=== PATIENT | male | born 1940 | race Caucasian/White ===

== ENCOUNTER → 2016-06-16 | Outpatient (CLI) | payer MEDICARE, OTHER ==
[~2016-06-16] MED LIST: ASPI-586 PO; BACL20TA PO; CARB1TAB6 PO; CATHETER FLUSH 10 ML SYR IV PRN; HYDR-3820 PO; OMEP20TA33 PO; PRD20T PO; SIMV40TA4 PO; TAMS0.4C98 PO
[2016-06-16 13:30] VITALS: BP 183/81
[2016-06-16 13:40] VITALS: BP 205/72
[2016-06-16 13:45] VITALS: BP 209/87
[2016-06-16 13:47] VITALS: BP 187/84
[2016-06-16 13:49] VITALS: BP 169/77
[2016-06-16 13:51] VITALS: BP 181/81
--- NOTE | 2016-06-17 07:38 | STRESS TEST ---
PROCEDURE PHYSICIAN: ADDY FORD DATE OF PROCEDURE: 06/16/2016 LEXISCAN MYOVIEW STRESS TEST REPORT: REFERRING PHYSICIAN: Dr. Luanne Garcia at neurology. INDICATION: 1. Dyspnea. 2. Hypertension. BASELINE HEART RATE: 100 BASELINE BLOOD PRESSURE: 152/80 BASELINE EKG: Sinus rhythm with artifact. IN SUMMARY: The patient was injected with 10.56 mCi of technetium 99 Myoview and the resting images were obtained. Then the patient started exercising with a baseline heart rate, blood pressure and EKG mentioned above. At minute 6 and 30 seconds, the patient was injected with 30.6 mCi of technetium 99 Myoview. He was able to finish a total 7 minutes, 30 seconds on standard Josep protocol. With peak exercise level, EKG was showing [address] depression in 2, 3, aVF, occasional PVCs were noted. Blood pressure was 188/77. During recovery, he had more pronounced ST depression, still slightly upsloping in 2, 3, aVF, V3, V4, V5 and V6. Blood pressure was 209/87. At the end of the test, EKG started returning to baseline. The resting and stress images were reviewed and compared in the short axis, horizontal long axis, and vertical long axis views. Review of the images showed diaphragmatic attenuation with typical male pattern. There was no significant ischemia or infarction on SPECT images. SSS is 4, SDS 4, TID value 0.93. On the gated images, the left ventricle appeared to be normal size with normal contractility. Calculated ejection fraction 62%. IN CONCLUSION: 1. Good exercise tolerance a total 7 minutes, 30 seconds on standard on standard Josep protocol. Total of 10.1 METs, achieving over 100% of maximum expected heart rate. 2. Severe hypertensive response to exercise. Returned to baseline during recovery. 3. Nondiagnostic EKG changes with exercise, persisted during recovery with occasional PVCs. 4. Diaphragmatic attenuation with no significant ischemia or infarction on SPECT images. 5. Normal left ventricular size with normal contractility. Calculated ejection fraction 62%. Job ID: [id number] Dictated Date: 06/16/2016 15:51:33 Hospitality Director Date: 06/17/2016 07:32:49 / jeremias
== END ==
LOC: CARD 12:22
PROVIDERS: ATTEND Internal Medicine Cardiovascular Disease
DX: I10 Essential (primary) hypertension (principal); E78.2 Mixed hyperlipidemia; G47.33 Obstructive sleep apnea (adult) (pediatric); E66.9 Obesity, unspecified; G20 Parkinson's disease; R94.31 Abnormal electrocardiogram [ECG] [EKG]
CPT/HCPCS: 78452; 93017

== ENCOUNTER → 2016-07-28 | Outpatient (CLI) | payer MEDICARE, OTHER ==
[~2016-07-28] MED LIST changes: -CATHETER FLUSH 10 ML SYR IV PRN
[2016-07-28 09:02] LABS: BASOPHILS % (AUTO) 0 % (0-10); EOSINOPHILS # (AUTO) 0.2 10^3/uL (0.0-0.3); EOSINOPHILS % (AUTO) 4 % (0-10); LYMPHOCYTES # (AUTO) 1.1 X 10^3 (1.0-4.0); LYMPHOCYTES % (AUTO) 20 % (12-44); MEAN CORPUSCULAR HEMOGLOBIN 31 PG (25-34); MEAN CORPUSCULAR HGB CONC 34 G/DL (32-36); MEAN CORPUSCULAR VOLUME 89 FL (80-99); MEAN PLATELET VOLUME 9.6 FL (7.4-10.4); MONOCYTES # (AUTO) 0.5 X 10^3 (0.0-1.0); MONOCYTES % (AUTO) 10 % (0-12); NEUTROPHILS # (AUTO) 3.6 X 10^3 (1.8-7.8); NEUTROPHILS % (AUTO) 66 % (42-75); PLATELET COUNT 314 10^3/uL (130-400); RED BLOOD COUNT 4.53 10^6/uL (4.35-5.85); RED CELL DISTRIBUTION WIDTH 12.7 % (10.0-14.5); WHITE BLOOD COUNT 5.4 10^3/uL (4.3-11.0)
[2016-07-28 09:20] LABS: ALANINE AMINOTRANSFERASE 20 U/L (0-55); ALBUMIN 4.3 G/DL (3.2-4.5); ANION GAP 11 MMOL/L (5-14); ASPARTATE AMINO TRANSFERASE 15 U/L (5-34); BILIRUBIN,TOTAL 0.5 MG/DL (0.1-1.0); BLOOD UREA NITROGEN 14 MG/DL (7-18); BUN/CREATININE RATIO 19; CALCIUM 9.4 MG/DL (8.5-10.1); CARBON DIOXIDE 29 MMOL/L (21-32); CHLORIDE 102 MMOL/L (98-107); CREATININE SERUM 0.72 MG/DL (0.60-1.30); GFR ESTIMATED > 60; GLUCOSE 106 MG/DL (70-105); POTASSIUM 3.1 MMOL/L (3.6-5.0); SODIUM 142 MMOL/L (135-145); TOTAL PROTEIN 6.7 G/DL (6.4-8.2)
--- NOTE | 2016-07-28 09:20 | Diagnostic Imaging Report ---
INDICATION: PARKINSONS DISEASE TREMOR,STIFFNESS,SLOW MOTION,UNSTABLE POSTURE COMPARISON: 01/13/2016. FINDINGS: Frontal and lateral views of the chest demonstrate normal heart size and pulmonary vascularity. There is aortic atherosclerosis. The lungs are clear. There are no signs of infiltrate, pleural effusions or pneumothoraces. The visualized osseous structures show no acute abnormalities. IMPRESSION: 1. No acute process. No signs of infiltrates, effusions or pneumothoraces. Dictated by: Dictated on workstation # [id number]
== END ==
LOC: RAD 08:17
PROVIDERS: ATTEND Family Medicine
DX: G20 Parkinson's disease (principal)
CPT/HCPCS: 36415; 71020; 80053; 85025

== ENCOUNTER → 2017-02-18 | Outpatient (CLI) | payer OTHER ==
--- NOTE | 2017-02-18 11:39 | Diagnostic Imaging Report ---
Two views of the right tibia and fibula. INDICATION: Fall. FINDINGS: No fracture, dislocation or radiopaque foreign body is seen. The proximal and distal joints appear grossly unremarkable. IMPRESSION: No fracture seen. Dictated by: Dictated on workstation # [id number]
--- NOTE | 2017-02-18 12:32 | Diagnostic Imaging Report ---
EXAMINATION: Three views of the right foot. INDICATION: Fall. FINDINGS: Degenerative changes at the tarsometatarsal joint level are seen with no displacement. There are also sclerotic changes at these joints noted. This could be related to an old injury. There is a circumscribed lucency measuring 4 mm in the proximal phalanx of the third digit shaft. No adjacent cortical erosion. Vascular calcifications are seen. IMPRESSION: 1. No fracture seen. 2. Prominent degenerative changes at the tarsometatarsal joint level could relate to old injury. 3. Circumscribed lucency within the mid shaft of the proximal phalanx in the third toe could be an intraosseous cyst. Dictated by: Dictated on workstation # [id number]
== END ==
LOC: RAD 09:19
PROVIDERS: ATTEND Family Medicine
DX: M79.661 Pain in right lower leg (principal); M79.671 Pain in right foot; M19.071 Primary osteoarthritis, right ankle and foot; W19.XXXA Unspecified fall, initial encounter
CPT/HCPCS: 73590; 73630

== ENCOUNTER 2017-02-23 10:00 | Outpatient (CLI) | payer MEDICARE, OTHER ==
[~2017-02-23] VITALS: Ht 170.2 cm; Wt 97.3 kg
[2017-02-23 10:43] VITALS: BP 111/64
[2017-02-23 11:17] LABS: BASOPHILS % (AUTO) 1 % (0-10); EOSINOPHILS # (AUTO) 0.3 10^3/uL (0.0-0.3); EOSINOPHILS % (AUTO) 5 % (0-10); LYMPHOCYTES # (AUTO) 1.1 X 10^3 (1.0-4.0); LYMPHOCYTES % (AUTO) 19 % (12-44); MEAN CORPUSCULAR HEMOGLOBIN 29 PG (25-34); MEAN CORPUSCULAR HGB CONC 34 G/DL (32-36); MEAN CORPUSCULAR VOLUME 86 FL (80-99); MEAN PLATELET VOLUME 9.9 FL (7.4-10.4); MONOCYTES # (AUTO) 0.7 X 10^3 (0.0-1.0); MONOCYTES % (AUTO) 11 % (0-12); NEUTROPHILS # (AUTO) 3.7 X 10^3 (1.8-7.8); NEUTROPHILS % (AUTO) 65 % (42-75); PLATELET COUNT 317 10^3/uL (130-400); RED BLOOD COUNT 4.51 10^6/uL (4.35-5.85); RED CELL DISTRIBUTION WIDTH 14.3 % (10.0-14.5); WHITE BLOOD COUNT 5.7 10^3/uL (4.3-11.0)
[2017-02-23 11:41] LABS: ANION GAP 9 MMOL/L (5-14); BLOOD UREA NITROGEN 18 MG/DL (7-18); BUN/CREATININE RATIO 25; CALCIUM 9.2 MG/DL (8.5-10.1); CARBON DIOXIDE 31 MMOL/L (21-32); CHLORIDE 99 MMOL/L (98-107); CREATININE SERUM 0.71 MG/DL (0.60-1.30); GFR ESTIMATED > 60; GLUCOSE 102 MG/DL (70-105); POTASSIUM 3.3 MMOL/L (3.6-5.0); SODIUM 139 MMOL/L (135-145)
[2017-02-23] MEDS ORDERED: CHOL5000 PO (11:55)
[2017-02-23] MEDS ORDERED: SIMV40TA4 PO (11:55)
[2017-02-23] MEDS ORDERED: LISI40TA PO (11:55)
[2017-02-23] MEDS ORDERED: AMLO10TA2 PO (11:55)
[2017-02-23] MEDS ORDERED: FLUT9.9S NS (11:55)
[2017-02-23] MEDS ORDERED: FURO20TA4 PO (11:55)
[2017-02-23] MEDS ORDERED: HYDR25TA4 PO (11:55)
[2017-02-23] MEDS ORDERED: MULT-351 PO (11:55)
[2017-02-23] MEDS ORDERED: ESCI5TAB12 PO (11:55)
[2017-02-23] MEDS ORDERED: FINA5TAB6 PO (11:55)
[2017-02-23] MEDS ORDERED: PROP80TA3 PO (11:55)
== END 2017-02-23 16:12 | disposition home or self-care (01) ==
LOC: PREOP 10:00
PROVIDERS: ATTEND Urology
DX: Z01.812 Encounter for preprocedural laboratory examination (principal); Z11.2 Encounter for screening for other bacterial diseases; N40.1 Benign prostatic hyperplasia with lower urinary tract symptoms; R33.8 Other retention of urine
CPT/HCPCS: 36415; 80048; 85025; 86850; 86900; 86901; 87081

== ENCOUNTER 2017-02-28 06:10 | Day surgery (SDC) | payer MEDICARE, OTHER ==
[~2017-02-28] VITALS: Ht 170.2 cm; Wt 97.3 kg
[~2017-02-28 06:10] MED LIST changes: +AMLO10TA2 PO; +CHOL5000 PO; +ESCI5TAB12 PO; +FINA5TAB6 PO; +FLUT9.9S NS; +FURO20TA4 PO; +HYDR25TA4 PO; +LISI40TA PO; +MULT-351 PO; +PROP80TA3 PO
[2017-02-28 06:15] VITALS: BP 148/68
--- OUTSIDE RECORDS SUMMARY | 2017-02-28 06:25 | XMS REPORT | Continuity of Care Document ---
Author Author [employer] Organization [facility] Address Unknown Phone Unavailable Care Team Providers Care Try Out Person Name Role Phone [employer] Unavailable Unavailable Problems Medications Allergies, Adverse Reactions, Alerts Immunizations Results Vital Signs Encounters Location Location Details Encounter Type Encounter Number Reason For Visit Attending Provider ADM Date DC Date Status Source OUTPATIENT [id number] YOUSIF MORENO 08/30/20162016 Active [facility] OUTPATIENT [id number] EARL MENDOZA 11/18/2016 11/18/2016 Active [facility] O 12/02/2016 Active [facility] OUTPATIENT [id number] EARL MENDOZA 12/02/2016 Active [facility] OUTPATIENT [id number] 12/13/2016 Active [facility] OUTPATIENT [id number] 03/21/2017 Active [facility] OUTPATIENT [id number] 03/22/2017 Active [facility] OUTPATIENT [id number] 09/05/2017 Active [facility] OUTPATIENT [id number] 09/06/2017 Active [facility] Procedures Plan of Care Social History Assessment and Plan Family History Value Date Source Advance Directives Order Name Results Value Date Source
--- OUTSIDE RECORDS SUMMARY | 2017-02-28 06:26 | XMS REPORT | Clinical Summary ---
Author Author [facility] Organization [facility] Address Unknown Phone Unavailable Care Team Providers Care Cna Ltc Name Role Phone PCP Unavailable Source Comments Some departments are not documenting in the electronic medical record. If you do not see the information that you expected, contact Release of Information in the Health Information Management department at [phone] for further assistance in locating additional records.[facility] Allergies No Known Allergies Current Medications Prescription Sig. Disp. Refills Start End Date Status Date tamsulosin (FLOMAX) 0.4 Take 0.4 mg by mouth Active mg capsule twice daily. omeprazole DR(+) Take 20 mg by mouth at Active (PRILOSEC) 20 mg capsule bedtime daily. lisinopril (PRINIVIL, Take 20 mg by mouth Active ZESTRIL) 40 mg tablet daily. amLODIPine (NORVASC) 10 Take 10 mg by mouth Active mg tablet daily. hydroCHLOROthiazide Take 25 mg by mouth Active (HYDRODIURIL) 25 mg daily. tablet finasteride (PROSCAR) 5 Take 5 mg by mouth daily. Active mg tablet fluticasone (FLONASE) 50 Apply 1 [place] to each Active mcg/actuation nasal spray nostril as directed at bedtime daily. Shake bottle gently before using. aspirin EC 81 mg tablet Take 1 Tab by mouth 90 Tab 3 10/17/19 Active daily. Do not resume [address] Voss MULTIVITAMIN PO Take 1 tablet by mouth Active daily. Ibuprofen-Diphenhydramine Take 2 tablets by mouth Active (ADVIL PM) 200-38 mg tab at bedtime daily. simvastatin (ZOCOR) 40 mg Take 40 mg by mouth at Active tablet bedtime daily. Take 0.5 tabs at bedtime escitalopram oxalate Take 1 tablet by mouth 90 tablet 3 12/14/19 Active (LEXAPRO) 20 mg daily. 17 tabletIndications: Other depression propranolol LA (INDERAL TAKE ONE CAPSULE BY MOUTH 90 capsule 3 Active LA) 80 mg capsule DAILY 17 Active Problems Problem Noted Date Wound infection complicating hardware (HCC) 07/01/2016 Depression 06/12/2016 Overview: 06/12/2016 On Lexapro (escitalopram) L ast Assessment & Plan: He c/o of increased anxiety and I recommended increasing Lexapro (escitalopram) 20 mg daily. Side effects were discussed with the patient and he was given a list of common side effects. Urinary retention 02/25/2016 Parkinson's disease (HCC) 02/19/2016 Hypertension 02/18/2016 Mixed hyperlipidemia 02/18/2016 Parkinson disease with Left Brain STN implant (A) 08/25/2015 Overview: Formatting of this note may be different from the original. Symptoms began in 2014, initial symptoms was right hand tremor. Diagnosed with Parkinson's disease in 2015. Atypical PD Features: None No improvement with Sinemet (carbidopa/levodopa) 25/100, Topamax (topiramate), benztropine and Inderal (propranolol) 08/25/2015 Total Mentation Score: 2 Total Activities of Daily Living Score: 8 Total Motor Exam: 16 Total UPDRS Score: 26 PDQ Total Percent: 14.1 % 12/16/2015 PDQ Total Percent: 32.05 % Pre-DBS evaluation - Off state. Upon review of past notes, he has tried Sinemet, had some benefit, but could not tolerate above 2 tabs TID. Total Mentation Score: 4 Total Activities of Daily Living Score: 9 Total Motor Exam: 22 Total UPDRS Score: 35 PDQ Total Percent: 32.05 % 12/19/2015 Total Mentation Score: 4 Total Activities of Daily Living Score: 7 Total Motor Exam: 20 Total UPDRS Score: 31 Mobility Gait Evaluation: With Sinemet (carbidopa/levodopa) 25/100 his gait speed improved, deep reduced, stride length was reduced, arm swing velocity improved and range of movement improved, sagittal and coronal sway was increased. 06/12/2016 PDQ8 Total %: 16 Marked improvement with Deep Brain Stimulation. Abott Device Personal KinetiGraph (PKG) Movement Recording: Bradykinesia: 23.8 Dyskinesia: 1.9 FDS: 8.6 12/13/2016 PDQ8 Total %: 3 Stimulator Settings: LEFT BRAIN/ RIGHT BODY Amplitude: 2.8 mA Pulse Width: 60 micro secs Rate: 130 pps Load Impedance: 1087 ohms Leads: 1 Off,2 Off,3 -,4 Off, Case + Battery: 3 years 1 months L ast Assessment & Plan: His symptoms are improved since last visit and no medication changes were recommended during the current visit. Patient was referred to the programming nurse to have IPG checked and reprogrammed. Patient was referred for Physical Therapy. Encounters Date Type Specialty Care Team Description 12/28/2016 Refill Neurology Shai Bernard MD 12/13/2016 [facility] Shai Bernard MD Encounter Joana Trinidad RN 12/13/2016 Office Visit Neurology Shai Bernard MD Parkinson disease with Left Brain STN implant (A) (Primary Dx);Other depression 12/13/2016 Orders Only Neurology Shai Bernard MD 12/02/2016 [facility] Shai Bernard MD Encounter Joana Trinidad RN 12/02/2016 Orders Only Neurology Shai Bernard MD from Last 3 Months Family History Medical History Relation Name Comments Cancer Brother Cancer Father Diabetes Father Stroke Father Tremor Father Diabetes Mother Parkinson's Neg Hx Relation Name Status Comments Brother Father Mother Social History Tobacco Use Types Packs/Day Years Used Date Former Smoker Cigarettes 0.5 2 Quit: 02/17/1970 Smokeless Tobacco: Never Used Alcohol Use Drinks/Week oz/Week Comments Yes 7 Glasses of 4.2 glass of wine every evening wine Sex Assigned at Date Recorded Not on file Last Filed Vital Signs Vital Sign Reading Time Taken Blood Pressure 140/77 12/13/2016 10:42 AM CDT Pulse 62 12/13/2016 10:42 AM CDT Temperature 36.6 C (97.9 F) 10/16/2016 2:15 PM CDT Respiratory Rate 16 06/22/2016 8:57 AM CDT Oxygen Saturation 96% 10/16/2016 2:15 PM CDT Inhaled Oxygen - - Concentration Weight 94 kg (207 lb 3.7 oz) 12/13/2016 10:39 AM CDT Height 164.5 cm (5' 4.75") 12/13/2016 10:39 AM CDT Body Mass Index 34.75 12/13/2016 10:39 AM CDT Plan of Treatment Health Maintenance Due Date Last Done Comments PHYSICAL (COMPREHENSIVE) 1947 EXAM PERTUSSIS VACCINE 1951 TETANUS VACCINE 1957 SHINGLES VACCINE 2000 PREVNAR/PNEUMOVAX (#1) 2005 INFLUENZA VACCINE 10/12/2016 Implants Implanted Type Area Lead Generation Marketing Manager Device Expiration Model / Identifier Date Serial / Lot Guardian Burrr Hole Cover Left: [employer] 05/20/2018 6010 / Implanted: Qty: 1 on 08/05/2016 by Skull [id number] / Denton Voss MD [id number] Lead Kit 8-Ch 40cm Black Left: [employer] 02/08/2018 6172 / Implanted: Qty: 1 on 08/05/2016 by Brain [id number] / Denton Voss MD [id number] Extension With Extend Technology Left: [employer] 08/02/2018 [id number] / 50cm - [id number] Chest [id number] / Implanted: Qty: 1 on 10/16/2016 by [id number] Denton Voss MD Infinity 7 Ipg Generator - Left: [employer] 01/20/2018 [id number] / [id number] Chest [id number] / Implanted: Qty: 1 on 10/16/2016 by [id number] Denton Voss MD Explanted Type Area Lead Generation Marketing Manager Device Expiration Model / Identifier Date Serial / Lot Lead Kit 8-Ch 40cm Black Left: [employer] 10/28/2017 6172 / Implanted: Qty: 1 on 02/19/2016 by Brain [id number] / Denton Voss MD [id number] Explanted: Qty: 1 on 06/30/2016 by Denton Voss MD Guardian Burrr Hole Cover Left: [employer] 01/08/2018 6010 / Implanted: Qty: 1 on 02/19/2016 by Jens [id number] / Denton Voss MD [id number] Explanted: Qty: 1 on 06/30/2016 by Denton Voss MD Infinity Dbs System Left: Neck [facility] [employer] 11/25/2017 6371 / Implanted: Qty: 1 on 02/25/2016 by [id number] / Denton Voss MD [id number] Explanted: Qty: 1 on 06/30/2016 by Denton Voss MD Infinity 7 Left: [employer] 09/30/2017 6662 / Implanted: Qty: 1 on 02/25/2016 by Chest [id number] / Denton Voss MD [id number] Explanted: Qty: 1 on 06/30/2016 by Denton Voss MD Procedures Procedure Name Priority Date/Time Associated Diagnosis Comments PROGRAM DBS DEVICE(S) Routine 12/13/2016 12:00 AM CDT PROGRAM DBS DEVICE(S) Routine 12/02/2016 12:00 AM CDT from Last 3 Months Results * PROGRAM DBS DEVICE(S) (12/13/2016) Specimen Performing Laboratory IN CLINIC * PROGRAM DBS DEVICE(S) (12/02/2016) Specimen Performing Laboratory IN CLINIC from Last 3 Months
--- OUTSIDE RECORDS SUMMARY | 2017-02-28 06:26 | XMS REPORT | Encounter Summary ---
Author Author [facility] Organization [facility] Address Unknown Phone Unavailable Care Team Providers Care Potato Peeling Machine Operator Name Role Phone PCP Unavailable Encounter Details Date Type Department Care Team Description 12/13/2016 Orders Only [facility] Shai Bernard MD Physicians-Neurology [address] [facility] [address] [place] [address] [place], [place] [phone] Social History Tobacco Use Types Packs/Day Years Used Date Former Smoker Cigarettes 0.5 2 Quit: 02/17/1970 Smokeless Tobacco: Never Used Alcohol Use Drinks/Week oz/Week Comments Yes 7 Glasses of 4.2 glass of wine every evening wine Sex Assigned at Date Recorded Not on file as of this encounter Functional Status Functional Status Response Date of Assessment Does the patient have a hearing impairment: Yes 12/13/2016 Does the patient have a visual impairment: Yes 06/09/2016 Does the patient have impaired ambulation: No 12/13/2016 Does the patient have an activity of daily living No 12/13/2016 (ADL) impairment: Does the patient have an instrumental activity of Yes 12/13/2016 daily living (IADL) impairment: Cognitive Status Response Date of Assessment Does the patient have a cognitive impairment: No 12/13/2016 as of this encounter Plan of Treatment Not on fileas of this encounter Procedures Procedure Name Priority Date/Time Associated Diagnosis Comments PROGRAM DBS DEVICE(S) Routine 12/13/2016 12:00 AM CDT in this encounter Visit Diagnoses Not on filein this encounter
--- OUTSIDE RECORDS SUMMARY | 2017-02-28 06:26 | XMS REPORT | Encounter Summary ---
Author Author [facility] Organization [facility] Address Unknown Phone Unavailable Care Team Providers Care Sales Representative Leather Goods Name Role Phone PCP Unavailable Reason for Visit * Reason Comments Medication Refill Encounter Details Date Type Department Care Team Description 12/28/2016 Refill [facility] Shai Bernard MD - Neurology [address] [place] [address] [place] [address] [phone] Social History Tobacco Use Types Packs/Day Years [...] Treatment Not on fileas of this encounter Visit Diagnoses Not on filein this encounter
--- OUTSIDE RECORDS SUMMARY | 2017-02-28 06:26 | XMS REPORT | Encounter Summary ---
Author Author [facility] Organization [facility] Address Unknown Phone Unavailable Care Team Providers Care Child Adolescent Care Name Role Phone PCP Unavailable Encounter Details Date Type Department Care Team Description 12/13/2016 Hospital MOVEMENT DISORDERS Shai Bernard MD [facility] [address] [facility] [address] [facility] [place] [place] [address] [address] [place] [address] [phone] B Joana rodriguez RN Social History Tobacco Use Types Packs/Day Years [...] impairment: No 12/13/2016 as of this encounter Medications at Time of Discharge Medication Sig. Disp. Refills Start Date End Date amLODIPine (NORVASC) 10 Take 10 mg by mouth mg tablet daily. aspirin EC 81 mg tablet Take 1 Tab by mouth 90 Tab 3 10/16/2016 daily. Do not resume until okayed by Dr. Voss escitalopram oxalate Take 1 tablet by mouth 90 tablet 3 12/13/2016 (LEXAPRO) 20 mg daily. tabletIndications: Other depression finasteride (PROSCAR) 5 Take 5 mg by mouth daily. mg tablet fluticasone (FLONASE) 50 Apply 1 [place] to each mcg/actuation nasal spray nostril as directed at bedtime daily. Shake bottle gently before using. hydroCHLOROthiazide Take 25 mg by mouth (HYDRODIURIL) 25 mg daily. tablet Ibuprofen-Diphenhydramine Take 2 tablets by mouth (ADVIL PM) 200-38 mg tab at bedtime daily. lisinopril (PRINIVIL, Take 20 mg by mouth ZESTRIL) 40 mg tablet daily. MULTIVITAMIN PO Take 1 tablet by mouth daily. omeprazole DR(+) Take 20 mg by mouth at (PRILOSEC) 20 mg capsule bedtime daily. simvastatin (ZOCOR) 40 mg Take 40 mg by mouth at tablet bedtime daily. Take 0.5 tabs at bedtime tamsulosin (FLOMAX) 0.4 Take 0.4 mg by mouth mg capsule twice daily. propranolol LA (INDERAL Take 1 Cap by mouth 90 Cap 3 12/17/2015 LA) 80 mg capsule daily. as of this encounter Progress Notes * Joana Trinidad RN - 12/13/2016 3:40 PM CDT Patient here for 1st three month STN/DBS programming and appointment with cnc operator programmer and Dr. Bernard. in this encounter Miscellaneous Notes * Patient Education - Jonaa Trinidad RN - 12/13/2016 3:39 PM CDT Formatting of this note may be different from the original. Patient Caregiver Education: Department Contacts/phone numbers: Yes Safety for diathermy: No Patient resources: Yes Diagnostics: Yes Medical alert identification: No Exercise: Yes Hardware maintenance/problems: Yes Dental care: No Diet: Yes Patient cnc operator programmer education: On/off status: Yes Self Adjustments: Yes Battery status: Yes Educational Goals/Outcomes; Patient/Family will verbalize understanding to the following: Yes/No Comments Disease Process Yes Diagnostic Procedures Yes Treatment Plan Yes Medications Yes Nutrition/Diet Yes Personal Hygiene No Side Effect Management Yes Medical Equipment Yes Safety Yes Discharge Instructions Yes Other in this encounter Plan of Treatment Not on fileas of this encounter Visit Diagnoses Diagnosis Parkinson's disease (HCC) Paralysis agitans Parkinson disease (HCC) Paralysis agitans in this encounter
--- OUTSIDE RECORDS SUMMARY | 2017-02-28 06:26 | XMS REPORT | Encounter Summary ---
Author Author [facility] Organization [facility] Address Unknown Phone Unavailable Care Team Providers Care Biology Intern Name Role Phone PCP Unavailable Reason for Referral * Consult, Test & Treat Status Reason Specialty Diagnoses / Referred By Referred To Procedures Contact Contact No Auth Needed Specialty Physical Therapy Diagnoses Shai Bernard, ERIC [facility] Parkinson THERAPY [facility] (H[facility]) [address] [place] [address] [place] [id number] Phone: Reason for Visit * Reason Comments Parkinson's Disease accompanied by Encounter Details Date Type Department Care Team Description 12/13/2016 Office Visit [facility] Shai Bernard MD Parkinson disease with Physicians-Neurology [address] [facility] Left Brain STN implant [facility] [address] (A) (Primary Dx);Other [address] [place] [address] depression [place], [place] [phone] Social History Tobacco Use Types Packs/Day Years Used Date Former Smoker Cigarettes 0.5 2 Quit: 02/17/1970 Smokeless Tobacco: Never Used Alcohol Use Drinks/Week oz/Week Comments Yes 7 Glasses of 4.2 glass of wine every evening wine Sex Assigned at Date Recorded Not on file as of this encounter Last Filed Vital Signs Vital Sign Reading Time Taken Blood Pressure 140/77 12/13/2016 10:42 AM CDT Pulse 62 12/13/2016 10:42 AM CDT Temperature - - Respiratory Rate - - Oxygen Saturation - - Inhaled Oxygen - - Concentration Weight 94 kg (207 lb 3.7 oz) 12/13/2016 10:39 AM CDT Height 164.5 cm (5' 4.75") 12/13/2016 10:39 AM CDT Body Mass Index 34.75 12/13/2016 10:39 AM CDT in this encounter Functional Status Functional Status Response [...] impairment: No 12/13/2016 as of this encounter Instructions * Patient Instructions - Shai Bernard MD - 12/13/2016 10:45 AM CDT Increase Lexapro (escitalopram) 20 mg daily Common Side Effects As with all medications, there are potential side effects that may occur. Common side effects include nausea, dry mouth, constipation, dizziness, headache , diarrhea, insomnia, increased appetite, decreased sex drive, ejaculation difficulty, and impotency. Very rarely in patients usually younger than 24 years of age, increased suicidal thinking and behavior has been reported. Remember to call [phone] if you have any questions or side effects. in this encounter Progress Notes * Shai Bernard MD - 12/13/2016 10:45 AM CDT Formatting of this note may be different from the original. Date of Service: 12/13/2016 Subjective: Tai Weber is a 76 y.o. male. History of Present Illness Parkinson's Disease Follow-Up Visit Since my last visit I am: Much better Symptoms Scale: Memory problems: Slight, not bothersome Hallucinations/delusions: None Depression: Slight, not bothersome Anxiety: Slight, not bothersome Apathy: None Impulsive behavior: Slight, urges under control Nighttime sleep: Mild, wake up to go to bathroom Daytime sleepiness: Slight, occasionally Vivid dreams: None REM sleep behavior disorder: None Restless leg syndrome: None Pain or muscle cramps: Mild, muscle or joint pain need medications Urination: Moderate, occasional accidents Constipation: Slight, occasionally Dizziness or lightheadedness: None Tiredness/Fatigue: Slight, reduced stamina Falling: Slight, rarely during the year Personal care assistance: Slight, I take care of myself, but several activities take me longer to complete Total Score: Total Score: 16 Assistive Devices: Assistive devices for getting around: None OFF Time: OFF time: No Dyskinesia: Dyskinesia while awake: No Employment Status: Employment: Retired - not due to PD Review of Systems Gastrointestinal: Positive for constipation and diarrhea. Negative for abdominal distention, abdominal pain, anal bleeding, blood in stool, nausea, rectal pain and vomiting. Genitourinary: Positive for decreased urine volume, enuresis, flank pain and frequency. Negative for difficulty urinating, discharge, dysuria, genital sores , hematuria, penile pain, penile swelling, scrotal swelling, testicular pain and urgency. Objective: amLODIPine (NORVASC) 10 mg tablet Take 10 mg by mouth daily. aspirin EC 81 mg tablet Take 1 Tab by mouth daily. Do not resume until okayed by Dr. Voss escitalopram oxalate (LEXAPRO) 20 mg tablet Take 1 tablet by mouth daily. finasteride (PROSCAR) 5 mg tablet Take 5 mg by mouth daily. fluticasone (FLONASE) 50 mcg/actuation nasal spray Apply 1 [place] to each nostril as directed at bedtime daily. Shake bottle gently before using. hydroCHLOROthiazide (HYDRODIURIL) 25 mg tablet Take 25 mg by mouth daily. Ibuprofen-Diphenhydramine (ADVIL PM) 200-38 mg tab Take 2 tablets by mouth at bedtime daily. lisinopril (PRINIVIL, ZESTRIL) 40 mg tablet Take 20 mg by mouth daily. MULTIVITAMIN PO Take 1 tablet by mouth daily. omeprazole DR(+) (PRILOSEC) 20 mg capsule Take 20 mg by mouth at bedtime daily. propranolol LA (INDERAL LA) 80 mg capsule Take 1 Cap by mouth daily. simvastatin (ZOCOR) 40 mg tablet Take 40 mg by mouth at bedtime daily. Take 0.5 tabs at bedtime tamsulosin (FLOMAX) 0.4 mg capsule Take 0.4 mg by mouth twice daily. Vitals: 12/13/16 1039 12/13/16 1042 BP: 149/70 140/77 Pulse: 56 62 Weight: 94 kg (207 lb 3.7 oz) Height: 164.5 cm (64.75") Body mass index is 34.75 kg/(m^2). Physical Exam EXAMINATION: ORIENTATION: Alert and Oriented. Cranial Nerves: II-XII Unremarkable Right Left [place]inesia Mild None Tremor Hands Resting None None Postural None None Kinetic None None Tremor Other: None Dyskinesia: None Muscle Strength: Unremarkable Gait: Independent with minor impairment PDQ8 - Quality of Life Had difficulty getting around in public places?: Never Had difficulty dressing?: Never [place] depressed?: Never Had problems with your close personal relationships?: Occasionally Had problems with your concentration, for example, when reading or watching TV? : Never [place] unable to communicate effectively?: Never Had painful muscle cramps or spasms?: Never [place] embarrassed in public due to having Parkinson's disease?: Never PDQ8 Total Score (32 Possible): 1 PDQ8 Total %: 3 Assessment and Plan: Problem Parkinson disease with Left Brain STN implant (A) Symptoms began in 2014, initial symptoms was [...] Case + Battery: 3 years 1 months Depression 06/12/2016 On Lexapro (escitalopram) Parkinson disease with Left Brain STN implant (A) His symptoms are improved since last visit and no medication changes were recommended during the current visit. Patient was referred to the programming nurse to have IPG checked and reprogrammed. Patient was referred for Physical Therapy. Depression He c/o of increased anxiety and I recommended increasing Lexapro (escitalopram) 20 mg daily. Side effects were discussed with the patient and he was given a list of common side effects. Patient will follow up in approximately 3 months. in this encounter Miscellaneous Notes * Assessment & Plan Note - Shai Bernard MD - 12/13/2016 7:53 PM CDT Associated Problem(s): Depression He c/o of increased anxiety and I recommended increasing Lexapro (escitalopram) 20 mg daily. Side effects were discussed with the patient and he was given a list of common side effects. * Assessment & Plan Note - Shai Bernard MD - 12/13/2016 7:52 PM CDT Associated Problem(s): Parkinson disease with Left Brain STN implant (A) His symptoms are improved since last visit and no medication changes were recommended during the current visit. Patient was referred to the programming nurse to have IPG checked and reprogrammed. Patient was referred for Physical Therapy. in this encounter Plan of Treatment Name Priority Associated Diagnoses Order Schedule AMB REFERRAL TO PHYSICAL THERAPY Routine Parkinson disease with Ordered : 12/13/2016 Left Brain STN implant (A) as of this encounter Visit Diagnoses Diagnosis Parkinson disease with Left Brain STN implant (A) - Primary Paralysis agitans Other depression in this encounter
--- OUTSIDE RECORDS SUMMARY | 2017-02-28 06:26 | XMS REPORT | Encounter Summary ---
Author Author [facility] Organization [facility] Address Unknown Phone Unavailable Care Team Providers Care Circular Head Saw Operator Name Role Phone PCP Unavailable Encounter Details Date Type Department Care Team Description 12/02/2016 Hospital MOVEMENT DISORDERS Shai Bernard MD Encounter [address] [facility] [address] [facility] [place] [address] [address] [place] [address] [phone] B Joana rodriguez RN Social History Tobacco [...] the patient have a hearing impairment: Yes 08/05/2016 Does the patient have a visual impairment: Yes 06/09/2016 Does the patient have impaired ambulation: No 06/09/2016 Does the patient have an activity of daily living Yes 06/09/2016 (ADL) impairment: Does the patient have an instrumental activity of Yes 06/09/2016 daily living (IADL) impairment: Cognitive Status Response Date of Assessment Does the patient have a cognitive impairment: No 06/09/2016 as of this encounter Medications at Time of Discharge Medication Sig. Disp. Refills Start Date End Date amLODIPine (NORVASC) 10 Take 10 mg by mouth mg tablet daily. aspirin EC 81 mg tablet Take 1 Tab by mouth 90 Tab 3 10/16/2016 daily. Do not resume until okayed by Dr. Voss finasteride (PROSCAR) 5 Take 5 mg by mouth daily. mg tablet fluticasone (FLONASE) 50 Apply 1 [place] to each mcg/actuation nasal spray nostril as [...] at (PRILOSEC) 20 mg capsule bedtime daily. tamsulosin (FLOMAX) 0.4 Take 0.4 mg by mouth mg capsule twice daily. escitalopram oxalate TAKE ONE TABLET BY MOUTH 30 Tab 11 10/12/2016 12/13/2016 (LEXAPRO) 10 mg tablet DAILY propranolol LA (INDERAL Take 1 Cap by mouth 90 Cap 3 12/17/2015 LA) 80 mg capsule daily. simvastatin (ZOCOR) 80 mg Take 40 mg by mouth at 12/13/2016 tablet bedtime daily. as of this encounter Progress Notes * Joana Trinidad RN - 12/02/2016 2:00 PM CDT Patient here for day two of initial programming of deep brain stimulator for Parkinson's Disease. in this encounter Miscellaneous Notes * Patient Education - Joana Trinidad RN - 12/02/2016 1:30 PM CDT Formatting of this note may be different from the original. 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
--- OUTSIDE RECORDS SUMMARY | 2017-02-28 06:26 | XMS REPORT | Encounter Summary ---
Author Author [facility] Organization [facility] Address Unknown Phone Unavailable Care Team Providers Care Trigonometry Tutor Name Role Phone PCP Unavailable Encounter Details Date Type Department Care Team Description 12/02/[address] [facility] Shai Bernard MD Physicians-Neurology [address] [facility] [address] [place] [address] [place], [place] [phone] Social History Tobacco Use Types Packs/Day Years [...] impairment: No 06/09/2016 as of this encounter Plan of Treatment Not on fileas of this encounter Procedures Procedure Name Priority Date/Time Associated Diagnosis Comments PROGRAM DBS DEVICE(S) Routine 12/02/2016 12:00 AM CDT in this encounter Visit Diagnoses Not on filein this encounter
--- OUTSIDE RECORDS SUMMARY | 2017-02-28 06:27 | XMS REPORT | Continuity of Care Document ---
Author Author [facility] Organization [facility] Address Unknown Phone Unavailable Allergies Active Description Code Type Severity Reaction Onset Reported/Identified Relationship to Patient Clinical Status Yes No Known Drug Allergies [id number] Drug Allergy Unknown N/A 02/23/2017 Medications There is no data. Problems Date Dx Coded Attending Type Code Diagnosis Diagnosed By 02/11/1244 BANDAR CHARLES MD Ot G20 PARKINSON'S DISEASE 06/25/2014 NADIA MEJIA MD R Ot 781.0 06/25/2014 NADIA MEJIA MD R Ot 781.0 08/10/2014 NADIA MEJIA MD R Ot 781.0 08/22/2014 NADIA MEJIA MD R Ot 781.0 12/27/2014 ZEV BLAS Ot M51.36 OTHER INTERVERTEBRAL DISC DEGENERATION, 12/27/2014 ZEV BLAS Ot M54.16 RADICULOPATHY, LUMBAR REGION 12/27/2014 ZEV BLAS Ot M54.5 LOW BACK PAIN 12/27/2014 ZEV BLAS Ot M84.48XA PATHOLOGICAL FRACTURE, OTHER SITE, INIT 09/24/2015 NADIA MEJIA MD R Ot 781.0 ABN INVOLUN MOVEMENT NEC 10/23/2015 NADIA MEJIA MD Ot 781.0 ABN INVOLUN MOVEMENT NEC 12/12/2015 BANDAR CHARLES MD Ot G20 PARKINSON'S DISEASE 01/13/2016 NADIA MEJIA MD Ot 781.0 ABN INVOLUN MOVEMENT NEC 01/19/2016 NADIA MEJIA MD Ot G20 PARKINSON'S DISEASE 01/29/2016 ADDY FORD MD Ot E66.9 OBESITY, UNSPECIFIED 01/29/2016 ADDY FORD MD Ot E78.2 MIXED HYPERLIPIDEMIA 01/29/2016 ADDY FORD MD Ot G47.33 OBSTRUCTIVE SLEEP APNEA (ADULT) (PEDIATR 01/29/2016 ADDY FORD MD J Ot I10 ESSENTIAL (PRIMARY) HYPERTENSION 01/29/2016 ADDY FORD MD Ot E66.9 OBESITY, UNSPECIFIED 01/29/2016 ADDY FORD MD Ot E78.2 MIXED HYPERLIPIDEMIA 01/29/2016 ADDY FORD MD Ot G47.33 OBSTRUCTIVE SLEEP APNEA (ADULT) (PEDIATR 01/29/2016 ADDY FORD MD Ot I10 ESSENTIAL (PRIMARY) HYPERTENSION 01/30/2016 ADDY FORD MD Ot E66.9 OBESITY, UNSPECIFIED 01/30/2016 ADDY FORD MD Ot E78.2 MIXED HYPERLIPIDEMIA 01/30/2016 ADDY FORD MD Ot G47.33 OBSTRUCTIVE SLEEP APNEA (ADULT) (PEDIATR 01/30/2016 ADDY FORD MD Ot I10 ESSENTIAL (PRIMARY) HYPERTENSION 02/03/2016 ADDY FORD MD Ot E66.9 OBESITY, UNSPECIFIED 02/03/2016 ADDY FORD MD Ot E78.2 MIXED HYPERLIPIDEMIA 02/03/2016 ADDY FORD MD Ot G47.33 OBSTRUCTIVE SLEEP APNEA (ADULT) (PEDIATR 02/03/2016 ADDY FORD MD Ot I10 ESSENTIAL (PRIMARY) HYPERTENSION 02/03/2016 NADIA MEJIA MD R Ot G20 PARKINSON'S DISEASE 02/18/2016 ADDY FORD MD Ot E66.9 OBESITY, UNSPECIFIED 02/18/2016 ADDY FORD MD Ot E78.2 MIXED HYPERLIPIDEMIA 02/18/2016 ADDY FORD MD Ot G47.33 OBSTRUCTIVE SLEEP APNEA (ADULT) (PEDIATR 02/18/2016 ADDY FORD MD Ot I10 ESSENTIAL (PRIMARY) HYPERTENSION 02/24/2016 NADIA MEJIA MD R Ot G20 PARKINSON'S DISEASE 03/09/2016 ADDY FORD MD Ot E66.9 OBESITY, UNSPECIFIED 03/09/2016 ADDY FORD MD Ot E78.2 MIXED HYPERLIPIDEMIA 03/09/2016 ADDY FORD MD Ot G47.33 OBSTRUCTIVE SLEEP APNEA (ADULT) (PEDIATR 03/09/2016 ADDY FORD MD Ot I10 ESSENTIAL (PRIMARY) HYPERTENSION 06/16/2016 ADDY FORD MD Ot R94.31 ABNORMAL ELECTROCARDIOGRAM [ECG] [EKG] 06/16/2016 ADDY FORD MD Ot R94.31 ABNORMAL ELECTROCARDIOGRAM [ECG] [EKG] 06/16/2016 ADDY FORD MD Ot R94.31 ABNORMAL ELECTROCARDIOGRAM [ECG] [EKG] 07/19/2016 ADDY FORD MD Ot E66.9 OBESITY, UNSPECIFIED 07/19/2016 ADDY FORD MD Ot E78.2 MIXED HYPERLIPIDEMIA 07/19/2016 ADDY FORD MD Ot G20 PARKINSON'S DISEASE 07/19/2016 ADDY FORD MD Ot G47.33 OBSTRUCTIVE SLEEP APNEA (ADULT) (PEDIATR 07/19/2016 ADDY FORD MD Ot I10 ESSENTIAL (PRIMARY) HYPERTENSION 07/19/2016 ADDY FORD MD Ot R94.31 ABNORMAL ELECTROCARDIOGRAM [ECG] [EKG] 08/04/2016 ADDY FORD MD Ot E66.9 OBESITY, UNSPECIFIED 08/04/2016 ADDY FORD MD Ot E78.2 MIXED HYPERLIPIDEMIA 08/04/2016 ADDY FORD MD Ot G20 PARKINSON'S DISEASE 08/04/2016 ADDY FORD MD Ot G47.33 OBSTRUCTIVE SLEEP APNEA (ADULT) (PEDIATR 08/04/2016 ADDY FORD MD Ot I10 ESSENTIAL (PRIMARY) HYPERTENSION 08/04/2016 ADDY FORD MD Ot R94.31 ABNORMAL ELECTROCARDIOGRAM [ECG] [EKG] 08/23/2016 ROBERTO TATE, NADIA Cotto Ot G20 PARKINSON'S DISEASE 02/21/2017 BANDAR CHARLES MD Ot M19.071 PRIMARY OSTEOARTHRITIS, RIGHT ANKLE AND 02/21/2017 BANDAR CHARLES MD Ot M79.661 PAIN IN RIGHT LOWER LEG 02/21/2017 BANDAR CHARLES MD Ot M79.671 PAIN IN RIGHT FOOT 02/21/2017 BANDAR CHARLES MD Ot W19.XXXA UNSPECIFIED FALL, INITIAL ENCOUNTER Procedures There is no data. Results Test Result Range Complete blood count (CBC) with automated white blood cell (WBC) differential - 01/13/16 16:02 Blood leukocytes automated count (number/volume) 8.1 10*3/uL 4.3-11.0 Blood erythrocytes automated count (number/volume) 4.78 10*6/uL 4.35-5.85 Venous blood hemoglobin measurement (mass/volume) 15.0 g/dL 13.3-17.7 Blood hematocrit (volume fraction) 43 % 40-54 Automated erythrocyte mean corpuscular volume 90 [foz_us] 80-99 Automated erythrocyte mean corpuscular hemoglobin (mass per erythrocyte) 31 pg 25-34 Automated erythrocyte mean corpuscular hemoglobin concentration measurement ( mass/volume) 35 g/dL 32-36 Automated erythrocyte distribution width ratio 12.5 % 10.0-14.5 Automated blood platelet count (count/volume) 245 10*3/uL 130-400 Automated blood platelet mean volume measurement 10.3 [foz_us] 7.4-10.4 Automated blood neutrophils/100 leukocytes 71 % 42-75 Automated blood lymphocytes/100 leukocytes 18 % 12-44 Blood monocytes/100 leukocytes 10 % 0-12 Automated blood eosinophils/100 leukocytes 2 % 0-10 Automated blood basophils/100 leukocytes 1 % 0-10 Blood neutrophils automated count (number/volume) 5.7 10*3 1.8-7.8 Blood lymphocytes automated count (number/volume) 1.4 10*3 1.0-4.0 Blood monocytes automated count (number/volume) 0.8 10*3 0.0-1.0 Automated eosinophil count 0.1 10*3/uL 0.0-0.3 Automated blood basophil count (count/volume) 0.0 10*3/uL 0.0-0.1 Comprehensive metabolic panel - 01/13/16 16:02 Serum or plasma sodium measurement (moles/volume) 143 mmol/L 135-145 Serum or plasma potassium measurement (moles/volume) 3.8 mmol/L 3.6-5.0 Serum or plasma chloride measurement (moles/volume) 109 mmol/L 98-107 Carbon dioxide 22 mmol/L 21-32 Serum or plasma anion gap determination (moles/volume) 12 mmol/L 5-14 Serum or plasma urea nitrogen measurement (mass/volume) 17 mg/dL 7-18 Serum or plasma creatinine measurement (mass/volume) 0.71 mg/dL 0.60-1.30 Serum or plasma urea nitrogen/creatinine mass ratio 24 NRG Serum or plasma creatinine measurement with calculation of estimated glomerular filtration rate > NRG Serum or plasma glucose measurement (mass/volume) 105 mg/dL 70-105 Serum or plasma calcium measurement (mass/volume) 9.2 mg/dL 8.5-10.1 Serum or plasma total bilirubin measurement (mass/volume) 0.5 mg/dL 0.1-1.0 Serum or plasma alkaline phosphatase measurement (enzymatic activity/volume) 52 U/L 40-136 Serum or plasma aspartate aminotransferase measurement (enzymatic activity/ volume) 14 U/L 5-34 Serum or plasma alanine aminotransferase measurement (enzymatic activity/volume ) 16 U/L 0-55 Serum or plasma protein measurement (mass/volume) 6.6 g/dL 6.4-8.2 Serum or plasma albumin measurement (mass/volume) 4.3 g/dL 3.2-4.5 Complete urinalysis with reflex to culture - 01/13/16 16:05 Urine color determination YELLOW NRG Urine clarity determination CLEAR NRG Urine pH measurement by test strip 5 5-9 Specific gravity of urine by test strip 1.020 1.016- 1.022 Urine protein assay by test strip, semi-quantitative NEGATIVE NEGATIVE Urine glucose detection by automated test strip NEGATIVE NEGATIVE Erythrocytes detection in urine sediment by light microscopy NEGATIVE NEGATIVE Urine ketones detection by automated test strip NEGATIVE NEGATIVE Urine nitrite detection by test strip NEGATIVE NEGATIVE Urine total bilirubin detection by test strip NEGATIVE NEGATIVE Urine urobilinogen measurement by automated test strip (mass/volume) NORMAL NORMAL Urine leukocyte esterase detection by dipstick NEGATIVE NEGATIVE Automated urine sediment erythrocyte count by microscopy (number/high power field) RARE NRG Automated urine sediment leukocyte count by microscopy (number/high power field ) NONE NRG Bacteria detection in urine sediment by light microscopy NONE NRG Crystals detection in urine sediment by light microscopy NONE NRG Casts detection in urine sediment by light microscopy NONE NRG Mucus detection in urine sediment by light microscopy MODERATE NRG Complete urinalysis with reflex to culture NO NRG Complete blood count (CBC) with automated white blood cell (WBC) differential - 07/28/16 08:57 Blood leukocytes automated count (number/volume) 5.4 10*3/uL 4.3-11.0 Blood erythrocytes automated count (number/volume) 4.53 10*6/uL 4.35-5.85 Venous blood hemoglobin measurement (mass/volume) 13.8 g/dL 13.3-17.7 Blood hematocrit (volume fraction) 40 % 40-54 Automated erythrocyte mean corpuscular volume 89 [foz_us] 80-99 Automated erythrocyte mean corpuscular hemoglobin (mass per erythrocyte) 31 pg 25-34 Automated erythrocyte mean corpuscular hemoglobin concentration measurement ( mass/volume) 34 g/dL 32-36 Automated erythrocyte distribution width ratio 12.7 % 10.0-14.5 Automated blood platelet count (count/volume) 314 10*3/uL 130-400 Automated blood platelet mean volume measurement 9.6 [foz_us] 7.4-10.4 Automated blood neutrophils/100 leukocytes 66 % 42-75 Automated blood lymphocytes/100 leukocytes 20 % 12-44 Blood monocytes/100 leukocytes 10 % 0-12 Automated blood eosinophils/100 leukocytes 4 % 0-10 Automated blood basophils/100 leukocytes 0 % 0-10 Blood neutrophils automated count (number/volume) 3.6 10*3 1.8-7.8 Blood lymphocytes automated count (number/volume) 1.1 10*3 1.0-4.0 Blood monocytes automated count (number/volume) 0.5 10*3 0.0-1.0 Automated eosinophil count 0.2 10*3/uL 0.0-0.3 Automated blood basophil count (count/volume) 0.0 10*3/uL 0.0-0.1 Comprehensive metabolic panel - 07/28/16 08:57 Serum or plasma sodium measurement (moles/volume) 142 mmol/L 135-145 Serum or plasma potassium measurement (moles/volume) 3.1 mmol/L 3.6-5.0 Serum or plasma chloride measurement (moles/volume) 102 mmol/L 98-107 Carbon dioxide 29 mmol/L 21-32 Serum or plasma anion gap determination (moles/volume) 11 mmol/L 5-14 Serum or plasma urea nitrogen measurement (mass/volume) 14 mg/dL 7-18 Serum or plasma creatinine measurement (mass/volume) 0.72 mg/dL 0.60-1.30 Serum or plasma urea nitrogen/creatinine mass ratio 19 NRG Serum or plasma creatinine measurement with calculation of estimated glomerular filtration rate > NRG Serum or plasma glucose measurement (mass/volume) 106 mg/dL 70-105 Serum or plasma calcium measurement (mass/volume) 9.4 mg/dL 8.5-10.1 Serum or plasma total bilirubin measurement (mass/volume) 0.5 mg/dL 0.1-1.0 Serum or plasma alkaline phosphatase measurement (enzymatic activity/volume) 51 U/L 40-136 Serum or plasma aspartate aminotransferase measurement (enzymatic activity/ volume) 15 U/L 5-34 Serum or plasma alanine aminotransferase measurement (enzymatic activity/volume ) 20 U/L 0-55 Serum or plasma protein measurement (mass/volume) 6.7 g/dL 6.4-8.2 Serum or plasma albumin measurement (mass/volume) 4.3 g/dL 3.2-4.5 Complete blood count (CBC) with automated white blood cell (WBC) differential - 02/23/17 10:50 Blood leukocytes automated count (number/volume) 5.7 10*3/uL 4.3-11.0 Blood erythrocytes automated count (number/volume) 4.51 10*6/uL 4.35-5.85 Venous blood hemoglobin measurement (mass/volume) 13.0 g/dL 13.3-17.7 Blood hematocrit (volume fraction) 39 % 40-54 Automated erythrocyte mean corpuscular volume 86 [foz_us] 80-99 Automated erythrocyte mean corpuscular hemoglobin (mass per erythrocyte) 29 pg 25-34 Automated erythrocyte mean corpuscular hemoglobin concentration measurement ( mass/volume) 34 g/dL 32-36 Automated erythrocyte distribution width ratio 14.3 % 10.0-14.5 Automated blood platelet count (count/volume) 317 10*3/uL 130-400 Automated blood platelet mean volume measurement 9.9 [foz_us] 7.4-10.4 Automated blood neutrophils/100 leukocytes 65 % 42-75 Automated blood lymphocytes/100 leukocytes 19 % 12-44 Blood monocytes/100 leukocytes 11 % 0-12 Automated blood eosinophils/100 leukocytes 5 % 0-10 Automated blood basophils/100 leukocytes 1 % 0-10 Blood neutrophils automated count (number/volume) 3.7 10*3 1.8-7.8 Blood lymphocytes automated count (number/volume) 1.1 10*3 1.0-4.0 Blood monocytes automated count (number/volume) 0.7 10*3 0.0-1.0 Automated eosinophil count 0.3 10*3/uL 0.0-0.3 Automated blood basophil count (count/volume) 0.0 10*3/uL 0.0-0.1 Whole blood basic metabolic panel - 02/23/17 10:50 Serum or plasma sodium measurement (moles/volume) 139 mmol/L 135-145 Serum or plasma potassium measurement (moles/volume) 3.3 mmol/L 3.6-5.0 Serum or plasma chloride measurement (moles/volume) 99 mmol/L 98-107 Carbon dioxide 31 mmol/L 21-32 Serum or plasma anion gap determination (moles/volume) 9 mmol/L 5-14 Serum or plasma urea nitrogen measurement (mass/volume) 18 mg/dL 7-18 Serum or plasma creatinine measurement (mass/volume) 0.71 mg/dL 0.60-1.30 Serum or plasma urea nitrogen/creatinine mass ratio 25 NRG Serum or plasma creatinine measurement with calculation of estimated glomerular filtration rate > NRG Serum or plasma glucose measurement (mass/volume) 102 mg/dL 70-105 Serum or plasma calcium measurement (mass/volume) 9.2 mg/dL 8.5-10.1 Blood type T Indirect antibody screen panel - 02/23/17 10:50 ABO+Rh group ABP NRG Blood group antibody screen NEGATIVE NRG Methicillin resistant Staphylococcus aureus (MRSA) screening culture - 10:50 Methicillin resistant Staphylococcus aureus (MRSA) screening culture NEG NRG Encounters ACCT No. Visit Date/Time Discharge Status Pt. Type Provider Facility Loc./Unit Complaint [id number] 02/23/2017 08:00:00 02/23/2017 23:59:59 CLS Preadmit LINO SAAVEDRA MD [facility] SDC RETENTION [id number] 02/23/2017 10:00:00 02/23/2017 16:12:00 DIS Outpatient LINO SAAVEDRA MD [facility] PREOP RETENTION [id number] 02/18/2017 09:19:00 02/18/2017 23:59:59 CLS Outpatient BANDAR CHARLES MD [facility] RAD PAIN IN RIGHT LOWER LEG M79.661 [id number] 07/28/2016 09:26:00 07/28/2016 23:59:59 CLS Preadmit EARL MENDOZA MD [facility] REHAB PARKINSONS [id number] 07/28/2016 08:17:00 07/28/2016 23:59:59 CLS Outpatient NADIA MEJIA MD [facility] RAD PARKINSONS DISEASE [id number] 06/16/2016 12:22:00 06/16/2016 23:59:59 CLS Outpatient ADDY FORD MD [facility] CARD HTN,DB ON CPAP, [id number] 02/04/2016 11:14:00 02/04/2016 12:45:00 DIS Outpatient BANDAR CHARLES MD [facility] REHAB PARKINSONS DISEASE [id number] 01/28/2016 12:02:00 01/28/2016 23:59:59 CLS Outpatient ADDY FORD MD [facility] CARD HTN,MIXED HLP,DB ON CPAP,OBESITY [id number] 01/13/2016 15:26:00 01/13/2016 23:59:59 CLS Outpatient NADIA MEJIA MD [facility] CARD PARKINSONS DISEASE [id number] 12/11/2015 09:43:00 12/12/2015 17:00:00 DIS Outpatient BANDAR CHARLES MD [facility] REHAB PARKINSONS DISEASE [id number] 12/27/2014 11:42:00 12/27/2014 23:59:59 CLS Emergency ZEV BLAS [facility] ER RT SIDED PAIN [id number] 06/19/2014 13:59:00 06/19/2014 23:59:59 CLS Outpatient NADIA MEJIA MD [facility] RAD PERSISTANT TREMORS
--- NOTE | 2017-02-28 07:01 | Progress Note-Pre Operative ---
Pre-Operative Progress Note H&P Reviewed The H&P was reviewed, patient examined and no changes noted. Date Seen by Provider: Feb 28, 2017 Time Seen by Provider: 07:01 Date H&P Reviewed: Feb 28, 2017 Time H&P Reviewed: 07:01 Pre-Operative Diagnosis: BPH WITH PROSTATISM AND RETENTION LINO SAAVEDRA MD Feb 28, 2017 7:01 am
[2017-02-28] MEDS ORDERED: PROPOFOL INJECTION 50 ML IV ONE (07:02)
[2017-02-28] MEDS ORDERED: MIDAZOLAM 2 MG/2 ML (VERSED) VIAL ONE (07:03)
[2017-02-28] MEDS ORDERED: cefTRIAXone 1 GM/NS 50 ML IVPB IV ONE ×2 (07:15)
[2017-02-28] MEDS ORDERED: LACTATED RINGERS 1,000 ML IV PRN (07:52)
[2017-02-28] MEDS ORDERED: FAMOTIDINE 20MG/2ML IV (PEPCID) IV ONE (08:00)
[2017-02-28] MEDS ORDERED: cefTRIAXone INJECTION 1,000 MG in NS (IVPB) 50 ML IV ONE (08:00)
--- NOTE | 2017-02-28 08:40 | Progress Note-Post Operative ---
Post-Operative Progess Note Surgeon (s)/Senior Accounting Associate (s) Surgeon LINO SAAVEDRA MD Senior Accounting Associate: N/A Pre-Operative Diagnosis BPH WITH PROSTATISM AND RETENTION Post-Operative Diagnosis SAME Procedure & Operative Findings Date of Procedure 02/28/17 Procedure Performed/Findings TURP Anesthesia Type SPINAL Estimated Blood Loss Estimated blood loss (mL): KAREN THAN 100CC Specimens/Packing Specimens Removed PROSTATE CHIPS Packing: N/A LINO SAAVEDRA MD Feb 28, 2017 8:40 am
[2017-02-28] MEDS ORDERED: FUROSEMIDE 20 MG (LASIX) TAB PO SCH (08:45)
[2017-02-28] MEDS ORDERED: MILK OF MAGNESIA 400 MG/5 ML 30 ML UDC PO PRN (08:45)
[2017-02-28] MEDS ORDERED: HYDROcodone/APAP 10 MG/325 MG (LORTAB) TAB PO PRN (08:45)
[2017-02-28] MEDS ORDERED: ZOLPIDEM 5 MG (AMBIEN) TAB PO PRN (08:45)
[2017-02-28] MEDS ORDERED: ONDANSETRON 4 MG/2 ML (SDV) Z0FRAN IVP PRN (09:00)
[2017-02-28] MEDS: LACTATED RINGERS 1,000 ML IV SCH ×4 (09:48→20:57)
[2017-02-28 10:00] VITALS: BP 189/77
[2017-02-28 12:00] VITALS: BP 136/61
[2017-02-28] MEDS: PROPRANOLOL 20 MG (INDERAL) TABLET PO SCH (12:04)
[2017-02-28] MEDS: DOCUSATE SODIUM 100 MG (COLACE) CAP PO SCH ×2 (12:05→19:53)
[2017-02-28] MEDS: MULTIVIT W/MINERALS TAB (THERAGRAN M) PO SCH (12:11)
[2017-02-28] MEDS: amLODIPine 10 MG (NORVASC) TAB PO SCH (12:11)
[2017-02-28] MEDS: lisINopril 20 MG (ZESTRIL) TAB PO SCH (12:11)
[2017-02-28] MEDS: PANTOPRAZOLE 20 MG TABLET (PROTONIX) PO SCH (12:11)
[2017-02-28] MEDS: HYDROCHLOROTHIAZIDE 25 MG (HCTZ) TAB PO SCH (12:13)
[2017-02-28] MEDS: BELLADONNA ALK/OPIUM (B & O) 30 MG SUPP PR PRN ×2 (14:25→21:30)
[2017-02-28] MEDS ORDERED: FUROSEMIDE 20 MG (LASIX) TAB PO PRN (15:00)
[2017-02-28] MEDS ORDERED: LOPERAMIDE 2 MG (IMODIUM) CAP PO PRN (15:15)
[2017-02-28] MEDS ORDERED: LOPERAMIDE 2 MG (IMODIUM) CAP PO NR (15:15)
[2017-02-28 15:55] VITALS: BP 142/63
--- NOTE | 2017-02-28 16:55 | OPERATIVE REPORT ---
DATE OF SERVICE: 02/28/2017 PREOPERATIVE DIAGNOSIS: BPH with prostatism and retention. POSTOPERATIVE DIAGNOSIS: BPH with prostatism and retention. OPERATION PERFORMED: Transurethral resection of the prostate. SURGEON: LINO SAAVEDRA MD ANESTHESIA: Spinal. COMPLICATIONS: None. PROCEDURE: Under satisfactory spinal anesthesia, the patient in lithotomy position, genitalia were prepped and draped in the usual sterile fashion. Urethra was dilated with Barby sounds to #30 Divehi easily to accommodate a 27-Divehi Aldrich resectoscope. I did visualize a trilobar enlargement of the prostate causing complete bladder neck obstruction with trabeculations. Ureteric orifices were identified as well as the veru. First I resected the median lobe and leveled it deep to the level of the veru including the floor, then the groove was resected from 11-1 o'clock position, the right lateral lobe followed by the left lobe and finally the apical tissues. The capsule was visualized in many points. Bleeders were cauterized as the resection was proceeding. Resection was adequate and hemostasis satisfactory. The prostatic chips were evacuated and cystoscopy confirmed the integrity of the ureteral orifices, veru and sphincter reflex. The resectoscope was removed and a 22-Divehi 3-way 30 mL balloon catheter was inserted in the bladder, the balloon inflated to 40 mL, connected to continuous bladder irrigation. The return of which was pinkish at a slow drip. ESTIMATED BLOOD LOSS: Less than 100 mL, none which was replaced. The patient tolerated the procedure and anesthesia well and was sent to recovery room in stable condition. Job ID: [id number] DocumentID: [id number] Dictated Date: 02/28/2017 08:45:59 Assault Amphibious Vehicle Officer Date: 02/28/2017 15:08:37 Dictated By: LINO SAAVEDRA MD
[2017-02-28 20:00] VITALS: BP 125/63
[2017-02-28] MEDS ORDERED: VITAMIN D3 5,000 UNITS (CHOLECALCIFEROL ) CAPSULE PO SCH (21:00)
[2017-02-28] MEDS ORDERED: FLUTICASONE NASAL SPRAY (FLONASE) 16 GM BTL NS SCH (21:00)
[2017-02-28] MEDS ORDERED: ATORVASTATIN 20 MG (LIPITOR) TABLET PO SCH (21:00)
[2017-03-01] VITALS: BP 139/70
[2017-03-01 04:00] VITALS: BP 133/61
[2017-03-01] MEDS: MULTIVIT W/MINERALS TAB (THERAGRAN M) PO SCH (06:14)
[2017-03-01] MEDS: PANTOPRAZOLE 20 MG TABLET (PROTONIX) PO SCH (06:14)
[2017-03-01] MEDS: DOCUSATE SODIUM 100 MG (COLACE) CAP PO SCH (07:35)
--- NOTE | 2017-03-01 07:35 | Progress Note-Urology ---
Progress Note-Urology Progress Notes/Assess & Plan Progress/Assessment & Plan AFEBRILE, VSSS. DOING AND FEELING VERY WELL. URINE CRYSTAL CLEAR. PLAN DC DE LA ROSA AND IV Final Diagnosis BPH WITH PROSTATISM AND RETENTION LINO SAAVEDRA MD Mar 01, 2017 7:35 am
[2017-03-01 08:00] VITALS: BP 146/75
[2017-03-01] MEDS ORDERED: LEVOFLOXACIN 500 MG/100 ML IV 100 ML IV NR (08:45)
[2017-03-01] MEDS: lisINopril 20 MG (ZESTRIL) TAB PO SCH (09:14)
[2017-03-01] MEDS: amLODIPine 10 MG (NORVASC) TAB PO SCH (09:14)
[2017-03-01] MEDS: PROPRANOLOL 20 MG (INDERAL) TABLET PO SCH (09:14)
[2017-03-01] MEDS: LACTATED RINGERS 1,000 ML IV SCH ×2 (09:14→09:15)
[2017-03-01] MEDS: HYDROCHLOROTHIAZIDE 25 MG (HCTZ) TAB PO SCH (09:14)
[2017-03-01] MEDS ORDERED: CIPR-225 PO (11:47)
[2017-03-01 12:03] VITALS: BP 146/75
== END 2017-03-01 12:03 | disposition home or self-care (01) ==
LOC: SDC 06:10 → 4TH 09:50 → SDC 03-01 12:03
PROVIDERS: ATTEND Urology
DX: N40.1 Benign prostatic hyperplasia with lower urinary tract symptoms (principal); R33.9 Retention of urine, unspecified; G20 Parkinson's disease; K21.9 Gastro-esophageal reflux disease without esophagitis; Z87.442 Personal history of urinary calculi; I10 Essential (primary) hypertension; E78.5 Hyperlipidemia, unspecified; G47.33 Obstructive sleep apnea (adult) (pediatric); Z87.891 Personal history of nicotine dependence; Z79.899 Other long term (current) drug therapy; Z79.82 Long term (current) use of aspirin
CPT/HCPCS: 94664

== ENCOUNTER → 2017-03-15 | Outpatient (CLI) | payer MEDICARE, OTHER ==
[~2017-03-15] MED LIST changes: +CIPR-225 PO
--- NOTE | 2017-03-15 12:12 | Diagnostic Imaging Report ---
CLINICAL INDICATION: Patient with right leg swelling. COMPARISON: None. PROCEDURE: Real-time right lower extremity venous Doppler duplex evaluation is performed from the inguinal region through the popliteal fossa. The calf venous structures are also evaluated. FINDINGS: The deep venous system is well visualized and is easily compressible. There is no evidence of deep venous thrombosis, valvular incompetence, or significant collateral circulation. IMPRESSION: There is no ultrasound Doppler evidence of deep venous thrombosis in the right lower extremity. Dictated by: Dictated on workstation # [id number]
== END ==
LOC: RAD 10:55
PROVIDERS: ATTEND Nurse Practitioner Family
DX: R60.0 Localized edema (principal)

== ENCOUNTER → 2017-05-18 | Outpatient (CLI) | payer MEDICARE, OTHER ==
--- NOTE | 2017-05-18 13:51 | Diagnostic Imaging Report ---
INDICATION: Right hip pain for several weeks and decreased range of motion. TIME OF EXAM: 12:26 p.m. Two views of the right hip demonstrate normal femoral acetabular alignment. There is mild superior joint space narrowing. Femoral head and neck are intact. No fractures are seen. Right-sided rami are intact. IMPRESSION: Mild hip joint space narrowing. No acute bony abnormality is detected. Dictated by: Dictated on workstation # [id number]
== END ==
LOC: RAD 11:55
PROVIDERS: ATTEND Family Medicine
DX: M25.551 Pain in right hip (principal); M25.851 Other specified joint disorders, right hip
CPT/HCPCS: 73502

== ENCOUNTER 2017-06-01 15:08 | Outpatient (RCR) | payer MEDICARE, OTHER | END 2017-06-29 | disposition home or self-care (01) | PROVIDERS: ATTEND Family Medicine | DX: M79.661 Pain in right lower leg (principal); M25.571 Pain in right ankle and joints of right foot ==

== ENCOUNTER → 2017-12-13 | Emergency (ER) | payer MEDICARE, OTHER ==
[~2017-12-13] VITALS: Ht 170.2 cm; Wt 97.3 kg
[~2017-12-13] MED LIST changes: -AMLO10TA2 PO; +AMLO10TA6 PO; +CEFD300C3 PO; +CEFDINIR 300 MG (OMNICEF) CAP PO ONE; +HYDROcodone /IBUPROFEN (VICOPROFEN) 7.5 MG/ 200 MG TAB PO ONE
--- NOTE | 2017-12-13 21:29 | ED General ---
General Chief Complaint: Trauma-Non Activation Stated Complaint: FALL HURT RIBS Nursing Triage Note: states that last fell on boat deck and landed on left arm and chest, then fell on shore. pain with inspiration but no pain with palpation Nursing Sepsis Screen: No Definite Risk Source of Information: Patient, Family Exam Limitations: No Limitations History of Present Illness Date Seen by Provider: Dec 13, 2017 Time Seen by Provider: 21:00 Initial Comments Here with complaint of left-sided rib pain. Fell last on a boat dock and landed on his left arm and chest and then fell again after finishing fishing onto the same area. Does have pain with deep inspiration. Concerned about rib fractures. States that it hurts to take a deep breath. Does report taking Tylenol 1000 mg at 4 p.m. and then a few hours later taking a couple of Tylenol PM and that has not helped the pain. We did discuss the fact that that' s too soon to take Tylenol back to back. He verbalizes understanding. Denies nausea or vomiting. Denies fever or chills. Denies abdominal pain. Does report that he's had difficulty with urination over the last week and that is different for him. Does have history of prostate problems. Location Injury Occurred: boat Timing/Duration: 4-5 Days Severity: Moderate Associated Systoms: No Chest Pain, No Cough, No Fever/Chills, No Nausea/ Vomiting; Shortness of Air; No Weakness Allergies and Home Medications Allergies Coded Allergies: No Known Drug Allergies (Unverified , 12/13/17) Home Medications Amlodipine Besylate 10 Mg Tablet, 10 MG PO DAILY, (Reported) Cholecalciferol (Vitamin D3) 5,000 Unit Capsule, 5,000 UNIT PO HS, (Reported) Ciprofloxacin HCl 500 Mg Tablet, 500 MG PO BID Prescribed by: MICHAEL SHAH on 03/01/17 1147 Escitalopram Oxalate 5 Mg Tablet, 5 MG PO DAILY, (Reported) Fluticasone Propionate 9.9 Ml [place].susp, 2 ML NS HS, (Reported) Furosemide 20 Mg Tablet, 20 MG PO PRN, (Reported) Hydrochlorothiazide 25 Mg Tablet, 25 MG PO DAILY, (Reported) Lisinopril 40 Mg Tablet, 20 MG PO DAILY, (Reported) Multivitamin 1 Each Tablet, 1 EACH PO DAILY, (Reported) Omeprazole Magnesium 20 Mg Tablet.dr, 20 MG PO DAILY, (Reported) Propranolol HCl 80 Mg Tablet, 80 MG PO DAILY, (Reported) Simvastatin 40 Mg Tablet, 40 MG PO HS, (Reported) Patient Home Medication List Home Medication List Reviewed: Yes Review of Systems Review of Systems Constitutional: see HPI; No chills, No fever EENTM: no symptoms reported Respiratory: see HPI, cough, short of breath Cardiovascular: no symptoms reported Gastrointestinal: no symptoms reported; No abdominal pain, No nausea, No vomiting Genitourinary: see HPI, decreased output; No hematuria; hesitancy Musculoskeletal: no symptoms reported Skin: change in color; No lesions Psychiatric/Neurological: No Symptoms Reported All Other Systems Reviewed Negative Unless Noted: Yes Past Isoxjdg-Ugcyba-Gxswaf Hx Past Med/Social Hx: Reviewed Nursing Past Med/Soc Hx Patient Social History Alcohol Use: Occasionally Uses Number of Drinks Today: Alcohol Beverage of Choice: Wine Recreational Drug Use: No Type Used: Cigars Former Smoker, Quit: Feb 28, 1970 Recent Foreign Travel: No Contact w/Someone Who Travel: No Recent Infectious Disease Expo: No Recent Hopitalizations: Yes (MULTIPLE SURGERYS 2017 FOR BRAIN STIMULATOR) Physical Abuse: No Sexual Abuse: No Mistreated: No Fear: No Immunizations Up To Date Tetanus Booster (TDap): Unknown PED Vaccines UTD: No Date of Pneumonia Vaccine: Nov 25, 2014 Date of Influenza Vaccine: Jan 12, 2017 Seasonal Allergies Seasonal Allergies: Yes (MILD) Past Medical History Surgeries: Yes (WRIST FX, DEEP BRAIN STIMULATOR X6 (HAD INFECTION)) Adenoidectomy, Tonsillectomy Respiratory: Yes (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) Currently Using CPAP: No Cardiac: Yes High Cholesterol, Hypertension Neurological: Yes Parkinson's Disease Reproductive Disorders: No Sexually Transmitted Disease: No HIV/AIDS: No Benign Prostatic Hyperpl, Prostate Problems, Kidney Stones Gastrointestinal: Yes Gastroesophageal Reflux, Chronic Diarrhea Musculoskeletal: Yes Arthritis Endocrine: No Hearing Impairment: Bilateral Hearing Aide Cancer: No Psychosocial: Yes (agent orange exposure) Anxiety, PTSD Integumentary: No Blood Disorders: No Adverse Reaction/Blood Tranf: No (N/A) Family Medical History Reviewed Nursing Family Hx Asthma 19 MOTHER Cardiovascular disease 19 FATHER Colon cancer G8 BROTHER Physical Exam-Suspected Sepsis Physical Exam Vital Signs Vital Signs - First Documented Capillary Refill : Less Than 3 Seconds Blood Pressure Mean: 88 Height, Weight, BMI Height: 5'7.00" Weight: 214lbs. 9.0oz. 97.057987vf; 33.6 BMI Method:Stated General Appearance: No Apparent Distress, WD/WN HEENT: PERRL/EOMI, Pharynx Normal Neck: Non Tender, Supple Respiratory: Lungs Clear, Normal Breath Sounds Cardiovascular: Regular Rate, Rhythm, No Murmur Gastrointestinal: Non Tender, Soft; No Distended, No Guarding, No Rebound Back: Normal Inspection, No CVA Tenderness, No Vertebral Tenderness Extremity: Normal Range of Motion, Non Tender Neurologic/Psychiatric: Alert, Oriented x3 Skin: warm/dry, ecchymosis Focused Exam Lactate Level 12/13/17 21:32: Lactic Acid Level 1.49 Lactic Acid Level Laboratory Tests Test 12/13/17 21:32 Lactic Acid Level 1.49 MMOL/L (0.50-2.00) Progress/Results/Core Measures Suspected Sepsis Recent Fever Within 48 Hours: Yes Infection Criteria Present: None New/Unexplained Altered Menta: No Sepsis Screen: No Definite Risk SIRS Temperature:100.7 Pulse: 70 Respiratory Rate: 16 Laboratory Tests 12/13/17 21:32: White Blood Count 13.0H Blood Pressure 132 /67 Mean: 88 12/13/17 21:32: Lactic Acid Level 1.49 Laboratory Tests 12/13/17 21:32: Creatinine 0.83, INR Comment 1.1, Platelet Count 258, Total Bilirubin 0.6 Results/Orders Lab Results Laboratory Tests Test 12/13/17 21:32 12/13/17 22:30 Range/Units White Blood Count 13.0 H 4.3-11.0 10^3/uL Red Blood Count 4.22 L 4.35-5.85 10^6/uL Hemoglobin 13.4 13.3-17.7 G/DL Hematocrit 37 L 40-54 % Mean Corpuscular Volume 89 80-99 FL Mean Corpuscular Hemoglobin 32 25-34 PG Mean Corpuscular Hemoglobin Concent 36 32-36 G/DL Red Cell Distribution Width 13.0 10.0-14.5 % Platelet Count 258 130-400 10^3/uL Mean Platelet Volume 9.9 7.4-10.4 FL Neutrophils (%) (Auto) 84 H 42-75 % Lymphocytes (%) (Auto) 5 L 12-44 % Monocytes (%) (Auto) 10 0-12 % Eosinophils (%) (Auto) 1 0-10 % Basophils (%) (Auto) 0 0-10 % Neutrophils # (Auto) 11.0 H 1.8-7.8 X 10^3 Lymphocytes # (Auto) 0.7 L 1.0-4.0 X 10^3 Monocytes # (Auto) 1.3 H 0.0-1.0 X 10^3 Eosinophils # (Auto) 0.1 0.0-0.3 10^3/uL Basophils # (Auto) 0.0 0.0-0.1 10^3/uL Neutrophils % (Manual) 90 % Lymphocytes % (Manual) 4 % Monocytes % (Manual) 5 % Eosinophils % (Manual) 0 % Basophils % (Manual) 1 % Band Neutrophils 0 % Blood Morphology Comment NORMAL Prothrombin Time 14.5 12.2-14.7 SEC INR Comment 1.1 0.8-1.4 Activated Partial Thromboplast Time 29 24-35 SEC Sodium Level 136 135-145 MMOL/L Potassium Level 3.6 3.6-5.0 MMOL/L Chloride Level 100 98-107 MMOL/L Carbon Dioxide Level 24 21-32 MMOL/L Anion Gap 12 5-14 MMOL/L Blood Urea Nitrogen 15 7-18 MG/DL Creatinine 0.83 0.60-1.30 MG/DL Estimat Glomerular Filtration Rate > 60 BUN/Creatinine Ratio 18 Glucose Level 137 H 70-105 MG/DL Lactic Acid Level 1.49 0.50-2.00 MMOL/L Calcium Level 9.6 8.5-10.1 MG/DL Corrected Calcium 9.4 8.5-10.1 MG/DL Total Bilirubin 0.6 0.1-1.0 MG/DL Aspartate Amino Transf (AST/SGOT) 14 5-34 U/L Alanine Aminotransferase (ALT/SGPT) 12 0-55 U/L Alkaline Phosphatase 50 40-136 U/L Total Protein 7.0 6.4-8.2 GM/DL Albumin 4.2 3.2-4.5 GM/DL Urine Color YELLOW Urine Clarity CLEAR Urine pH 6 5-9 Urine Specific [place] 1.015 L 1.016-1.022 Urine Protein 1+ H NEGATIVE Urine Glucose (UA) NEGATIVE NEGATIVE Urine Ketones NEGATIVE NEGATIVE Urine Nitrite NEGATIVE NEGATIVE Urine Bilirubin NEGATIVE NEGATIVE Urine Urobilinogen NORMAL NORMAL MG/DL Urine Leukocyte Esterase 1+ H NEGATIVE Urine RBC (Auto) NEGATIVE NEGATIVE Urine RBC 0-2 /HPF Urine WBC 0-2 /HPF Urine Crystals NONE /LPF Urine Bacteria NEGATIVE /HPF Urine Casts NONE /LPF Urine Mucus LARGE H /LPF Urine Culture Indicated NO My Orders Orders - SURENDRA DUMONT MD Ct Chest Wo (12/13/17 21:19) Cbc With Automated Diff (12/13/17 21:19) Comprehensive Metabolic Panel (12/13/17 21:19) Blood Culture (12/13/17 21:19) Sputum Culture (12/13/17 21:19) Urinalysis (12/13/17:) Urine Culture (12/13/17:) Protime With Inr (12/13/17:) Partial Thromboplastin Time (12/13/17:19) Saline Lock/Iv-Start (12/13/17 21:19) Vital Signs Adult Sepsis Patie Q15M (12/13/17 21:19) Lactic Acid Analyzer (12/13/17 21:19) Chest Pa/Lat (2 View) (12/13/17 21:19) Manual Differential (12/13/17 21:32) Hydrocodone/Ibuprofen Tablet (Vicoprofen (12/13/17 23:00) Cefdinir Capsule (Omnicef Capsule) (12/13/17 23:30) Medications Given in ED Current Medications Medications Dose Ordered Sig/Mayra Route Start Time Stop Time Status Last Admin Dose Admin Hydrocodone Bitartrate/ Ibuprofen 1 each ONCE ONCE PO 12/13/17 23:00 12/13/17 23:01 DC 12/13/17 23:09 1 EACH Vital Signs/I&O 12/13/17 12/13/17 20:49 20:49 Temp 100.7 100.7 Pulse 70 70 Resp 16 16 B/P (MAP) 132/67 (88) 132/67 (88) Pulse Ox 96 96 Capillary Refill : Less Than 3 Seconds Blood Pressure Mean: 88 Progress Note : Progress Note Seen and evaluated. Initially considered just CT of the chest to evaluate for rib fractures but patient was noted to be febrile. We will initiate sepsis workup. This will include chest x-ray, labs, UA as well as the CT of the chest to evaluate rib fractures. Monitor patient. 2310: Patient does have rib fractures found on CT scan. Unsure of source of fever and may be viral but patient has significant risk factors with Parkinson's and implanted nerve stimulator. Does have risk for aspiration and pneumonia. Given the multiple concerns, will go ahead and treat with suspicion for pneumonia with concerns related to the rib fractures. Omnicef 300 mg by mouth given. We will continue his outpatient for one week. He is to follow-up with his primary care doctor in a few days for recheck. Patient did receive Vicoprofen one tablet by mouth for the rib pain. We will continue outpatient hydrocodone but he has at home. We did discuss incentive spirometer and he has that at home as well. He will use that several times per hour. Discharged home with return precautions. Patient family verbalized understanding of instructions and agreement with plan. Diagnostic Imaging Diagonstic Imaging: Xray Plain Films/CT/US/NM/MRI: chest Comments NAME: CHARLIE FLOYD Lat49 REC#: [id number] PT STATUS: REG ER : 1940 PHYSICIAN: SURENDRA DUMONT MD ADMIT DATE: 12/13/17/ER Signed Date of Exam: 12/13/17 CHEST PA/LAT (2 VIEW) INDICATION: Fall. Left rib pain. COMPARISON is made to a CT examination from earlier the same day. FINDINGS: The patient's known left anterior 6th and 7th rib fractures are not evident on this exam. The lungs appear clear. There is no focal consolidation and there is no effusion. There is no pneumothorax. Heart size appears normal without evidence of failure. An apparent vagal stimulator is present. IMPRESSION: 1. The patient's known left anterior 6th and 7th rib fractures are not evident by plain radiography. No acute cardiopulmonary process demonstrated. Dictated by: Dictated on workstation # [id number] Dict: 12/13/172148 Trans: 12/13/172228 Interpreted by: ARACELI GUDINO MD Electronically signed by: ARACELI GUDINO MD 12/13/172228 Diagonstic Imaging: CT Plain Films/CT/US/NM/MRI: chest Comments NAME: MARIELColtello Ristorante REC#: [id number] PT STATUS: REG ER : 1940 PHYSICIAN: SURENDRA DUMONT MD ADMIT DATE: 12/13/17/ER Signed Date of Exam: 12/13/17 CT CHEST WO PROCEDURE: CT chest without contrast. TECHNIQUE: Multiple contiguous axial images were obtained through the chest without the use of intravenous contrast. INDICATION: Fall 5 days prior. Left-sided rib pain with inspiration. CORRELATION is made with a chest radiograph from the same day. FINDINGS: The lungs demonstrate no evidence of focal pulmonary infiltrate or consolidation. There is no effusion. There is no pneumothorax. There is no pulmonary nodule or mass. The thoracic aorta demonstrates mild atherosclerosis within the arch and there are calcifications of the aortic valve. Aorta is normal in caliber. The main pulmonary artery is normal in size. Heart size appears normal. There is no pericardial effusion. There are no pathologically enlarged mediastinal lymph nodes demonstrated. There appear to be nondisplaced fractures of the left anterior sixth and seventh ribs. No right-sided rib fracture is evident. The visualized portion of the upper abdomen demonstrates atrophy of the pancreatic head with fatty infiltration of the pancreatic head and uncinate process. No acute upper abdominal abnormality demonstrated There are degenerative features present within the spine. There is chronic appearing wedging of T12. IMPRESSION: 1. Nondisplaced acute-appearing left anterior 6th and 7th rib fractures. 2. Chronic-appearing wedging of the T12 vertebral body. 3. The lungs appear clear without infiltrate, effusion or pneumothorax. 4. Atherosclerosis. Dictated by: Dictated on workstation # [id number] Dict: 12/13/[id number] Trans: 12/13/172228 Interpreted by: ARACELI GUDINO MD Electronically signed by: ARACELI GUDINO MD 12/13/172228 Departure Impression Primary Impression: Ribs, multiple fractures Qualified Codes: S22.42XA - Multiple fractures of ribs, left side, initial encounter for closed fracture Additional Impression: Fever in adult Disposition: 01 HOME, SELF-CARE Condition: Improved Departure-Patient Inst. Decision time for Depature: 23:24 Referrals: NADIA MEJIA MD (PCP/Family) Primary Care Physician Patient Instructions: Fever, Adult (DC), Rib Fracture (DC) Add. Discharge Instructions: All discharge instructions reviewed with patient and/or family. Voiced understanding. You may take your home hydrocodone-containing tablet every 6 hours as needed for pain. Do not take this with Tylenol/acetaminophen. Because they both have acetaminophen and then. If you're not taking the hydrocodone-containing tablet then you may take Tylenol/acetaminophen 2 tablets every 8 hours as needed for pain. Follow up with your Dr. in a few days for recheck. Use incentive spirometer several times per hour while awake to decrease her risk of infection/ pneumonia. Drink an adequate amount of fluids. Return for worse pain, fever, vomiting, weakness, breathing problems or other concerns as needed. Scripts Cefdinir (Cefdinir) 300 Mg Capsule 300 MG PO BID, #14 CAP 0 Refills Prov: SURENDRA DUMONT MD 12/13/17 Copy Copies To 1: NADIA MEJIA MD, TIMOTHY D MD Dec 13, 2017 21:29
[2017-12-13 21:39] LABS: BASOPHILS % (AUTO) 0 % (0-10); EOSINOPHILS # (AUTO) 0.1 10^3/uL (0.0-0.3); EOSINOPHILS % (AUTO) 1 % (0-10); HEMATOCRIT 37 % (40-54); HEMOGLOBIN 13.4 G/DL (13.3-17.7); LYMPHOCYTES # (AUTO) 0.7 X 10^3 (1.0-4.0); LYMPHOCYTES % (AUTO) 5 % (12-44); MEAN CORPUSCULAR HEMOGLOBIN 32 PG (25-34); MEAN CORPUSCULAR HGB CONC 36 G/DL (32-36); MEAN CORPUSCULAR VOLUME 89 FL (80-99); MEAN PLATELET VOLUME 9.9 FL (7.4-10.4); MONOCYTES # (AUTO) 1.3 X 10^3 (0.0-1.0); MONOCYTES % (AUTO) 10 % (0-12); NEUTROPHILS % (AUTO) 84 % (42-75); PLATELET COUNT 258 10^3/uL (130-400); RED BLOOD COUNT 4.22 10^6/uL (4.35-5.85)
[2017-12-13 21:51] LABS: BAND NEUTROPHILS 0 %; BASOPHILS % (MANUAL) 1 %; EOSINOPHILS % (MANUAL) 0 %; LYMPHOCYTES % (MANUAL) 4 %; MONOCYTES % (MANUAL) 5 %; NEUTROPHILS % (MANUAL) 90 %; RBC MORPH NORMAL
--- NOTE | 2017-12-13 21:51 | Diagnostic Imaging Report ---
PROCEDURE: CT chest without contrast. TECHNIQUE: Multiple contiguous axial images were obtained through the chest without the use of intravenous contrast. INDICATION: Fall 5 days prior. Left-sided rib pain with inspiration. CORRELATION is made with a chest radiograph from the same day. FINDINGS: The lungs demonstrate no evidence of focal pulmonary infiltrate or consolidation. There is no effusion. There is no pneumothorax. There is no pulmonary nodule or mass. The thoracic aorta demonstrates mild atherosclerosis within the arch and there are calcifications of the aortic valve. Aorta is normal in caliber. The main pulmonary artery is normal in size. Heart size appears normal. There is no pericardial effusion. There are no pathologically enlarged mediastinal lymph nodes demonstrated. There appear to be nondisplaced fractures of the left anterior sixth and seventh ribs. No right-sided rib fracture is evident. The visualized portion of the upper abdomen demonstrates atrophy of the pancreatic head with fatty infiltration of the pancreatic head and uncinate process. No acute upper abdominal abnormality demonstrated There are degenerative features present within the spine. There is chronic appearing wedging of T12. IMPRESSION: 1. Nondisplaced acute-appearing left anterior 6th and 7th rib fractures. 2. Chronic-appearing wedging of the T12 vertebral body. 3. The lungs appear clear without infiltrate, effusion or pneumothorax. 4. Atherosclerosis. Dictated by: Dictated on workstation # [id number]
--- NOTE | 2017-12-13 21:53 | Diagnostic Imaging Report ---
INDICATION: Fall. Left rib pain. COMPARISON is made to a CT examination from earlier the same day. FINDINGS: The patient's known left anterior 6th and 7th rib fractures are not evident on this exam. The lungs appear clear. There is no focal consolidation and there is no effusion. There is no pneumothorax. Heart size appears normal without evidence of failure. An apparent vagal stimulator is present. IMPRESSION: 1. The patient's known left anterior 6th and 7th rib fractures are not evident by plain radiography. No acute cardiopulmonary process demonstrated. Dictated by: Dictated on workstation # [id number]
[2017-12-13 21:59] LABS: INR 1.1 (0.8-1.4); PROTHROMBIN TIME PATIENT 14.5 SEC (12.2-14.7)
[2017-12-13 22:08] LABS: ALANINE AMINOTRANSFERASE 12 U/L (0-55); ALBUMIN 4.2 GM/DL (3.2-4.5); ALKALINE PHOSPHATASE 50 U/L (40-136); BILIRUBIN,TOTAL 0.6 MG/DL (0.1-1.0); BUN/CREATININE RATIO 18; CALCIUM 9.6 MG/DL (8.5-10.1); CARBON DIOXIDE 24 MMOL/L (21-32); CHLORIDE 100 MMOL/L (98-107); CREATININE SERUM 0.83 MG/DL (0.60-1.30); GFR ESTIMATED > 60; GLUCOSE 137 MG/DL (70-105); POTASSIUM 3.6 MMOL/L (3.6-5.0); SODIUM 136 MMOL/L (135-145)
[2017-12-13 22:45] LABS: BILIRUBIN,URINE NEGATIVE (NEGATIVE); CLARITY,URINE CLEAR; COLOR,URINE YELLOW; GLUCOSE, URINE (UA) NEGATIVE (NEGATIVE); KETONES,URINE NEGATIVE (NEGATIVE); LEUKOCYTE ESTERASE ,URINE 1+ (NEGATIVE); NITRITE,URINE NEGATIVE (NEGATIVE); PH,URINE 6 (5-9); PROTEIN,URINE 1+ (NEGATIVE); UROBILINOGEN,URINE NORMAL (NORMAL)
[2017-12-13 23:01] LABS: BACTERIA,URINE NEGATIVE /HPF; RBC,URINE 0-2 /HPF; WBC,URINE 0-2 /HPF
[2017-12-13 23:39] VITALS: BP 130/67
== END | disposition home or self-care (01) ==
LOC: EDUNIT# 20:25 → ER 20:27
DX: S22.42XA Multiple fractures of ribs, left side, initial encounter for closed fracture (principal); R50.9 Fever, unspecified; E78.00 Pure hypercholesterolemia, unspecified; I10 Essential (primary) hypertension; G20 Parkinson's disease; K21.9 Gastro-esophageal reflux disease without esophagitis; F41.9 Anxiety disorder, unspecified; F43.10 Post-traumatic stress disorder, unspecified; Z82.49 Family history of ischemic heart disease and other diseases of the circulatory system; Z80.0 Family history of malignant neoplasm of digestive organs; Z87.19 Personal history of other diseases of the digestive system; Z87.442 Personal history of urinary calculi; Z79.51 Long term (current) use of inhaled steroids; Z90.89 Acquired absence of other organs; Z87.891 Personal history of nicotine dependence; W19.XXXA Unspecified fall, initial encounter
CPT/HCPCS: 36415; 71046; 71250; 80053; 81000; 83605; 85007; 85027; 85610; 85730; 87040; 87088

== ENCOUNTER → 2018-02-23 | Outpatient (CLI) | payer MEDICARE, OTHER ==
[~2018-02-23] MED LIST changes: -CEFDINIR 300 MG (OMNICEF) CAP PO ONE; -HYDROcodone /IBUPROFEN (VICOPROFEN) 7.5 MG/ 200 MG TAB PO ONE
== END ==
LOC: CARD 08:44
PROVIDERS: ATTEND Internal Medicine Cardiovascular Disease
DX: I10 Essential (primary) hypertension (principal); E78.2 Mixed hyperlipidemia; E66.9 Obesity, unspecified; G20 Parkinson's disease; G47.33 Obstructive sleep apnea (adult) (pediatric)
CPT/HCPCS: 93306

== ENCOUNTER 2018-03-20 10:30 | Outpatient (CLI) | payer MEDICARE, OTHER ==
[~2018-03-20] VITALS: Ht 170.2 cm; Wt 97.3 kg
[~2018-03-20 10:30] MED LIST changes: +ACET-2469 PO; +BUPR150T14 PO; +CARB1TAB44 PO; +ESCI20TA45 PO; +GABA-490 PO; +OMEG1CAP24 PO; +PANT40TA3 PO; +POTA-51 PO; +SIMV20TA3 PO; +TROS20TA3 PO
== END 2018-03-20 10:45 | disposition home or self-care (01) ==
LOC: PREOP 10:30
PROVIDERS: ATTEND Surgery
DX: Z01.818 Encounter for other preprocedural examination (principal)

== ENCOUNTER 2018-03-22 09:23 | Day surgery (SDC) | payer MEDICARE, OTHER ==
[~2018-03-22] VITALS: Ht 170.2 cm; Wt 97.3 kg
--- OUTSIDE RECORDS SUMMARY | 2018-03-22 09:27 | XMS REPORT | Encounter Summary ---
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 Bat Lathe Operator Name Role Phone Laura Her MD Unavailable Mike Stroud MD PCP Yumi Murillo MD Unavailable Shai Bernard MD Unavailable Reason for Visit * Reason Comments Medication Refill Encounter Details Care Team Description Date Type Department Shai Bernard MD [address] [facility] [address] [place] [address] Other depression 12/28/2017 Refill [facility] [address] [place] [address] Social History Date Tobacco Use Types Packs/Day Years Used Quit: 02/17/1970 Former Smoker Cigarettes 0.5 2 Smokeless Tobacco: Never Used Alcohol Use Drinks/Week oz/Week Comments Yes 7 Glasses of 4.2 glass of wine every evening wine Sex Assigned at Date Recorded Not on file Industry Job Start Date Occupation Not on file Not on file Not on file Travel End Travel History Travel Start No recent travel history available. as of this encounter Functional Status Date of Assessment Functional Status Response 09/06/2017 Does the patient have a hearing impairment: Yes 09/06/2017 Does the patient have a visual impairment: Yes 09/06/2017 Does the patient have impaired ambulation: Yes 09/06/2017 Does the patient have an activity of daily living No (ADL) impairment: 03/22/2017 Does the patient have an instrumental activity of Yes daily living (IADL) impairment: Date of Assessment Cognitive Status Response 09/06/2017 Does the patient have a cognitive impairment: Yes as of this encounter Plan of Treatment Not on fileas of this encounter Visit Diagnoses Diagnosis Other depression in this encounter
--- OUTSIDE RECORDS SUMMARY | 2018-03-22 09:27 | XMS REPORT | Clinical Summary ---
Author Author [facility] Organization [facility] Address Unknown Phone Unavailable Care Team Providers Care Crossing Flagman Name Role Phone Laura Her MD Unavailable Mike Stroud MD PCP Yumi Murillo MD Unavailable Shai Bernard MD Unavailable Source Comments Some departments are not documenting in the electronic medical record. If you do not see the information that you expected, contact Release of Information in the Health Information Management department at [phone] for further assistance in locating additional records.[facility] Allergies No Known Allergies Medications End Date Status Medication Sig Dispensed Refills Start Date Active omeprazole DR(+) Take 20 mg by 0 (PRILOSEC) 20 mg capsule mouth at bedtime daily. Active lisinopril (PRINIVIL, Take 20 mg by 0 ZESTRIL) 40 mg tablet mouth daily. Active amLODIPine (NORVASC) 10 Take 10 mg by 0 mg tablet mouth daily. Active hydroCHLOROthiazide Take 25 mg by 0 (HYDRODIURIL) 25 mg mouth daily. tablet Active fluticasone (FLONASE) 50 Apply 1 [place] 0 mcg/actuation nasal spray to each nostril as directed at bedtime daily. Shake bottle gently before using. Active aspirin EC 81 mg tablet Take 1 Tab by 90 Tab 3 mouth daily. 7 Do not resume until okayed by Dr. Voss Active MULTIVITAMIN PO Take 1 tablet 0 by mouth daily. Active Ibuprofen-Diphenhydramine Take 2 0 (ADVIL PM) 200-38 mg tab tablets by mouth at bedtime daily. Active simvastatin (ZOCOR) 40 mg Take 20 mg by 0 tablet mouth at bedtime daily. Take 0.5 tabs at bedtime Active escitalopram oxalate Take 1 tablet 90 tablet 3 (LEXAPRO) 20 mg by mouth 7 tabletIndications: Other daily. depression Active propranolol LA (INDERAL TAKE ONE 90 capsule 3 LA) 80 mg capsule CAPSULE BY 7 MOUTH DAILY Active CHOLECALCIFEROL (VITAMIN Take 5,000 0 D3) (VITAMIN D3 PO) Int'l Units by mouth daily. Active potassium chloride SR Take 20 mEq 0 (K-DUR) 20 mEq tablet by mouth daily. Take with a meal and a full glass of water. Active FUROSEMIDE PO Take 25 mg by 0 mouth every 3 days. Active trospium(+) (SANCTURA) 20 Take 20 mg by 0 mg tablet mouth twice daily. Active carbidopa/levodopa 1/2 tab bid x 90 tablet 5 (SINEMET) 25/100 mg 2 days, then 8 tabletIndications: 1/2 tab tid x Parkinson disease (HCC) 2 d, then one tab in AM and 1/2 bid x 1 d, then one tab bid and 1/2 tab q d x 2 d, then one tid Active buPROPion XL (WELLBUTRIN TAKE ONE 30 tablet 5 XL) 150 mg TABLET BY 8 tabletIndications: Other MOUTH EVERY depression MORNING. DO NOT CRUSH OR CHEW Active Problems Problem Noted Date Hypersomnia 09/06/2017 Overview: 09/06/2017 Dexter Sleepiness Scale: 12 L ast Assessment & Plan: Hopefully the medication changes will help. Wound infection complicating hardware 07/01/2016 Depression 06/12/2016 Overview: 06/12/2016 On Lexapro (escitalopram) 09/06/2017 Geriatric Depression Scale: 17 L ast Assessment & Plan: Patient was started on Wellbutrin XL 150 mg for depression. Side effects of the medication were discussed with the patient and they were given a list of common side effects. I recommended evaluation and treatment by our psychologist, Dr Hernandez. Urinary retention 02/25/2016 Parkinson's disease 02/19/2016 Hypertension 02/18/2016 Mixed hyperlipidemia 02/18/2016 Parkinson disease with Left Brain STN implant (A) 08/25/2015 Overview: Symptoms began in 2014, initial symptoms was right hand tremor. Diagnosed with Parkinson's disease in 2016. Atypical PD Features: None No improvement with [...] Motor Exam: 20 Total UPDRS Score: 31 06/12/2016 PDQ8 Total %: 16 Marked improvement with Deep Brain Stimulation. Abott Device Personal KinetiGraph (PKG) Movement Recording: Bradykinesia: 23.8 Dyskinesia: 1.9 FDS: 8.6 12/13/2016 PDQ8 Total %: 3 Stimulator Settings: LEFT BRAIN/ RIGHT BODY Amplitude: 2.8 mA Pulse Width: 60 micro secs Rate: 130 pps Load Impedance: 1087 ohms Leads: 1 Off,2 Off,3 -,4 Off, Case + Battery: 3 years 1 months 03/22/2017 Lead was explanted due to skin erosion. 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 Patient was started on Sinemet 25/100 half tablet twice a day and given instructions to increase it to one tablet three times a day. Side effects of the medication were discussed and he was given a list of common side effects. Patient will call us in 2-3 weeks for medication adjustments if needed. Patient was referred to the programming nurse to have IPG checked and reprogrammed. Encounters Care Team Description Date Type Specialty Shai Bernard MD Other depression 12/28/2017 Refill Neurology from Last 3 Months Family History Medical History Relation Name Comments Cancer Brother Cancer Father Diabetes Father Stroke Father Tremor Father Diabetes Mother Parkinson's Neg Hx Relation Name Status Comments Brother Father Mother Social History Date Tobacco Use Types Packs/Day [...] Travel Start No recent travel history available. Last Filed Vital Signs Time Taken Vital Sign Reading 09/06/2017 9:19 AM CDT Blood Pressure 121/78 09/06/2017 9:19 AM CDT Pulse 63 10/16/2016 2:15 PM CDT Temperature 36.6 C (97.9 F) 06/22/2016 8:57 AM CDT Respiratory Rate 16 10/16/2016 2:15 PM CDT Oxygen Saturation 96% - Inhaled Oxygen - Concentration 09/06/2017 9:16 AM CDT Weight 96.9 kg (213 lb 10 oz) 09/06/2017 9:16 AM CDT Height 162.6 cm (5' 4") 09/06/2017 9:16 AM CDT Body Mass Index 36.67 Plan of Treatment Health Maintenance Due Date Last Done Comments PHYSICAL (COMPREHENSIVE) 1947 EXAM DTAP/TDAP VACCINES (1 - 1958 Tdap) SHINGLES RECOMBINANT 1990 VACCINE (1 of 2) PNEUMONIA (PCV13/PPSV23) 2005 VACCINES (1 of 2 - PCV13) INFLUENZA VACCINE 10/12/2017 12/26/2014, 01/08/2014, 11/26/2008, Additional history exists Implants Device Identifier Shelf Expiration Date Model / Serial / Lot Implanted Type Area Manufactur er 05/20/2018 6010 / [id number] / [id number] Guardian Burrr Hole Cover Left: Skull [facility] Implanted: Qty: 1 on 08/05/2016 by Denton Olivas MD 02/08/2018 6172 / [id number] / [id number] Lead Kit 8-Ch 40cm Black Left: Brain [facility] Implanted: Qty: 1 on 08/05/2016 by Denton Olivas MD 08/02/2018 [id number] / [id number] / [id number] Extension With Extend Technology Left: Chest [facility] 50cm - [id number] MED Implanted: Qty: 1 on 10/16/2016 by Denton Voss MD 01/20/2018 [id number] / [id number] / [id number] Infinity 7 Ipg Generator - Left: Chest [facility] [id number] MED Implanted: Qty: 1 on 10/16/2016 by Denton Voss MD Device Identifier Shelf Expiration Date Model / Serial / Lot Explanted Type Area Manufactur er 10/28/2017 6172 / [id number] / [id number] Lead Kit 8-Ch 40cm Black Left: Brain [facility] Implanted: Qty: 1 on 02/19/2016 by Denton Olivas MD Explanted: Qty: 1 on 06/30/2016 by Denton Voss MD 01/08/2018 6010 / [id number] / [id number] Guardian Burrr Hole Cover Left: Skull [facility] Implanted: Qty: 1 on 02/19/2016 by Denton Olivas MD Explanted: Qty: 1 on 06/30/2016 by Denton Voss MD 11/25/2017 6371 / [id number] / [id number] Infinity Dbs System Left: Neck [facility] Implanted: Qty: 1 on 02/25/2016 by Denton Olivas MD Explanted: Qty: 1 on 06/30/2016 by Denton Voss MD 09/30/2017 6662 / [id number] / [id number] Infinity 7 Left: Chest [facility] Implanted: Qty: 1 on 02/25/2016 by Denton Olivas MD Explanted: Qty: 1 on 06/30/2016 by Denton Voss MD Results Not on filefrom Last 3 Months Insurance Payer Benefit Subscriber ID Type Phone Address Plan / Group MEDICARE MEDICARE xxxxxxxxxx Medicare PART A AND B xxxxxxxxx HMO FOR LIFE Advance Directives Patient has advance care planning documents, and code status on file. For more information, please contact: [facility] [address] [place] [address] Date Inactivated Comments Code Status Date Activated 08/06/2016 11:36 AM Full Code 08/05/2016 2:36 PM Provider has discussed Code Status No, discussion not w/Patient or Family? necessary based on Dx 07/01/2016 2:41 PM Full Code 06/30/2016 6:00 PM Provider has discussed Code Status No, discussion not w/Patient or Family? necessary based on Dx 02/20/2016 3:25 PM Full Code 02/19/2016 11:59 AM Provider has discussed Code Status No, more discussion w/Patient or Family? needed
--- OUTSIDE RECORDS SUMMARY | 2018-03-22 09:27 | XMS REPORT ---
Author Author ANIA JIMENEZ Organization [facility] Address [address] [place] [address] Care Team Providers Care Car Dropper Name Role Phone ANIA JIMENEZ Unavailable PROBLEMS Type Condition ICD9-CM Code [id number] Code Onset Dates Condition Status SNOMED Code Problem Parkinson's disease G20 Active [id number] ALLERGIES No Known Allergies ENCOUNTERS Encounter Location Date Diagnosis [address] [id number] [id number] Jun, Parkinson's disease G20 IMMUNIZATIONS No Known Immunizations SOCIAL HISTORY Never Assessed REASON FOR VISIT [facility] physical [facility] PLAN OF CARE Activity Details Follow Up prn Reason: VITAL SIGNS Height 67 in 2017-06-20 Weight 215.8 lbs 2017-06-20 Temperature 98.6 degrees Fahrenheit 2017-06-20 Heart Rate 68 bpm 2017-06-20 Respiratory Rate 18 2017-06-20 BMI 33.80 kg/m2 2017-06-20 Blood pressure systolic 122 mmHg 2017-06-20 Blood pressure diastolic 70 mmHg 2017-06-20 MEDICATIONS Medication Instructions Dosage Frequency Start Date End Date Duration Status Omeprazole 20 MG Orally Once a day 1 capsule 24h Active Furosemide 20 MG Orally Once a day 1 tablet 24h Active Fluticasone Propionate 50 MCG/ACT Nasally Once a day 1 spray in each nostril 24h Active Simvastatin 20 MG Orally Once a day 1 tablet in the evening 24h Active Aspir-81 81 MG Orally Once a day 1 tablet 24h Active Amlodipine Besylate 10 MG Orally Once a day 1 tablet 24h Active Hydrochlorothiazide 25 MG Orally Once a day 1 tablet in the morning 24h Active Potassium Chloride ER 20 MEQ Orally Once a day 1 tablet with food 24h Active Propranolol HCl ER 80 MG Orally Once a day 1 capsule 24h Active Lexapro 20 MG Orally Once a day 0.5 tablet 24h Active Trospium Chloride 20 mg Orally twice a day 1 tablet at bedtime on an empty stomach 12h Active Vitamin D3 Complete - Active Lisinopril 20 MG Orally Once a day 1 tablet 24h Active Multivitamin - Active RESULTS No Results PROCEDURES No Known procedures INSTRUCTIONS MEDICATIONS ADMINISTERED No Known Medications MEDICAL (GENERAL) HISTORY Type Description Date Medical History parkinsons disease Medical History hypertension Medical History hyperlipidemia Medical History urinary incontinence Surgical History right wrist fracture repaired Surgical History tonsillectomy and adenoidectomy Surgical History DBS brain surgery x's 6 Surgical History transurethral resection of the prostate (TURP)
--- OUTSIDE RECORDS SUMMARY | 2018-03-22 09:29 | XMS REPORT | Continuity of Care Document ---
Author Author [facility] [address] Organization [facility] [address] Address Unknown Phone Unavailable Allergies Active Description Code Type Severity Reaction Onset Reported/Identified Relationship to Patient Clinical Status Yes No Known Drug Allergies [id number] Drug Allergy Unknown N/A 03/20/2018 Medications There is no data. Problems Date [...] G20 PARKINSON'S DISEASE 01/13/2016 NADIA MEJIA MD R Ot 781.0 ABN INVOLUN MOVEMENT NEC 01/19/2016 [...] MD J Ot I10 ESSENTIAL (PRIMARY) HYPERTENSION 01/30/2016 ADDY FORD MD Ot E66.9 OBESITY, UNSPECIFIED 01/30/2016 ADDY FORD MD Ot E78.2 MIXED HYPERLIPIDEMIA 01/30/2016 ADDY FORD MD Ot G47.33 OBSTRUCTIVE SLEEP APNEA (ADULT) (PEDIATR 01/30/2016 ADDY FORD MD J Ot I10 ESSENTIAL (PRIMARY) HYPERTENSION 02/03/2016 ADDY FORD MD Ot E66.9 OBESITY, UNSPECIFIED 02/03/2016 ADDY FORD MD Ot E78.2 MIXED HYPERLIPIDEMIA 02/03/2016 ADDY FORD MD Ot G47.33 OBSTRUCTIVE SLEEP APNEA (ADULT) (PEDIATR 02/03/2016 ADDY FORD MD J Ot I10 ESSENTIAL (PRIMARY) HYPERTENSION 02/03/2016 NADIA MEJIA MD R Ot G20 PARKINSON'S DISEASE 02/04/2016 MELVIN TATE, BANDAR J Ot G20 PARKINSON'S DISEASE 02/18/2016 ADDY FORD MD Ot E66.9 OBESITY, UNSPECIFIED 02/18/2016 ADDY FORD MD Ot E78.2 MIXED HYPERLIPIDEMIA 02/18/2016 ADDY FORD MD Ot G47.33 OBSTRUCTIVE SLEEP APNEA (ADULT) (PEDIATR 02/18/2016 ADDY FORD MD J Ot I10 ESSENTIAL (PRIMARY) HYPERTENSION 02/24/2016 NADIA MEJIA MD R Ot G20 PARKINSON'S DISEASE 03/09/2016 ADDY FORD MD Ot E66.9 OBESITY, UNSPECIFIED 03/09/2016 ADDY FORD MD J Ot E78.2 MIXED HYPERLIPIDEMIA 03/09/2016 ADDY FORD MD J Ot G47.33 OBSTRUCTIVE SLEEP APNEA (ADULT) (PEDIATR 03/09/2016 ADDY FORD MD J Ot I10 ESSENTIAL (PRIMARY) HYPERTENSION 06/16/2016 ADDY [...] Ot R94.31 ABNORMAL ELECTROCARDIOGRAM [ECG] [EKG] 08/23/2016 NADIA MEJIA MD Ot G20 PARKINSON'S DISEASE 02/21/2017 BANDAR CHARLES MD Ot M19.071 PRIMARY OSTEOARTHRITIS, RIGHT ANKLE AND 02/21/2017 BANDAR CHARLES MD Ot M79.661 PAIN IN RIGHT LOWER LEG 02/21/2017 BANDAR CHARLES MD Ot M79.671 PAIN IN RIGHT FOOT 02/21/2017 BANDAR CHARLES MD Ot W19.XXXA UNSPECIFIED FALL, INITIAL ENCOUNTER 02/23/2017 LINO SAAVEDRA MD Ot N40.1 BENIGN PROSTATIC HYPERPLASIA WITH LOWER 02/23/2017 LINO SAAVEDRA MD Ot R33.8 OTHER RETENTION OF URINE 02/23/2017 LINO SAAVEDRA MD Ot Z01.812 ENCOUNTER FOR PREPROCEDURAL LABORATORY E 02/23/2017 LINO SAAVEDRA MD Ot Z11.2 ENCOUNTER FOR SCREENING FOR OTHER BACTER 02/28/2017 ADDY FORD MD Ot E66.9 OBESITY, UNSPECIFIED 02/28/2017 ADDY FORD MD Ot E78.2 MIXED HYPERLIPIDEMIA 02/28/2017 ADDY FORD MD Ot G47.33 OBSTRUCTIVE SLEEP APNEA (ADULT) (PEDIATR 02/28/2017 ADDY FORD MD Ot I10 ESSENTIAL (PRIMARY) HYPERTENSION 02/28/2017 ADDY FORD MD Ot E66.9 OBESITY, UNSPECIFIED 02/28/2017 ADDY FORD MD Ot E78.2 MIXED HYPERLIPIDEMIA 02/28/2017 ADDY FORD MD Ot G20 PARKINSON'S DISEASE 02/28/2017 ADDY FORD MD Ot G47.33 OBSTRUCTIVE SLEEP APNEA (ADULT) (PEDIATR 02/28/2017 ADDY FORD MD Ot I10 ESSENTIAL (PRIMARY) HYPERTENSION 02/28/2017 ADDY FORD MD Ot R94.31 ABNORMAL ELECTROCARDIOGRAM [ECG] [EKG] 02/28/2017 ROBERTO TATE, NADIA R Ot G20 PARKINSON'S DISEASE 02/28/2017 LINO SAAVEDRA MD Ot N40.1 BENIGN PROSTATIC HYPERPLASIA WITH LOWER 02/28/2017 LINO SAAVEDRA MD Ot R33.8 OTHER RETENTION OF URINE 02/28/2017 LINO SAAVEDRA MD Ot Z01.812 ENCOUNTER FOR PREPROCEDURAL LABORATORY E 02/28/2017 LINO SAAVEDRA MD Ot Z11.2 ENCOUNTER FOR SCREENING FOR OTHER BACTER 03/01/2017 LINO SAAVEDRA MD Ot E78.5 HYPERLIPIDEMIA, UNSPECIFIED 03/01/2017 LINO SAAVEDRA MD Ot G20 PARKINSON'S DISEASE 03/01/2017 LINO SAAVEDRA MD Ot G47.33 OBSTRUCTIVE SLEEP APNEA (ADULT) (PEDIATR 03/01/2017 LINO SAAVEDRA MD Ot I10 ESSENTIAL (PRIMARY) HYPERTENSION 03/01/2017 LINO SAAVEDRA MD Ot K21.9 GASTRO-ESOPHAGEAL REFLUX DISEASE WITHOUT 03/01/2017 LINO SAAVEDRA MD, Ot N40.1 BENIGN PROSTATIC HYPERPLASIA WITH LOWER 03/01/2017 LINO SAAVEDRA MD, Ot R33.9 RETENTION OF URINE, UNSPECIFIED 03/01/2017 LINO SAAVEDRA MD, Ot Z79.82 NURSING HOME (CURRENT) USE OF ASPIRIN 03/01/2017 LINO SAAVEDRA MD, Ot 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 03/01/2017 LINO SAAVEDRA MD, Ot Z87.442 PERSONAL HISTORY OF URINARY CALCULI 03/01/2017 LINO SAAVEDRA MD, Ot Z87.891 PERSONAL HISTORY OF NICOTINE DEPENDENCE 03/01/2017 LINO SAAVEDRA MD, Ot E78.5 HYPERLIPIDEMIA, UNSPECIFIED 03/01/2017 LINO SAAVEDRA MD, Ot G20 PARKINSON'S DISEASE 03/01/2017 LINO SAAVEDRA MD, Ot G47.33 OBSTRUCTIVE SLEEP APNEA (ADULT) (PEDIATR 03/01/2017 LINO SAAVEDRA MD, Ot I10 ESSENTIAL (PRIMARY) HYPERTENSION 03/01/2017 LINO SAAVEDRA MD, Ot K21.9 GASTRO-ESOPHAGEAL REFLUX DISEASE WITHOUT 03/01/2017 LINO SAAVEDRA MD, Ot N40.1 BENIGN PROSTATIC HYPERPLASIA WITH LOWER 03/01/2017 LINO SAAVEDRA MD, Ot R33.9 RETENTION OF URINE, UNSPECIFIED 03/01/2017 LINO SAAVEDRA MD, Ot 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 03/01/2017 LINO SAAVEDRA MD, Ot 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 03/01/2017 LINO SAAVEDRA MD, Ot Z87.442 PERSONAL HISTORY OF URINARY CALCULI 03/01/2017 LINO SAAVEDRA MD, Ot Z87.891 PERSONAL HISTORY OF NICOTINE DEPENDENCE 03/15/2017 ANDI MENARD Ot R60.0 LOCALIZED EDEMA 03/16/2017 ANDI MENARD Ot R60.0 LOCALIZED EDEMA 04/12/2017 ANDI MENARD Ot R60.0 LOCALIZED EDEMA 04/12/2017 MELVIN TATE, BANDAR Alcala Ot M19.071 PRIMARY OSTEOARTHRITIS, RIGHT ANKLE AND 04/12/2017 BANDAR CHARLES MD Ot M79.661 PAIN IN RIGHT LOWER LEG 04/12/2017 BANDAR CHARLES MD Ot M79.671 PAIN IN RIGHT FOOT 04/12/2017 BANDAR CHARLES MD Ot W19.XXXA UNSPECIFIED FALL, INITIAL ENCOUNTER 04/12/2017 NADIA MEJIA MD Ot 781.0 ABN INVOLUN MOVEMENT NEC 04/12/2017 NADIA MEJIA MD, Ot G20 PARKINSON'S DISEASE 04/12/2017 ADDY FORD MD Ot E66.9 OBESITY, UNSPECIFIED 04/12/2017 ADDY FORD MD Ot E78.2 MIXED HYPERLIPIDEMIA 04/12/2017 ADDY FORD MD Ot G47.33 OBSTRUCTIVE SLEEP APNEA (ADULT) (PEDIATR 04/12/2017 ADDY FORD MD Ot I10 ESSENTIAL (PRIMARY) HYPERTENSION 04/12/2017 ADDY FORD MD Ot E66.9 OBESITY, UNSPECIFIED 04/12/2017 ADDY FORD MD Ot E78.2 MIXED HYPERLIPIDEMIA 04/12/2017 ADDY FORD MD Ot G20 PARKINSON'S DISEASE 04/12/2017 ADDY FORD MD Ot G47.33 OBSTRUCTIVE SLEEP APNEA (ADULT) (PEDIATR 04/12/2017 ADDY FORD MD Ot I10 ESSENTIAL (PRIMARY) HYPERTENSION 04/12/2017 ADDY FORD MD Ot R94.31 ABNORMAL ELECTROCARDIOGRAM [ECG] [EKG] 04/12/2017 NADIA MEJIA MD, Ot G20 PARKINSON'S DISEASE 04/12/2017 BANDAR CHARLES MD Ot M19.071 PRIMARY OSTEOARTHRITIS, RIGHT ANKLE AND 04/12/2017 BANDAR CHARLES MD Ot M79.661 PAIN IN RIGHT LOWER LEG 04/12/2017 BANDAR CHARLES MD Ot M79.671 PAIN IN RIGHT FOOT 04/12/2017 BANDAR CHARLES MD Ot W19.XXXA UNSPECIFIED FALL, INITIAL ENCOUNTER 04/12/2017 ANDI MENARD Ot R60.0 LOCALIZED EDEMA 05/02/2017 BANDAR CHARLES MD Ot M25.571 PAIN IN RIGHT ANKLE AND JOINTS OF RIGHT 05/02/2017 BANDAR CHARLES MD Ot M79.661 PAIN IN RIGHT LOWER LEG 05/09/2017 BARBARA GAVIN [employer]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 Ot R60.0 LOCALIZED EDEMA 05/19/2017 NADIA MEJIA MD R Ot M25.551 PAIN IN RIGHT HIP 05/19/2017 NADIA MEJIA MD R Ot M25.851 OTHER SPECIFIED JOINT DISORDERS, RIGHT H 05/26/2017 KATHRYN CHARLES MDRIA J Ot M25.571 PAIN IN RIGHT ANKLE AND JOINTS OF RIGHT 05/26/2017 MELVIN TATE BANDAR J Ot M79.661 PAIN IN RIGHT LOWER LEG 05/26/2017 MELVIN TATE BANDAR J Ot M25.571 PAIN IN RIGHT ANKLE AND JOINTS OF RIGHT 05/26/2017 KATHRYN CHARLES MDRIA J Ot M79.661 PAIN IN RIGHT LOWER LEG 05/27/2017 KATHRYN CHARLES MDRIA J Ot M19.071 PRIMARY OSTEOARTHRITIS, RIGHT ANKLE AND 05/27/2017 MELVIN TATE BANDAR J Ot M79.661 PAIN IN RIGHT LOWER LEG 05/27/2017 MELVIN TATE BANDAR J Ot M79.671 PAIN IN RIGHT FOOT 05/27/2017 MELVIN TATE BANDAR J Ot W19.XXXA UNSPECIFIED FALL, INITIAL ENCOUNTER 06/08/2017 NADIA MEJIA MD R Ot M25.551 PAIN IN RIGHT HIP 06/08/2017 NADIA MEJIA MD R Ot M25.851 OTHER SPECIFIED JOINT DISORDERS, RIGHT H 06/29/2017 GERTRUDIS CHARLES MDA J Ot M25.571 PAIN IN RIGHT ANKLE AND JOINTS OF RIGHT 06/29/2017 GERTRUDIS CHARLES MDA J Ot M79.661 PAIN IN RIGHT LOWER LEG 06/30/2017 MELVIN TATE BANDAR J Ot M25.571 PAIN IN RIGHT ANKLE AND JOINTS OF RIGHT 06/30/2017 MELVIN TATE BANDAR J Ot M79.661 PAIN IN RIGHT LOWER LEG 07/04/2017 NADIA MEJIA MD R Ot M25.551 PAIN IN RIGHT HIP 07/04/2017 NADIA MEJIA MD R Ot M25.851 OTHER SPECIFIED JOINT DISORDERS, RIGHT H 08/17/2017 NADIA MEJIA MD R Ot 781.0 ABN INVOLUN MOVEMENT NEC 08/17/2017 NADIA MEJIA MD R Ot G20 PARKINSON'S DISEASE 08/17/2017 NADIA MEJIA MD R Ot M25.551 PAIN IN RIGHT HIP 08/17/2017 NADIA MEJIA MD R Ot M25.851 OTHER SPECIFIED JOINT DISORDERS, RIGHT H 08/17/2017 BANDAR CHARLES MD Ot M25.571 PAIN IN RIGHT ANKLE AND JOINTS OF RIGHT 08/17/2017 BANDAR CHARLES MD Ot M79.661 PAIN IN RIGHT LOWER LEG 08/29/2017 BANDAR CHARLES MD J Ot M19.071 PRIMARY OSTEOARTHRITIS, RIGHT ANKLE AND 08/29/2017 BANDAR CHARLES MD Ot M79.661 PAIN IN RIGHT LOWER LEG 08/29/2017 BANDAR CHARLES MD Ot M79.671 PAIN IN RIGHT FOOT 08/29/2017 BANDAR CHARLES MD Ot W19.XXXA UNSPECIFIED FALL, INITIAL ENCOUNTER 09/14/2017 BANDAR CHARLES MD Ot M25.571 PAIN IN RIGHT ANKLE AND JOINTS OF RIGHT 09/14/2017 BANDAR CHARLES MD Ot M79.661 PAIN IN RIGHT LOWER LEG 10/02/2017 NADIA MEJIA MD R Ot 781.0 ABN INVOLUN MOVEMENT NEC 10/02/2017 NADIA EMJIA MD Ot G20 PARKINSON'S DISEASE 10/02/2017 NADIA MEJIA MD Ot M25.551 PAIN IN RIGHT HIP 10/02/2017 NADIA MEJIA MD R Ot M25.851 OTHER SPECIFIED JOINT DISORDERS, RIGHT H 12/13/2017 SURENDRA DUMONT MD Ot E78.00 PURE HYPERCHOLESTEROLEMIA, UNSPECIFIED 12/13/2017 SURENDRA DUMONT MD Ot F41.9 ANXIETY DISORDER, UNSPECIFIED 12/13/2017 SURENDRA DUMONT MD Ot F43.10 POST-TRAUMATIC STRESS DISORDER, UNSPECIF 12/13/2017 SURENDRA DUMONT MD Ot G20 PARKINSON'S DISEASE 12/13/2017 SURENDRA DUMONT MD, Ot I10 ESSENTIAL (PRIMARY) HYPERTENSION 12/13/2017 SURENDRA DUMONT MD Ot K21.9 GASTRO-ESOPHAGEAL REFLUX DISEASE WITHOUT 12/13/2017 SURENDRA DUMONT MD Ot R07.81 PLEURODYNIA 12/13/2017 SURENDRA DUMONT MD, Ot R50.9 FEVER, UNSPECIFIED 12/13/2017 SURENDRA DUMONT MD Ot S22.42XA MULTIPLE FRACTURES OF RIBS, LEFT SIDE, I 12/13/2017 SURENDRA DUMONT MD, Ot W19.XXXA UNSPECIFIED FALL, INITIAL ENCOUNTER 12/13/2017 SURENDRA DUMONT MD, Ot Z79.51 NURSING HOME (CURRENT) USE OF INHALED STERO 12/13/2017 SURENDRA DUMONT MD, Ot Z80.0 FAMILY HISTORY OF MALIGNANT NEOPLASM OF 12/13/2017 SURENDRA DUMONT MD, Ot Z82.49 FAMILY HX OF ISCHEM HEART DIS AND OTH DI 12/13/2017 SURENDRA DUMONT MD, Ot Z87.19 PERSONAL HISTORY OF OTHER DISEASES OF TH 12/13/2017 SURENDRA DUMONT MD, Ot Z87.442 PERSONAL HISTORY OF URINARY CALCULI 12/13/2017 SURENDRA DUMONT MD, Ot Z87.891 PERSONAL HISTORY OF NICOTINE DEPENDENCE 12/13/2017 SURENDRA DUMONT MD Ot Z90.89 ACQUIRED ABSENCE OF OTHER ORGANS 02/17/2018 PLACIDO NEWTON MD Ot Z01.818 ENCOUNTER FOR OTHER PREPROCEDURAL EXAMIN 02/20/2018 PLACIDO NEWTON MD Ot Z01.818 ENCOUNTER FOR OTHER PREPROCEDURAL EXAMIN 02/21/2018 NADIA MEJIA MD R Ot 781.0 ABN INVOLUN MOVEMENT NEC 02/21/2018 NADIA MEJIA MD R Ot G20 PARKINSON'S DISEASE 02/21/2018 NADIA MEJIA MD R Ot M25.551 PAIN IN RIGHT HIP 02/21/2018 NADIA MEJIA MD R Ot M25.851 OTHER SPECIFIED JOINT DISORDERS, RIGHT H 02/21/2018 PLACIDO NEWTON MD Ot Z01.818 ENCOUNTER FOR OTHER PREPROCEDURAL EXAMIN 02/27/2018 ADDY FORD MD Ot E66.9 OBESITY, UNSPECIFIED 02/27/2018 ADDY FORD MD Ot E78.2 MIXED HYPERLIPIDEMIA 02/27/2018 ADDY FORD MD Ot G20 PARKINSON'S DISEASE 02/27/2018 ADDY FORD MD Ot G47.33 OBSTRUCTIVE SLEEP APNEA (ADULT) (PEDIATR 02/27/2018 ADDY FORD MD Ot I10 ESSENTIAL (PRIMARY) HYPERTENSION 03/16/2018 AMAN TATE, PLACIDO Ot Z01.818 ENCOUNTER FOR OTHER PREPROCEDURAL EXAMIN 03/16/2018 ADDY FORD MD, Ot E66.9 OBESITY, UNSPECIFIED 03/16/2018 ADDY FORD MD, Ot E78.2 MIXED HYPERLIPIDEMIA 03/16/2018 ADDY FORD MD, Ot G20 PARKINSON'S DISEASE 03/16/2018 ADDY FORD MD, Ot G47.33 OBSTRUCTIVE SLEEP APNEA (ADULT) (PEDIATR 03/16/2018 ADDY FORD MD, Ot I10 ESSENTIAL (PRIMARY) HYPERTENSION 03/20/2018 AMAN TATE, PLACIDO Reyna Z01.818 ENCOUNTER FOR OTHER PREPROCEDURAL EXAMIN Procedures There is no data. Results Test [...] Staphylococcus aureus (MRSA) screening culture NEG NRG Blood type T Indirect antibody screen panel - 02/28/17 06:35 ABO+Rh group ABP NRG Transfusion band number [id number] NRG Blood group antibody screen NEGATIVE NRG Complete blood count (CBC) with automated white blood cell (WBC) differential - 12/13/17 21:32 Blood leukocytes automated count (number/volume) 13.0 10*3/uL 4.3-11.0 Blood erythrocytes automated count (number/volume) 4.22 10*6/uL 4.35-5.85 Venous blood hemoglobin measurement (mass/volume) 13.4 g/dL 13.3-17.7 Blood hematocrit (volume fraction) 37 % 40-54 Automated erythrocyte mean corpuscular volume 89 [foz_us] 80-99 Automated erythrocyte mean corpuscular hemoglobin (mass per erythrocyte) 32 pg 25-34 Automated erythrocyte mean corpuscular hemoglobin concentration measurement ( mass/volume) 36 g/dL 32-36 Automated erythrocyte distribution width ratio 13.0 % 10.0-14.5 Automated blood platelet count (count/volume) 258 10*3/uL 130-400 Automated blood platelet mean volume measurement 9.9 [foz_us] 7.4-10.4 Automated blood neutrophils/100 leukocytes 84 % 42-75 Automated blood lymphocytes/100 leukocytes 5 % 12-44 Blood monocytes/100 leukocytes 10 % 0-12 Automated blood eosinophils/100 leukocytes 1 % 0-10 Automated blood basophils/100 leukocytes 0 % 0-10 Blood neutrophils automated count (number/volume) 11.0 10*3 1.8-7.8 Blood lymphocytes automated count (number/volume) 0.7 10*3 1.0-4.0 Blood monocytes automated count (number/volume) 1.3 10*3 0.0-1.0 Automated eosinophil count 0.1 10*3/uL 0.0-0.3 Automated blood basophil count (count/volume) 0.0 10*3/uL 0.0-0.1 Blood manual differential performed detection - 12/13/17 21:32 Blood monocytes/100 leukocytes 5 % NRG Manual blood segmented neutrophils/100 leukocytes 90 % NRG Blood band neutrophils/100 leukocytes 0 % NRG Manual blood lymphocytes/100 leukocytes 4 % NRG Manual eosinophils/100 leukocytes in nose 0 % NRG Manual blood basophils/100 leukocytes 1 % NRG Blood erythrocyte morphology finding identification NORMAL NRG Blood lactic acid measurement (moles/volume) - 12/13/17 21:32 Blood lactic acid measurement (moles/volume) 1.49 mmol/L 0.50-2.00 PT panel in platelet poor plasma by coagulation assay - 12/13/17 21:32 Prothrombin time (PT) in platelet poor plasma by coagulation assay 14.5 s 12.2-14.7 INR in platelet poor plasma or blood by coagulation assay 1.1 0.8-1.4 Activated partial thromboplastin time (aPTT) in platelet poor plasma bycoagulation assay - 12/13/17 21:32 Activated partial thromboplastin time (aPTT) in platelet poor plasma bycoagulation assay 29 s 24-35 Comprehensive metabolic panel - 12/13/17 21:32 Serum or plasma sodium measurement (moles/volume) 136 mmol/L 135-145 Serum or plasma potassium measurement (moles/volume) 3.6 mmol/L 3.6-5.0 Serum or plasma chloride measurement (moles/volume) 100 mmol/L 98-107 Carbon dioxide 24 mmol/L 21-32 Serum or plasma anion gap determination (moles/volume) 12 mmol/L 5-14 Serum or plasma urea nitrogen measurement (mass/volume) 15 mg/dL 7-18 Serum or plasma creatinine measurement (mass/volume) 0.83 mg/dL 0.60-1.30 Serum or plasma urea nitrogen/creatinine mass ratio 18 NRG Serum or plasma creatinine measurement with calculation of estimated glomerular filtration rate > NRG Serum or plasma glucose measurement (mass/volume) 137 mg/dL 70-105 Serum or plasma calcium measurement (mass/volume) 9.6 mg/dL 8.5-10.1 Serum or plasma total bilirubin measurement (mass/volume) 0.6 mg/dL 0.1-1.0 Serum or plasma alkaline phosphatase measurement (enzymatic activity/volume) 50 U/L 40-136 Serum or plasma aspartate aminotransferase measurement (enzymatic activity/ volume) 14 U/L 5-34 Serum or plasma alanine aminotransferase measurement (enzymatic activity/volume ) 12 U/L 0-55 Serum or plasma protein measurement (mass/volume) 7.0 g/dL 6.4-8.2 Serum or plasma albumin measurement (mass/volume) 4.2 g/dL 3.2-4.5 CALCIUM CORRECTED 9.4 mg/dL 8.5-10.1 Bacterial blood culture - 12/13/17 21:32 Bacterial blood culture NG NRG Bacterial blood culture - 12/13/17 22:10 Bacterial blood culture NG NRG Complete urinalysis with reflex to culture - 12/13/17 22:30 Urine color determination YELLOW NRG Urine clarity determination CLEAR NRG Urine pH measurement by test strip 6 5-9 Specific gravity of urine by test strip 1.015 1.016- 1.022 Urine protein assay by test strip, semi-quantitative 1+ NEGATIVE Urine glucose detection by automated test strip NEGATIVE NEGATIVE Erythrocytes detection in urine sediment by light microscopy NEGATIVE NEGATIVE Urine ketones detection by automated test strip NEGATIVE NEGATIVE Urine nitrite detection by test strip NEGATIVE NEGATIVE Urine total bilirubin detection by test strip NEGATIVE NEGATIVE Urine urobilinogen measurement by automated test strip (mass/volume) NORMAL NORMAL Urine leukocyte esterase detection by dipstick 1+ NEGATIVE Automated urine sediment erythrocyte count by microscopy (number/high power field) [HPF] NRG Automated urine sediment leukocyte count by microscopy (number/high power field ) [HPF] NRG Bacteria detection in urine sediment by light microscopy NEGATIVE NRG Crystals detection in urine sediment by light microscopy NONE NRG Casts detection in urine sediment by light microscopy NONE NRG Mucus detection in urine sediment by light microscopy LARGE NRG Complete urinalysis with reflex to culture NO NRG Bacterial urine culture - 12/13/17 22:30 Bacterial urine culture NG NRG Encounters ACCT No. Visit Date/Time Discharge Status Pt. Type Provider Facility Loc./Unit Complaint [id number] 03/20/2018 10:30:00 03/20/2018 10:45:00 DIS Outpatient PLACIDO NEWTON MD [facility] [address] PREOP COLONOSCOPY [id number] 02/23/2018 08:44:00 02/23/2018 23:59:59 CLS Outpatient ADDY FORD MD [facility] [address] CARD HTN [id number] 02/22/2018 09:30:00 02/22/2018 23:59:59 CLS Preadmit PLACIDO NEWTON MD [facility] [address] ENDO SCREENING/FAMILY HX COLON CA [id number] 12/13/2017 20:27:00 12/13/2017 23:39:00 DIS Emergency SURENDRA DUMONT MD [facility] [address] ER FALL HURT RIBS [id number] 06/30/2017 00:10:00 06/30/2017 23:59:59 CLS Preadmit BANDAR CHARLES MD [facility] [address] REHAB R CALF AND ANKLE PAIN [id number] 06/01/2017 15:08:00 06/29/2017 00:01:00 DIS Outpatient BANDAR CHARLES MD [facility] [address] REHAB R CALF AND ANKLE PAIN [id number] 05/18/2017 11:55:00 05/18/2017 23:59:59 CLS Outpatient NADIA MEJIA MD [facility] [address] RAD M25.551 [id number] 03/15/2017 10:55:00 03/15/2017 23:59:59 CLS Outpatient ANDI MENARD [facility] [address] RAD R60.0 [id number] 02/28/2017 06:10:00 03/01/2017 12:03:00 DIS Outpatient LINO SAAVEDRA MD [facility] [address] SDC RETENTION [id number] 02/23/2017 10:00:00 02/23/2017 16:12:00 DIS Outpatient LINO SAAVEDRA MD [facility] [address] PREOP RETENTION [id number] 02/18/2017 09:19:00 02/18/2017 23:59:59 CLS Outpatient BANDAR CHARLES MD [facility] [address] RAD PAIN IN RIGHT LOWER LEG M79.661 [id number] 07/28/2016 09:26:00 07/28/2016 23:59:59 CLS Preadmit EARL MENDOZA MD [facility] [address] REHAB PARKINSONS [id number] 07/28/2016 08:17:00 07/28/2016 23:59:59 CLS Outpatient ANDIA MEJIA MD [facility] [address] RAD PARKINSONS DISEASE [id number] 06/16/2016 12:22:00 06/16/2016 23:59:59 CLS Outpatient ADDY FORD MD [facility] [address] CARD HTN,DB ON CPAP, [id number] 02/04/2016 11:14:00 02/04/2016 12:45:00 DIS Outpatient BANDAR CHARLES MD [facility] [address] REHAB PARKINSONS DISEASE [id number] 01/28/2016 12:02:00 01/28/2016 23:59:59 CLS Outpatient ADDY FORD MD [facility] [address] CARD HTN,MIXED HLP,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,OBESITY [id number] 01/13/2016 15:26:00 01/13/2016 23:59:59 CLS Outpatient NADIA MEJIA MD [facility] [address] CARD PARKINSONS DISEASE [id number] 12/11/2015 09:43:00 12/12/2015 17:00:00 DIS Outpatient BANDAR CHARLES MD [facility] [address] REHAB PARKINSONS DISEASE [id number] 12/27/2014 11:42:00 12/27/2014 23:59:59 CLS Emergency ZEV BLAS [facility] [address] ER RT SIDED PAIN [id number] 06/19/2014 13:59:00 06/19/2014 23:59:59 CLS Outpatient NADIA MEJIA MD [facility] [address] RAD PERSISTANT TREMORS [id number] 06/20/2017 13:00:00 06/20/2017 23:59:59 CLS Outpatient [id number] 06/20/2014 04:27:29 ACT Document Registration
[2018-03-22] MEDS ORDERED: NS IV 500 ML 500 ML IV PRN (09:39)
[2018-03-22 09:40] VITALS: BP 142/90
[2018-03-22] MEDS ORDERED: MIDAZOLAM 2 MG/2 ML (VERSED) VIAL IVP ONE (09:45)
[2018-03-22] MEDS ORDERED: LIDOCAINE JELLY 2% 6 ML SYRINGE MM PRN (09:45)
[2018-03-22] MEDS ORDERED: fentaNYL INJECTION 100 MCG/2 ML AMP IVP ONE (09:45)
[2018-03-22] MEDS ORDERED: NS IV 500 ML 500 ML ONE (09:47)
[2018-03-22] MEDS ORDERED: LIDOCAINE JELLY 2% 6 ML SYRINGE ONE (10:14)
[2018-03-22] MEDS ORDERED: fentaNYL INJECTION 100 MCG/2 ML AMP ONE ×2 (10:14→10:15)
[2018-03-22] MEDS ORDERED: MIDAZOLAM 2 MG/2 ML (VERSED) VIAL ONE ×3 (10:15)
--- NOTE | 2018-03-22 10:23 | Conscious Sedation/ASA ---
Conscious Sedation Pre-Proced Time 10:00 ASA Score 2 For ASA 3 and 4: Consider anesthesia and medical clearance. Also, for patients with a history of failed moderate sedation consider anesthesia. Airway Lungs Heart ASA score ASA 1: a normal healthy patient ASA 2: a patient with a mild systemic disease (mid diabetes, controlled hypertension, obesity ASA 3: a patient with a severe systemic disease that limits activity (angina , COPD, prior Myocardial infarction) ASA 4: a patient with an incapacitating disease that is a constant threat to life (CHF, renal failure) ASA 5: a moribund patient not expected to survive 24 hrs. (ruptured aneurysm) ASA 6: a declared brain patient whose organs are being harvested. For emergent operations, add the letter E after the classification Mallampati Classification Grade 2 Sedation Plan Analgesia, Amnesia, Plan communicated to team members, Discussed options with patient/fam, Discussed risks with patient/fam The patient is an appropriate candidate to undergo the planned procedure, sedation, and anesthesia. The patient immediately re-assessed prior to indication. PLACIDO NEWTON MD Mar 22, 2018 10:23
--- NOTE | 2018-03-22 10:25 | Progress Note-Pre Operative ---
Pre-Operative Progress Note H&P Reviewed The H&P was reviewed, patient examined and no changes noted. Date Seen by Provider: Mar 22, 2018 Time Seen by Provider: 10:00 Date H&P Reviewed: Mar 22, 2018 Time H&P Reviewed: 10:00 Pre-Operative Diagnosis: family hx colon ca PLACIDO NEWTON MD Mar 22, 2018 10:25
[2018-03-22] MEDS ORDERED: ACETAMINOPHEN 325 MG TABLET PO PRN (10:30)
[2018-03-22] MEDS ORDERED: ONDANSETRON 4 MG/2 ML (SDV) Z0FRAN IV PRN (10:30)
[2018-03-22] MEDS ORDERED: morphine INJ 10 MG/ML 1ML (SYR OR VIAL) IV PRN (10:30)
[2018-03-22] MEDS ORDERED: HYDROcodone/APAP 5 MG/325 MG (LORTAB) TAB PO PRN (10:30)
--- NOTE | 2018-03-22 11:04 | Progress Note-Post Operative ---
Post-Operative Progess Note Surgeon (s)/Powder Loader (s) Surgeon PLACIDO NEWTON MD Powder Loader: none Pre-Operative Diagnosis family hx colon ca Post-Operative Diagnosis mild chronic stage 2 ext and int hemorrhoids, moderate sigmoid diverticulosis. Procedure & Operative Findings Date of Procedure 03/22/18 Procedure Performed/Findings Colonoscopy. Anesthesia Type CS Estimated Blood Loss Estimated blood loss (mL): minimal Specimens/Packing Specimens Removed none PLACIDO NEWTON MD Mar 22, 2018 11:04
--- NOTE | 2018-03-22 11:07 | Discharge Inst-Surgical ---
D/C Lap Instructions-AMAN Follow Up 5 years Activity as tolerated High Fiber Diet 25g or more per day Avoid Alcohol, Caffeine, Spicy [place] and Acid foods. Drink 64 fluid oz or more of fluids per day. Symptoms to Report: Fever over 101 degree F, Nausea/Vomiting If any problems/questions: Contact your physician or go to Emergency Room PLACIDO NEWTON MD Mar 22, 2018 11:07
[2018-03-22 11:30] VITALS: BP 129/76
[2018-03-22 12:00] VITALS: BP 114/76
[2018-03-22 12:15] VITALS: BP 114/76
--- NOTE | 2018-03-22 15:20 | OPERATIVE REPORT ---
DATE OF SERVICE: 03/22/2018 ATTENDING PRIMARY CARE PHYSICIAN: Dr. Stroud. PREOPERATIVE DIAGNOSIS: Screening colonoscopy with a family history of colon cancer. POSTOPERATIVE DIAGNOSIS: Mild chronic stage II external and internal hemorrhoids, moderate sigmoid diverticulosis. PROCEDURE: Colonoscopy. SURGEON: Placido Newton MD ANESTHESIA: Conscious sedation. ESTIMATED BLOOD LOSS: Minimal. FINDINGS: Mild chronic stage II external and internal hemorrhoids, not actively edematous nor inflamed and no bleeding. Prostate gland was palpable and appeared normal. There was a moderate sigmoid diverticulosis with no mucosal inflammatory change to indicate any active diverticulitis. The remainder of the colon was normal. There were no polyps or any neoplasms identified. DISPOSITION: The patient tolerated the procedure well. INDICATIONS: The patient is a 77-year-old male in need of a screening colonoscopy. His last colonoscopy was in 2002, which he believes to be normal. At some point, he does report having a polyp, which was biopsied and found to be benign. He does have a positive family history of colon cancer with his brother being diagnosed with the disease at around age 32, which had also metastasized. He states that he is otherwise doing well, does not report any red blood per rectum nor any dark tarry stools as well as no major issues with diarrhea nor constipation. DESCRIPTION OF PROCEDURE: The patient was brought to the endoscopy suite, laid in the left lateral decubitus position. After adequate IV pain and sedating medications and conscious sedation anesthesia, a digital rectal examination was performed. Mild chronic stage II external and internal hemorrhoids were identified, which were not actively edematous or inflamed and no bleeding. Normal sphincter tone was felt and there were no palpable masses. What resembled the prostate, appeared to be normal. He is status post transurethral resection of the prostate and this may have been scar tissue palpated. There were no hard nodules. The endoscope was then intubated to the anus and rectum was gently insufflated. The endoscope was then advanced to the valves of Rolon of the rectum with no polyps or any neoplasms identified. We then proceeded to the sigmoid colon where a moderate sigmoid diverticulosis was identified. There were no mucosal inflammatory changes to indicate any active diverticulitis. The endoscope was then advanced to the remainder of the descending, transverse and ascending colon to the cecum. These segments were normal. There were no polyps or any neoplasms identified throughout the colon or rectum. The endoscope was then slowly withdrawn while taking a second look and suctioning of residual air with no additional findings. The patient tolerated the procedure well. We will recommend medical management with a high fiber diet with at least 30 grams of fiber per day to promote soft stools on a daily basis and to prevent becoming constipated to prevent any complications of diverticulosis. Due to first degree family history of colon cancer, we will recommend a followup colonoscopy in approximately 5 years. Job ID: [id number] DocumentID: [id number] Dictated Date: 03/22/2018 10:59:48 Deicer Inspector Pneumatic Date: 03/22/2018 15:20:36 Dictated By: PLACIDO NEWTON MD
== END 2018-03-22 12:05 | disposition home or self-care (01) ==
LOC: ENDO 09:23
PROVIDERS: ATTEND Surgery
DX: Z12.11 Encounter for screening for malignant neoplasm of colon (principal); K57.30 Diverticulosis of large intestine without perforation or abscess without bleeding; K64.1 Second degree hemorrhoids; Z80.0 Family history of malignant neoplasm of digestive organs; Z86.010 Personal history of colon polyps; G20 Parkinson's disease; I10 Essential (primary) hypertension; E78.00 Pure hypercholesterolemia, unspecified; F41.9 Anxiety disorder, unspecified; F32.9 Major depressive disorder, single episode, unspecified; K21.9 Gastro-esophageal reflux disease without esophagitis; Z88.0 Allergy status to penicillin; Z79.899 Other long term (current) drug therapy; Z79.82 Long term (current) use of aspirin; Z87.891 Personal history of nicotine dependence

== ENCOUNTER → 2018-06-02 | Outpatient (CLI) | payer OTHER, MEDICARE ==
[~2018-06-02] MED LIST changes: -AMLO10TA6 PO; +AMLO10TA7 PO
[2018-06-02 08:04] LABS: BASOPHILS % (AUTO) 1 % (0-10); EOSINOPHILS # (AUTO) 0.2 10^3/uL (0.0-0.3); EOSINOPHILS % (AUTO) 4 % (0-10); HEMATOCRIT 43 % (40-54); HEMOGLOBIN 14.7 G/DL (13.3-17.7); LYMPHOCYTES # (AUTO) 1.4 X 10^3 (1.0-4.0); LYMPHOCYTES % (AUTO) 24 % (12-44); MEAN CORPUSCULAR HEMOGLOBIN 31 PG (25-34); MEAN CORPUSCULAR HGB CONC 34 G/DL (32-36); MEAN CORPUSCULAR VOLUME 90 FL (80-99); MONOCYTES # (AUTO) 0.8 X 10^3 (0.0-1.0); MONOCYTES % (AUTO) 13 % (0-12); NEUTROPHILS # (AUTO) 3.5 X 10^3 (1.8-7.8); NEUTROPHILS % (AUTO) 59 % (42-75); PLATELET COUNT 302 10^3/uL (130-400); RED CELL DISTRIBUTION WIDTH 13.6 % (10.0-14.5)
[2018-06-02 08:31] LABS: ALANINE AMINOTRANSFERASE < 6 U/L (0-55); ALBUMIN 4.4 GM/DL (3.2-4.5); ALKALINE PHOSPHATASE 55 U/L (40-136); BILIRUBIN,TOTAL 0.5 MG/DL (0.1-1.0); BUN/CREATININE RATIO 23; CALCIUM 9.6 MG/DL (8.5-10.1); CARBON DIOXIDE 26 MMOL/L (21-32); CHLORIDE 102 MMOL/L (98-107); CREATININE SERUM 1.05 MG/DL (0.60-1.30); GFR ESTIMATED > 60; GLUCOSE 108 MG/DL (70-105); POTASSIUM 3.9 MMOL/L (3.6-5.0); SODIUM 139 MMOL/L (135-145)
[2018-06-02 08:32] LABS: CHOLESTEROL 159 MG/DL (< 200); HDL CHOLESTEROL 33 MG/DL (40-60); TRIGLYCERIDES 178 MG/DL (<150); VLDL CHOLESTEROL 36 MG/DL (5-40)
== END ==
LOC: LAB 07:53
PROVIDERS: ATTEND Family Medicine
DX: E78.5 Hyperlipidemia, unspecified (principal); G20 Parkinson's disease
CPT/HCPCS: 36415; 80053; 80061; 85025

== ENCOUNTER 2018-06-06 12:57 | Outpatient (RCR) | payer MEDICARE, OTHER | END 2018-08-16 | disposition home or self-care (01) | PROVIDERS: ATTEND Family Medicine | DX: G20 Parkinson's disease (principal); R13.10 Dysphagia, unspecified ==

== ENCOUNTER → 2018-12-25 | Outpatient (CLI) | payer OTHER ==
--- NOTE | 2018-12-25 15:41 | Diagnostic Imaging Report ---
EXAMINATION: CT Chest without contrast. TECHNIQUE: Multiple contiguous axial images were obtained through the chest without the use of intravenous contrast. All CT scans use one or more of the following dose optimizing techniques: automated exposure control, MA and/or KvP adjustment based on a patient size and exam type, or iterative reconstruction. HISTORY: Pulmonary nodule FINDINGS: Comparison is December 21 2017 The lungs are clear without edema or pneumonia. No pleural effusion or pneumothorax. No suspicious nodules. Heart size is normal. No pericardial effusion. Aorta is normal in caliber. There is no axillary, supraclavicular or mediastinal lymphadenopathy. Limited views of the upper abdomen are unremarkable. Generator pack is present in the left chest wall. There are old healed bilateral rib fractures. There is an old compression fracture of the lower thoracic spine, likely T12. There are no suspicious osseus lesions. IMPRESSION: 1. No pulmonary nodules. Dictated by: Dictated on workstation # [id number]
== END ==
LOC: RAD 13:09
PROVIDERS: ATTEND Clinical Nurse Specialist Acute Care
DX: R91.8 Other nonspecific abnormal finding of lung field (principal)
CPT/HCPCS: 71250

== ENCOUNTER → 2019-02-06 | Outpatient (CLI) | payer OTHER ==
--- NOTE | 2019-02-06 14:20 | Diagnostic Imaging Report ---
PROCEDURE: CT neck soft tissue without contrast. TECHNIQUE: Multiple contiguous axial images were obtained through the neck without the use of intravenous contrast. Auto Exposure Controls were utilized during the CT exam to meet ALARA standards for radiation dose reduction. INDICATION: Thyroid nodule. COMPARISON: There are no prior CT neck examinations available for comparison. FINDINGS: The thyroid gland does not appear to be enlarged. The gland is somewhat difficult to evaluate due to streak artifact. There is no clear evidence for a nodule and the overall appearance of the thyroid gland does not seem to have changed significantly since the recent CT chest exam of 12/25/2018. However, if a more sensitive evaluation of the thyroid gland for a nodule is desired, then ultrasound would be recommended. There are small nodes on each side of the neck. The largest of these nodes is in the retromandibular region on the right and measures 1.1 x 1.6 cm. There are two contiguous nodes on the left at this same level measuring 1.1 x 1.8 cm. There are a few small nodes about each submandibular gland as well. These nodes are nonspecific in appearance and could be involved by an inflammatory/infectious process. It would be less likely that they are neoplastic in nature. If further imaging is desired, then PET/CT would be recommended. An ENT consult should also be considered. The parotid and submandibular glands are generally unremarkable. The lung apices are clear. The project landscape architect film shows a battery pack overlying the left thorax. There is also a line extending cephalad in the subcutaneous fat along the left neck and left brain. The project landscape architect film suggests that there may be a deep brain stimulator device in place. Correlation with patient's history recommended. The bone windows show no evidence for fracture or for destructive lesion. There is degenerative disc and bony disease at C3-C4 and C6-C7. The lung apices and intracranial contents, where visualized were unremarkable for an acute abnormality. IMPRESSION: 1. The thyroid gland was not well visualized due to streak artifact. There is no definite mass identified but if further study is desired, then ultrasound would be recommended. 2. There are small nodes on each side of the neck. These are nonspecific. Considerations and recommendations as above. These results were discussed with Maricarmen at [facility] G[facility]'s office. Dictated by: Dictated on workstation # [id number]
== END ==
LOC: RAD 13:14
PROVIDERS: ATTEND Clinical Nurse Specialist Acute Care
DX: E04.1 Nontoxic single thyroid nodule (principal)
CPT/HCPCS: 70490

== ENCOUNTER → 2019-04-23 | Outpatient (CLI) | payer OTHER ==
[~2019-04-23] MED LIST changes: -ACET-2469 PO; +ACET-2715 PO; +CATHETER FLUSH 10 ML SYR IV PRN; +HOLD METFORMIN - RECEIVED CONTRAST 20 ML VIAL IV SCH; +IOHEXOL 350 MG/ML 100 ML (OMNIPAQUE 350) VIAL IV ONE; +NS 100 ML (IVPB) BAG IV ONE; +SIMV20TA26 PO; -SIMV20TA3 PO; +SIMV40TA25 PO; -SIMV40TA4 PO; -TAMS0.4C98 PO; +TMSL.4C PO
[2019-04-23 16:44] LABS: BUN/CREATININE RATIO 24; CREATININE SERUM 0.79 MG/DL (0.60-1.30); GFR ESTIMATED > 60
--- NOTE | 2019-04-23 17:41 | Diagnostic Imaging Report ---
PROCEDURE: CT neck soft tissue with and without contrast. TECHNIQUE: Helically acquired axial images were obtained through the neck both before and after the administration of intravenous contrast. Auto Exposure Controls were utilized during the CT exam to meet ALARA standards for radiation dose reduction. INDICATION: Dysphagia. COMPARISON: Comparison is made to study of 02/06/2019. FINDINGS: No abnormality is seen at the level of the skull base. Nasopharynx and oropharynx are unremarkable. There does appear to be mild prominence of tonsillar tissue extending into the hypopharynx. The epiglottis has a normal appearance. The vocal cords are apposed. There is no evidence of laryngeal abnormality. No thyroid gland abnormality is identified. There is no evidence of free fluid within the abdomen or pelvis. There is an electrode extending into the left postauricular region from the left anterior chest wall. Great vessels in the neck are unremarkable. There is moderate cervical spondylosis. IMPRESSION: Generally symmetric prominent tonsillar tissue extending into the hypopharynx. This could be related to lymphoid hyperplasia, and clinical correlation is recommended. Direct visualization may be of value. Otherwise, no acute abnormality is identified. In particular, there is no evidence of airway obstruction or thyroid gland abnormality. Dictated by: Dictated on workstation # [id number]
== END ==
LOC: RAD 15:53
PROVIDERS: ATTEND Otolaryngology Otolaryngology/Facial Plastic Surgery
DX: R13.10 Dysphagia, unspecified (principal)
CPT/HCPCS: 36415; 70492; 82565; 84520

== ENCOUNTER 2020-04-23 16:53 | Inpatient (IN) | payer MEDICARE, OTHER ==
[~2020-04-23] VITALS: Ht 170.2 cm; Wt 89.7 kg
[~2020-04-23 16:53] MED LIST changes: -ACET-2715 PO; +ACET-3075 PO; +ACHYD1T PO; +AMLO-251 PO; -AMLO10TA7 PO; -CATHETER FLUSH 10 ML SYR IV PRN; +ESCI20TA39 PO; -ESCI20TA45 PO; -ESCI5TAB12 PO; +ESCI5TAB16 PO; -FLUT9.9S NS; +FLUT9.9S NSEACH; -HOLD METFORMIN - RECEIVED CONTRAST 20 ML VIAL IV SCH; -HYDR-3820 PO; -IOHEXOL 350 MG/ML 100 ML (OMNIPAQUE 350) VIAL IV ONE; -LISI40TA PO; +LISI40TA9 PO; -NS 100 ML (IVPB) BAG IV ONE; -PANT40TA3 PO; +PANT40TA52 PO
[2020-04-24] MEDS ORDERED: ACETAMINOPHEN 500 MG TAB (TYLENOL) PO PRN (10:15)
[2020-04-24] MEDS ORDERED: ONDANSETRON 4 MG (ZOFRAN) ORAL DISSOLVE TAB PO PRN (10:15)
[2020-04-24] MEDS ORDERED: ALPRAZolam 0.25 MG (XANAX) TAB PO PRN (10:15)
[2020-04-24] MEDS ORDERED: FLEET ENEMA ADULT 1 EA BTL PR PRN (10:15)
[2020-04-24] MEDS ORDERED: LACTULOSE SYRUP 10GM/15ML (ENULOSE) 30ML UDC PO PRN (10:15)
[2020-04-24] MEDS ORDERED: BISACODYL 10 MG SUPP (DULCOLAX) PR PRN (10:15)
[2020-04-24] MEDS ORDERED: guaiFENesin/CODEINE (ROBITUSSIN AC) 10ML UDC PO PRN (10:15)
[2020-04-24] MEDS ORDERED: DOCUSATE SODIUM 100 MG (COLACE) CAP PO PRN (10:15)
[2020-04-24] MEDS ORDERED: diphenhydrAMINE 25 MG TAB (BENADRYL) PO PRN (10:15)
[2020-04-24] MEDS ORDERED: LOPERAMIDE 2 MG (IMODIUM) TABLET PO PRN (10:15)
[2020-04-24] MEDS ORDERED: CALCIUM CARBONATE 500 MG (TUMS) TAB.CHEW PO PRN (10:15)
[2020-04-24] MEDS ORDERED: CHOL500044 PO (10:42)
[2020-04-24] MEDS ORDERED: LEVE500T99 PO (10:42)
[2020-04-24] MEDS ORDERED: ACET-2650 PO (10:42)
[2020-04-24] MEDS ORDERED: PANT40TA52 PO (10:42)
[2020-04-24] MEDS ORDERED: MULT-166 PO (10:42)
[2020-04-24] MEDS ORDERED: MIRA50TA PO (10:42)
[2020-04-24] MEDS ORDERED: ASPI-1238 PO (10:42)
[2020-04-24] MEDS ORDERED: LISI20TA26 PO (10:42)
[2020-04-24] MEDS ORDERED: BUPR300T98 PO (10:42)
[2020-04-24] MEDS ORDERED: CARB1TAB19 PO (10:51)
[2020-04-24] MEDS ORDERED: TADA5TAB13 PO (10:56)
[2020-04-24] MEDS: FLUTICASONE NASAL SPRAY (FLONASE) 16 GM BTL NS SCH (14:30)
--- NOTE | 2020-04-24 14:39 | Occupational Therapy Eval ---
OT Evaluation-General/PLF Medical Diagnosis Admission Date Apr 24, 2020 at 13:37 Medical Diagnosis: Right acute subdural hematoma Onset Date: Apr 22, 2020 Therapy Diagnosis Therapy Diagnosis: Weakness, Decreased ADL skills Height/Weight Height (Feet): 5 Height (Inches): 7.00 Weight (Pounds): 214 Weight (Ounces): 9.0 Precautions Precautions/Isolations: Seizure, Fall Prevention, Standard Precautions Weight Bear Status Weight Bearing Restriction: Weight Bearing/Tolerated Referral Physician: Dr. Thao Referral Reason: Activity Tolerance, Self Care, Evaluation/Treatment, Strengthening/ROM Medical History Additional Medical History Parkinsons, hypokalemia, confusion, brain stimulator, anxiety, depression. Current History Pt. fell at home. Brought in to ER with confusion. Found to have subdural hematoma. Reviewed History: Yes Social History Home: Single Level Current Living Status: Spouse Entry Into Home: Stairs With Railing Steps Into Home: 5 ADL-Prior Level of Function SCALE: Activities may be completed with or without assistive devices. 7-Wxkruujbko-jvmajya completes the activity by him/herself with no assistance from a helper. 5-Set-up or Clean-up Assistance-helper sets up or cleans up; patient completes activity. [place] assists only prior to or following the activity. 4-Supervision or Touching Assistance-helper provides verbal cues and/or touching/steadying and/or contact guard assistance as patient completes activity. Assistance may be provided throughout the activity or intermittently. 3-Partial/Moderate Assistance-helper does LESS THAN HALF the effort. [place] lifts, holds or supports trunk or limbs, but provides less than half the effort. 2-Substantial/Maximal Assistance-helper does MORE THAN HALF the effort. [place] lifts or holds trunk or limbs and provides more than half the effort. 9-Osyzjwzfs-eufzsw does ALL the effort. Patient does none of the effort to complete the activity. Or, the assistance of 2 or more helpers is required for the patient to complete the activity. If activity was not attempted, code reason: 7-Patient Refused. 9-Not Applicable-not attempted and the patient did not perform the activity before the current illness, exacerbation or injury. 10-Not Attempted due to Environmental Limitations-(lack of equipment, weather restraints, etc.). 88-Not Attempted due to Medical Conditions or Safety Concerns. ADL PLOF Comments Pt. states that he is independent with daily skills. Pt. uses a U-step walker for mobility. Chart suggests that pt. had confusion at baseline. 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 Appearance Pt. up with PT. Agrees to co-treatment with OT as well due to low endurance, fatigue from transfer, and decreased cognition. Mental Status/Objective Patient Orientation: Person Pt. has difficulty staying on task. Has some difficulty with sequencing. Requires multiple cues at times. Current Hearing Aids: Yes Upper Extremity ROM WFL Upper Extremity Strength 4/5 bilateral UE ADL-Treatment Eating (QC): 4 (per pt.) Oral Hygiene (QC): 4 (Pt. already completed per him.) Shower/Bathe Self (QC): 7 Upper Body Dressing (QC): 3 (Pt. already completed per him.) Lower Body Dressing (QC): 3 On/Off Footwear (QC): 3 (Mod assist. Pt. able to doff shoes but unable to doff socks. Pt. attempts multiple times. Cued to don shoes. OT will bring in equipment at later time.) Toileting Hygiene (QC): 10 Other Treatments OT/PT began brief co-treatment. OT facilitated ADL skills and UE assessment while PT assessed mobility and LE strength. Pt. transferred to this facility via wheelchair van. Pt. dressed and groomed upon entry. Education OT Patient Education: Correct positioning, Modified ADL techniques, Progress toward Goal/Update tx plan, Purpose of tx/functional activities, Reviewed precautions, Rehab process, Transfer techniques Teaching Recipient: Patient Teaching Methods: Demonstration, Discussion Response to Teaching: Verbalize Understanding, Return Demonstration, Reinforcement Needed OT Longterm Goals Predatory Animal Exterminator Goals Time Frame: May 08, 2020 Eating (QC): 6 Oral Hygiene (QC): 5 Toileting Hygiene (QC): 4 Shower/Bathe Self (QC): 4 Upper Body Dressing (QC): 5 Lower Body Dressing (QC): 4 On/Off Footwear (QC): 4 Additional Goals: 1-Demonstrate ADL Tasks, 2-Verbalize Understanding, 3- ImproveStrength/Jeanmarie 1=Demonstrate adherence to instructed precautions during ADL tasks. 2=Patient will verbalize/demonstrate understanding of assistive devices/modifications for ADL. 3=Patient will improve strength/tolerance for activity to enable patient to perform ADL's. OT Education/Plan Problem List/Assessment Assessment: Decreased Activ Tolerance, Impaired I ADL's, Impaired Self-Care Skills Discharge Recommendations Plan/Recommendations: Continue POC Therapy Discharge Recommendati: Scheduled Assistance, Home & Family Equpiment Recommendations-D/C: Hip Kit Treatment Plan/Plan of Care Treatment,Training & Education: Yes Patient would benefit from OT for education, treatment and training to promote independence in ADL's, mobility, safety and/or upper extremity function for ADL's. Plan of Care: ADL Retraining, Functional Mobility, UE Funct Exercise/Act Treatment Duration: May 08, 2020 Frequency: At least 5 of 7 days/Wk (IRF) Estimated Hrs Per Day: 1.5 hours per day Agreement: Yes Rehab Potential: Fair Time/GCodes Start Time: 14:10 Stop Time: 14:35 Total Time Billed (hr/min): 25 Billed Treatment Time [id number] 1, EVH x 10minutes [id number] ADL x 15minutes. Co-treatment with PT. Please see above note for designated roles. ASHLEE ROTH OT Apr 24, 2020 14:39
--- NOTE | 2020-04-24 14:53 | ST Cognitive Linguistic Eval ---
Speech Evaluation-General Medical Diagnosis Right acute subdural hematoma Onset Date: Apr 22, 2020 Therapy Diagnosis Therapy Diagnosis: Cognitive-communication Referral Referring Physician: Dr. Thao Medical History Reviewed History: Yes Social History Current Living Status: Spouse Speech PLF-Current Status Prior Level of Function Patient lived at home with his where he was independent for much of his daily needs. Subjective The patient was pleasant and cooperative with his cognitive assessment. Language Eval: Auditory Comprehends Simple Yes/No Ques: Functional Indent/Objects Multiple [place]: Functional Ident/Pics in Multiple [place]: Functional Follows 1-Step Commands: Functional Follows Complex Directions: Mild Follows General Conversations: Functional Language Eval: Verbal Language Completes Spontaneous Greeting: Functional Produces Auto, Serial Info: Functional Imitates Simple Words/Phrases: Functional Word Finding: Mild Requests Basic Needs: Functional States Basic Personal Info: Functional Expresses Complex Ideas: Mild Objective Cognitive Domain Attention: WNL Memory: Mild Problem Solving: Mild Executive Functions: Mild Visuospatial Skills: Mild Composite Severity Rating: Mild Clock Drawing Severity Rating: Mild Objective Formal/Standardized Tests [facility] Status ([facility]) Results 21/30, Mild Neurocognitive Disorder range of function Oral Motor/Speech Production Within Normal Limits Impression Patient is a pleasant 80 y/o man who was admitted to the ARU s/p fall. Patient was given the UMS at bedside with a score of 21/30. This score is within the MNCD range of function and indicates he would benefit from skilled ST. Focus of therapy will be on memory, problem solving and safety awareness. Speech Patient Assess Expression of Ideas/Wants: Exhibits (3) Understanding Verbal Content: Usually Understands (3) Brief Interview-Mental Status: Yes Repetition of Three Words: Three (3) Temporal Orientation: Year: Correct (3) Temporal Orientation: Month: Accurate within 5 days(2) Temporal Orientation: Day: Correct (1) Recall : Wear to say "Sock": Yes,after cueing (1) Recall : Color: Yes, after cueing (1) Recall : Bed: Yes, no cue required (2) Memory/Recall Ability: Current season, Staff names and faces, That he or she is in a hsp/hsp unit Speech Short Term Goals Short Term Goals Short Term Goals 1) Patient will complete memory tasks related to his daily needs at 90% or greater with minimal cues. 2) Patient will complete safety awareness tasks related to his daily needs at 90% or greater with minimal cues. 3) Patient will complete problem solving tasks related to his daily needs at 90% or greater with minimal cues. Speech Licensed Nursing Assistant Goals Penitentiary Goals Patient will improve cognitive-communication necessary for safety and daily living tasks with minimal assist. Speech-Plan Patient/Family Goals Patient/Family Goals: Patient plans on returning to his home where he lives with his . He also has a good support base of family and friends. Treatment Plan Speech Therapy Treatment Plan: Continue Plan of Care Frequency: 4 times per week (Patient will receive skilled ST 4-5x per week) Estimated Hrs Per Day: .5 hour per day Rehab Potential: Fair Barriers to Learning: Patient's medical status, age Pt/Family Agrees to Plan: Yes Safety Risks/Education Teaching Recipient: Patient Teaching Methods: Discussion Response to Teaching: Verbalize Understanding Education Topics Provided: Safety within his room, communication of wants/needs Time Speech Therapy Time In: 15:30 Speech Therapy Time Out: 16:00 Total Billed Time: 30 Billed Treatment Time 1, JAMES CONDON [address] Apr 24, 2020 14:53
--- NOTE | 2020-04-24 15:02 | Physical Therapy Evaluation ---
PT Evaluation-General Medical Diagnosis Admission Date Apr 24, 2020 at 13:37 Medical Diagnosis: Right acute subdural hematoma Onset Date: Apr 22, 2020 Therapy Diagnosis Therapy Diagnosis: impaired mobility, endurance, balance Height/Weight Height (Feet): 5 Height (Inches): 7.00 Weight (Pounds): 214 Weight (Ounces): 9.0 Precautions Precautions/Isolations: Seizure, Fall Prevention, Standard Precautions Referral Physician: Dr. Thao Reason for Referral: Evaluation/Treatment Medical History Pertinent Medical History: Parkinson's Additional Medical History hypokalemia, confusion, brain stimulator, anxiety, depression. Reviewed History: Yes Social History Home: Single Level Current Living Status: Spouse Entry Into Home: Stairs With Railing PT Steps Into Home: 5 Prior Prior Level of Function SCALE: Activities may be completed with or without assistive devices. 3-Isocfluhdd-azwjjdg completes the activity by him/herself with no assistance from a helper. 5-Set-up or Clean-up Assistance-helper sets up or cleans up; patient completes activity. Circle assists only prior to or following the activity. 4-Supervision or Touching Assistance-helper provides verbal cues and/or touching/steadying and/or contact guard assistance as patient completes act ivity. Assistance may be provided throughout the activity or intermittently. 3-Partial/Moderate Assistance-helper does LESS THAN HALF the effort. Circle lifts, holds or supports trunk or limbs, but provides less than half the effort. 2-Substantial/Maximal Assistance-helper does MORE THAN HALF the effort. Circle lifts or holds trunk or limbs and provides more than half the effort. 6-Yijasknmi-mkxtne does ALL the effort. Patient does none of the effort to complete the activity. Or, the assistance of 2 or more helpers is required for the patient to complete the activity. If activity was not attempted, code reason: 7-Patient Refused. 9-Not Applicable-not attempted and the patient did not perform the activity before the current illness, exacerbation or injury. 10-Not Attempted due to Environmental Limitations-(lack of equipment, weather restraints, etc.). 88-Not Attempted due to Medical Conditions or Safety Concerns. Bed Mobility: 6 Transfers (B,C,W/C): 6 Gait: 6 Indoor Mobility (Ambulation): Independent unsure how much help he needs with stairs PT Evaluation-Current Subjective Patient in WC pre tx, agrees to PT, has no complaints of pain. Will be co- treating with OT for part of tx due to poor patient mobility, endurance, balance, coordinate UE and LE during activity, safety and reduce risk of falls. Pt/Family Goals to be independent at home Objective Patient Orientation: Person, Confused, Place, Situation ROM/Strength ROM Lower Extremities WNL Strength Lower Extremities LLE (hip flexion 4/5, knee flexion 5/5, knee extension 5/5, dorsiflexion 5/5), RLE (hip flexion 4/5, knee flexion 5/5, knee extension 5/5, dorsiflexion 5/5) Sensory Vision: Wears Glasses Hearing: Hearing Aid/Aides Sensation Right Lower Extremit: Intact Sensation Left Lower Extremity: Intact Transfers Roll Left & Right (QC): 6 Sit to Lying (QC): 6 Lying to Sitting/Side of Bed(Q: 3 Sit to Stand (QC): 4 Chair/Vqi-pg-Eltiz Xfer(QC): 4 Toilet Transfer (QC): 4 Car Transfer (QC): 4 Patient performs bed mobility with independence, supine to sit with min assist, sit to supine with independence, sit <-> stand CGA, transfers CGA, car transfer CGA. Patient often needs cues for hand placement when sitting or standing. Gait Does the Patient Walk?: Yes Mode of Locomotion: Walk Anticipated Mode of Locomotion: Walk Walk 10 feet (QC): 4 Walk 50 ft with 2 Turns(QC): 4 Walk 150 ft (QC): 4 Walking 10ft/uneven surface-QC: 4 Distance: 200', 150' Gait Assistive Device: Walker 4 Wheeled Comments/Gait Description Patient can ambulate 200' with a 4 wheeled walker with CGA (including 50' with at least 2 turns of 90 degrees and 10' over an uneven surface), patient actually uses a walker that is specialized for Parkinson's Wheelchair Training Does the Pt Use a Wheelchair?: No Wheel 50 ft with 2 turns (QC): 9 Wheel 150 ft (QC): 9 Stairs #of Steps: 4 1 Step (curb) (QC): 4 4 Steps (QC): 4 12 Steps (QC): 88 Patient can go up and down 4 steps using 2 handrails with CGA, careful cues for safety and foot placement Balance Sitting Static: Normal Sitting Dynamic: Normal Standing Static: Fair Standing Dynamic: Fair Picking up an Object (QC): 4 Treatment PT performed bed mobility and transfer training, stair training, gait training, standing balance activity catching and throwing ball, balance and positioning during LE dressing, OT worked on dressing, balance training, UE positioning and safety during activity. Assessment/Needs Patient has impaired mobility, endurance, balance. He ambulates with CGA. Patient is fairly impulsive and can move quickly without warning. Rehab Potential: Fair PT Short Term Goals Short Term Goals Time Frame: May 01, 2020 Roll Left & Right: 6 Sit to lyin Lying to sitting on side of be: 6 Sit to stand: 4 Chair/zdw-ut-nlgab transfer: 4 Walk 10 feet: 4 Walk 50 feet with two turns: 4 Walk 150 feet: 4 PT Mcc Goals Mcc Goals PT Mcc Goals Time Frame: May 15, 2020 Roll Left & Right (QC): 6 Sit to Lying (QC): 6 Lying-Sitting on Side/Bed(QC): 6 Sit to Stand (QC): 6 Chair/Sfg-ax-Etkfu Xfer(QC): 6 Toilet Transfer (QC): 6 Car Transfer (QC): 5 Does the Patient Walk: Yes Walk 10 feet (QC): 5 Walk 50ft with 2 Turns (QC): 5 Walk 150 ft (QC): 5 Walking 10ft on Uneven Surface: 5 1 Step (curb) (QC): 5 4 Steps (QC): 5 12 Steps (QC): 88 Picking up an Object (QC): 5 Wheel 50 feet with 2 turns (QC: 9 Wheel 150 feet: 9 PT Plan Problem List Problem List: Activity Tolerance, Functional Strength, Safety, Balance, Gait, Transfer, Bed Mobility, ROM Treatment/Plan Treatment Plan: Continue Plan of Care Treatment Plan: Bed Mobility, Education, Functional Activity Jeanmarie, Functional Strength, Gait, Safety, Therapeutic Exercise, Transfers Treatment Duration: May 15, 2020 Frequency: At least 5 of 7 days/Wk (IRF) Estimated Hrs Per Day: 1.5 hours per day Patient and/or Family Agrees t: Yes Safety Risks/Education Patient Education: Gait Training, Transfer Techniques, Steps, Correct Positioning, Safety Issues Teaching Recipient: Patient Teaching Methods: Demonstration, Discussion Response to Teaching: Reinforcement Needed Discharge Recommendations Plan Patient will perform bed mobility and transfer training, balance and endurance training, functional strengthening, stair training, gait training, and education, to improve functional mobility and independence at home. Therapy Discharge Recommendati: Scheduled Assistance, Home & Family Time/GCodes Time In: 1335 Time Out: 1500 Total Billed Treatment Time: 75 Total Billed Treatment 1 visit EVM 15' FA 20' NM 15' GT 25' PT from [id number], 5414-7140 OT eval, 7207-1493 co-treat JOÃO PHILIPPE PT Apr 24, 2020 15:02
--- NOTE | 2020-04-24 15:08 | Occupational Ther Daily Note ---
OT Current Status-Daily Note Subjective Pt seated in recliner. This OT took over PT/OT cotreat and OT tx. ADL-Treatment Therapy Code Descriptions/Definitions Functional Crosby Measure: 0=Not Assessed/NA 4=Minimal Assistance 1=Total Assistance 5=Supervision or Setup 2=Maximal Assistance 6=Modified Crosby 3=Moderate Assistance 7=Complete IndependenceSCALE: Activities may be completed with or without assistive devices. 6-Bfflqxapbu-gtfebfz completes the activity by him/herself with no assistance from a helper. 5-Set-up or Clean-up Assistance-helper sets up or cleans up; patient completes activity. Virgie assists only prior to or following the activity. 4-Supervision or Touching Assistance-helper provides verbal cues and/or robinson beatrice/steadying and/or contact guard assistance as patient completes activity. Assistance may be provided throughout the activity or intermittently. 3-Partial/Moderate Assistance-helper does LESS THAN HALF the effort. Virgie lifts, holds or supports trunk or limbs, but provides less than half the effort. 2-Substantial/Maximal Assistance-helper does MORE THAN HALF the effort. Virgie lifts or holds trunk or limbs and provides more than half the effort. 8-Enrvdyyul-unrxzc does ALL the effort. Patient does none of the effort to complete the activity. Or, the assistance of 2 or more helpers is required for the patient to complete the activity. If activity was not attempted, code reason: 7-Patient Refused. 9-Not Applicable-not attempted and the patient did not perform the activity before the current illness, exacerbation or injury. 10-Not Attempted due to Environmental Limitations-(lack of equipment, weather restraints, etc.). 88-Not Attempted due to Medical Conditions or Safety Concerns. Other Treatment OT/PT cotreat ([id number]) due to skill of 2 clinicians required which a cardiac rehabilitation program director could not perform in order to coordinate UE/LEs and due to pt's limitations in dynamic standing balance, mobility, and functional activity tolerance. OT focused on UE placement, cues for sequencing and safety, PT focused on ambulation and standing balance. Pt used 4WW to ambulate to therapy gym, CGA. In order to increase BUE strength, activity tolerance, and standing endurance, pt initially participated in balloon batting with OT, but pt impulsive with movements, so activity changed to catching/throwing ball back and forth with OT, in all planes. Pt completed task x3, with rest breaks in between. OT tx [id number]: In order to increase BUE strength and activity tolerance, pt completed BUE exercises, using 2 lb free weights, x15 reps each: elbow flexion, elbow extension, shoulder flexion & shoulder abduction. Pt then completed arm bike x15 mins, min resistance in order to increase BUE strength and activity tolerance. Pt returned to room using 4WW, CGA, transferring to recliner. With all transfers, pt required skilled cues for UE placement. Post tx, pt seated in recliner, call light in reach and all needs met. Chair alarm on. Education OT Patient Education: Correct positioning, Energy conservation, Modified ADL techniques, Progress toward Goal/Update tx plan, Purpose of tx/functional activities, Transfer techniques Teaching Recipient: Patient Teaching Methods: Demonstration, Discussion Response to Teaching: Verbalize Understanding OT Potato Seed Cutter Goals Care Home Goals Time Frame: May 08, 2020 Eating (QC): 6 Oral Hygiene (QC): 5 Toileting Hygiene (QC): 4 Shower/Bathe Self (QC): 4 Upper Body Dressing (QC): 5 Lower Body Dressing (QC): 4 On/Off Footwear (QC): 4 Additional Goals: 1-Demonstrate ADL Tasks, 2-Verbalize Understanding, 3- ImproveStrength/Jeanmarie 1=Demonstrate adherence to instructed precautions during ADL tasks. 2=Patient will verbalize/demonstrate understanding of assistive devices/modifications for ADL. 3=Patient will improve strength/tolerance for activity to enable patient to perform ADL's. OT Education/Plan Problem List/Assessment Assessment: Decreased Activ Tolerance, Decreased UE Strength, Impaired Funct Balance, Impaired I ADL's, Impaired Self-Care Skills Discharge Recommendations Plan/Recommendations: Continue POC Treatment Plan/Plan of Care Patient would benefit from OT for education, treatment and training to promote independence in ADL's, mobility, safety and/or upper extremity function for ADL's. Plan of Care: ADL Retraining, Functional Mobility, UE Funct Exercise/Act Treatment Duration: May 08, 2020 Frequency: At least 5 of 7 days/Wk (IRF) Estimated Hrs Per Day: 1.5 hours per day Agreement: Yes Rehab Potential: Fair Time/GCodes Start Time: 14:35 Stop Time: 15:25 Total Time Billed (hr/min): 50 Billed Treatment Time 8250-0761 OT/PT cotreat, [id number] OT/PT cotreat 1, FA (25'), EX 2 (25') LIZA MOREJON OT Apr 24, 2020 15:08
[2020-04-24] MEDS ORDERED: ACETAMINOPHEN 325 MG TABLET PO PRN (15:15)
[2020-04-24 17:20] VITALS: BP 150/70
--- NOTE | 2020-04-24 19:59 | PM&R Post Admission Assessment ---
PM&R HP Date of Visit: Apr 24, 2020 Time of Visit: 18:00 History of Present Illness CC: Subdural hematoma recovery HPI: This is an 80yoWM clinic patient of Dr Christianson'zelda who has a h/o PD, GERD, agent orange exposure in [place] and PTSD who fell at home and sustained a head injury with brief LOC. Daughter brought him to ER and revealed subdural hematoma. Patient was confused but that has cleared for the most part. He lives at home with his of which she had a CABG 04/21/20 so she is unable to help him recover. Incontinence is an issue currently due to head injury. Patient has had deep brain stimulation x 6 in the past for PD. Patient does have a h/o CPAP use but is confused about if he uses it or not. Past Fhiwdva-Xlrrwl-Mlwunw Hx Past Med/Social Hx: Reviewed Nursing Past Med/Soc Hx, Reviewed and Corrections made Patient Social History Marrital Status: Employed/Student: retired ([id number]) Alcohol Use: Occasionally Uses Alcohol Beverage of Choice: Wine Smoking Status: Former Smoker Former Smoker, Quit: Feb 28, 1970 Type Used: Cigars Recent Hopitalizations: No Immunizations Up To Date Tetanus Booster (TDap): Unknown Pediatric: No Date of Pneumonia Vaccine: Nov 25, 2014 Date of Influenza Vaccine: Jan 13, 2020 Seasonal Allergies Seasonal Allergies: Yes (MILD) Past Medical History Surgeries: Adenoidectomy, Tonsillectomy DBS x 6 for PD Respiratory: Sleep Apnea Currently Using CPAP: No Cardiac: High Cholesterol, Hypertension Neurological: Parkinson's Disease Reproductive: No Sexually Transmitted Disease: No HIV/AIDS: No Genitourinary: Benign Prostatic Hyperpl, Prostate Problems, Kidney Stones Gastrointestinal: Gastroesophageal Reflux, Chronic Diarrhea Musculoskeletal: Arthritis Loss of Vision: Bilateral Hearing Impairment: Bilateral Hearing Aide Psychosocial: Anxiety, PTSD History of Blood Disorders: No Adverse Reaction to Blood Turner: No (N/A) Family History Asthma 19 MOTHER Cardiovascular disease 19 FATHER Colon cancer G8 BROTHER Colon cancer G8 BROTHER Prior Level of Function Bed Mobility: 6 Transfers: 6 Gait: 6 Indoor Mobility (Ambulation): Independent Self Care: Needed Some Help Functional Cognition: Unknown 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 already completed per him.) Shower/Bathe Self: 7 Upper Body Dressin (Pt. already completed per him.) Lower Body Dressin On/Off Footwear: 3 (Mod assist. Pt. able to doff shoes but unable to doff socks. Pt. attempts multiple times. Cued to don shoes. OT will bring in equipment at later time.) Toileting Hygiene: 10 PM&R Allergy/Meds/Data Review Allergies Coded Allergies: No Known Drug Allergies (Verified , 03/22/18) Home Medications Scheduled Acetaminophen/Diphenhydramine (Tylenol Pm Ex-Strength Caplet), 2 EACH PO HS, (Reported) Amlodipine Besylate (Amlodipine Besylate), 10 MG PO DAILY, (Reported) Bupropion HCl (Bupropion Xl), 300 MG PO DAILY, (Reported) Carbidopa/Levodopa (Carbidopa-Levodopa 25-100 Tab), 1.5 TAB PO TID, (Reported) Cholecalciferol (Vitamin D3) (Vitamin D3), 125 MCG PO DAILY, (Reported) Escitalopram Oxalate (Escitalopram Oxalate), 20 MG PO DAILY, (Reported) Fluticasone Propionate (Flonase Allergy Relief), 2 SPRAYS NSEACH DAILY, (Report ed) Gabapentin (Gabapentin), 400 MG PO BID, (Reported) Hydrochlorothiazide (Hydrochlorothiazide), 25 MG PO DAILY, (Reported) Levetiracetam (Keppra), 500 MG PO BID, (Reported) Lisinopril (Lisinopril), 20 MG PO DAILY, (Reported) Mirabegron (Myrbetriq), 50 MG PO DAILY, (Reported) Multivitamin with Minerals (Multivitamins with Minerals), 1 EACH PO DAILY, (Reported) Pantoprazole Sodium (Pantoprazole Sodium), 40 MG PO DAILY, (Reported) Propranolol HCl (Propranolol HCl), 80 MG PO DAILY, (Reported) Simvastatin (Simvastatin), 20 MG PO HS, (Reported) Tadalafil (Tadalafil), 5 MG PO DAILY, (Reported) Scheduled PRN Acetaminophen (Tylenol Arthritis), 650 MG PO Q4H PRN for PAIN-MILD (1-4), (Reported) Discontinued Medications Aspirin (Aspirin EC), 81 MG PO DAILY, (Reported) Discontinued Reason: No Longer Taking Bupropion HCl (Bupropion HCl Sr), 150 MG PO DAILY, (Reported) Discontinued Reason: Prescription changed Carbidopa/Levodopa (Carbidopa-Levo 25-100 mg Odt), 1 EACH PO TID, (Reported) Discontinued Reason: Duplicate Order Cholecalciferol (Vitamin D3) (Vitamin D3), 5,000 UNIT PO HS, (Reported) Discontinued Reason: Prescription changed Lisinopril (Lisinopril), 20 MG PO DAILY, (Reported) Discontinued Reason: Duplicate Order Multivitamin (Daily Vitamin Formula), 1 EACH PO DAILY, (Reported) Discontinued Reason: Duplicate Order [place]-3 Fatty Acids/Fish Oil ([place] 3 Fish Oil Softgel), 1 EACH PO TID, (Reported) Discontinued Reason: No Longer Taking Pantoprazole Sodium (Pantoprazole Sodium), 40 MG PO DAILY, (Reported) Discontinued Reason: Duplicate Order Potassium Chloride (Potassium Chloride), 20 MEQ PO DAILY, (Reported) Discontinued Reason: No Longer Taking Trospium Chloride (Trospium Chloride), 20 MG PO BID, (Reported) Discontinued Reason: Duplicate Order Current Medications Current Medications Reviewed Review of Systems Constitutional: see HPI, malaise, weakness EENTM: vision loss Respiratory: dyspnea on exertion Cardiovascular: no symptoms reported Gastrointestinal: diarrhea Genitourinary: decreased output Musculoskeletal: back pain Skin: no symptoms reported Psychiatric/Neurological: Anxiety, Depressed, Headache, Numbness, Pre-Existing Deficit, Tingling, Tremors, Weakness All Other Systems Reviewed Negative Unless Noted: Yes Physical Exam Physical Exam Vital Signs Vital Signs - First Documented 04/24/20 17:20 Temp 36.3 Pulse 57 Resp 18 B/P (MAP) 150/70 (96) Pulse Ox 95 O2 Delivery Room Air Capillary Refill : Height, Weight, BMI Height: 5'7.00" Weight: 214lbs. 9.0oz. 97.759515jt; 30.96 BMI Method:Stated General Appearance: No Apparent Distress, WD/WN, Chronically ill Eyes: Bilateral Eye Normal Inspection, Bilateral Eye PERRL HEENT: PERRL/EOMI, TMs Normal, Normal ENT Inspection, Pharynx Normal Neck: Full Range of Motion, Normal Inspection, Non Tender, Supple, Carotid Bruit Respiratory: Chest Non Tender, Lungs Clear, Normal Breath Sounds, No Accessory Muscle Use, No Respiratory Distress Cardiovascular: Regular Rate, Rhythm, No Edema, No Gallop, No JVD, No Murmur, Normal Peripheral Pulses Gastrointestinal: Normal Bowel Sounds, No Organomegaly, No Pulsatile Mass, Non Tender, Soft Back: Normal Inspection, No CVA Tenderness, No Vertebral Tenderness Extremity: Normal Capillary Refill, Normal Inspection, Normal Range of Motion, Non Tender, No Calf Tenderness, No Pedal Edema Neurologic/Psychiatric: Alert, Oriented x3, No Motor/Sensory Deficits, Normal Mood/Affect, television tube inspector II-XII Norm as Tested, Abnormal Gait, Depressed Affect, Disoriented, Motor Weakness (generalized all extremities) Skin: Normal Color, Warm/Dry Lymphatic: No Adenopathy PM&R Medical Assessment & Plan REHAB/MEDICAL ASSESSMENT AND PLAN: REHAB IMPAIRMENT GROUP: Subdural hematoma with PD ETIOLOGIC DIAGNOSIS: Subdural hematoma with PD The comorbidities that impact the patients function and/or functional outcome by: advanced PD, PTSD, confusion, fall risk REHAB PLAN: The patient is being admitted to our comprehensive inpatient rehabilitation facility and can tolerate the intensity of service consisting of at least: 180 minutes of therapy a day, 5 out of 7 days a week Rehab treatment will consist of: PT OT ST will all focus on regaining function from subdural hematoma and help patient with existing deficits from PD in order to return to independent living The patient/family has a good understanding of our discharge process and will benefit from an interdisciplinary inpatient rehabilitation program. The patient has potential to make improvement and is in need of at least two of the following multidisciplinary therapies including but not limited to physical, occupational, speech, and prosthetics and orthotics. Additionally the patient will need services from respiratory, nutritional services, wound care, psychology, etc. (Customize this to each patient). Given the patients complex condition and risk of further medical complications, rehabilitation services cannot be safely or effectively provided at a lower level of care such as a senior living facility. BARRIERS TO DISCHARGE: PD baseline now with increased confusion ESTIMATED LOS: 10 days DISPOSITION: Home RELEVANT CHANGES SINCE PREADMISSION SCREENING: I have compared the patients medical and functional status at the time of the preadmission screening and there are: no changes PROGNOSIS: Fair REHABILITATION GOALS: 1.PT OT ST will all focus on regaining function from subdural hematoma and help patient with existing deficits from PD in order to return to independent living All the above goals were reviewed with the patient and he/she is in agreement. By signing this document, I acknowledge that I have personally performed a full physical examination on this patient within 24 hours of admission to this [facility] rehabilitation facility and have determined the patient to be able to tolerate the above course of treatment at an intensive level for a reasonable period of time. I will be completing a detailed individualized Plan of Care for this patient by day #4 of the patients stay based upon the Preadmission Screen, the Post-Admission Evaluation, and the therapy evaluations. Admission Dx/Comorbidities: (1) Subdural hematoma ICD Codes: S06.5X9A - Traumatic subdural hemorrhage with loss of consciousness of unspecified duration, initial encounter (2) Parkinson disease ICD Codes: G20 - Parkinson's disease (3) Hypertension ICD Codes: I10 - Essential (primary) hypertension (4) GERD (gastroesophageal reflux disease) ICD Codes: K21.9 - Gastro-esophageal reflux disease without esophagitis (5) PTSD (post-traumatic stress disorder) ICD Codes: F43.10 - Post-traumatic stress disorder, unspecified (6) H/O agent Ray exposure ICD Codes: Z77.098 - Contact with and (suspected) exposure to other hazardous, chiefly nonmedicinal, chemicals (7) DB (obstructive sleep apnea) ICD Codes: G47.33 - Obstructive sleep apnea (adult) (pediatric) (8) BPH (benign prostatic hyperplasia) ICD Codes: N40.0 - Benign prostatic hyperplasia without lower urinary tract symptoms Assessment/Plan Assessment and Plan Assess & Plan/Chief Complaint Assessment: s/p fall with subdural hematoma with confusion Parkinson's disease s/p DBS x 6 DB HTN GERD BPH PTSD Agent orange exposure Plan: IRF protocol Monitor BP Home meds Fall risk ANSHU LEMUS DO Apr 24, 2020 19:59
[2020-04-24] MEDS: buPROPion SR 150 MG (WELLBUTRIN SR) TAB PO SCH (20:43)
[2020-04-24] MEDS: SIMvastatin 20 MG (ZOCOR) TAB PO SCH (20:43)
[2020-04-24] MEDS: GABAPENTIN 400 MG (NEURONTIN) CAP PO SCH (20:43)
[2020-04-24] MEDS: diphenhydrAMINE 25 MG TAB (BENADRYL) PO SCH (20:43)
[2020-04-24] MEDS: ACETAMINOPHEN 500 MG TAB (TYLENOL) PO SCH (20:44)
[2020-04-24] MEDS: LEVETIRACETAM 500 MG (KEPPRA) TAB PO SCH (20:44)
[2020-04-24] MEDS: SINEMET 25/100 (CARBIDOPA/LEVODOPA) TAB PO SCH (20:46)
[2020-04-24] MEDS: MELATONIN 3 MG TABLET PO PRN (20:46)
[2020-04-24] MEDS: SENNA W/DOCUSATE (SENOKOT S) TABLET PO SCH (21:00)
[2020-04-24] MEDS: polyethylene glycoL POWDER 17 GM (MIRALAX) PACK PO SCH (21:00)
[2020-04-24] MEDS: DOCUSATE SODIUM 100 MG (COLACE) CAP PO SCH (21:00)
[2020-04-25 06:26] VITALS: BP 168/68
[2020-04-25 06:36] LABS: BASOPHILS % (AUTO) 1 % (0-10); EOSINOPHILS # (AUTO) 0.3 10^3/uL (0.0-0.3); EOSINOPHILS % (AUTO) 4 % (0-10); HEMATOCRIT 39 % (40-54); HEMOGLOBIN 13.2 g/dL (13.3-17.7); LYMPHOCYTES # (AUTO) 1.4 10^3/uL (1.0-4.0); LYMPHOCYTES % (AUTO) 24 % (12-44); MEAN CORPUSCULAR HEMOGLOBIN 31 pg (25-34); MEAN CORPUSCULAR HGB CONC 34 g/dL (32-36); MEAN CORPUSCULAR VOLUME 93 fL (80-99); MEAN PLATELET VOLUME 10.5 fL (9.0-12.2); MONOCYTES # (AUTO) 0.7 10^3/uL (0.0-1.0); MONOCYTES % (AUTO) 12 % (0-12); NEUTROPHILS # (AUTO) 3.3 10^3/uL (1.8-7.8); NEUTROPHILS % (AUTO) 59 % (42-75); PLATELET COUNT 257 10^3/uL (130-400); WHITE BLOOD COUNT 5.6 10^3/uL (4.3-11.0)
[2020-04-25 06:49] LABS: ALBUMIN 3.7 GM/DL (3.2-4.5); CHLORIDE 104 MMOL/L (98-107); POTASSIUM 4.1 MMOL/L (3.6-5.0); SODIUM 139 MMOL/L (135-145)
[2020-04-25 06:50] LABS: CALCIUM 8.9 MG/DL (8.5-10.1)
[2020-04-25 06:51] LABS: GLUCOSE 95 MG/DL (70-105); TOTAL PROTEIN 6.6 GM/DL (6.4-8.2)
[2020-04-25 06:52] LABS: CARBON DIOXIDE 24 MMOL/L (21-32)
[2020-04-25 06:53] LABS: BILIRUBIN,TOTAL 0.5 MG/DL (0.1-1.0)
[2020-04-25 06:55] LABS: ALKALINE PHOSPHATASE 50 U/L (40-136); CREATININE SERUM 0.88 MG/DL (0.60-1.30); GFR ESTIMATED > 60
[2020-04-25 06:56] LABS: BUN/CREATININE RATIO 23
[2020-04-25 06:58] LABS: ALANINE AMINOTRANSFERASE 10 U/L (0-55)
[2020-04-25] MEDS: HYDROCHLOROTHIAZIDE 25 MG (HCTZ) TAB PO SCH (07:38)
[2020-04-25] MEDS: LEVETIRACETAM 500 MG (KEPPRA) TAB PO SCH ×2 (07:38→20:33)
[2020-04-25] MEDS: PROPRANOLOL 20 MG (INDERAL) TABLET PO SCH (07:38)
[2020-04-25] MEDS: DOCUSATE SODIUM 100 MG (COLACE) CAP PO SCH ×2 (07:39→20:54)
[2020-04-25] MEDS: buPROPion SR 150 MG (WELLBUTRIN SR) TAB PO SCH ×2 (07:39→20:33)
[2020-04-25] MEDS: VITAMIN D3 125 MCG (5,000 UNITS) CAPSULE PO SCH (07:39)
[2020-04-25] MEDS: GABAPENTIN 400 MG (NEURONTIN) CAP PO SCH ×2 (07:39→20:33)
[2020-04-25] MEDS: SENNA W/DOCUSATE (SENOKOT S) TABLET PO SCH ×2 (07:39→20:54)
[2020-04-25] MEDS: SINEMET 25/100 (CARBIDOPA/LEVODOPA) TAB PO SCH ×3 (07:39→20:33)
[2020-04-25] MEDS: PANTOPRAZOLE 40 MG (PROTONIX) TAB PO SCH (07:39)
[2020-04-25] MEDS: polyethylene glycoL POWDER 17 GM (MIRALAX) PACK PO SCH ×2 (07:40→20:54)
[2020-04-25] MEDS: lisINopril 20 MG (PRINIVIL) TABLET PO SCH (07:40)
[2020-04-25] MEDS: amLODIPine 10 MG (NORVASC) TAB PO SCH (07:40)
[2020-04-25] MEDS: FLUTICASONE NASAL SPRAY (FLONASE) 16 GM BTL NS SCH ×2 (07:44→07:50)
[2020-04-25] MEDS: MULTIVIT W/MINERALS TAB (THERAGRAN M) PO SCH (07:44)
--- NOTE | 2020-04-25 08:57 | Physical Therapy Daily Note ---
PT Daily Note-Current Subjective Patient in recliner pre tx, agrees to PT, has no complaints of pain. Appearance Patient in recliner post tx with nurse call, phone, tray, all needs met, chair alarm on. Mental Status Patient Orientation: Person, Confused, Place, Situation Transfers SCALE: Activities may be completed with or without assistive devices. 9-Gecwehejbm-wmprmzi completes the activity by him/herself with no assistance from a helper. 5-Set-up or Clean-up Assistance-helper sets up or cleans up; patient completes activity. [place] assists only prior to or following the activity. 4-Supervision or Touching Assistance-helper provides verbal cues and/or touching/steadying and/or contact guard assistance as patient completes activity. Assistance may be provided throughout the activity or intermittently. 3-Partial/Moderate Assistance-helper does LESS THAN HALF the effort. Mathews lifts, holds or supports trunk or limbs, but provides less than half the effort. 2-Substantial/Maximal Assistance-helper does MORE THAN HALF the effort. [place]ws lifts or holds trunk or limbs and provides more than half the effort. 3-Stvljxafo-dztkkx does ALL the effort. Patient does none of the effort to complete the activity. Or, the assistance of 2 or more helpers is required for the patient to complete the activity. If activity was not attempted, code reason: 7-Patient Refused. 9-Not Applicable-not attempted and the patient did not perform the activity before the current illness, exacerbation or injury. 10-Not Attempted due to Environmental Limitations-(lack of equipment, weather restraints, etc.). 88-Not Attempted due to Medical Conditions or Safety Concerns. Sit to Stand (QC): 4 Chair/Pad-qh-Psnsa Xfer(QC): 4 CGA Gait Training Distance: 400', 120'x3 Walk 10 feet (QC): 4 Walk 50 ft with 2 Turns(QC): 4 Walk 150 ft (QC): 4 Gait Persons Needed: 1 Gait Assistive Device: Walker 4 Wheeled CGA, patient has a tendency to speed up too fast with continued ambulation, uncoordinated steps, patient ambulated back to the room and back to toilet Exercises Standing: Heel/toe raises (x20), Mini squats (x20), Step-ups Standing Reps: 10 (also toe taps with each leg no hands on parallel bars) NuStep Minutes: 15 NuStep Workload: 4 Treatments transfers, ambulation, balance training, functional strengthening Assessment Current Status: Fair Progress patient often needs redirected and will wander aimlessly PT Short Term Goals Short Term Goals Time Frame: May 01, 2020 Roll Left & Right: 6 Sit to lyin Lying to sitting on side of be: 6 Sit to stand: 4 Chair/ivj-sg-ycidb transfer: 4 Walk 10 feet: 4 Walk 50 feet with two turns: 4 Walk 150 feet: 4 PT Jail Goals Preschool Principal Goals PT Preschool Principal Goals Time Frame: May 15, 2020 Roll Left & Right (QC): 6 Sit to Lying (QC): 6 Lying-Sitting on Side/Bed(QC): 6 Sit to Stand (QC): 6 Chair/Boc-mf-Jazpd Xfer(QC): 6 Toilet Transfer (QC): 6 Car Transfer (QC): 5 Does the Patient Walk: Yes Walk 10 feet (QC): 5 Walk 50ft with 2 Turns (QC): 5 Walk 150 ft (QC): 5 Walking 10ft on Uneven Surface: 5 1 Step (curb) (QC): 5 4 Steps (QC): 5 12 Steps (QC): 88 Picking up an Object (QC): 5 Wheel 50 feet with 2 turns (QC: 9 Wheel 150 feet: 9 PT Plan Problem List Problem List: Activity Tolerance, Functional Strength, Safety, Balance, Gait, Transfer, Bed Mobility, ROM Treatment/Plan Treatment Plan: Continue Plan of Care Treatment Plan: Bed Mobility, Education, Functional Activity Jeanmarie, Functional Strength, Gait, Safety, Therapeutic Exercise, Transfers Treatment Duration: May 15, 2020 Frequency: At least 5 of 7 days/Wk (IRF) Estimated Hrs Per Day: 1.5 hours per day Patient and/or Family Agrees t: Yes Safety Risks/Education Patient Education: Gait Training, Transfer Techniques, Correct Positioning, Safety Issues Teaching Recipient: Patient Teaching Methods: Demonstration, Discussion Response to Teaching: Reinforcement Needed Time/GCodes Time In: 0800 Time Out: 0900 Total Billed Treatment Time: 60 Total Billed Treatment 1 visit GT 30' EX 30' JOÃO PHILIPPE PT Apr 25, 2020 08:57
[2020-04-25] MEDS ORDERED: NON-FORMULARY MEDICATION 1 EA EA (Mirabegron (Myrbetriq) 50 MG) PO SCH (09:00)
--- NOTE | 2020-04-25 10:06 | Occupational Ther Daily Note ---
OT Current Status-Daily Note Subjective Pt reports no pain and agreeable to OT tx Mental Status/Objective Patient Orientation: Person, Place, Time, Situation ADL-Treatment Therapy Code Descriptions/Definitions Functional [place] Measure: 0=Not Assessed/NA 4=Minimal Assistance 1=Total Assistance 5=Supervision or Setup 2=Maximal Assistance 6=Modified [place] 3=Moderate Assistance 7=Complete IndependenceSCALE: Activities may be completed with or without assistive devices. 7-Ofcuqyitgl-csazihy completes the activity by him/herself with no assistance from a helper. 5-Set-up or Clean-up Assistance-helper sets up or cleans up; patient completes activity. [place] assists only prior to or following the activity. 4-Supervision or Touching Assistance-helper provides verbal cues and/or touching/steadying and/or contact guard assistance as patient completes activity. Assistance may be provided throughout the activity or intermittently. 3-Partial/Moderate Assistance-helper does LESS THAN HALF the effort. [place] lifts, holds or supports trunk or limbs, but provides less than half the effort. 2-Substantial/Maximal Assistance-helper does MORE THAN HALF the effort. [place] lifts or holds trunk or limbs and provides more than half the effort. 3-Kpxophxkx-kebger does ALL the effort. Patient does none of the effort to complete the activity. Or, the assistance of 2 or more helpers is required for the patient to complete the activity. If activity was not attempted, code reason: 7-Patient Refused. 9-Not Applicable-not attempted and the patient did not perform the activity before the current illness, exacerbation or injury. 10-Not Attempted due to Environmental Limitations-(lack of equipment, weather restraints, etc.). 88-Not Attempted due to Medical Conditions or Safety Concerns. Shower/Bathe Self (QC): 4 (CGA in stand, cues to sequence through task and for safety. Pt impulsive, standing without warning. ) Upper Body Dressing (QC): 3 (Viv, pt required readjustment of shirt from front to back. Cues for orientation) Lower Body Dressing (QC): 3 (Viv, pt required minimal safety cues to pull pants above socks) On/Off Footwear: 3 (ModA, pt required minimal assistance to doff socks, pt able to don socks with minimal assist to adjust) Toileting Hygiene (QC): 4 (CGA, pt able to perform hygiene and clothing managment while standing) Other Treatment Pt began tx in recliner and declined a shower stating that he took one yesterday morning. Pt agreed to sponge bath in recliner. Pt doffed pants and socks and washed lower body parts with minimal cues to sequence through. Pt donned socks and brief and without instructions to stand, pt stood to perform pants hike while standing. When standing to perform pants hike with brief, pt started to lose balance, min A standing balance. Pt educated on pushing up from armrest when standing and also to keep walker in front to keep balance. Pt sat back down to don pants and instructed to pull down brief to clean buttocks when standing again. Pt completed washing buttocks and performing pants hike. Upon finishing, pt doffed shirt and wash chest and donned shirt after finishing. Pt declined brushing teeth but asked to brush hair. Pt stood and ambulated with 4WW to sink and brushed hair and then ambulated to therapy gym. In therapy gym, pt participated in clip match activity with no resistance to increase fine motor c oordination and manipulation, as well as to focus on cognition. Pt required minimal verbal cues to find mistake in matching. pt then participated in shape match activity with no resistance to increase fine motor strength/coordination and to focus on cognition. Pt required moderate verbal and tactile cues to find shape and complete task. Pt completed minimal resistance theraputty activity and took out beads with no cues to sequence through. This was done to increase fine motor strength/coordination. Pt was instructed to walk to a different chair and upon sitting, pt required moderate assistance for cues to keep walker in front and to reach back for armrest when sitting. Pt educated on safety of not reaching back for armrest, and benefits of doing so. Pt then participated in arm bike exercise to increase gross motor strength and activity tolerance, minimal resistance x10 mins. Pt ambulated with 4WW to room and sat in recliner with a cue to reach back for armrest of recliner. Pt in recliner, post tx, with call l ight in reach, chair alarm on and all needs met. Education OT Patient Education: Correct positioning, Energy conservation, Modified ADL techniques, Progress toward Goal/Update tx plan, Purpose of tx/functional activities, Rehab process, Safety issues, Transfer techniques Teaching Recipient: Patient Teaching Methods: Demonstration Response to Teaching: Verbalize Understanding OT Entertainment Usher Goals Group Home Goals Time Frame: May 08, 2020 Eating (QC): 6 Oral Hygiene (QC): 5 Toileting Hygiene (QC): 4 Shower/Bathe Self (QC): 4 Upper Body Dressing (QC): 5 Lower Body Dressing (QC): 4 On/Off Footwear (QC): 4 Additional Goals: 1-Demonstrate ADL Tasks, 2-Verbalize Understanding, 3- ImproveStrength/Jeanmarie 1=Demonstrate adherence to instructed precautions during ADL tasks. 2=Patient will verbalize/demonstrate understanding of assistive devices/modifications for ADL. 3=Patient will improve strength/tolerance for activity to enable patient to perform ADL's. OT Education/Plan Problem List/Assessment Assessment: Decreased Activ Tolerance, Decreased Safety Aware, Impaired Cognition, Impaired Coordination, Impaired Funct Balance, Impaired I ADL's, Impaired Self-Care Skills Discharge Recommendations Plan/Recommendations: Continue POC Treatment Plan/Plan of Care Patient would benefit from OT for education, treatment and training to promote independence in ADL's, mobility, safety and/or upper extremity function for ADL's. Plan of Care: ADL Retraining, Functional Mobility, UE Funct Exercise/Act Treatment Duration: May 08, 2020 Frequency: At least 5 of 7 days/Wk (IRF) Estimated Hrs Per Day: 1.5 hours per day Agreement: Yes Rehab Potential: Fair Time/GCodes Start Time: 09:00 Stop Time: 10:15 Total Time Billed (hr/min): 75 Billed Treatment Time 1, ADL 2 (30'), EX (10'), FA 2 (35') LIZA MOREJON OT Apr 25, 2020 10:05
--- NOTE | 2020-04-25 10:12 | Consultation ---
History of Present Illness History of Present Illness Patient Consulted On(ginger/time) 04/25/20 10:12 Allergies and Home Medications Allergies Coded Allergies: No Known Drug Allergies (Verified , 03/22/18) Home Medications Acetaminophen 650 Mg Tablet.er, 650 MG PO Q4H PRN for PAIN-MILD (1-4), (Reported) Acetaminophen/Diphenhydramine 1 Each Tablet, 2 EACH PO HS, (Reported) Amlodipine Besylate 10 Mg Tablet, 10 MG PO DAILY, (Reported) Bupropion HCl 300 Mg Tab.er.24h, 300 MG PO DAILY, (Reported) Carbidopa/Levodopa 1 Each Tablet, 1.5 TAB PO TID, (Reported) Cholecalciferol (Vitamin D3) 125 Mcg Tablet, 125 MCG PO DAILY, (Reported) Escitalopram Oxalate 20 Mg Tablet, 20 MG PO DAILY, (Reported) Fluticasone Propionate 9.9 Ml [place].susp, 2 SPRAYS NSEACH DAILY, (Reported) Gabapentin 400 Mg Capsule, 400 MG PO BID, (Reported) Hydrochlorothiazide 25 Mg Tablet, 25 MG PO DAILY, (Reported) Levetiracetam 500 Mg Tablet, 500 MG PO BID, (Reported) Lisinopril 20 Mg Tablet, 20 MG PO DAILY, (Reported) Mirabegron 50 Mg Tab.er.24h, 50 MG PO DAILY, (Reported) Multivitamin with Minerals 1 Each Tablet, 1 EACH PO DAILY, (Reported) Pantoprazole Sodium 40 Mg Tablet.dr, 40 MG PO DAILY, (Reported) Propranolol HCl 80 Mg Tablet, 80 MG PO DAILY, (Reported) Simvastatin 20 Mg Tablet, 20 MG PO HS, (Reported) Tadalafil 5 Mg Tablet, 5 MG PO DAILY, (Reported) LAST FILLED 06-25-2019 #90- WILL VERIFY WHEN PT ARRIVES Past Tbgbjbx-Iahzkb-Cmtytv Hx Past Med/Social Hx: Reviewed Nursing Past Med/Soc Hx, Reviewed and Corrections made Patient Social History Alcohol Use: Occasionally Uses Alcohol Beverage of Choice: Wine Smoking Status: Former Smoker Type Used: Cigars Former Smoker, Quit: Feb 28, 1970 Recent Hopitalizations: No Have you traveled recently?: No Alcohol Use?: Yes Immunizations Up To Date Tetanus Booster (TDap): Unknown PED Vaccines UTD: No Date of Pneumonia Vaccine: Nov 25, 2014 Date of Influenza Vaccine: Jan 13, 2020 Seasonal Allergies Seasonal Allergies: Yes (MILD) Past Medical History Surgeries: Yes (WRIST FX, DEEP BRAIN STIMULATOR X6 (HAD INFECTION), TURP) Adenoidectomy, Tonsillectomy Respiratory: Yes (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) Currently Using CPAP: No Cardiac: Yes High Cholesterol, Hypertension Neurological: Yes Parkinson's Disease Reproductive Disorders: No Sexually Transmitted Disease: No HIV/AIDS: No Genitourinary: Yes Benign Prostatic Hyperpl, Prostate Problems, Kidney Stones Gastrointestinal: Yes Gastroesophageal Reflux, Chronic Diarrhea Musculoskeletal: Yes Arthritis Endocrine: No HEENT: Yes (GLASSES, DENTURES) Loss of Vision: Bilateral Hearing Impairment: Bilateral Hearing Aide Cancer: No Psychosocial: Yes (agent orange exposure) Anxiety, PTSD Integumentary: No Blood Disorders: No Adverse Reaction/Blood Tranf: No (N/A) Family Medical History Asthma 19 MOTHER Cardiovascular disease 19 FATHER Colon cancer G8 BROTHER Colon cancer G8 BROTHER Review of Systems All Other Systems Reviewed All Other Systems Reviewed: Yes Physical Exam Vital Signs Vital Signs - First Documented 04/24/20 17:20 Temp 36.3 Pulse 57 Resp 18 B/P (MAP) 150/70 (96) Pulse Ox 95 O2 Delivery Room Air Capillary Refill : Height, Weight, BMI Height: 5'7.00" Weight: 214lbs. 9.0oz. [id number]; 30.96 BMI Method:Stated Assessment/Plan Assessment/Plan Problems: (1) Subdural hematoma (2) Parkinson disease (3) Hypertension (4) GERD (gastroesophageal reflux disease) (5) PTSD (post-traumatic stress disorder) (6) H/O agent [place] exposure (7) DB (obstructive sleep apnea) (8) BPH (benign prostatic hyperplasia) Clinical Quality Measures DVT/VTE Risk/Contraindication: Contraindications-Pharm: Other *list below* Other: subdural hematoma JUS FIELDS MD Apr 25, 2020 10:12
--- NOTE | 2020-04-25 10:23 | Individualized Plan of Care ---
Individualized Plan of Care Rehab Nursing IPOC Order Admission Date Apr 24, 2020 at 13:37 Current Orders Orders Admission Order(Inpt,Obs,Sdc) (04/24/20 10:07) Vital Signs: Per Unit Policy ( ,16,00 (04/24/20 10:07) Trevor [place] (04/24/20 10:07) Sequential Compression Device Q4H (04/24/20 10:07) Immigration Inspector-Inpt Rehab Con (04/24/20 10:07) Rehab Nursing Orders-Ipoc (04/24/20 10:07) Physical Therapy Rehab Orders (04/24/20 10:07) Occupational Therapy Rehab Ord (04/24/20 10:07) Speech Therapy Rehab Orders (04/24/20 10:07) Cbc With Automated Diff (04/25/20 06:00) Comprehensive Metabolic Panel (04/25/20 06:00) Intake & Output 06,14,22 (04/24/20 10:07) Precautions (Aru) (04/24/20 10:07) Weekly Weight WEEK (04/24/20 10:07) Rehab-Intensity Of Therapy (04/24/20 10:07) Initiate Admission Nursing Pro .admission (04/24/20 10:07) Acetaminophen Tablet (Tylenol Tablet) (04/24/20 10:15) Alprazolam Tablet (Xanax Tablet) (04/24/20 10:15) Calcium Carbonate Chew Tablet (Antacid C (04/24/20 10:15) Diphenhydramine Tablet (Benadryl Tablet) (04/24/20 10:15) Docusate Sodium Capsule (Colace Capsule) (04/24/20 21:00) Docusate Sodium Capsule (Colace Capsule) (04/24/20 10:15) Bisacodyl Suppository (Dulcolax Supposit (04/24/20 10:15) Lactulose Oral Solution (Enulose Oral So (04/24/20 10:15) Na Phos/Na Biphos Enema (Fleet Enema Jose (04/24/20 10:15) Guaifenesin/Codeine Syrup (Robitussin Ac (04/24/20 10:15) Loperamide Tablet (Imodium Tablet) (04/24/20 10:15) Melatonin Tablet (Melatonin Tablet) (04/24/20 10:15) Polyethylene Glycol Powder Pkt (Miralax (04/24/20 21:00) Ondansetron Oral Dissolve Tab (Zofran (04/24/20 10:15) Senna S Tablet (Senokot S Tablet) (04/24/20 21:00) Vte Contraindication (04/24/20 10:07) Initiate Admission Nursing Pro .admission (04/24/20 10:07) Admission Arrival Bed Request (04/24/20 13:37) Amlodipine Tablet (Norvasc Tablet) (04/25/20 09:00) Carbidopa/Levodopa 25/100 (Sinemet 25/10 (04/24/20 21:00) Cholecalciferol Capsule/Tablet (Vitamin (04/25/20 09:00) Gabapentin Capsule/Tablet (Neurontin Cap (04/24/20 21:00) Hydrochlorothiazide Cap/Tablet (Hctz Cap (04/25/20 09:00) Levetiracetam Tablet (Keppra Tablet) (04/24/20 21:00) Lisinopril Tablet (Zestril Tablet) (04/25/20 09:00) Therapeutic Multivitamin Tab (Vitamins, (04/25/20 09:00) Pantoprazole Tablet (Protonix Tablet) (04/25/20 09:00) Simvastatin Tablet (Zocor Tablet) (04/24/20 21:00) Acetaminophen Tablet/[place] (Tylenol T (04/24/20 15:15) Acetaminophen Tablet (Tylenol Tablet) (04/24/20 21:00) Citalopram Tablet (Celexa Tablet) (04/25/20 09:00) (Nf) Mirabegron (Myrbetriq) (04/25/20 09:00) Propranolol Tablet (Inderal Tablet) (04/25/20 09:00) (Nf) Tadalafil (04/25/20 09:00) Bupropion Sr 12 Hr Tablet (Wellbutrin Sr (04/24/20 21:00) Fluticasone Nasal [place] (Flonase Nasal S (04/24/20 14:30) Diphenhydramine Tablet (Benadryl Tablet) (04/24/20 21:00) Patient Visit (04/24/20 ) Speech Sound Lang Comp (04/24/20 ) Treat. Speech/Lang/Voice (04/24/20 ) Patient Visit (04/24/20 ) Pt Diego Moderate Complexity (04/24/20 ) Functional Activities, Ea 15 (04/24/20 ) Ex Neuromuscular, Ea 15 Min (04/24/20 ) Gait Training, Ea 15 Min (04/24/20 ) General/Regular (04/24/20 Dinner) Consult Family Medicine (04/24/20 19:59) Incentive Spirometry (Nursing) Q2H (04/25/20 12:12) Patient May Use Own Med,Single (Patient (04/25/20 12:15) Patient Visit (04/25/20 ) Gait Training, Ea 15 Min (04/25/20 ) Exercise Therap, Ea 15 Min (04/25/20 ) Rt Request For Service (04/25/20 14:48) Patient Visit (04/25/20 ) Treat. Speech/Lang/Voice (04/25/20 ) Rehab Nursing Orders: Ongoing Assess. of Cognitive Status, Ongoing Assess. of Function Status, Disease Management & Educaiton, Fall Prevention, Fluid/Electrolyte/Nutrition Mgmt, Patient/Family Support, Safety Management Intensity of Therapy to be met Patient to be seen: Min.3h per day/5 of 7d PT IPOC Problem List: Activity Tolerance, Functional Strength, Safety, Balance, Gait, Transfer, Bed Mobility, ROM Treatment Plan: Continue Plan of Care Bed Mobility, Education, Functional Activity Jeanmarie, Functional Strength, Gait, Safety, Therapeutic Exercise, Transfers Treatment Duration: May 15, 2020 Frequency: At least 5 of 7 days/Wk (IRF) Estimated Hrs Per Day: 1.5 hours per day OT IPOC Problems: Decreased Activ Tolerance, Decreased UE Strength, Impaired Funct Balance, Impaired I ADL's, Impaired Self-Care Skills OT Treatment, Training and Edu: Yes Plan of Care: ADL Retraining, Functional Mobility, UE Funct Exercise/Act Treatment Duration: May 08, 2020 Frequency: At least 5 of 7 days/Wk (IRF) Estimated Hrs Per Day: 1.[address] IPOC Speech Therapy Treatment Plan: Continue Plan of Care Treatment Duration: Apr 25, 2020 Frequency: 4 times per week (Patient will receive skilled ST 4-5x per week) Estimated Hrs Per Day: .5 hour per day Immigration Inspector/Case Mgmt Immigration Inspector/Case Managemen: Discharge Planning Dietitian/Surface Water Technician Dietitian/Surface Water Technician to monitor nutritional status and make changes and/or recommendations as needed and work with speech pathology on dietary upgrades as the occur. Physician IPOC Medical Issues being managed closely and that require the 24 hour availability of a physician: Recent fall with subdural hematoma will place patient at high risk for recurrent stroke and increase confusion and other sequela of CVA Medical Issues: DVT Prophylaxis, Falls Precautions, Pain Management Brief Synthesis of Preadmission Screen, Post-Admission Evaluation, and Therapy Evaluations: PT OT ST will all work to clear cognition and increase ambulatory skills along with energy conservation techniques and fall risk prevention Medical Prognosis: Good Anticipated Length of Stay: 7 days ANSHU LEMUS DO Apr 25, 2020 10:23
--- NOTE | 2020-04-25 10:23 | PM&R Progress Note ---
Subjective HPI/CC On Admission Date Seen by Provider: Apr 25, 2020 Time Seen by Provider: 10:30 Subjective/Events-last exam 04/25/20: Patient doing well Confusion noted No pain reported Daughter at bedside and I introduce myself PCP Dr Christianson was able to visit him today No falls Oriented x 2 on exam Review of Systems General: Fatigue, Malaise Neurological: Weakness, Incoordination, Confusion Objective Exam Vital Signs Vital Signs Date Time Temp Pulse Resp B/P (MAP) Pulse Ox O2 Delivery O2 Flow Rate FiO2 04/26/20 05:19 36.6 60 18 127/70 (89) 94 Room Air Capillary Refill : General Appearance: No Apparent Distress, WD/WN, Chronically ill HEENT: PERRL/EOMI, TMs Normal, Normal ENT Inspection, Pharynx Normal Neck: Full Range of Motion, Normal Inspection, Non Tender, Supple, Carotid Bruit Respiratory: Chest Non Tender, Lungs Clear, Normal Breath Sounds, No Accessory Muscle Use, No Respiratory Distress Cardiovascular: Regular Rate, Rhythm, No Edema, No Gallop, No JVD, No Murmur, Normal Peripheral Pulses Gastrointestinal: Normal Bowel Sounds, No Organomegaly, No Pulsatile Mass, Non Tender, Soft Back: Normal Inspection, No CVA Tenderness, No Vertebral Tenderness Extremity: Normal Capillary Refill, Normal Inspection, Normal Range of Motion, Non Tender, No Calf Tenderness, No Pedal Edema Neurologic/Psychiatric: Alert, Oriented x3, No Motor/Sensory Deficits, Normal Mood/Affect, mental health program manager II-XII Norm as Tested, Abnormal Gait, Depressed Affect, Disoriented, Motor Weakness (generalized all extremities) Skin: Normal Color, Warm/Dry Lymphatic: No Adenopathy Results/Procedures Lab Laboratory Tests 04/25/20 06:00 Patient resulted labs reviewed. FIM Transfers Therapy Code Descriptions/Definitions Functional [place] Measure: 0=Not Assessed/NA 4=Minimal Assistance 1=Total Assistance 5=Supervision or Setup 2=Maximal Assistance 6=Modified [place] 3=Moderate Assistance 7=Complete IndependenceSCALE: Activities may be completed with or without assistive devices. 5-Hqjamasbbq-uagehtf completes the activity by him/herself with no assistance from a helper. 5-Set-up or Clean-up Assistance-helper sets up or cleans up; patient completes activity. [place] assists only prior to or following the activity. 4-Supervision or Touching Assistance-helper provides verbal cues and/or touching/steadying and/or contact guard assistance as patient completes activity. Assistance may be provided throughout the activity or intermittently. 3-Partial/Moderate Assistance-helper does LESS THAN HALF the effort. [place] lifts, holds or supports trunk or limbs, but provides less than half the effort. 2-Substantial/Maximal Assistance-helper does MORE THAN HALF the effort. [place] lifts or holds trunk or limbs and provides more than half the effort. 9-Qowsbzpbc-gwqehi does ALL the effort. Patient does none of the effort to complete the activity. Or, the assistance of 2 or more helpers is required for the patient to complete the activity. If activity was not attempted, code reason: 7-Patient Refused. 9-Not Applicable-not attempted and the patient did not perform the activity before the current illness, exacerbation or injury. 10-Not Attempted due to Environmental Limitations-(lack of equipment, weather restraints, etc.). 88-Not Attempted due to Medical Conditions or Safety Concerns. Roll Left to Right (QC): 6 Sit to Lying (QC): 6 Sit to Stand (QC): 4 Chair/Vam-zg-Xdayb Xfer(QC): 4 Car Transfer (QC): 4 Gait Training Does the Patient Walk?: Yes Distance: 400', 120'x3 Walk 10 feet (QC): 4 Walk 50 ft with 2 Turns(QC): 4 Walk 150 ft (QC): 4 Walking 10ft/uneven surface-QC: 4 Gait Persons Needed: 1 Gait Assistive Device: Walker 4 Wheeled Wheelchair Training Does the Pt Use a Wheelchair?: No Wheel 50 ft with 2 turns (QC): 9 Wheel 150 ft (QC): 9 Stair Training #of Steps: 4 1 Step (curb) (QC): 4 4 Steps (QC): 4 12 Steps (QC): 88 Balance Picking up an Object (QC): 4 ADL-Treatment Eating (QC): 4 (per pt.) Oral Hygiene (QC): 4 (Pt. already completed per him.) Shower/Bathe Self (QC): 4 (SBA for cues to squence through task) Upper Body Dressing (QC): 3 (Viv, pt required readjustment of shirt from front to back) Lower Body Dressing (QC): 3 (Viv, pt required minimal safety cues to pull pants above socks) On/Off Footwear (QC): 3 (ModA, pt required minimal assistance to doff socks, pt able to don socks with minimal assist to adjust) Toileting Hygiene (QC): 4 (CGA, pt able to perform hygiene and clothing managment while standing) Assessment/Plan Assessment and Plan Assess & Plan/Chief Complaint Assessment: s/p fall with subdural hematoma with confusion Parkinson's disease s/p DBS x 6 DB HTN GERD BPH PTSD Agent orange exposure Plan: IRF protocol Monitor BP Home meds Fall risk 04/25/20: Monitor confusion Monitor BP Fall risk (1) Subdural hematoma (2) Parkinson disease (3) Hypertension (4) GERD (gastroesophageal reflux disease) (5) PTSD (post-traumatic stress disorder) (6) H/O agent [place] exposure (7) DB (obstructive sleep apnea) (8) BPH (benign prostatic hyperplasia) ANSHU LEMUS DO Apr 25, 2020 10:23
[2020-04-25] MEDS ORDERED: PATIENT MAY USE OWN MED,SINGLE MED PO SCH (12:15)
--- NOTE | 2020-04-25 13:38 | Speech Therapy Daily Note ---
Speech Daily Progress Note Subjective Date Seen by Provider: Apr 25, 2020 Time Seen by Provider: 00:30 Patient was resting in his recliner following his other therapy. Patient's daughter was present for the session. Patient was noted to be more confused today. Objective Patient completed simple q/a related to his daily needs and memory over the past 24 hours with 70% given moderate v/c's and/or repetitions. Assessment Assessment Current Status: Fair Progress Treatment Plan Continue Plan of Care Speech Short Term Goals Short Term Goals Short Term Goals 1) Patient will complete memory tasks related to his daily needs at 90% or greater with minimal cues. 2) Patient will complete safety awareness tasks related to his daily needs at 90% or greater with minimal cues. 3) Patient will complete problem solving tasks related to his daily needs at 90% or greater with minimal cues. Speech Starch Mangle Tender Goals Starch Mangle Tender Goals Patient will improve cognitive-communication necessary for safety and daily living tasks with minimal assist. Speech-Plan Patient/Family Goals Patient/Family Goals: Patient plans on returning to his home where he lives with his . He has a wide base of support from friends and family. Treatment Plan Speech Therapy Treatment Plan: Continue Plan of Care Treatment Duration: May 08, 2020 Frequency: 4 times per week (Patient will receive skilled ST 4-5x per week) Estimated Hrs Per Day: .5 hour per day Rehab Potential: Fair Barriers to Learning: Patient's medical status, falls, age and decreased cognitive level of function Pt/Family Agrees to Plan: Yes Safety Risks/Education Teaching Recipient: Patient, Family Teaching Methods: Demonstration, Discussion Response to Teaching: Verbalize Understanding, Return Demonstration, Reinforcement Needed Education Topics Provided: Continued safety within his room and communication of wants/needs Time Speech Therapy Time In: 11:30 Speech Therapy Time Out: 12:00 Total Billed Time: 30 Billed Treatment Time 1, SLNONI Fabian Apr 25, 2020 13:38
--- NOTE | 2020-04-25 13:42 | Physical Therapy Daily Note ---
PT Daily Note-Current Subjective Patient in recliner pre tx, agrees to PT, has no complaints of pain. Appearance Patient in recliner post tx with nurse call, phone, tray, all needs met, chair alarm on. Mental Status Patient Orientation: Person, Confused, Place, Situation Transfers SCALE: Activities may be completed with or without assistive devices. 2-Tdpyzuirmz-lbkxzln completes the activity by him/herself with no assistance from a helper. 5-Set-up or Clean-up Assistance-helper sets up or cleans up; patient completes activity. [place] assists only prior to or following the activity. 4-Supervision or Touching Assistance-helper provides verbal cues and/or touching/steadying and/or contact guard assistance as patient completes activity. Assistance may be provided throughout the activity or intermittently. 3-Partial/Moderate Assistance-helper does LESS THAN HALF the effort. [place] lifts, holds or supports trunk or limbs, but provides less than half the effort. 2-Substantial/Maximal Assistance-helper does MORE THAN HALF the effort. [place] lifts or holds trunk or limbs and provides more than half the effort. 3-Qynheketq-qrxvxg does ALL the effort. Patient does none of the effort to complete the activity. Or, the assistance of 2 or more helpers is required for the patient to complete the activity. If activity was not attempted, code reason: 7-Patient Refused. 9-Not Applicable-not attempted and the patient did not perform the activity before the current illness, exacerbation or injury. 10-Not Attempted due to Environmental Limitations-(lack of equipment, weather restraints, etc.). 88-Not Attempted due to Medical Conditions or Safety Concerns. Sit to Stand (QC): 4 Chair/Thp-xs-Pzhas Xfer(QC): 4 Gait Training Distance: 300'x2 Walk 10 feet (QC): 4 Walk 50 ft with 2 Turns(QC): 4 Walk 150 ft (QC): 4 Gait Persons Needed: 1 Gait Assistive Device: Walker 4 Wheeled Patient needs frequent redirection, tends to walk aimlessly if not directed. Treatments transfers, ambulation Assessment Current Status: Fair Progress improving endurance, patient tends to stumble and ambulate more quickly with fatigue. PT Short Term Goals Short Term Goals Time Frame: May 01, 2020 Roll Left & Right: 6 Sit to lyin Lying to sitting on side of be: 6 Sit to stand: 4 Chair/uhe-qb-evxle transfer: 4 Walk 10 feet: 4 Walk 50 feet with two turns: 4 Walk 150 feet: 4 PT Senior Living Goals Senior Living Goals PT Senior Living Goals Time Frame: May 15, 2020 Roll Left & Right (QC): 6 Sit to Lying (QC): 6 Lying-Sitting on Side/Bed(QC): 6 Sit to Stand (QC): 6 Chair/Mds-ua-Zkzon Xfer(QC): 6 Toilet Transfer (QC): 6 Car Transfer (QC): 5 Does the Patient Walk: Yes Walk 10 feet (QC): 5 Walk 50ft with 2 Turns (QC): 5 Walk 150 ft (QC): 5 Walking 10ft on Uneven Surface: 5 1 Step (curb) (QC): 5 4 Steps (QC): 5 12 Steps (QC): 88 Picking up an Object (QC): 5 Wheel 50 feet with 2 turns (QC: 9 Wheel 150 feet: 9 PT Plan Problem List Problem List: Activity Tolerance, Functional Strength, Safety, Balance, Gait, Transfer, Bed Mobility, ROM Treatment/Plan Treatment Plan: Continue Plan of Care Treatment Plan: Bed Mobility, Education, Functional Activity Jeanmarie, Functional Strength, Gait, Safety, Therapeutic Exercise, Transfers Treatment Duration: May 15, 2020 Frequency: At least 5 of 7 days/Wk (IRF) Estimated Hrs Per Day: 1.5 hours per day Patient and/or Family Agrees t: Yes Safety Risks/Education Patient Education: Gait Training, Transfer Techniques, Correct Positioning, Safety Issues Teaching Recipient: Patient Teaching Methods: Demonstration, Discussion Response to Teaching: Reinforcement Needed Time/GCodes Time In: 1300 Time Out: 1315 Total Billed Treatment Time: 15 Total Billed Treatment 1 visit GT 15' JOÃO PHILIPPE PT Apr 25, 2020 13:42
--- NOTE | 2020-04-25 13:50 | Progress Note ---
BRAXTONOLEGARIO Bacon,[facility] 04/25/20 1350: Progress Note CC: Fall & confusion HPI: 80 yo man who fell at home and became confused on 04/20, was taken to [facility] by his daughter and was found on head CT to have a small right-sided subdural hematoma w/o mass effect. He was started on Keppra and complained only of mild headache that was relieved by APAP. He began ambulating with a walker and improved from 04/20-04/24 and was noted to be less confused than when he arrived though he had intermittent confusion. He was admitted to [facility] rehab on 04/24. His daughter notes that he remains more confused than his baseline before his fall. 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 This could be related to lymphoid hyperplasia, and clinical correlation is recommended. Direct visualization may be of value. Otherwise, no acute abnormality is identified. In particular, there is no evidence of airway obstruction or thyroid gland abnormality. Physical Exam; NEUROLOGIC Mental Status: Alert and oriented to person and place, but not time (stated year was 2000); speech: fluent with occasional word-finding difficulty & inappro priate responses (likely 2/2 to bilateral [place]AT) Cranial Nerves: CN II-XII intact Reflexes: not assessed Motor: normal muscle bulk and tone without rigidity Arm flexion: 5/5 Arm extension: 5/5 Knee flexion: 5/5 Knee extension: 5/5 Ankle dorsiflexion: 5/5 Ankle plantarflexion: 5/5 Sensory: noted slight decrease in sensation of left arm to light touch; otherwise sensation intact and symmetrical in lower extremities Cerebellum: finger tap abnormal, Gait: not assessed MICHELLE LEMUS DO 04/26/20 0547: Supervisory-Addendum Brief Verification & Attestation Participated in pt care: history, MDM, physical Personally performed: exam, history, MDM, supervision of care Care discussed with: Medical Student Procedures: n/a Results interpretation: Verified all documentation Verification and Attestation of Medical Student E/M Service A medical student performed and documented this service in my presence. I reviewed and verified all information documented by the medical student and made modifications to such information, when appropriate. I personally performed the physical exam and medical decision making. Michelle Lemus, Apr 26, 2020,05:46 OLEGARIO LIMON,MED STUDEN Apr 25, 2020 13:50 MICHELLE LEMUS DO Apr 26, 2020 05:47
[2020-04-25 17:14] VITALS: BP 137/66
[2020-04-25] MEDS: MELATONIN 3 MG TABLET PO PRN (20:33)
[2020-04-25] MEDS: diphenhydrAMINE 25 MG TAB (BENADRYL) PO SCH (20:33)
[2020-04-25] MEDS: SIMvastatin 20 MG (ZOCOR) TAB PO SCH (20:33)
[2020-04-25] MEDS: ACETAMINOPHEN 500 MG TAB (TYLENOL) PO SCH (20:33)
[2020-04-26 05:19] VITALS: BP 127/70
[2020-04-26] MEDS: DOCUSATE SODIUM 100 MG (COLACE) CAP PO SCH ×2 (09:00→19:36)
[2020-04-26] MEDS: polyethylene glycoL POWDER 17 GM (MIRALAX) PACK PO SCH ×2 (09:00→19:36)
[2020-04-26] MEDS: SENNA W/DOCUSATE (SENOKOT S) TABLET PO SCH ×2 (09:00→19:36)
[2020-04-26] MEDS: amLODIPine 10 MG (NORVASC) TAB PO SCH (09:04)
[2020-04-26] MEDS: PANTOPRAZOLE 40 MG (PROTONIX) TAB PO SCH (09:04)
[2020-04-26] MEDS: HYDROCHLOROTHIAZIDE 25 MG (HCTZ) TAB PO SCH (09:04)
[2020-04-26] MEDS: lisINopril 20 MG (PRINIVIL) TABLET PO SCH (09:04)
[2020-04-26] MEDS: VITAMIN D3 125 MCG (5,000 UNITS) CAPSULE PO SCH (09:04)
[2020-04-26] MEDS: PROPRANOLOL 20 MG (INDERAL) TABLET PO SCH (09:04)
[2020-04-26] MEDS: MULTIVIT W/MINERALS TAB (THERAGRAN M) PO SCH (09:04)
[2020-04-26] MEDS: GABAPENTIN 400 MG (NEURONTIN) CAP PO SCH ×2 (09:05→21:07)
[2020-04-26] MEDS: SINEMET 25/100 (CARBIDOPA/LEVODOPA) TAB PO SCH ×3 (09:05→21:06)
[2020-04-26] MEDS: FLUTICASONE NASAL SPRAY (FLONASE) 16 GM BTL NS SCH (09:05)
[2020-04-26] MEDS: buPROPion SR 150 MG (WELLBUTRIN SR) TAB PO SCH ×2 (09:05→21:06)
[2020-04-26] MEDS: LEVETIRACETAM 500 MG (KEPPRA) TAB PO SCH ×2 (09:05→21:06)
--- NOTE | 2020-04-26 11:56 | PM&R Progress Note ---
Subjective HPI/CC On Admission Date Seen by Provider: Apr 26, 2020 Time Seen by Provider: 12:15 Subjective/Events-last exam 04/26/20: Clearer thought process SLUMS score noted Incontinent at times No pain reported 04/25/20: Patient doing well Confusion noted No pain reported Daughter at bedside and I introduce myself PCP Dr Christianson was able to visit him today No falls Oriented x 2 on exam Review of Systems General: Fatigue Neurological: Weakness, Incoordination, Confusion Objective Exam Vital Signs Vital Signs Date Time Temp Pulse Resp B/P (MAP) Pulse Ox O2 Delivery O2 Flow Rate FiO2 04/27/20 05:09 36.2 57 18 141/65 (90) 93 Room Air Capillary Refill : General Appearance: No Apparent Distress, WD/WN, Chronically ill HEENT: PERRL/EOMI, TMs Normal, Normal ENT Inspection, Pharynx Normal Neck: Full Range of Motion, Normal Inspection, Non Tender, Supple, Carotid Bruit Respiratory: Chest Non Tender, Lungs Clear, Normal Breath Sounds, No Accessory Muscle Use, No Respiratory Distress Cardiovascular: Regular Rate, Rhythm, No Edema, No Gallop, No JVD, No Murmur, Normal Peripheral Pulses Gastrointestinal: Normal Bowel Sounds, No Organomegaly, No Pulsatile Mass, Non Tender, Soft Back: Normal Inspection, No CVA Tenderness, No Vertebral Tenderness Extremity: Normal Capillary Refill, Normal Inspection, Normal Range of Motion, Non Tender, No Calf Tenderness, No Pedal Edema Neurologic/Psychiatric: Alert, Oriented x3, No Motor/Sensory Deficits, Normal Mood/Affect, public speaking coach II-XII Norm as Tested, Abnormal Gait, Depressed Affect, Disoriented, Motor Weakness (generalized all extremities) Skin: Normal Color, Warm/Dry Lymphatic: No Adenopathy Results/Procedures Lab Patient resulted labs reviewed. FIM Transfers Therapy Code Descriptions/Definitions Functional [place] Measure: 0=Not Assessed/NA 4=Minimal Assistance 1=Total Assistance 5=Supervision or Setup 2=Maximal Assistance 6=Modified [place] 3=Moderate Assistance 7=Complete IndependenceSCALE: Activities may be completed with or without assistive devices. 1-Igukoinosx-shvisai completes the activity by him/herself with no assistance from a helper. 5-Set-up or Clean-up Assistance-helper sets up or cleans up; patient completes activity. [place] assists only prior to or following the activity. 4-Supervision or Touching Assistance-helper provides verbal cues and/or touching/steadying and/or contact guard assistance as patient completes activity. Assistance may be provided throughout the activity or intermittently. 3-Partial/Moderate Assistance-helper does LESS THAN HALF the effort. [place] lifts, holds or supports trunk or limbs, but provides less than half the effort. 2-Substantial/Maximal Assistance-helper does MORE THAN HALF the effort. [place] lifts or holds trunk or limbs and provides more than half the effort. 4-Slvwzbfww-vqpdxv does ALL the effort. Patient does none of the effort to complete the activity. Or, the assistance of 2 or more helpers is required for the patient to complete the activity. If activity was not attempted, code reason: 7-Patient Refused. 9-Not Applicable-not attempted and the patient did not perform the activity before the current illness, exacerbation or injury. 10-Not Attempted due to Environmental Limitations-(lack of equipment, weather restraints, etc.). 88-Not Attempted due to Medical Conditions or Safety Concerns. Roll Left to Right (QC): 6 Sit to Lying (QC): 6 Sit to Stand (QC): 4 Chair/Utx-jp-Ldrmp Xfer(QC): 4 Car Transfer (QC): 4 Gait Training Does the Patient Walk?: Yes Distance: 300'x2 Walk 10 feet (QC): 4 Walk 50 ft with 2 Turns(QC): 4 Walk 150 ft (QC): 4 Walking 10ft/uneven surface-QC: 4 Gait Persons Needed: 1 Gait Assistive Device: Walker 4 Wheeled Wheelchair Training Does the Pt Use a Wheelchair?: No Wheel 50 ft with 2 turns (QC): 9 Wheel 150 ft (QC): 9 Stair Training #of Steps: 4 1 Step (curb) (QC): 4 4 Steps (QC): 4 12 Steps (QC): 88 Balance Picking up an Object (QC): 4 ADL-Treatment Eating (QC): 4 (per pt.) Oral Hygiene (QC): 4 (Pt. already completed per him.) Shower/Bathe Self (QC): 4 (CGA in stand, cues to sequence through task and for safety. Pt impulsive, standing without warning. ) Upper Body Dressing (QC): 3 (Viv, pt required readjustment of shirt from front to back. Cues for orientation) Lower Body Dressing (QC): 3 (Viv, pt required minimal safety cues to pull pants above socks) On/Off Footwear (QC): 3 (ModA, pt required minimal assistance to doff socks, pt able to don socks with minimal assist to adjust) Toileting Hygiene (QC): 4 (CGA, pt able to perform hygiene and clothing managment while standing) Assessment/Plan Assessment and Plan Assess & Plan/Chief Complaint Assessment: s/p fall with subdural hematoma with confusion Parkinson's disease s/p DBS x 6 DB HTN GERD BPH PTSD Agent orange exposure Plan: IRF protocol Monitor BP Home meds Fall risk 04/25/20: Monitor confusion Monitor BP Fall risk 04/26/20: Incontinence management Monitor BP Monitor for pain (1) Subdural hematoma (2) Parkinson disease (3) Hypertension (4) GERD (gastroesophageal reflux disease) (5) PTSD (post-traumatic stress disorder) (6) H/O agent [place] exposure (7) DB (obstructive sleep apnea) (8) BPH (benign prostatic hyperplasia) ANSHU LEMUS DO Apr 26, 2020 11:55
--- NOTE | 2020-04-26 12:23 | Physical Therapy Daily Note ---
PT Daily Note-Current Subjective Pt. in bed, agrees to supine therex. Shares that he is really just wanting to talk with someone Pain Location: No Pain Reported Transfers SCALE: Activities may be completed with or without assistive devices. 4-Mpssxzniag-drhxfds completes the activity by him/herself with no assistance from a helper. 5-Set-up or Clean-up Assistance-helper sets up or cleans up; patient completes activity. [place] assists only prior to or following the activity. 4-Supervision or Touching Assistance-helper provides verbal cues and/or touching/steadying and/or contact guard assistance as patient completes activity. Assistance may be provided throughout the activity or intermittently. 3-Partial/Moderate Assistance-helper does LESS THAN HALF the effort. [place] lifts, holds or supports trunk or limbs, but provides less than half the effort. 2-Substantial/Maximal Assistance-helper does MORE THAN HALF the effort. [place] lifts or holds trunk or limbs and provides more than half the effort. 9-Vdwzuxzwu-flnwgb does ALL the effort. Patient does none of the effort to complete the activity. Or, the assistance of 2 or more helpers is required for the patient to complete the activity. If activity was not attempted, code reason: 7-Patient Refused. 9-Not Applicable-not attempted and the patient did not perform the activity before the current illness, exacerbation or injury. 10-Not Attempted due to Environmental Limitations-(lack of equipment, weather restraints, etc.). 88-Not Attempted due to Medical Conditions or Safety Concerns. rolling and sup to sit to sup SBA Exercises Supine Ex: Bridging, Ankle pumps, Quad Set, Rolling, Glut sets, Heel Slides, Short Arc Quads, Scooting, Straight leg raise, Hip abd/add Supine Reps: 20 Assessment Current Status: Good Progress PT Short Term Goals Short Term Goals Time Frame: May 01, 2020 Roll Left & Right: 6 Sit to lyin Lying to sitting on side of be: 6 Sit to stand: 4 Chair/lhg-ee-azzet transfer: 4 Walk 10 feet: 4 Walk 50 feet with two turns: 4 Walk 150 feet: 4 PT Kitchen Steward Goals Kitchen Steward Goals PT Kitchen Steward Goals Time Frame: May 15, 2020 Roll Left & Right (QC): 6 Sit to Lying (QC): 6 Lying-Sitting on Side/Bed(QC): 6 Sit to Stand (QC): 6 Chair/Orh-el-Theum Xfer(QC): 6 Toilet Transfer (QC): 6 Car Transfer (QC): 5 Does the Patient Walk: Yes Walk 10 feet (QC): 5 Walk 50ft with 2 Turns (QC): 5 Walk 150 ft (QC): 5 Walking 10ft on Uneven Surface: 5 1 Step (curb) (QC): 5 4 Steps (QC): 5 12 Steps (QC): 88 Picking up an Object (QC): 5 Wheel 50 feet with 2 turns (QC: 9 Wheel 150 feet: 9 PT Plan Treatment/Plan Treatment Plan: Continue Plan of Care Treatment Plan: Bed Mobility, Education, Functional Activity Jeanmarie, Functional Strength, Gait, Safety, Therapeutic Exercise, Transfers Treatment Duration: May 15, 2020 Frequency: At least 5 of 7 days/Wk (IRF) Estimated Hrs Per Day: 1.5 hours per day Patient and/or Family Agrees t: Yes Safety Risks/Education Patient Education: Correct Positioning Time/GCodes Time In: 1040 Time Out: 1055 Total Billed Treatment Time: 15 Total Billed Treatment 1,EX15m LINDA HOFF TRAUMA NURSE Apr 26, 2020 12:23
[2020-04-26] MEDS: CHLORASEPTIC LOZENGE MM PRN ×2 (13:12→18:01)
[2020-04-26 16:24] VITALS: BP 102/55
[2020-04-26] MEDS: diphenhydrAMINE 25 MG TAB (BENADRYL) PO SCH (21:06)
[2020-04-26] MEDS: SIMvastatin 20 MG (ZOCOR) TAB PO SCH (21:06)
[2020-04-26] MEDS: MELATONIN 3 MG TABLET PO PRN (21:06)
[2020-04-26] MEDS: ACETAMINOPHEN 500 MG TAB (TYLENOL) PO SCH (21:07)
[2020-04-27 05:09] VITALS: BP 141/65
[2020-04-27] MEDS: DOCUSATE SODIUM 100 MG (COLACE) CAP PO SCH ×2 (09:00→19:32)
[2020-04-27] MEDS: polyethylene glycoL POWDER 17 GM (MIRALAX) PACK PO SCH ×2 (09:00→19:32)
[2020-04-27] MEDS: SENNA W/DOCUSATE (SENOKOT S) TABLET PO SCH ×2 (09:00→21:57)
[2020-04-27] MEDS: HYDROCHLOROTHIAZIDE 25 MG (HCTZ) TAB PO SCH (09:32)
[2020-04-27] MEDS: MULTIVIT W/MINERALS TAB (THERAGRAN M) PO SCH (09:32)
[2020-04-27] MEDS: GABAPENTIN 400 MG (NEURONTIN) CAP PO SCH ×2 (09:32→20:42)
[2020-04-27] MEDS: VITAMIN D3 125 MCG (5,000 UNITS) CAPSULE PO SCH (09:32)
[2020-04-27] MEDS: buPROPion SR 150 MG (WELLBUTRIN SR) TAB PO SCH ×2 (09:32→20:42)
[2020-04-27] MEDS: PANTOPRAZOLE 40 MG (PROTONIX) TAB PO SCH (09:32)
[2020-04-27] MEDS: amLODIPine 10 MG (NORVASC) TAB PO SCH (09:32)
[2020-04-27] MEDS: SINEMET 25/100 (CARBIDOPA/LEVODOPA) TAB PO SCH ×3 (09:32→20:43)
[2020-04-27] MEDS: FLUTICASONE NASAL SPRAY (FLONASE) 16 GM BTL NS SCH (09:32)
[2020-04-27] MEDS: PROPRANOLOL 20 MG (INDERAL) TABLET PO SCH (09:32)
[2020-04-27] MEDS: lisINopril 20 MG (PRINIVIL) TABLET PO SCH (09:32)
[2020-04-27] MEDS: LEVETIRACETAM 500 MG (KEPPRA) TAB PO SCH ×2 (09:32→20:42)
--- NOTE | 2020-04-27 11:47 | PM&R Progress Note ---
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 daughter visiting Mind is clearing BM loose 04/26/20: Clearer thought process SLUMS score noted Incontinent at times No pain reported 04/25/20: Patient doing well Confusion noted No pain reported Daughter at bedside and I introduce myself PCP Dr Christianson was able to visit him today No falls Oriented x 2 on exam Review of Systems General: Fatigue, Malaise Neurological: Weakness, Confusion Objective Exam Vital Signs Vital Signs Date Time Temp Pulse Resp B/P (MAP) Pulse Ox O2 Delivery O2 Flow Rate FiO2 04/27/20 09:00 Room Air 04/27/20 05:09 36.2 57 18 141/65 (90) 93 Capillary Refill : General Appearance: No Apparent Distress, WD/WN, Chronically ill HEENT: PERRL/EOMI, TMs Normal, Normal ENT Inspection, Pharynx Normal Neck: Full Range of Motion, Normal Inspection, Non Tender, Supple, Carotid Bruit Respiratory: Chest Non Tender, Lungs Clear, Normal Breath Sounds, No Accessory Muscle Use, No Respiratory Distress Cardiovascular: Regular Rate, Rhythm, No Edema, No Gallop, No JVD, No Murmur, Normal Peripheral Pulses Gastrointestinal: Normal Bowel Sounds, No Organomegaly, No Pulsatile Mass, Non Tender, Soft Back: Normal Inspection, No CVA Tenderness, No Vertebral Tenderness Extremity: Normal Capillary Refill, Normal Inspection, Normal Range of Motion, Non Tender, No Calf Tenderness, No Pedal Edema Neurologic/Psychiatric: Alert, Oriented x3, No Motor/Sensory Deficits, Normal Mood/Affect, 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 FIM Transfers Therapy Code Descriptions/Definitions Functional [place] Measure: 0=Not Assessed/NA 4=Minimal Assistance 1=Total Assistance 5=Supervision or Setup 2=Maximal Assistance 6=Modified [place] 3=Moderate Assistance 7=Complete IndependenceSCALE: Activities may be completed with or without assistive devices. 3-Fsedacrfyf-rvjdczo completes the activity by him/herself with no assistance from a helper. 5-Set-up or Clean-up Assistance-helper sets up or cleans up; patient completes activity. [place] assists only prior to or following the activity. 4-Supervision or Touching Assistance-helper provides verbal cues and/or touchin g/steadying and/or contact guard assistance as patient completes activity. Assistance may be provided throughout the activity or intermittently. 3-Partial/Moderate Assistance-helper does LESS THAN HALF the effort. [place] lifts, holds or supports trunk or limbs, but provides less than half the effort. 2-Substantial/Maximal Assistance-helper does MORE THAN HALF the effort. [place] lifts or holds trunk or limbs and provides more than half the effort. 2-Raqmnrsot-puqjds does ALL the effort. Patient does none of the effort to complete the activity. Or, the assistance of 2 or more helpers is required for the patient to complete the activity. If activity was not attempted, code reason: 7-Patient Refused. 9-Not Applicable-not attempted and the patient did not perform the activity before the current illness, exacerbation or injury. 10-Not Attempted due to Environmental Limitations-(lack of equipment, weather restraints, etc.). 88-Not Attempted due to Medical Conditions or Safety Concerns. Roll Left to Right (QC): 6 Sit to Lying (QC): 6 Sit to Stand (QC): 4 Chair/Qvc-zp-Ecgqv Xfer(QC): 4 Car Transfer (QC): 4 Gait Training Does the Patient Walk?: Yes Distance: 300'x2 Walk 10 feet (QC): 4 Walk 50 ft with 2 Turns(QC): 4 Walk 150 ft (QC): 4 Walking 10ft/uneven surface-QC: 4 Gait Persons Needed: 1 Gait Assistive Device: Walker 4 Wheeled Wheelchair Training Does the Pt Use a Wheelchair?: No Wheel 50 ft with 2 turns (QC): 9 Wheel 150 ft (QC): 9 Stair Training #of Steps: 4 1 Step (curb) (QC): 4 4 Steps (QC): 4 12 Steps (QC): 88 Balance Picking up an Object (QC): 4 ADL-Treatment Eating (QC): 4 (per pt.) Oral Hygiene (QC): 4 (Pt. already completed per him.) Shower/Bathe Self (QC): 4 (CGA in stand, cues to sequence through task and for safety. Pt impulsive, standing without warning. ) Upper Body Dressing (QC): 3 (Viv, pt required readjustment of shirt from front to back. Cues for orientation) Lower Body Dressing (QC): 3 (Viv, pt required minimal safety cues to pull pants above socks) On/Off Footwear (QC): 3 (ModA, pt required minimal assistance to doff socks, pt able to don socks with minimal assist to adjust) Toileting Hygiene (QC): 4 (CGA, pt able to perform hygiene and clothing managment while standing) Assessment/Plan Assessment and Plan Assess & Plan/Chief Complaint Assessment: s/p fall with subdural hematoma with confusion Parkinson's disease s/p DBS x 6 DB HTN GERD BPH PTSD Agent orange exposure Plan: IRF protocol Monitor BP Home meds Fall risk 04/25/20: Monitor confusion Monitor BP Fall risk 04/26/20: Incontinence management Monitor BP Monitor for pain 04/27/20: Monitor confusion Monitor BP (1) Subdural hematoma (2) Parkinson disease (3) Hypertension (4) GERD (gastroesophageal reflux disease) (5) PTSD (post-traumatic stress disorder) (6) H/O agent [place] exposure (7) DB (obstructive sleep apnea) (8) BPH (benign prostatic hyperplasia) ANSHU LEMUS DO Apr 27, 2020 11:47
[2020-04-27 17:10] VITALS: BP 139/73
[2020-04-27] MEDS: ACETAMINOPHEN 500 MG TAB (TYLENOL) PO SCH (20:42)
[2020-04-27] MEDS: SIMvastatin 20 MG (ZOCOR) TAB PO SCH (20:42)
[2020-04-27] MEDS: diphenhydrAMINE 25 MG TAB (BENADRYL) PO SCH (20:42)
[2020-04-27] MEDS: MELATONIN 3 MG TABLET PO PRN (20:42)
[2020-04-28 05:57] VITALS: BP 139/71
[2020-04-28 06:37] LABS: BASOPHILS # (AUTO) 0.1 10^3/uL (0.0-0.1); BASOPHILS % (AUTO) 1 % (0-10); EOSINOPHILS # (AUTO) 0.2 10^3/uL (0.0-0.3); EOSINOPHILS % (AUTO) 3 % (0-10); HEMATOCRIT 41 % (40-54); LYMPHOCYTES # (AUTO) 1.5 10^3/uL (1.0-4.0); LYMPHOCYTES % (AUTO) 21 % (12-44); MEAN CORPUSCULAR HEMOGLOBIN 31 pg (25-34); MEAN CORPUSCULAR HGB CONC 34 g/dL (32-36); MEAN CORPUSCULAR VOLUME 92 fL (80-99); MEAN PLATELET VOLUME 9.7 fL (9.0-12.2); MONOCYTES # (AUTO) 0.6 10^3/uL (0.0-1.0); MONOCYTES % (AUTO) 8 % (0-12); NEUTROPHILS # (AUTO) 4.9 10^3/uL (1.8-7.8); NEUTROPHILS % (AUTO) 66 % (42-75); PLATELET COUNT 315 10^3/uL (130-400); WHITE BLOOD COUNT 7.4 10^3/uL (4.3-11.0)
[2020-04-28 06:47] LABS: CHLORIDE 100 MMOL/L (98-107); POTASSIUM 3.8 MMOL/L (3.6-5.0); SODIUM 138 MMOL/L (135-145)
[2020-04-28 06:49] LABS: GLUCOSE 96 MG/DL (70-105); TOTAL PROTEIN 7.1 GM/DL (6.4-8.2)
[2020-04-28 06:50] LABS: CARBON DIOXIDE 26 MMOL/L (21-32)
[2020-04-28 06:51] LABS: BILIRUBIN,TOTAL 0.4 MG/DL (0.1-1.0)
[2020-04-28 06:52] LABS: ALKALINE PHOSPHATASE 61 U/L (40-136)
[2020-04-28 06:53] LABS: CREATININE SERUM 0.95 MG/DL (0.60-1.30); GFR ESTIMATED > 60
[2020-04-28 06:54] LABS: BUN/CREATININE RATIO 19
[2020-04-28 06:55] LABS: ALANINE AMINOTRANSFERASE 13 U/L (0-55)
--- NOTE | 2020-04-28 06:56 | PM&R Progress Note ---
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 Mind is clearing BM loose 04/26/20: Clearer thought process SLUMS score noted Incontinent at times No pain reported 04/25/20: Patient doing well Confusion noted No pain reported Daughter at bedside and I introduce myself PCP Dr Christianson was able to visit him today No falls Oriented x 2 on exam Review of Systems General: Fatigue Objective Exam Vital Signs Vital Signs Date Time Temp Pulse Resp B/P (MAP) Pulse Ox O2 Delivery O2 Flow Rate FiO2 04/28/20 21:35 Room Air 04/28/20 18:00 36.6 57 18 121/72 (88) 94 Capillary Refill : General Appearance: No Apparent Distress, WD/WN, Chronically ill HEENT: PERRL/EOMI, TMs Normal, Normal ENT Inspection, Pharynx Normal Neck: Full Range of Motion, Normal Inspection, Non Tender, Supple, Carotid Bruit Respiratory: Chest Non Tender, Lungs Clear, Normal Breath Sounds, No Accessory Muscle Use, No Respiratory Distress Cardiovascular: Regular Rate, Rhythm, No Edema, No Gallop, No JVD, No Murmur, Normal Peripheral Pulses Gastrointestinal: Normal Bowel Sounds, No Organomegaly, No Pulsatile Mass, Non Tender, Soft Back: Normal Inspection, No CVA Tenderness, No Vertebral Tenderness Extremity: Normal Capillary Refill, Normal Inspection, Normal Range of Motion, Non Tender, No Calf Tenderness, No Pedal Edema Neurologic/Psychiatric: Alert, Oriented x3, No Motor/Sensory Deficits, Normal 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 FIM Transfers Therapy Code Descriptions/Definitions Functional [place] Measure: 0=Not Assessed/NA 4=Minimal Assistance 1=Total Assistance 5=Supervision or Setup 2=Maximal Assistance 6=Modified [place] 3=Moderate Assistance 7=Complete IndependenceSCALE: Activities may be completed with or without assistive devices. 2-Olkxbqyizt-dnozswc completes the activity by him/herself with no assistance from a helper. 5-Set-up or Clean-up Assistance-helper sets up or cleans up; patient completes activity. [place] assists only prior to or following the activity. 4-Supervision or Touching Assistance-helper provides verbal cues and/or touching/steadying and/or contact guard assistance as patient completes activity. Assistance may be provided throughout the activity or intermittently. 3-Partial/Moderate Assistance-helper does LESS THAN HALF the effort. [place] lifts, holds or supports trunk or limbs, but provides less than half the effort. 2-Substantial/Maximal Assistance-helper does MORE THAN HALF the effort. [place] lifts or holds trunk or limbs and provides more than half the effort. 4-Tbagcprtg-jmlfdf does ALL the effort. Patient does none of the effort to complete the activity. Or, the assistance of 2 or more helpers is required for the patient to complete the activity. If activity was not attempted, code reason: 7-Patient Refused. 9-Not Applicable-not attempted and the patient did not perform the activity before the current illness, exacerbation or injury. 10-Not Attempted due to Environmental Limitations-(lack of equipment, weather restraints, etc.). 88-Not Attempted due to Medical Conditions or Safety Concerns. Roll Left to Right (QC): 6 Sit to Lying (QC): 6 Sit to Stand (QC): 4 Chair/Elc-pv-Fdmqt Xfer(QC): 4 Car Transfer (QC): 4 Gait Training Does the Patient Walk?: Yes Distance: 300'x2 Walk 10 feet (QC): 4 Walk 50 ft with 2 Turns(QC): 4 Walk 150 ft (QC): 4 Walking 10ft/uneven surface-QC: 4 Gait Persons Needed: 1 Gait Assistive Device: Walker 4 Wheeled Wheelchair Training Does the Pt Use a Wheelchair?: No Wheel 50 ft with 2 turns (QC): 9 Wheel 150 ft (QC): 9 Stair Training #of Steps: 4 1 Step (curb) (QC): 4 4 Steps (QC): 4 12 Steps (QC): 88 Balance Picking up an Object (QC): 4 ADL-Treatment Eating (QC): 4 (per pt.) Oral Hygiene (QC): 4 (Pt. already completed per him.) Shower/Bathe Self (QC): 4 (CGA in stand, cues to sequence through task and for safety. Pt impulsive, standing without warning. ) Upper Body Dressing (QC): 3 (Viv, pt required readjustment of shirt from front to back. Cues for orientation) Lower Body Dressing (QC): 3 (Viv, pt required minimal safety cues to pull pants above socks) On/Off Footwear (QC): 3 (ModA, pt required minimal assistance to doff socks, pt able to don socks with minimal assist to adjust) Toileting Hygiene (QC): 4 (CGA, pt able to perform hygiene and clothing managment while standing) Assessment/Plan Assessment and Plan Assess & Plan/Chief Complaint Assessment: s/p fall with subdural hematoma with confusion Parkinson's disease s/p DBS x 6 DB HTN GERD BPH PTSD Agent orange exposure Plan: IRF protocol Monitor BP Home meds Fall risk 04/25/20: Monitor confusion Monitor BP Fall risk 04/26/20: Incontinence management Monitor BP Monitor for pain 04/27/20: Monitor confusion Monitor BP 04/28/20: DC planned? PCP will be involved in the decision Impulsiveness noted (1) Subdural hematoma (2) Parkinson disease (3) Hypertension (4) GERD (gastroesophageal reflux disease) (5) PTSD (post-traumatic stress disorder) (6) H/O agent [place] exposure (7) DB (obstructive sleep apnea) (8) BPH (benign prostatic hyperplasia) ANSHU LEMUS DO Apr 28, 2020 06:56
[2020-04-28] MEDS: HYDROCHLOROTHIAZIDE 25 MG (HCTZ) TAB PO SCH (08:30)
[2020-04-28] MEDS: SINEMET 25/100 (CARBIDOPA/LEVODOPA) TAB PO SCH ×3 (08:30→21:34)
[2020-04-28] MEDS: GABAPENTIN 400 MG (NEURONTIN) CAP PO SCH ×2 (08:30→21:32)
[2020-04-28] MEDS: LEVETIRACETAM 500 MG (KEPPRA) TAB PO SCH ×2 (08:30→21:32)
[2020-04-28] MEDS: VITAMIN D3 125 MCG (5,000 UNITS) CAPSULE PO SCH (08:30)
[2020-04-28] MEDS: MULTIVIT W/MINERALS TAB (THERAGRAN M) PO SCH (08:30)
[2020-04-28] MEDS: amLODIPine 10 MG (NORVASC) TAB PO SCH (08:30)
[2020-04-28] MEDS: buPROPion SR 150 MG (WELLBUTRIN SR) TAB PO SCH ×2 (08:30→21:33)
[2020-04-28] MEDS: lisINopril 20 MG (PRINIVIL) TABLET PO SCH (08:30)
[2020-04-28] MEDS: PANTOPRAZOLE 40 MG (PROTONIX) TAB PO SCH (08:30)
[2020-04-28] MEDS: PROPRANOLOL 20 MG (INDERAL) TABLET PO SCH (08:30)
[2020-04-28] MEDS: FLUTICASONE NASAL SPRAY (FLONASE) 16 GM BTL NS SCH (08:31)
[2020-04-28] MEDS: polyethylene glycoL POWDER 17 GM (MIRALAX) PACK PO SCH ×2 (09:17→21:39)
[2020-04-28] MEDS: SENNA W/DOCUSATE (SENOKOT S) TABLET PO SCH ×2 (09:17→21:39)
[2020-04-28] MEDS: DOCUSATE SODIUM 100 MG (COLACE) CAP PO SCH ×2 (09:17→21:32)
--- NOTE | 2020-04-28 09:42 | Physical Therapy Daily Note ---
PT Daily Note-Current Subjective Pt is in the rehab lobby, making some notes about his current situation. He is eager to go home. Mental Status Patient Orientation: Person, Place, Time, Situation Transfers SCALE: Activities may be completed with or without assistive devices. 4-Enguhpjotw-eoizmlb completes the activity by him/herself with no assistance from a helper. 5-Set-up or Clean-up Assistance-helper sets up or cleans up; patient completes activity. [place] assists only prior to or following the activity. 4-Supervision or Touching Assistance-helper provides verbal cues and/or touching/steadying and/or contact guard assistance as patient completes ac tivity. Assistance may be provided throughout the activity or intermittently. 3-Partial/Moderate Assistance-helper does LESS THAN HALF the effort. [place] lifts, holds or supports trunk or limbs, but provides less than half the effort. 2-Substantial/Maximal Assistance-helper does MORE THAN HALF the effort. [place] lifts or holds trunk or limbs and provides more than half the effort. 0-Illbdrlxe-kftsiy does ALL the effort. Patient does none of the effort to complete the activity. Or, the assistance of 2 or more helpers is required for the patient to complete the activity. If activity was not attempted, code reason: 7-Patient Refused. 9-Not Applicable-not attempted and the patient did not perform the activity before the current illness, exacerbation or injury. 10-Not Attempted due to Environmental Limitations-(lack of equipment, weather restraints, etc.). 88-Not Attempted due to Medical Conditions or Safety Concerns. Roll Left & Right (QC): 6 Sit to Lying (QC): 6 Lying to Sitting/Side of Bed(Q: 6 Sit to Stand (QC): 6 Chair/Zyt-fd-Stgty Xfer(QC): 6 Toilet Transfer (QC): 6 Car Transfer (QC): 6 Gait Training Does the Patient Walk?: Yes Distance: 500ft, 250ft Walk 10 feet (QC): 6 Walk 50 ft with 2 Turns(QC): 6 Walk 150 ft (QC): 6 Walking 10ft/uneven surface-QC: 6 Gait Assistive Device: FWW Wheelchair Training Does the Pt Use a Wheelchair?: No Stair Training Stair Training: Handrails/: uses walker #of Steps: 1 1 Step (curb) (QC): 4 Balance Picking up an Object (QC): 5 Exercises Standing: Floor clock, Hamstring curls, Heel/toe raises, 3 way Ex=Flex, Abd, Ext, Marching, Mini squats, Step-ups Standing Reps: 20 Assessment Current Status: Good Progress Pt is ambulating at a quick pace and is safe with turns and transfers. PT Short Term Goals Short Term Goals Time Frame: May 01, 2020 Roll Left & Right: 6 Sit to lyin Lying to sitting on side of be: 6 Sit to stand: 4 Chair/qkt-gr-qdtbd transfer: 4 Walk 10 feet: 4 Walk 50 feet with two turns: 4 Walk 150 feet: 4 PT Care Home Goals Care Home Goals PT Industry Operations Investigator Goals Time Frame: May 15, 2020 Roll Left & Right (QC): 6 Sit to Lying (QC): 6 Lying-Sitting on Side/Bed(QC): 6 Sit to Stand (QC): 6 Chair/Hut-zv-Icqap Xfer(QC): 6 Toilet Transfer (QC): 6 Car Transfer (QC): 5 Does the Patient Walk: Yes Walk 10 feet (QC): 5 Walk 50ft with 2 Turns (QC): 5 Walk 150 ft (QC): 5 Walking 10ft on Uneven Surface: 5 1 Step (curb) (QC): 5 4 Steps (QC): 5 12 Steps (QC): 88 Picking up an Object (QC): 5 Wheel 50 feet with 2 turns (QC: 9 Wheel 150 feet: 9 PT Plan Treatment/Plan Treatment Plan: Continue Plan of Care Treatment Plan: Bed Mobility, Education, Functional Activity Jeanmarie, Functional Strength, Gait, Safety, Therapeutic Exercise, Transfers Treatment Duration: May 15, 2020 Frequency: At least 5 of 7 days/Wk (IRF) Estimated Hrs Per Day: 1.5 hours per day Patient and/or Family Agrees t: Yes Time/GCodes Time In: 804 Time Out: 904 Total Billed Treatment Time: 60 Total Billed Treatment 1, gt x2 (30), ex x2 (30) DONIS RAMOS PT Apr 28, 2020 09:42
--- NOTE | 2020-04-28 10:05 | Occupational Ther Daily Note ---
OT Current Status-Daily Note Subjective Pt laying in bed, agreeable to OT tx. Pt denies having pain. ADL-Treatment Therapy Code Descriptions/Definitions Functional [place] Measure: 0=Not Assessed/NA 4=Minimal Assistance 1=Total Assistance 5=Supervision or Setup 2=Maximal Assistance 6=Modified [place] 3=Moderate Assistance 7=Complete IndependenceSCALE: Activities may be completed with or without assistive devices. 6-Wnqvkfcbex-hqioknl completes the activity by him/herself with no assistance from a helper. 5-Set-up or Clean-up Assistance-helper sets up or cleans up; patient completes activity. [place] assists only prior to or following the activity. 4-Supervision or Touching Assistance-helper provides verbal cues and/or touching /steadying and/or contact guard assistance as patient completes activity. Assistance may be provided throughout the activity or intermittently. 3-Partial/Moderate Assistance-helper does LESS THAN HALF the effort. [place] lifts, holds or supports trunk or limbs, but provides less than half the effort. 2-Substantial/Maximal Assistance-helper does MORE THAN HALF the effort. [place] lifts or holds trunk or limbs and provides more than half the effort. 2-Klrxpxacb-qzwwli does ALL the effort. Patient does none of the effort to complete the activity. Or, the assistance of 2 or more helpers is required for the patient to complete the activity. If activity was not attempted, code reason: 7-Patient Refused. 9-Not Applicable-not attempted and the patient did not perform the activity before the current illness, exacerbation or injury. 10-Not Attempted due to Environmental Limitations-(lack of equipment, weather restraints, etc.). 88-Not Attempted due to Medical Conditions or Safety Concerns. Bathing Location: L Arm, R Arm, L Upper Leg, R Upper Leg, L Lower Leg (including foot), R Lower Leg (including foot), Chest, Abdomen, Buttocks, Perineal Area Shower/Bathe Self (QC): 4 (Supervision while standing at GBs, pt able to wash/dry all parts) Upper Body Dressing (QC): 5 (set up) Lower Body Dressing (QC): 4 (Supervision in stand for pant hike, pt able to doff/jose pants/brief) On/Off Footwear: 4 (Supervision, pt able to doff/jose gripper socks.) Toileting Hygiene (QC): 4 (supervision, pt able to manage clothing and perform hygiene) Toilet Transfer (QC): 4 (supervision on/off toilet.) Other Treatment Pt laying in bed, transferred EOB independently. Pt then used 4WW to ambulate into bathroom, onto toilet. Pt completed toileting, doffing upper body/lower body clothes, then transferred to shower chair. Pt required cue to use walker during transfer. Pt doffed socks, then completed shower. Pt donned clothes at SC, then used walker to stand at sink to comb hair, and put in hearing aides, SBA. Pt transferred to recliner for seated rest break. Pt used walker to ambulate into therapy gym, SBA. Noted quick pace with ambulation. In order to increase BUE strength and activity tolerance, pt completed arm bike x15 mins, min resistance. Pt then completed fine motor therapy task, min resistance theraputty in order to increase fine motor strength/coordination. Pt first removed beads from putty, then used BUEs to roll into log, perform pinches, and gross grasp. Pt used 4WW to return to room, able to locate room without cues. Post tx, pt seated in recliner, call light in reach and all needs met. Education OT Patient Education: Correct positioning, Exercise program, Modified ADL techniques, Progress toward Goal/Update tx plan, Purpose of tx/functional activities Teaching Recipient: Patient Teaching Methods: Discussion Response to Teaching: Verbalize Understanding OT Crime Victim Specialist Goals Crime Victim Specialist Goals Time Frame: May 08, 2020 Eating (QC): 6 Oral Hygiene (QC): 5 Toileting Hygiene (QC): 4 Shower/Bathe Self (QC): 4 Upper Body Dressing (QC): 5 Lower Body Dressing (QC): 4 On/Off Footwear (QC): 4 Additional Goals: 1-Demonstrate ADL Tasks, 2-Verbalize Understanding, 3- ImproveStrength/Jeanmarie 1=Demonstrate adherence to instructed precautions during ADL tasks. 2=Patient will verbalize/demonstrate understanding of assistive devices/modifications for ADL. 3=Patient will improve strength/tolerance for activity to enable patient to perform ADL's. OT Education/Plan Problem List/Assessment Assessment: Decreased Activ Tolerance, Decreased UE Strength, Impaired I ADL's, Impaired Self-Care Skills Discharge Recommendations Plan/Recommendations: Continue POC Treatment Plan/Plan of Care Patient would benefit from OT for education, treatment and training to promote independence in ADL's, mobility, safety and/or upper extremity function for ADL's. Plan of Care: ADL Retraining, Functional Mobility, UE Funct Exercise/Act Treatment Duration: May 08, 2020 Frequency: At least 5 of 7 days/Wk (IRF) Estimated Hrs Per Day: 1.5 hours per day Agreement: Yes Rehab Potential: Fair Time/GCodes Start Time: 09:15 Stop Time: 10:30 Total Time Billed (hr/min): 75 Billed Treatment Time 1, ADL 3 (45'), EX (15'), FA (15') LIZA MOREJON OT Apr 28, 2020 10:05
--- NOTE | 2020-04-28 11:11 | Physical Therapy Daily Note ---
PT Daily Note-Current Subjective Pt is in the bedside chair. He is ready to work with PT. Mental Status Patient Orientation: Person, Place, Time, Situation Transfers SCALE: Activities may be completed with or without assistive devices. 9-Xukwoxmtvn-nlmopln completes the activity by him/herself with no assistance from a helper. 5-Set-up or Clean-up Assistance-helper sets up or cleans up; patient completes activity. [place] assists only prior to or following the activity. 4-Supervision or Touching Assistance-helper provides verbal cues and/or touching/steadying and/or contact guard assistance as patient completes activity. Assistance may be provided throughout the activity or intermittently. 3-Partial/Moderate Assistance-helper does LESS THAN HALF the effort. [place] lifts, holds or supports trunk or limbs, but provides less than half the effort. 2-Substantial/Maximal Assistance-helper does MORE THAN HALF the effort. [place] lifts or holds trunk or limbs and provides more than half the effort. 7-Splbjmhzk-aqxjqh does ALL the effort. Patient does none of the effort to complete the activity. Or, the assistance of 2 or more helpers is required for the patient to complete the activity. If activity was not attempted, code reason: 7-Patient Refused. 9-Not Applicable-not attempted and the patient did not perform the activity before the current illness, exacerbation or injury. 10-Not Attempted due to Environmental Limitations-(lack of equipment, weather restraints, etc.). 88-Not Attempted due to Medical Conditions or Safety Concerns. Roll Left & Right (QC): 6 Sit to Lying (QC): 6 Lying to Sitting/Side of Bed(Q: 6 Sit to Stand (QC): 6 Chair/Ckf-ev-Inkwq Xfer(QC): 6 Gait Training Does the Patient Walk?: Yes Distance: 600ft Walk 10 feet (QC): 6 Walk 50 ft with 2 Turns(QC): 6 Walk 150 ft (QC): 6 Gait Assistive Device: Walker 4 Wheeled Exercises Supine Ex: LE Protocol Supine Reps: 20 Assessment Current Status: Good Progress Pt began to show festination during the final 50ft. He was able to self correct and regain control. PT Short Term Goals Short Term Goals Time Frame: May 01, 2020 Roll Left & Right: 6 Sit to lyin Lying to sitting on side of be: 6 Sit to stand: 4 Chair/mvg-fa-efgki transfer: 4 Walk 10 feet: 4 Walk 50 feet with two turns: 4 Walk 150 feet: 4 PT Clinical Services Professional Goals Clinical Services Professional Goals PT Clinical Services Professional Goals Time Frame: May 15, 2020 Roll Left & Right (QC): 6 Sit to Lying (QC): 6 Lying-Sitting on Side/Bed(QC): 6 Sit to Stand (QC): 6 Chair/Gtd-jx-Ozeuw Xfer(QC): 6 Toilet Transfer (QC): 6 Car Transfer (QC): 5 Does the Patient Walk: Yes Walk 10 feet (QC): 5 Walk 50ft with 2 Turns (QC): 5 Walk 150 ft (QC): 5 Walking 10ft on Uneven Surface: 5 1 Step (curb) (QC): 5 4 Steps (QC): 5 12 Steps (QC): 88 Picking up an Object (QC): 5 Wheel 50 feet with 2 turns (QC: 9 Wheel 150 feet: 9 PT Plan Treatment/Plan Treatment Plan: Continue Plan of Care Treatment Plan: Bed Mobility, Education, Functional Activity Jeanmarie, Functional Strength, Gait, Safety, Therapeutic Exercise, Transfers Treatment Duration: May 15, 2020 Frequency: At least 5 of 7 days/Wk (IRF) Estimated Hrs Per Day: 1.5 hours per day Patient and/or Family Agrees t: Yes Time/GCodes Time In: 1052 Time Out: 1110 Total Billed Treatment Time: 18 Total Billed Treatment 1, gt (18) DONIS RAMOS PT Apr 28, 2020 11:10
--- NOTE | 2020-04-28 14:10 | Speech Therapy Daily Note ---
Speech Daily Progress Note Subjective Date Seen by Provider: Apr 28, 2020 Time Seen by Provider: 00:30 Patient was resting in his recliner with his daughter present when I entered his room. Objective Patient completed safety awareness questions related to his needs when he returns home at 905 with minimal cues. Patient appears much less confused this date. Assessment Assessment Current Status: Good Progress Treatment Plan Continue Plan of Care Speech Short Term Goals Short Term Goals Short Term Goals 1) Patient will complete memory tasks related to his daily needs at 90% or greater with minimal cues. 2) Patient will complete safety awareness tasks related to his daily needs at 90% or greater with minimal cues. 3) Patient will complete problem solving tasks related to his daily needs at 90% or greater with minimal cues. Speech Long-Term Goals Bonding Agent Goals Patient will improve cognitive-communication necessary for safety and daily living tasks with minimal assist. Speech-Plan Patient/Family Goals Patient/Family Goals: patient plans on returning to his home as soon as possible. He and his will have a great support team with their large family and jew. Treatment Plan Speech Therapy Treatment Plan: Continue Plan of Care Treatment Duration: Apr 30, 2020 Frequency: 4 times per week (Patient will receive skilled ST 4-5x per week) Estimated Hrs Per Day: .5 hour per day Rehab Potential: Fair Barriers to Learning: Patient's recent decline in health, confusion Pt/Family Agrees to Plan: Yes Safety Risks/Education Teaching Recipient: Patient, Family Teaching Methods: Demonstration, Discussion Response to Teaching: Verbalize Understanding, Return Demonstration Education Topics Provided: Continued safety within his room as well as upon his return home Time Speech Therapy Time In: 14:00 Speech Therapy Time Out: 14:30 Total Billed Time: 30 Billed Treatment Time 1JAMES BETH[address] ST Apr 28, 2020 14:10
[2020-04-28] MEDS: tadalafiL 5 MG TABLET (NON-FORMULARY) PO SCH (16:05)
[2020-04-28 18:00] VITALS: BP 121/72
--- NOTE | 2020-04-28 19:36 | Progress Note ---
Subjective Review of Systems General: Fatigue, Malaise Neurological: Weakness, Confusion All Other Systems Reviewed All Other Systems Reviewed: Yes Objective Exam Vital Signs Vital Signs - First Documented 04/24/20 17:20 Temp 36.3 Pulse 57 Resp 18 B/P (MAP) 150/70 (96) Pulse Ox 95 O2 Delivery Room Air Capillary Refill : General Appearance: No Apparent Distress, WD/WN, Chronically ill Eyes: Bilateral Eye Normal Inspection, Bilateral Eye PERRL HEENT: PERRL/EOMI, TMs Normal, Normal ENT Inspection, Pharynx Normal Neck: Full Range of Motion, Normal Inspection, Non Tender, Supple, Carotid Bruit Respiratory: Chest Non Tender, Lungs Clear, Normal Breath Sounds, No Accessory Muscle Use, No Respiratory Distress Cardiovascular: Regular Rate, Rhythm, No Edema, No Gallop, No JVD, No Murmur, Normal Peripheral Pulses Gastrointestinal: Normal Bowel Sounds, No Organomegaly, No Pulsatile Mass, Non Tender, Soft Back: Normal Inspection, No CVA Tenderness, No Vertebral Tenderness Extremity: Normal Capillary Refill, Normal Inspection, Normal Range of Motion, Non Tender, No Calf Tenderness, No Pedal Edema Neurologic/Psychiatric: Alert, Oriented x3, No Motor/Sensory Deficits, Normal Mood/Affect, academic physician II-XII Norm as Tested, Abnormal Gait, Depressed Affect, Disoriented, Motor Weakness (generalized all extremities) Skin: Normal Color, Warm/Dry Lymphatic: No Adenopathy Results Lab Laboratory Tests 04/28/20 06:25: White Blood Count 7.4, Red Blood Count 4.49, Hemoglobin 14.0, Hematocrit 41, Mean Corpuscular Volume 92, Mean Corpuscular Hemoglobin 31, Mean Corpuscular Hemoglobin Concent 34, Red Cell Distribution Width 12.0, Platelet Count 315, Mean Platelet Volume 9.7, Immature Granulocyte % (Auto) 0, Neutrophils (%) (Auto) 66, Lymphocytes (%) (Auto) 21, Monocytes (%) (Auto) 8, Eosinophils (%) (Auto) 3, Basophils (%) (Auto) 1, Neutrophils # (Auto) 4.9, Lymphocytes # (Auto) 1.5, Monocytes # (Auto) 0.6, Eosinophils # (Auto) 0.2, Basophils # (Auto) 0.1, Immature Granulocyte # (Auto) 0.0, Sodium Level 138, Potassium Level 3.8, Chloride Level 100, Carbon Dioxide Level 26, Anion Gap 12, Blood Urea Nitrogen 18, Creatinine 0.95, Estimat Glomerular Filtration Rate > 60, BUN/Creatinine Ratio 19, Glucose Level 96, Calcium Level 9.0, Corrected Calcium 9.0, Total Bilirubin 0.4, Aspartate Amino Transf (AST/SGOT) 15, Alanine Aminotransferase (ALT/SGPT) 13, Alkaline Phosphatase 61, Total Protein 7.1, Albumin 4.0 Assessment/Plan Assessment/Plan Problems: (1) Subdural hematoma (2) Parkinson disease (3) Hypertension (4) GERD (gastroesophageal reflux disease) (5) PTSD (post-traumatic stress disorder) (6) H/O agent [place] exposure (7) DB (obstructive sleep apnea) (8) BPH (benign prostatic hyperplasia) Clinical Quality Measures DVT/VTE Risk/Contraindication: Contraindications-Pharm: Other *list below* Other: subdural hematoma JUS FIELDS MD Apr 28, 2020 19:36
[2020-04-28] MEDS: MELATONIN 3 MG TABLET PO PRN (21:32)
[2020-04-28] MEDS: diphenhydrAMINE 25 MG TAB (BENADRYL) PO SCH (21:32)
[2020-04-28] MEDS: SIMvastatin 20 MG (ZOCOR) TAB PO SCH (21:33)
[2020-04-28] MEDS: ACETAMINOPHEN 500 MG TAB (TYLENOL) PO SCH (21:33)
[2020-04-29 06:22] VITALS: BP 131/63
--- NOTE | 2020-04-29 08:54 | Speech Therapy Daily Note ---
Speech Daily Progress Note Subjective Date Seen by Provider: Apr 29, 2020 Time Seen by Provider: 00:30 Patient was resting in his recliner when I entered his room. Objective Patient answered general information questions with 80% accuracy given min to mod v/c's and/or repetitions. Assessment Assessment Current Status: Good Progress Treatment Plan Continue Plan of Care Speech Short Term Goals Short Term Goals Short Term Goals 1) Patient will complete memory tasks related to his daily needs at 90% or greater with minimal cues. 2) Patient will complete safety awareness tasks related to his daily needs at 90% or greater with minimal cues. 3) Patient will complete problem solving tasks related to his daily needs at 90% or greater with minimal cues. Speech Fpc Goals Cash Applications Clerk Goals Patient will improve cognitive-communication necessary for safety and daily living tasks with minimal assist. Speech-Plan Patient/Family Goals Patient/Family Goals: Patient plans on returning to his home where he lives with his . Treatment Plan Speech Therapy Treatment Plan: Continue Plan of Care Treatment Duration: Apr 30, 2020 Frequency: 4 times per week (Patient will receive skilled ST 4-5x per week) Estimated Hrs Per Day: .5 hour per day Rehab Potential: Fair Barriers to Learning: Patient's decreased cognition, age Pt/Family Agrees to Plan: Yes Safety Risks/Education Teaching Recipient: Patient Teaching Methods: Demonstration, Discussion Response to Teaching: Verbalize Understanding, Return Demonstration Education Topics Provided: Continued safety and communication Time Speech Therapy Time In: 08:45 Speech Therapy Time Out: 09:15 Total Billed Time: 30 Billed Treatment Time 1, SLNONI Fabian Apr 29, 2020 08:54
[2020-04-29] MEDS: PROPRANOLOL 20 MG (INDERAL) TABLET PO SCH (09:22)
[2020-04-29] MEDS: MULTIVIT W/MINERALS TAB (THERAGRAN M) PO SCH (09:22)
[2020-04-29] MEDS: DOCUSATE SODIUM 100 MG (COLACE) CAP PO SCH ×2 (09:23→20:37)
[2020-04-29] MEDS: GABAPENTIN 400 MG (NEURONTIN) CAP PO SCH ×2 (09:23→20:33)
[2020-04-29] MEDS: HYDROCHLOROTHIAZIDE 25 MG (HCTZ) TAB PO SCH (09:23)
[2020-04-29] MEDS: buPROPion SR 150 MG (WELLBUTRIN SR) TAB PO SCH ×2 (09:23→20:32)
[2020-04-29] MEDS: lisINopril 20 MG (PRINIVIL) TABLET PO SCH (09:23)
[2020-04-29] MEDS: PANTOPRAZOLE 40 MG (PROTONIX) TAB PO SCH (09:23)
[2020-04-29] MEDS: amLODIPine 10 MG (NORVASC) TAB PO SCH (09:23)
[2020-04-29] MEDS: SENNA W/DOCUSATE (SENOKOT S) TABLET PO SCH ×2 (09:23→20:37)
[2020-04-29] MEDS: VITAMIN D3 125 MCG (5,000 UNITS) CAPSULE PO SCH (09:23)
[2020-04-29] MEDS: SINEMET 25/100 (CARBIDOPA/LEVODOPA) TAB PO SCH ×3 (09:24→20:35)
[2020-04-29] MEDS: LEVETIRACETAM 500 MG (KEPPRA) TAB PO SCH ×2 (09:24→20:33)
[2020-04-29] MEDS: tadalafiL 5 MG TABLET (NON-FORMULARY) PO SCH (09:25)
[2020-04-29] MEDS: FLUTICASONE NASAL SPRAY (FLONASE) 16 GM BTL NS SCH (09:26)
--- NOTE | 2020-04-29 09:44 | Occupational Ther Daily Note ---
OT Current Status-Daily Note Subjective Pt reports no pain and agreeable to OT tx. Pt continuously stands without warning, and OT restates safety concerns that come with standing without someone being next to him. Mental Status/Objective Patient Orientation: Person, Place ADL-Treatment Therapy Code Descriptions/Definitions Functional [place] Measure: 0=Not Assessed/NA 4=Minimal Assistance 1=Total Assistance 5=Supervision or Setup 2=Maximal Assistance 6=Modified [place] 3=Moderate Assistance 7=Complete IndependenceSCALE: Activities may be completed with or without assistive devices. 0-Deghnnxqmj-eppwsja completes the activity by him/herself with no assistance from a helper. 5-Set-up or Clean-up Assistance-helper sets up or cleans up; patient completes activity. Anita assists only prior to or following the activity. 4-Supervision or Touching Assistance-helper provides verbal cues and/or touching/steadying and/or contact guard assistance as patient completes activity. Assistance may be provided throughout the activity or intermittently. 3-Partial/Moderate Assistance-helper does LESS THAN HALF the effort. Anita lifts, holds or supports trunk or limbs, but provides less than half the effort. 2-Substantial/Maximal Assistance-helper does MORE THAN HALF the effort. Anita lifts or holds trunk or limbs and provides more than half the effort. 4-Guehwqbln-grvzvo does ALL the effort. Patient does none of the effort to complete the activity. Or, the assistance of 2 or more helpers is required for the patient to complete the activity. If activity was not attempted, code reason: 7-Patient Refused. 9-Not Applicable-not attempted and the patient did not perform the activity before the current illness, exacerbation or injury. 10-Not Attempted due to Environmental Limitations-(lack of equipment, weather restraints, etc.). 88-Not Attempted due to Medical Conditions or Safety Concerns. Upper Body Dressing (QC): 3 (Viv, pt required assistance finding tag and threading R arm through correct hole. Pt able to manage down trunk.) Lower Body Dressing (QC): 4 (CGA while standing) Other Treatment OT tx([id number]): Pt began tx seated in recliner. OT handed pt clothing and pt stood without warning. When asked why he stood up, pt replied that he needed to use the bathroom and was going to change clothing in bathroom. OT stated safety issues of standing without someone being there with his unsteady balance. Pt ambulated to bathroom with 4WW and began toileting. Pt began to stand to don brief/pants without warning and OT restated safety issues when standing. Pt donned pants at [facility]. Pt stayed standing and threaded shirt with assistance to find tag and to thread R arm through arm hole rather than through the head hole. Pt stated that he should not have stood and donned shirt due to being slightly dizzy when eyes covered, and OT reassured him that he should sit and don shirt. Pt ambulated to therapy gym with no cues how to get there or rest break needed. Pt participated in arm bike activity for 15min, min resistance. Pt needed no re st breaks. Pt then complete clip activity involving matching the colors to increase activity tolerance and fine motor strength and coordination as well as working on cognition. Pt required no cues and completed the activity with finding his own mistakes. PT/OT cotreat([id number]) due to the skill needed of 2 clinicians that a rehabilitation liaison does not possess, in order to coordinate UE/LEs and due to pt's limitations in safety, functional balance, activity tolerance, and mobility. OT works on BUE strengthening, ADLs, cues for sequencing and safety and activity tolerance. PT works on LE placement and strength, gross overall movement, dynamic standing balance, and endurance. Pt participated in a catching activity while standing with no resistance to increase activity tolerance and BUE strength, pt appeared impulsive with movements, bending down to olive picker ball and stepping without warning. Pt then completed a bar bag searching activity involving opening cabinet and drawers to find bar bags. This is to increase his activity tolerance, BUE functional reaching and as well as working on cognition. Pt took a rest break and then completed cone activity to where pt reached in all different planes and off of floor to grab cones while ambulating towards therapy gym. This activity increases activity tolerance and dynamic standing balance. In therapy gym, pt stated that he needed to use restroom, so pt ambulated back to room and used restroom. Upon finishing, pt in room with PT with all needs met. Education OT Patient Education: Correct positioning, Energy conservation, Modified ADL techniques, Progress toward Goal/Update tx plan, Purpose of tx/functional activities, Safety issues, Transfer techniques Teaching Recipient: Patient Teaching Methods: Discussion Response to Teaching: Verbalize Understanding OT Long-Term Goals Technical Planner Goals Time Frame: May 08, 2020 Eating (QC): 6 Oral Hygiene (QC): 5 Toileting Hygiene (QC): 4 Shower/Bathe Self (QC): 4 Upper Body Dressing (QC): 5 Lower Body Dressing (QC): 4 On/Off Footwear (QC): 4 Additional Goals: 1-Demonstrate ADL Tasks, 2-Verbalize Understanding, 3- ImproveStrength/Jeanmarie 1=Demonstrate adherence to instructed precautions during ADL tasks. 2=Patient will verbalize/demonstrate understanding of assistive devices/modifications for ADL. 3=Patient will improve strength/tolerance for activity to enable patient to perform ADL's. OT Education/Plan Problem List/Assessment Assessment: Decreased Activ Tolerance, Decreased Safety Aware, Decreased UE Strength, Impaired Cognition, Impaired Funct Balance, Impaired I ADL's, Impaired Self-Care Skills Discharge Recommendations Plan/Recommendations: Continue POC Treatment Plan/Plan of Care Patient would benefit from OT for education, treatment and training to promote independence in ADL's, mobility, safety and/or upper extremity function for ADL's. Plan of Care: ADL Retraining, Functional Mobility, UE Funct Exercise/Act Treatment Duration: May 08, 2020 Frequency: At least 5 of 7 days/Wk (IRF) Estimated Hrs Per Day: 1.5 hours per day Agreement: Yes Rehab Potential: Fair Time/GCodes Start Time: 09:15 Stop Time: 10:30 Total Time Billed (hr/min): 75 Billed Treatment Time OT tx ([id number]) PT/OT cotreat ([id number]) 1, ADL (20'), EX (15'), FA 3 (40') LIZA MOREJON OT Apr 29, 2020 09:44
--- NOTE | 2020-04-29 11:18 | Physical Therapy Daily Note ---
PT Daily Note-Current Subjective Patient in therapy gym pre tx, agrees to PT, has no complaints of pain. Will be co-treating with OT for part of tx to work on more advanced balance activities, coordinate UE and LE during activity, safety and reduce risk of falls. Appearance Patient in recliner post tx with nurse call, phone, tray, chair alarm on, all needs met. Mental Status Patient Orientation: Person, Confused, Place, Situation Transfers SCALE: Activities may be completed with or without assistive devices. 9-Dkpbvyzayh-thbmczz completes the activity by him/herself with no assistance from a helper. 5-Set-up or Clean-up Assistance-helper sets up or cleans up; patient completes activity. Riva assists only prior to or following the activity. 4-Supervision or Touching Assistance-helper provides verbal cues and/or touching/steadying and/or contact guard assistance as patient completes activity. Assistance may be provided throughout the activity or intermittently. 3-Partial/Moderate Assistance-helper does LESS THAN HALF the effort. Riva lifts, holds or supports trunk or limbs, but provides less than half the effort. 2-Substantial/Maximal Assistance-helper does MORE THAN HALF the effort. Riva lifts or holds trunk or limbs and provides more than half the effort. 7-Ovksddkze-vquekr does ALL the effort. Patient does none of the effort to complete the activity. Or, the assistance of 2 or more helpers is required for the patient to complete the activity. If activity was not attempted, code reason: 7-Patient Refused. 9-Not Applicable-not attempted and the patient did not perform the activity before the current illness, exacerbation or injury. 10-Not Attempted due to Environmental Limitations-(lack of equipment, weather restraints, etc.). 88-Not Attempted due to Medical Conditions or Safety Concerns. Sit to Stand (QC): 4 Chair/Gac-av-Arkos Xfer(QC): 4 Gait Training Distance: 800', 150'x2 Walk 10 feet (QC): 4 Walk 50 ft with 2 Turns(QC): 4 Walk 150 ft (QC): 4 Gait Persons Needed: 1 Gait Assistive Device: Walker 4 Wheeled SBA, occasional cues for positioning and safety Exercises Standing: Heel/toe raises, Mini squats, Step-ups (x10 each side) Standing Reps: 20 LAQ alternating for 5 min with 2# ankle weights NuStep Minutes: 15 NuStep Workload: 4 Neuromuscular cootreating balance activities throwing ball, walking and picking up cones and beanbags Treatments PT performed transfers, ambulation, balance training, functional strengthening, OT performed balance training, UE positioning and safety during activity Assessment Current Status: Fair Progress improving balance and strength but often has unsteady positioning or movement during ambulation PT Short Term Goals Short Term Goals Time Frame: May 01, 2020 Roll Left & Right: 6 Sit to lyin Lying to sitting on side of be: 6 Sit to stand: 4 Chair/qte-ac-iofke transfer: 4 Walk 10 feet: 4 Walk 50 feet with two turns: 4 Walk 150 feet: 4 PT Correction Goals Correction Goals PT Seafood Fisherman Goals Time Frame: May 15, 2020 Roll Left & Right (QC): 6 Sit to Lying (QC): 6 Lying-Sitting on Side/Bed(QC): 6 Sit to Stand (QC): 6 Chair/Vfh-xg-Xfdrg Xfer(QC): 6 Toilet Transfer (QC): 6 Car Transfer (QC): 5 Does the Patient Walk: Yes Walk 10 feet (QC): 5 Walk 50ft with 2 Turns (QC): 5 Walk 150 ft (QC): 5 Walking 10ft on Uneven Surface: 5 1 Step (curb) (QC): 5 4 Steps (QC): 5 12 Steps (QC): 88 Picking up an Object (QC): 5 Wheel 50 feet with 2 turns (QC: 9 Wheel 150 feet: 9 PT Plan Problem List Problem List: Activity Tolerance, Functional Strength, Safety, Balance, Gait, Transfer, Bed Mobility, ROM Treatment/Plan Treatment Plan: Continue Plan of Care Treatment Plan: Bed Mobility, Education, Functional Activity Jeanmarie, Functional Strength, Gait, Safety, Therapeutic Exercise, Transfers Treatment Duration: May 15, 2020 Frequency: At least 5 of 7 days/Wk (IRF) Estimated Hrs Per Day: 1.5 hours per day Patient and/or Family Agrees t: Yes Safety Risks/Education Patient Education: Gait Training, Transfer Techniques, Correct Positioning, Safety Issues Teaching Recipient: Patient Teaching Methods: Demonstration, Discussion Response to Teaching: Reinforcement Needed Time/GCodes Time In: 1000 Time Out: 1115 Total Billed Treatment Time: 75 Total Billed Treatment 1 visit NM 30' GT 20' EX 25' JOÃO PHILIPPE PT Apr 29, 2020 11:18
--- NOTE | 2020-04-29 11:20 | PM&R Progress Note ---
Subjective HPI/CC On Admission Date Seen by Provider: Apr 29, 2020 Time Seen by Provider: 11:30 Subjective/Events-last exam 04/29/20: Patient appears confused today Asked therapist for his papers Trying to get OOB at night Impulsive 04/28/20: Patient walking around quickly on the unit with his daughter Very impulsive Wants to get out of hospital to get home to take care of his who just returned home after CABG SW met with him and daughter and will speak to PCP about DC plan Labs stable 04/27/20: Ambulating well all over the unit Exhibits Coordinator daughter visiting Mind is clearing BM loose 04/26/20: Clearer thought process SLUMS score noted Incontinent at times No pain reported 04/25/20: Patient doing well Confusion noted No pain reported Daughter at bedside and I introduce myself PCP Dr Christianson was able to visit him today No falls Oriented x 2 on exam Review of Systems General: Fatigue Neurological: Confusion Objective Exam Vital Signs Vital Signs Date Time Temp Pulse Resp B/P (MAP) Pulse Ox O2 Delivery O2 Flow Rate FiO2 04/30/20 06:26 36.4 93 16 135/67 (89) 95 Room Air Capillary Refill : General Appearance: No Apparent Distress, WD/WN, Chronically ill HEENT: PERRL/EOMI, TMs Normal, Normal ENT Inspection, Pharynx Normal Neck: Full Range of Motion, Normal Inspection, Non Tender, Supple, Carotid Bruit Respiratory: Chest Non Tender, Lungs Clear, Normal Breath Sounds, No Accessory Muscle Use, No Respiratory Distress Cardiovascular: Regular Rate, Rhythm, No Edema, No Gallop, No JVD, No Murmur, Normal Peripheral Pulses Gastrointestinal: Normal Bowel Sounds, No Organomegaly, No Pulsatile Mass, Non Tender, Soft Back: Normal Inspection, No CVA Tenderness, No Vertebral Tenderness Extremity: Normal Capillary Refill, Normal Inspection, Normal Range of Motion, Non Tender, No Calf Tenderness, No Pedal Edema Neurologic/Psychiatric: Alert, Oriented x3, No Motor/Sensory Deficits, Normal Mood/Affect, guide changer II-XII Norm as Tested, Abnormal Gait, Depressed Affect, Disoriented, Motor Weakness (generalized all extremities) Skin: Normal Color, Warm/Dry Lymphatic: No Adenopathy Results/Procedures Lab Patient resulted labs reviewed. FIM Transfers Therapy Code Descriptions/Definitions Functional [place] Measure: 0=Not Assessed/NA 4=Minimal Assistance 1=Total Assistance 5=Supervision or Setup 2=Maximal Assistance 6=Modified [place] 3=Moderate Assistance 7=Complete IndependenceSCALE: Activities may be completed with or without assistive devices. 9-Wcqcitllze-ejjyqpp completes the activity by him/herself with no assistance from a helper. 5-Set-up or Clean-up Assistance-helper sets up or cleans up; patient completes activity. Lena assists only prior to or following the activity. 4-Supervision or Touching Assistance-helper provides verbal cues and/or touching/steadying and/or contact guard assistance as patient completes activity. Assistance may be provided throughout the activity or intermittently. 3-Partial/Moderate Assistance-helper does LESS THAN HALF the effort. Lena lifts, holds or supports trunk or limbs, but provides less than half the effort. 2-Substantial/Maximal Assistance-helper does MORE THAN HALF the effort. Lena lifts or holds trunk or limbs and provides more than half the effort. 6-Hpopggeff-eqfrqn does ALL the effort. Patient does none of the effort to complete the activity. Or, the assistance of 2 or more helpers is required for the patient to complete the activity. If activity was not attempted, code reason: 7-Patient Refused. 9-Not Applicable-not attempted and the patient did not perform the activity before the current illness, exacerbation or injury. 10-Not Attempted due to Environmental Limitations-(lack of equipment, weather restraints, etc.). 88-Not Attempted due to Medical Conditions or Safety Concerns. Roll Left to Right (QC): 6 Sit to Lying (QC): 6 Sit to Stand (QC): 6 Chair/Zpx-jv-Mvuxm Xfer(QC): 6 Car Transfer (QC): 6 Gait Training Does the Patient Walk?: Yes Distance: 600ft Walk 10 feet (QC): 6 Walk 50 ft with 2 Turns(QC): 6 Walk 150 ft (QC): 6 Walking 10ft/uneven surface-QC: 6 Gait Persons Needed: 1 Gait Assistive Device: Walker 4 Wheeled Wheelchair Training Does the Pt Use a Wheelchair?: No Wheel 50 ft with 2 turns (QC): 9 Wheel 150 ft (QC): 9 Stair Training Stair Training: Handrails/: uses walker #of Steps: 1 1 Step (curb) (QC): 4 4 Steps (QC): 4 12 Steps (QC): 88 Balance Picking up an Object (QC): 5 ADL-Treatment Eating (QC): 4 (per pt.) Oral Hygiene (QC): 4 (Pt. already completed per him.) Bathing Location: L Arm, R Arm, L Upper Leg, R Upper Leg, L Lower Leg (including foot), R Lower Leg (including foot), Chest, Abdomen, Buttocks, Melany garth Area Shower/Bathe Self (QC): 4 (Supervision while standing at GBs, pt able to wash/dry all parts) Upper Body Dressing (QC): 3 (Viv, pt required assistance finding tag and threading R arm through correct hole. Pt able to manage down trunk.) Lower Body Dressing (QC): 4 (CGA while standing) On/Off Footwear (QC): 4 (Supervision, pt able to doff/jose gripper socks.) Toileting Hygiene (QC): 4 (supervision, pt able to manage clothing and perform hygiene) Toilet Transfer (QC): 4 (supervision on/off toilet.) Assessment/Plan Assessment and Plan Assess & Plan/Chief Complaint Assessment: s/p fall with subdural hematoma with confusion Parkinson's disease s/p DBS x 6 DB HTN GERD BPH PTSD Agent orange exposure Plan: IRF protocol Monitor BP Home meds Fall risk 04/25/20: Monitor confusion Monitor BP Fall risk 04/26/20: Incontinence management Monitor BP Monitor for pain 04/27/20: Monitor confusion Monitor BP 04/28/20: DC planned? PCP will be involved in the decision Impulsiveness noted 04/29/20: Monitor closely Confusion noted (1) Subdural hematoma (2) Parkinson disease (3) Hypertension (4) GERD (gastroesophageal reflux disease) (5) PTSD (post-traumatic stress disorder) (6) H/O agent [place] exposure (7) DB (obstructive sleep apnea) (8) BPH (benign prostatic hyperplasia) ANSHU LEMUS DO Apr 29, 2020 11:20
[2020-04-29] MEDS: polyethylene glycoL POWDER 17 GM (MIRALAX) PACK PO SCH ×2 (11:53→20:37)
[2020-04-29] MEDS ORDERED: ASPI-1238 PO (12:46)
[2020-04-29 17:35] VITALS: BP 116/66
[2020-04-29] MEDS: ACETAMINOPHEN 500 MG TAB (TYLENOL) PO SCH (20:33)
[2020-04-29] MEDS: SIMvastatin 20 MG (ZOCOR) TAB PO SCH (20:33)
[2020-04-29] MEDS: MELATONIN 3 MG TABLET PO PRN (20:34)
[2020-04-29] MEDS: diphenhydrAMINE 25 MG TAB (BENADRYL) PO SCH (20:34)
[2020-04-30 06:26] VITALS: BP 135/67
[2020-04-30 08:02] VITALS: BP 127/63
[2020-04-30] MEDS: MULTIVIT W/MINERALS TAB (THERAGRAN M) PO SCH (08:09)
[2020-04-30] MEDS: FLUTICASONE NASAL SPRAY (FLONASE) 16 GM BTL NS SCH (08:09)
[2020-04-30] MEDS: HYDROCHLOROTHIAZIDE 25 MG (HCTZ) TAB PO SCH (08:09)
[2020-04-30] MEDS: VITAMIN D3 125 MCG (5,000 UNITS) CAPSULE PO SCH (08:11)
[2020-04-30] MEDS: amLODIPine 10 MG (NORVASC) TAB PO SCH (08:11)
[2020-04-30] MEDS: LEVETIRACETAM 500 MG (KEPPRA) TAB PO SCH (08:11)
[2020-04-30] MEDS: GABAPENTIN 400 MG (NEURONTIN) CAP PO SCH (08:11)
[2020-04-30] MEDS: buPROPion SR 150 MG (WELLBUTRIN SR) TAB PO SCH (08:11)
[2020-04-30] MEDS: DOCUSATE SODIUM 100 MG (COLACE) CAP PO SCH (08:11)
[2020-04-30] MEDS: PANTOPRAZOLE 40 MG (PROTONIX) TAB PO SCH (08:11)
[2020-04-30] MEDS: SINEMET 25/100 (CARBIDOPA/LEVODOPA) TAB PO SCH ×2 (08:11→13:40)
[2020-04-30] MEDS: SENNA W/DOCUSATE (SENOKOT S) TABLET PO SCH (08:11)
[2020-04-30] MEDS: lisINopril 20 MG (PRINIVIL) TABLET PO SCH (08:11)
[2020-04-30] MEDS: PROPRANOLOL 20 MG (INDERAL) TABLET PO SCH (08:12)
[2020-04-30] MEDS: tadalafiL 5 MG TABLET (NON-FORMULARY) PO SCH (08:14)
[2020-04-30] MEDS: polyethylene glycoL POWDER 17 GM (MIRALAX) PACK PO SCH (08:14)
--- NOTE | 2020-04-30 08:54 | Speech Therapy Daily Note ---
Speech Daily Progress Note Subjective Date Seen by Provider: Apr 30, 2020 Time Seen by Provider: 00:30 Patient was sitting in his recliner when I entered his room. Objective Patient completed q/a related to his Parkinson's and other health issues at 90% without cues. Assessment Assessment Current Status: Good Progress Speech Short Term Goals Short Term Goals Short Term Goals 1) Patient will complete memory tasks related to his daily needs at 90% or greater with minimal cues. 2) Patient will complete safety awareness tasks related to his daily needs at 90% or greater with minimal cues. 3) Patient will complete problem solving tasks related to his daily needs at 90% or greater with minimal cues. Speech Retirement Goals Retirement Goals Patient will improve cognitive-communication necessary for safety and daily mina ng tasks with minimal assist. Speech-Plan Patient/Family Goals Patient/Family Goals: Patient plans on returning to his home where he lives with his . Treatment Plan Speech Therapy Treatment Plan: Continue Plan of Care Treatment Duration: Apr 30, 2020 Frequency: 4 times per week (Patient will receive skilled ST 4-5x per week) Estimated Hrs Per Day: .5 hour per day Rehab Potential: Fair Barriers to Learning: Patient's recent decline in cognition, age, medical status Pt/Family Agrees to Plan: Yes Safety Risks/Education Teaching Recipient: Patient Teaching Methods: Demonstration, Discussion Response to Teaching: Verbalize Understanding, Return Demonstration Education Topics Provided: Continued safety, communication Time Speech Therapy Time In: 08:45 Speech Therapy Time Out: 09:15 Total Billed Time: 30 Billed Treatment Time 1, NONI Acosta Apr 30, 2020 08:54
--- NOTE | 2020-04-30 10:55 | Occupational Ther Daily Note ---
OT Current Status-Daily Note Subjective Pt reports no pain and agreeable to OT tx. Mental Status/Objective Patient Orientation: Person, Place, Time, Situation ADL-Treatment Therapy Code Descriptions/Definitions Functional [place] Measure: 0=Not Assessed/NA 4=Minimal Assistance 1=Total Assistance 5=Supervision or Setup 2=Maximal Assistance 6=Modified [place] 3=Moderate Assistance 7=Complete IndependenceSCALE: Activities may be completed with or without assistive devices. 9-Bhgkcxyhta-folvmtv completes the activity by him/herself with no assistance from a helper. 5-Set-up or Clean-up Assistance-helper sets up or cleans up; patient completes activity. [place] assists only prior to or following the activity. 4-Supervision or Touching Assistance-helper provides verbal cues and/or touching/steadying and/or contact guard assistance as patient completes activity. Assistance may be provided throughout the activity or intermittently. 3-Partial/Moderate Assistance-helper does LESS THAN HALF the effort. [place] lifts, holds or supports trunk or limbs, but provides less than half the effort. 2-Substantial/Maximal Assistance-helper does MORE THAN HALF the effort. [place] lifts or holds trunk or limbs and provides more than half the effort. 2-Gbzubkrkj-cyubzl does ALL the effort. Patient does none of the effort to complete the activity. Or, the assistance of 2 or more helpers is required for the patient to complete the activity. If activity was not attempted, code reason: 7-Patient Refused. 9-Not Applicable-not attempted and the patient did not perform the activity before the current illness, exacerbation or injury. 10-Not Attempted due to Environmental Limitations-(lack of equipment, weather restraints, etc.). 88-Not Attempted due to Medical Conditions or Safety Concerns. Eating (QC): 6 (Per pt report and clinical judgement) Oral Hygiene (QC): 6 (Ind sitting at sink) Shower/Bathe Self (QC): 4 (CGA to wash buttocks. pt able to wash all body parts) Upper Body Dressing (QC): 5 (Set Up) Lower Body Dressing (QC): 3 (Viv, pt required minimal assist to thread feet through holes. Pt able to perform pants hike while standing at CGA) On/Off Footwear: 3 (Viv, pt able to thread socks on feet, but minimal assist to adjust socks so gripper is on bottom) Toileting Hygiene (QC): 4 (CGA, pt able to manage clothing and perform hygiene.) Toilet Transfer (QC): 4 (SBA) Other Treatment OT tx ([id number]) Pt began tx in recliner. Pt ambulated with 4WW to shower, transferred to shower bench and doffed clothes. Pt showered and required minimal cues to stay seated and shower. Pt stood without warning to wash buttocks. OT educated pt on safety of standing alone in shower. OT performed CGA and pt washed buttocks. Upon finishing shower, pt donned clothing and ambulated towards sink and performed oral hygiene and grooming seated at sink. Pt then ambulated to therapy gym and participated in arm exercises to increase activity tolerance and BUE gross motor strength. Pt completed shoulder flexion, and elbow flexion/extension with 2lb weights 15 reps each. Pt then completed removing beads from minimal resistance putty to increase activity tolerance and fine motor strength. PT/OT cotreat([id number]) due to the skill needed of 2 clinicians that a rehab nursing tech does not possess, in order to coordinate UE/LEs and due to pt's limitations in safety, functional balance, activity tolerance, and mobility. OT works on BUE strengthening, ADLs, cues for sequencing and safety and activity tolerance. PT works on LE placement and strength, gross overall movement, dynamic standing balance, and endurance. Pt completed reaching in all planes, opening cabinet and drawers to retrieve 10 bar bags while ambulating with 4WW and then 5 cones placed at floor level and 10 more bar bags in all planes with a rest break in between. Pt completed this to increase activity tolerance safety education, functional reaching, and dynamic standing balance. Pt required moderate cues to count how many bra bags he had and look in places he had not looked, and skilled cues for safety to keep walker close by. OT then discussed any concerns the pt had about showering. OT educated pt on extended shower bench and removab le shower head. Pt practiced transferring on/off tub bench, with SBA. Pt in commons area with PT at end of tx with all needs met. Education OT Patient Education: Energy conservation, Modified ADL techniques, Progress toward Goal/Update tx plan, Purpose of tx/functional activities, Rehab process, Safety issues, Transfer techniques, Use of adapted equipment Teaching Recipient: Patient Teaching Methods: Discussion Response to Teaching: Verbalize Understanding OT Longterm Goals Longterm Goals Time Frame: May 08, 2020 Eating (QC): 6 (met) Oral Hygiene (QC): 5 (met) Toileting Hygiene (QC): 4 (met) Shower/Bathe Self (QC): 4 (met) Upper Body Dressing (QC): 5 (met) Lower Body Dressing (QC): 4 (not met, min A) On/Off Footwear (QC): 4 (not met, min A) Additional Goals: 1-Demonstrate ADL Tasks, 2-Verbalize Understanding, 3-Impro veStrength/Jeanmarie 1=Demonstrate adherence to instructed precautions during ADL tasks. 2=Patient will verbalize/demonstrate understanding of assistive devices/modifications for ADL. 3=Patient will improve strength/tolerance for activity to enable patient to perform ADL's. OT Education/Plan Problem List/Assessment Assessment: Decreased Activ Tolerance, Decreased Safety Aware, Decreased UE Strength, Impaired Cognition, Impaired Funct Balance, Impaired I ADL's, Impaired Self-Care Skills Discharge Recommendations Plan/Recommendations: Continue POC Treatment Plan/Plan of Care Patient would benefit from OT for education, treatment and training to promote independence in ADL's, mobility, safety and/or upper extremity function for ADL's. Plan of Care: ADL Retraining, Functional Mobility, UE Funct Exercise/Act Treatment Duration: May 08, 2020 Frequency: At least 5 of 7 days/Wk (IRF) Estimated Hrs Per Day: 1.5 hours per day Agreement: Yes Rehab Potential: Fair Time/GCodes Start Time: 09:15 Stop Time: 10:30 Total Time Billed (hr/min): 75 Billed Treatment Time OT tx ([id number]) PT/OT cotreat ([id number]) 1, ADL 2 (30'), EX (15'), FA 2 (30') LIZA MOREJON OT Apr 30, 2020 10:55
--- NOTE | 2020-04-30 11:18 | Therapy Team Discharge Summary ---
Therapy Discharge Summary Discharge Recommendations Date of Discharge Occupational Therapy Decreased Activ Tolerance, Decreased Safety Aware, Decreased UE Strength, Impaired Cognition, Impaired Funct Balance, Impaired I ADL's, Impaired Self-Care Skills Speech-Language Pathology Patient was admitted to the ARU due to decline in medical status. He was initially confused and the [facility] indicated the need for further ST services to improve cognition so that he could return home safer. Patient is discharging to his home today where he lives with his . They have a large support base of family and yazidi. 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 Halfway Goals PT Halfway Goals Time Frame: May 15, 2020 Roll Left to Right (QC): 6 Sit to Lying (QC): 6 Lying-Sitting on Side/Bed(QC): 6 Sit to Stand (QC): 6 Chair/Ubh-fd-Ceciq Xfer(QC): 6 Car Transfer (QC): 5 Does the Patient Walk: Yes Walk 10 feet (QC): 5 Walk 10ft-Uneven Surface(QC): 5 Walk 50ft with 2 Turns (QC): 5 Walk 150 ft (QC): 5 Wheel 50 feet with 2 turns (QC: 9 1 Step (curb) (QC): 5 4 Steps (QC): 5 12 Steps (QC): 88 Picking up an Object (QC): 5 OT Halfway Goals Packing Tractor Machine Operator Goals Time Frame: May 08, 2020 Eating (QC): 6 Oral Hygiene (QC): 5 Shower/Bathe Self (QC): 4 Upper Body Dressing (QC): 5 Lower Body Dressing (QC): 4 On/Off Footwear (QC): 4 Toileting Hygiene (QC): 4 Toilet/Commode Transfer (QC): 6 Additional Goals: 1-Demonstrate ADL Tasks, 2-Verbalize Understanding, 3- ImproveStrength/Jeanmarie 1=Demonstrate adherence to instructed precautions during ADL tasks. 2=Patient will verbalize/demonstrate understanding of assistive devices/modifications for ADL. 3=Patient will improve strength/tolerance for activity to enable patient to perform ADL's. Speech Halfway Goals Halfway Goals Patient will improve cognitive-communication necessary for safety and daily living tasks with minimal assist. NONI DAVILA Apr 30, 2020 11:18
[2020-04-30] MEDS ORDERED: LEVE500T6 PO (12:15)
--- NOTE | 2020-04-30 12:18 | D/C HH Face to Face Order ---
D/C Face to Face Orders Reconcile Patient Problems Problems Reviewed?: Yes Instructions for Patient Via [facility], Patient Instructions/FollowUp: Dr Christianson Physician to follow Patient: Meghan Discharge Diet for Home: No Restrictions Patient Problems: Subdural hematoma Patient Data-Allergies,Ht & Wt Patient Allergies: Coded Allergies: No Known Drug Allergies (Verified , 03/22/18) Height (Feet): 5 Height (Inches): 7.00 Weight (Pounds): 214 Weight (Ounces): 9.0 Home Health Need/Face to Face Date of Face to Face: Apr 30, 2020 Clinical Findings: Generalized weakness and fatigue, Instability, Muscle weakness I have seen Pt [id number]: Yes Discharged To: Home Diagnosis/Conditions: Subdural hematoma Patient is Homebound due to: CognItive deficits, Muscle weakness Homebound Status Due to the above stated illness, injury or surgical procedure (medical condition or diagnosis) and associated clinical findings, the patient is homebound because of his/her inability to leave home except with aid of a supportive device and/or person AND leaving the home requires a considerable and taxing effort or is medically contraindicated. Pt req the following assistanc: [facility] Nursing Orders Home Health Services Order: Nursing Services, Automatic Centrifugal Station Operator-Evaluate & Treat, Physical Therapy-Evaluate & Treat Certify Stmt I certify that this patient is under my care and that I, a nurse practitioner or a physician; a pathologist assistant working with me, had a face to face encounter that - meets the physician face to face encounter requirements with this patient as dated. ANSHU LEMUS DO Apr 30, 2020 12:18
--- NOTE | 2020-04-30 12:19 | Discharge Summary ---
Diagnosis/Chief Complaint Date of Admission Apr 24, 2020 at 13:37 Date of Discharge Discharge Date: Apr 30, 2020 Discharge Diagnosis Assessment: s/p fall with subdural hematoma with confusion Parkinson's disease s/p DBS x 6 DB HTN GERD BPH PTSD Agent orange exposure Plan: IRF protocol Monitor BP Home meds Fall risk 04/25/20: Monitor confusion Monitor BP Fall risk 04/26/20: Incontinence management Monitor BP Monitor for pain 04/27/20: Monitor confusion Monitor BP 04/28/20: DC planned? PCP will be involved in the decision Impulsiveness noted 04/29/20: Monitor closely Confusion noted (1) Subdural hematoma (2) Parkinson disease (3) Hypertension (4) GERD (gastroesophageal reflux disease) (5) PTSD (post-traumatic stress disorder) (6) H/O agent [place] exposure (7) DB (obstructive sleep apnea) (8) BPH (benign prostatic hyperplasia) Discharge Summary Discharge Physical Examination Allergies: Coded Allergies: No Known Drug Allergies (Verified , 03/22/18) Vitals & I&Os Vital Signs Date Time Temp Pulse Resp B/P (MAP) Pulse Ox O2 Delivery O2 Flow Rate FiO2 04/30/20 16:16 36.4 63 18 127/63 96 Room Air General Appearance: Alert, Oriented X3, Cooperative Respiratory: Clear to Auscultation Cardiovascular: Regular Rate Neuro: Normal Gait Psych/Mental Status: Mental Status NL Hospital Course Was the Problem List Reviewed?: Yes Hospital course: patient had an uneventful hospital course during IRF after transferred from [place] after a fall and subdural hematoma was dx. PT OT and ST worked with patient in an aggressive protocol and was able to help patient regain baseline function. Confusion noted but he will have 24/ supervision once DC home and have close f/u with PCP but patient was debating to leave AMA several times during his visit but he was able to DC as planned in improved condition. Labs (last 24 hrs) Laboratory Tests 04/25/20 06:00: White Blood Count 5.6, Red Blood Count 4.23L, Hemoglobin 13.2L, Hematocrit 39L, Mean Corpuscular Volume 93, Mean Corpuscular Hemoglobin 31, Mean Corpuscular Hemoglobin Concent 34, Red Cell Distribution Width 12.2, Platelet Count 257, Mean Platelet Volume 10.5, Immature Granulocyte % (Auto) 0, Neutrophils (%) (Auto) 59, Lymphocytes (%) (Auto) 24, Monocytes (%) (Auto) 12, Eosinophils (%) (Auto) 4, Basophils (%) (Auto) 1, Neutrophils # (Auto) 3.3, Lymphocytes # (Auto) 1.4, Monocytes # (Auto) 0.7, Eosinophils # (Auto) 0.3, Basophils # (Auto) 0.0, Immature Granulocyte # (Auto) 0.0, Sodium Level 139, Potassium Level 4.1, Chloride Level 104, Carbon Dioxide Level 24, Anion Gap 11, Blood Urea Nitrogen 20H, Creatinine 0.88, Estimat Glomerular Filtration Rate > 60, BUN/Creatinine Ratio 23, Glucose Level 95, Calcium Level 8.9, Corrected Calcium 9.1, Total Bilirubin 0.5, Aspartate Amino Transf (AST/SGOT) 18, Alanine Aminotransferase (ALT/SGPT) 10, Alkaline Phosphatase 50, Total Protein 6.6, Albumin 3.7 04/28/20 06:25: White Blood Count 7.4, Red Blood Count 4.49, Hemoglobin 14.0, Hematocrit 41, Mean Corpuscular Volume 92, Mean Corpuscular Hemoglobin 31, Mean Corpuscular Hemoglobin Concent 34, Red Cell Distribution Width 12.0, Platelet Count 315, Mean Platelet Volume 9.7, Immature Granulocyte % (Auto) 0, Neutrophils (%) (Auto) 66, Lymphocytes (%) (Auto) 21, Monocytes (%) (Auto) 8, Eosinophils (%) (Auto) 3, Basophils (%) (Auto) 1, Neutrophils # (Auto) 4.9, Lymphocytes # (Auto) 1.5, Monocytes # (Auto) 0.6, Eosinophils # (Auto) 0.2, Basophils # (Auto) 0.1, Immature Granulocyte # (Auto) 0.0, Sodium Level 138, Potassium Level 3.8, Chloride Level 100, Carbon Dioxide Level 26, Anion Gap 12, Blood Urea Nitrogen 18, Creatinine 0.95, Estimat Glomerular Filtration Rate > 60, BUN/Creatinine Ratio 19, Glucose Level 96, Calcium Level 9.0, Corrected Calcium 9.0, Total Bilirubin 0.4, Aspartate Amino Transf (AST/SGOT) 15, Alanine Aminotransferase (ALT/SGPT) 13, Alkaline Phosphatase 61, Total Protein 7.1, Albumin 4.0 Pending Labs Laboratory Tests 04/25/20 06:00: White Blood Count 5.6, Red Blood Count 4.23, Hemoglobin 13.2, Hematocrit 39, Mean Corpuscular Volume 93, Mean Corpuscular Hemoglobin 31, Mean Corpuscular He moglobin Concent 34, Red Cell Distribution Width 12.2, Platelet Count 257, Mean Platelet Volume 10.5, Immature Granulocyte % (Auto) 0, Neutrophils (%) (Auto) 59, Lymphocytes (%) (Auto) 24, Monocytes (%) (Auto) 12, Eosinophils (%) (Auto) 4, Basophils (%) (Auto) 1, Neutrophils # (Auto) 3.3, Lymphocytes # (Auto) 1.4, Monocytes # (Auto) 0.7, Eosinophils # (Auto) 0.3, Basophils # (Auto) 0.0, Immature Granulocyte # (Auto) 0.0, Sodium Level 139, Potassium Level 4.1, Chloride Level 104, Carbon Dioxide Level 24, Anion Gap 11, Blood Urea Nitrogen 20, Creatinine 0.88, Estimat Glomerular Filtration Rate > 60, BUN/Creatinine Ratio 23, Glucose Level 95, Calcium Level 8.9, Corrected Calcium 9.1, Total Bilirubin 0.5, Aspartate Amino Transf (AST/SGOT) 18, Alanine Aminotransferase (ALT/SGPT) 10, Alkaline Phosphatase 50, Total Protein 6.6, Albumin 3.7 04/28/20 06:25: White Blood Count 7.4, Red Blood Count 4.49, Hemoglobin 14.0, Hematocrit 41, Mean Corpuscular Volume 92, Mean Corpuscular Hemoglobin 31, Mean Corpuscular Hemoglobin Concent 34, Red Cell Distribution Width 12.0, Platelet Count 315, Mean Platelet Volume 9.7, Immature Granulocyte % (Auto) 0, Neutrophils (%) (Auto) 66, Lymphocytes (%) (Auto) 21, Monocytes (%) (Auto) 8, Eosinophils (%) (Auto) 3, Basophils (%) (Auto) 1, Neutrophils # (Auto) 4.9, Lymphocytes # (Auto) 1.5, Monocytes # (Auto) 0.6, Eosinophils # (Auto) 0.2, Basophils # (Auto) 0.1, Immature Granulocyte # (Auto) 0.0, Sodium Level 138, Potassium Level 3.8, Chloride Level 100, Carbon Dioxide Level 26, Anion Gap 12, Blood Urea Nitrogen 18, Creatinine 0.95, Estimat Glomerular Filtration Rate > 60, BUN/Creatinine Ratio 19, Glucose Level 96, Calcium Level 9.0, Corrected Calcium 9.0, Total Bilirubin 0.4, Aspartate Amino Transf (AST/SGOT) 15, Alanine Aminotransferase (ALT/SGPT) 13, Alkaline Phosphatase 61, Total Protein 7.1, Albumin 4.0 Discharge Home Medications: Active Scripts Active Levetiracetam 500 Mg Tablet 500 Mg PO BID Reported Tadalafil 5 Mg Tablet 5 Mg PO DAILY Carbidopa-Levodopa 25-100 Tab (Carbidopa/Levodopa) 1 Each Tablet 1.5 Tab PO TID Pantoprazole Sodium 40 Mg Tablet.dr 40 Mg PO DAILY Multivitamins with Minerals (Multivitamin with Minerals) 1 Each Tablet 1 Each PO DAILY Myrbetriq (Mirabegron) 50 Mg Tab.er.24h 50 Mg PO DAILY Lisinopril 20 Mg Tablet 20 Mg PO DAILY Tylenol Arthritis (Acetaminophen) 650 Mg Tablet.er 650 Mg PO Q4H PRN Bupropion Xl (Bupropion HCl) 300 Mg Tab.er.24h 300 Mg PO DAILY Vitamin D3 (Cholecalciferol (Vitamin D3)) 125 Mcg Tablet 125 Mcg PO DAILY Tylenol Pm Ex-Strength Caplet (Acetaminophen/Diphenhydramine) 1 Each Tablet 2 Each PO HS Gabapentin 400 Mg Capsule 400 Mg PO BID Simvastatin 20 Mg Tablet 20 Mg PO HS Escitalopram Oxalate 20 Mg Tablet 20 Mg PO DAILY Flonase Allergy Relief (Fluticasone Propionate) 9.9 Ml [place].susp 2 Sprays NSEACH DAILY Amlodipine Besylate 10 Mg Tablet 10 Mg PO DAILY Hydrochlorothiazide 25 Mg Tablet 25 Mg PO DAILY Propranolol HCl 80 Mg Tablet 80 Mg PO DAILY Instructions to patient/family Please see electronic discharge instructions given to patient. Diagnosis/Problems Diagnosis/Problems (1) Subdural hematoma (2) Parkinson disease (3) Hypertension (4) GERD (gastroesophageal reflux disease) (5) PTSD (post-traumatic stress disorder) (6) H/O agent [place] exposure (7) DB (obstructive sleep apnea) (8) BPH (benign prostatic hyperplasia) Clinical Quality Measures DVT/VTE Risk/Contraindication: Contraindications-Pharm: Other *list below* Other: subdural hematoma ANSHU LEMUS DO Apr 30, 2020 12:18
--- NOTE | 2020-04-30 13:39 | Physical Therapy Daily Note ---
PT Daily Note-Current Subjective Pt agreeable. Pt demonstrates good memory by recalling meeting this CAVING GUIDE 20(+) years ago and working with this CAVING GUIDE a few times over the years. Pt expresses concern for his grandson's wellbeing. Pt states "I want to work hard for you so I can get better." Mental Status Patient Orientation: Person, Place, Situation Pt uses 4ww, has a tendency to abandon to the side when approaching a chair. Pt was educated on proper and safe way to approach a chair with maintaining close proximity to 4ww. Pt verbalized and demonstrated safe technique. Transfers SCALE: Activities may be completed with or without assistive devices. 0-Dagvvuvkyp-mcgcjrd completes the activity by him/herself with no assistance from a helper. 5-Set-up or Clean-up Assistance-helper sets up or cleans up; patient completes activity. [place] assists only prior to or following the activity. 4-Supervision or Touching Assistance-helper provides verbal cues and/or touching/steadying and/or contact guard assistance as patient completes activity . Assistance may be provided throughout the activity or intermittently. 3-Partial/Moderate Assistance-helper does LESS THAN HALF the effort. [place] lifts, holds or supports trunk or limbs, but provides less than half the effort. 2-Substantial/Maximal Assistance-helper does MORE THAN HALF the effort. [place] lifts or holds trunk or limbs and provides more than half the effort. 5-Tbnqoagcn-lmkige does ALL the effort. Patient does none of the effort to complete the activity. Or, the assistance of 2 or more helpers is required for the patient to complete the activity. If activity was not attempted, code reason: 7-Patient Refused. 9-Not Applicable-not attempted and the patient did not perform the activity before the current illness, exacerbation or injury. 10-Not Attempted due to Environmental Limitations-(lack of equipment, weather restraints, etc.). 88-Not Attempted due to Medical Conditions or Safety Concerns. Roll Left & Right (QC): 6 Sit to Lying (QC): 6 Lying to Sitting/Side of Bed(Q: 6 Sit to Stand (QC): 6 Chair/Nhr-zc-Nqjaj Xfer(QC): 6 Toilet Transfer (QC): 6 Car Transfer (QC): 6 Gait Training Does the Patient Walk?: Yes Distance: 800ft x 2 Walk 10 feet (QC): 6 Walk 50 ft with 2 Turns(QC): 6 Walk 150 ft (QC): 6 Walking 10ft/uneven surface-QC: 6 Gait Persons Needed: 1 Gait Assistive Device: Walker 4 Wheeled Pt amb with soft knees, steady speed. Wheelchair Training Does the Pt Use a Wheelchair?: No Stair Training Stair Training: Handrails/: 1 handrail #of Steps: 12 1 Step (curb) (QC): 6 4 Steps (QC): 6 12 Steps (QC): 6 Stairs: Pattern: Reciprocal Balance Picking up an Object (QC): 6 Treatments PT/OT cotreat([id number]) due to the skill needed of 2 clinicians that a master certified rv technician does not possess, in order to coordinate UE/LEs and due to pt's limitations in safety, functional balance, activity tolerance, and mobility. OT works on BUE strengthening, ADLs, cues for sequencing and safety and activity tolerance. PT works on LE placement and strength, gross overall movement, dynamic standing balance, and endurance. Pt completed reaching in all planes, opening cabinet and drawers to retrieve 10 bar bags while ambulating with 4WW and then 5 cones placed at floor level and 10 more bar bags in all planes with a rest break in between. Pt completed this to increase activity tolerance safety education, functional reaching, and dynamic standing balance. Pt required moderate cues to count how many bar bags he had and look in places he had not looked, and skilled cues for safety to keep walker close by. OT then discussed any concerns the pt had about showering. OT educated pt on extended shower bench and removable shower head. Pt practiced transferring on/off tub bench, with SBA PT treatment ([id number]) Gait training 2 x 800ft with 4ww and CGA. Pt performed LE ther ex: LAQ, hip flexion, hip abd,hip add x 20 each in sitting. Pt practiced in/out of car, uneven terrain, up/down curb, up/down steps x 12 steps. Pt educated and trained on approach to chair or bed, turn and achieve close proximity and find with hands then sit. Pt practiced approach and sit x 5. Pt in recliner with call light and all needs met, call light in reach. Friend present for lunch. Assessment Current Status: Good Progress Pt demonstrated good balance throughout treatment. Emphasis on safe mobility, safe approach, safe sit<->stand transfers. Pt demonstrated understanding of safe techniques. Pt somewhat impulsive at times, pt cued to go slow and easy. Pt demonstrated good understanding. Pt resting in recliner with call light and all needs met post therapy session. Pt was told he would be able to go home today, pt very happy and thankful as he feels he is needed at home for sake of his grandson. PT Short Term Goals Short Term Goals Time Frame: May 01, 2020 Roll Left & Right: 6 Sit to lyin Lying to sitting on side of be: 6 Sit to stand: 4 Chair/oxy-wh-ttjyy transfer: 4 Walk 10 feet: 4 Walk 50 feet with two turns: 4 Walk 150 feet: 4 PT [facility] Goals Parts Counter Specialist Goals PT [facility] Goals Time Frame: May 15, 2020 Roll Left & Right (QC): 6 Sit to Lying (QC): 6 Lying-Sitting on Side/Bed(QC): 6 Sit to Stand (QC): 6 Chair/Qpd-cu-Fodjd Xfer(QC): 6 Toilet Transfer (QC): 6 Car Transfer (QC): 5 Does the Patient Walk: Yes Walk 10 feet (QC): 5 Walk 50ft with 2 Turns (QC): 5 Walk 150 ft (QC): 5 Walking 10ft on Uneven Surface: 5 1 Step (curb) (QC): 5 4 Steps (QC): 5 12 Steps (QC): 88 Picking up an Object (QC): 5 Wheel 50 feet with 2 turns (QC: 9 Wheel 150 feet: 9 PT Plan Treatment/Plan Treatment Plan: Continue Plan of Care, Discontinue PT, goals met Treatment Plan: Bed Mobility, Education, Functional Activity Jeanmarie, Functional Strength, Gait, Safety, Therapeutic Exercise, Transfers Treatment Duration: May 15, 2020 Frequency: At least 5 of 7 days/Wk (IRF) Estimated Hrs Per Day: 1.5 hours per day Patient and/or Family Agrees t: Yes Time/GCodes Time In: 1000 Time Out: 1130 Total Billed Treatment Time: 90 Total Billed Treatment 1, Ther ex 30', Gait x 30', FA x 30' (Co-treat with OT x30min, Total treatment time 90') ORLIN MACKENZIE CPTA Apr 30, 2020 13:39
--- NOTE | 2020-04-30 16:05 | Therapy Team Discharge Summary ---
Therapy Discharge Summary Discharge Recommendations Date of Discharge 04/30/20 Therapy D/C Recommendations: Physical Therapy Home Care Physical Therapy This patient admitted to ARU post acute hospital stay after a fall that resulted in a subdural hematoma. His PLOF was mod indep with all functional mobility and skills. He lives at home with his , who assists with his care if needed due to hx of PD. Upon admission to ARU, he was able to perform bed mobility without assist but required min to CGA with transfers and gait for 150 or more feet us ing his specialized rollator walker. Treatment has focused on functional strength, balance, activity tolerance and safety to promote gait and transfers. At last visit, he was mod indep with transfers and gait; indep with bed mobility and able to go up/down steps with a reciprocal pattern. He has made excellent progress and has met goals set at evaluation. He is to discharge home with family support and follow up [facility] services. DC from PT at this time. Occupational Therapy Decreased Activ Tolerance, Decreased Safety Aware, Decreased UE Strength, Impaired Cognition, Impaired Funct Balance, Impaired I ADL's, Impaired Self-Care Skills PT Group Home Goals Sport Intern Goals PT Group Home Goals Time Frame: May 15, 2020 Roll Left to Right (QC): 6 Sit to Lying (QC): 6 Lying-Sitting on Side/Bed(QC): 6 Sit to Stand (QC): 6 Chair/Vuo-ul-Diftq Xfer(QC): 6 Car Transfer (QC): 5 Does the Patient Walk: Yes Walk 10 feet (QC): 5 Walk 10ft-Uneven Surface(QC): 5 Walk 50ft with 2 Turns (QC): 5 Walk 150 ft (QC): 5 Wheel 50 feet with 2 turns (QC: 9 1 Step (curb) (QC): 5 4 Steps (QC): 5 12 Steps (QC): 88 Picking up an Object (QC): 5 All goals met OT Sport Intern Goals Sport Intern Goals Time Frame: May 08, 2020 Eating (QC): 6 (met) Oral Hygiene (QC): 5 (met) Shower/Bathe Self (QC): 4 (met) Upper Body Dressing (QC): 5 (met) Lower Body Dressing (QC): 4 (not met, min A) On/Off Footwear (QC): 4 (not met, min A) Toileting Hygiene (QC): 4 (met) Toilet/Commode Transfer (QC): 6 Additional Goals: 1-Demonstrate ADL Tasks, 2-Verbalize Understanding, 3- ImproveStrength/Jeanmarie 1=Demonstrate adherence to instructed precautions during ADL tasks. 2=Patient will verbalize/demonstrate understanding of assistive devices/modifications for ADL. 3=Patient will improve strength/tolerance for activity to enable patient to perform ADL's. Speech Group Home Goals Group Home Goals Patient will improve cognitive-communication necessary for safety and daily living tasks with minimal assist. JOHANN RUIZ PT Apr 30, 2020 16:05
[2020-04-30 16:16] VITALS: BP 127/63
--- NOTE | 2020-05-01 10:58 | Therapy Team Discharge Summary ---
Therapy Discharge Summary Discharge Recommendations Date of Discharge Apr 30, 2020 at 15:40 Therapy D/C Recommendations: Occupational Therapy Home Care, Physical Therapy Home Care Occupational Therapy Pt admitted to ARU s/p SDH. At OF, pt had some confusion and required some assistance with ADLs. Upon initial evaluation, pt required SBA with eating and oral care, CGA showering, min A upper body dressing, min A lower body dressing, mod A footwear, and CGA toileting. OT txs focused on increasing safety and independence with ADLs, increasing safety awareness, and increasing BUE strength and activity tolerance. At discharge, pt was independent with eating and oral care, required CGA showering, set up upper body dressing, min A lower body dressing, min A footwear and SBA toileting. Pt discharged from facility, d/c from OT. Decreased Activ Tolerance, Decreased Safety Aware, Decreased UE Strength, Impaired Cognition, Impaired Funct Balance, Impaired I ADL's, Impaired Self-Care Skills PT Intake Clinician Goals Prison Goals PT Intake Clinician Goals Time Frame: May 15, 2020 Roll Left to Right (QC): 6 Sit to Lying (QC): 6 Lying-Sitting on Side/Bed(QC): 6 Sit to Stand (QC): 6 Chair/Znp-fj-Tivte Xfer(QC): 6 Car Transfer (QC): 5 Does the Patient Walk: Yes Walk 10 feet (QC): 5 Walk 10ft-Uneven Surface(QC): 5 Walk 50ft with 2 Turns (QC): 5 Walk 150 ft (QC): 5 Wheel 50 feet with 2 turns (QC: 9 1 Step (curb) (QC): 5 4 Steps (QC): 5 12 Steps (QC): 88 Picking up an Object (QC): 5 OT Intake Clinician Goals Intake Clinician Goals Time Frame: May 08, 2020 Eating (QC): 6 (met) Oral Hygiene (QC): 5 (met) Shower/Bathe Self (QC): 4 (met) Upper Body Dressing (QC): 5 (met) Lower Body Dressing (QC): 4 (not met, min A) On/Off Footwear (QC): 4 (not met, min A) Toileting Hygiene (QC): 4 (met) Toilet/Commode Transfer (QC): 6 (not met) Additional Goals: 1-Demonstrate ADL Tasks, 2-Verbalize Understanding, 3- ImproveStrength/Jeanmarie 1=Demonstrate adherence to instructed precautions during ADL tasks. 2=Patient will verbalize/demonstrate understanding of assistive devices/modifications for ADL. 3=Patient will improve strength/tolerance for activity to enable patient to perform ADL's. Speech Prison Goals Intake Clinician Goals Patient will improve cognitive-communication necessary for safety and daily living tasks with minimal assist. LIZA MOREJON OT May 01, 2020 10:58
== END 2020-04-30 15:40 | disposition home health service (06) | DRG 950 ==
PROVIDERS: ADMIT Internal Medicine; ATTEND Internal Medicine
DX: S06.5X9D Traumatic subdural hemorrhage with loss of consciousness of unspecified duration, subsequent encounter (principal); R41.0 Disorientation, unspecified; G20 Parkinson's disease; K21.9 Gastro-esophageal reflux disease without esophagitis; Z91.81 History of falling; F43.10 Post-traumatic stress disorder, unspecified; F41.9 Anxiety disorder, unspecified; N40.1 Benign prostatic hyperplasia with lower urinary tract symptoms; R32 Unspecified urinary incontinence; R45.87 Impulsiveness; G47.33 Obstructive sleep apnea (adult) (pediatric); E78.00 Pure hypercholesterolemia, unspecified; E78.5 Hyperlipidemia, unspecified; I10 Essential (primary) hypertension; M19.91 Primary osteoarthritis, unspecified site; E66.9 Obesity, unspecified; Z68.31 Body mass index [BMI] 31.0-31.9, adult; H54.3 Unqualified visual loss, both eyes; H91.93 Unspecified hearing loss, bilateral; Z97.4 Presence of external hearing-aid; Z77.098 Contact with and (suspected) exposure to other hazardous, chiefly nonmedicinal, chemicals; Z82.49 Family history of ischemic heart disease and other diseases of the circulatory system; W19.XXXD Unspecified fall, subsequent encounter; Y92.009 Unspecified place in unspecified non-institutional (private) residence as the place of occurrence of the external cause
CPT/HCPCS: 36415; 80053; 85025; 94664

== ENCOUNTER → 2020-10-31 | Outpatient (CLI) | payer MEDICARE, OTHER ==
[~2020-10-31] MED LIST changes: +ACET-2650 PO; +ASPI-1238 PO; +BUPR300T98 PO; +CARB-275 PO; +CARB1TAB19 PO; -CARB1TAB6 PO; +CHOL500044 PO; +LEVE500T6 PO; +LEVE500T99 PO; +LISI20TA26 PO; +MIRA50TA PO; +MULT-166 PO; +TADA5TAB13 PO
== END ==
LOC: CARD 10:55
PROVIDERS: ATTEND Family Medicine
DX: I49.40 Unspecified premature depolarization (principal)
CPT/HCPCS: 93005

== ENCOUNTER → 2021-11-10 | Outpatient (CLI) | payer MEDICARE, OTHER ==
[~2021-11-10] MED LIST changes: +BUPR-105 PO; -BUPR150T14 PO
== END | disposition home or self-care (01) ==
LOC: PREOP 05:28
PROVIDERS: ATTEND Urology
DX: Z01.818 Encounter for other preprocedural examination (principal)

== ENCOUNTER 2021-11-18 06:34 | Day surgery (SDC) | payer MEDICARE, OTHER ==
[2021-11-18] VITALS (11 sets, daily range): BP systolic 119–150; BP diastolic 72–87
[~2021-11-18] VITALS: Ht 170.2 cm; Wt 84.1 kg
[~2021-11-18 06:34] MED LIST changes: -CARB1TAB19 PO; +CARB1TAB32 PO; +GALA8TAB8 PO; +LACTATED RINGERS 1,000 ML IV PRN; +PIMA34CA PO; +POTA-179 PO; +SOLI5TAB7 PO; +VENL37.52 PO
[2021-11-18] MEDS ORDERED: ONONBOTOX 100 UNITS/NS 10 ML INJ ONE ×2 (06:45)
[2021-11-18] MEDS ORDERED: LACTATED RINGERS 1,000 ML IV PRN (06:45)
[2021-11-18] MEDS ORDERED: cefTRIAXone 1 GM PRE-MIX 50 ML IV ONE (06:45)
[2021-11-18] MEDS ORDERED: SEVOFLURANE (ULTANE) 15 ML INHAL SOLN ONE (07:07)
[2021-11-18] MEDS ORDERED: ONDANSETRON 4 MG/2 ML (SDV) Z0FRAN ONE (07:07)
[2021-11-18] MEDS ORDERED: proPOfol 200 MG/20 ML (DIPRIVAN) VIAL IV ONE (07:07)
[2021-11-18] MEDS ORDERED: LIDOCAINE PF 1% 5 ML (XYLOCAINE) AMP ONE (07:08)
[2021-11-18] MEDS ORDERED: fentaNYL INJ 100 MCG/2 ML AMP ONE (07:08)
--- NOTE | 2021-11-18 07:17 | Progress Note-Pre Operative ---
Pre-Operative Progress Note Date of Available H&P: Nov 18, 2021 Date H&P Reviewed: Nov 18, 2021 Time H&P Reviewed: 07:16 Changes from last HP NONE Pre-Operative Diagnosis: OAB AND SEVERE URGENCY REFRACTORY TO MEDICAL TREATMENT LINO SAAVEDRA MD Nov 18, 2021 07:17
[2021-11-18] MEDS ORDERED: 0.9% SODIUM CHLORIDE PF INJ 20 ML VIAL ONE (07:46)
--- NOTE | 2021-11-18 08:31 | Progress Note-Post Operative ---
Post-Operative Progess Note Surgeon (s)/Permastone Mechanic (s) Surgeon LINO SAAVEDRA MD Permastone Mechanic: NONE Pre-Operative Diagnosis OAB AND SEVERE URGENCY REFRACTORY TO MEDICAL TREATMENT Post-Operative Diagnosis SAME Procedure & Operative Findings Date of Procedure 11/18/21 Procedure Performed/Findings ENDOSCOPIC BOTOX INJECTIONS Anesthesia Type GENERAL Estimated Blood Loss Estimated blood loss (mL): NONE Specimens/Packing Specimens Removed NONE Packing: NONE LINO SAAVEDRA MD Nov 18, 2021 08:31
--- NOTE | 2021-11-18 08:33 | Discharge Inst-Urology ---
Discharge Inst-Urology Reconcile Patient Problems Problems Reviewed?: Yes Final Diagnosis OAB AND SEVERE URGENCY REFRACTORY TO MEDICAL TREATMENT Patient Instructions/Follow Up Plan/Assessment/Instructions Please make appointment to been seen in office in 3 weeks. I n 72 hours, if no bleeding, may resume ASA Keep bowels soft and moving Increase oral fluids for 48 hours and then as needed. Diet and Activity as tolerated. If questions or concerns contact your physician Or seek help at emergency department. LINO SAAVEDRA MD Nov 18, 2021 08:33
[2021-11-18] MEDS ORDERED: HYDROmorphone 2 MG/ML VIAL (DILAUDID) IV ONE (08:45)
[2021-11-18] MEDS ORDERED: ONDANSETRON 4 MG/2 ML (SDV) Z0FRAN IVP PRN (08:45)
--- NOTE | 2021-11-18 11:58 | Anesthesia-General Post-Op ---
General Patient Condition Mental Status/LOC: Same as Preop Cardiovascular: Satisfactory Nausea/Vomiting: Absent Respiratory: Satisfactory Pain: Controlled Complications: Absent Post Op Complications Complications None Follow Up Care/Instructions Patient Instructions None needed. Anesthesia/Patient Condition Patient Condition Patient is doing well, no complaints, stable vital signs, no apparent adverse anesthesia problems. No complications reported per nursing. D/C home per [facility] Criteria: Yes JAXSON PERRY CRNA Nov 18, 2021 11:58
--- NOTE | 2021-11-18 12:07 | OPERATIVE REPORT ---
DATE OF SERVICE: 11/18/2021 PREOPERATIVE DIAGNOSIS: Overactive bladder with severe urgency refractory to medical treatment. POSTOPERATIVE DIAGNOSIS: Overactive bladder with severe urgency refractory to medical treatment. OPERATION PERFORMED: Endoscopic Botox injection. SURGEON: Brad Saavedra MD ANESTHESIA: General. COMPLICATIONS: None. DESCRIPTION OF PROCEDURE: Under satisfactory general anesthesia, the patient in lithotomy position, genitalia were prepped and draped in the usual sterile fashion. A 23-Faroese cystoscope was introduced under vision. The anterior urethra was normal. The prostate was well resected, and the bladder neck was open. Bladder revealed trabeculations. I went ahead and injected a total of 100 units of Botox 0.5 mL in 20 [address] places started above and lateral to the ureteric orifices and working my way up. There was no bleeding. The bladder was left half full at that time of the injections. Cystoscope was removed. Manual Valsalva maneuver was negative. I reinserted the cystoscope to empty the bladder. The patient tolerated the procedure and anesthesia well and was sent to recovery room in stable condition. Instructions were given to his and preoperatively to the patient. CC: Dr. Christianson - requested, unable to deliver. Job ID: [id number] DocumentID: [id number] Dictated Date: 11/18/2021 08:35:56 [employer] Coach Date: 11/18/2021 12:06:38 Dictated By: BRAD SAAVEDRA MD
== END 2021-11-18 10:19 | disposition home or self-care (01) ==
LOC: SDC 06:34
PROVIDERS: ATTEND Urology
DX: N32.81 Overactive bladder (principal); R39.15 Urgency of urination; Y84.9 Medical procedure, unspecified as the cause of abnormal reaction of the patient, or of later complication, without mention of misadventure at the time of the procedure
CPT/HCPCS: 87081

== ENCOUNTER 2022-02-03 10:22 | Emergency (ER) | payer MEDICARE, OTHER ==
[~2022-02-03] VITALS: Ht 170.2 cm; Wt 85.7 kg
[~2022-02-03 10:22] MED LIST changes: -LACTATED RINGERS 1,000 ML IV PRN
[2022-02-03 11:29] LABS: BASOPHILS % (AUTO) 0 % (0-10); EOSINOPHILS % (AUTO) 0 % (0-10); HEMATOCRIT 42 % (40-54); HEMOGLOBIN 14.8 g/dL (13.3-17.7); LYMPHOCYTES # (AUTO) 0.8 10^3/uL (1.0-4.0); LYMPHOCYTES % (AUTO) 7 % (12-44); MEAN CORPUSCULAR HEMOGLOBIN 33 pg (25-34); MEAN CORPUSCULAR HGB CONC 36 g/dL (32-36); MEAN CORPUSCULAR VOLUME 92 fL (80-99); MEAN PLATELET VOLUME 9.8 fL (9.0-12.2); MONOCYTES # (AUTO) 0.8 10^3/uL (0.0-1.0); MONOCYTES % (AUTO) 8 % (0-12); NEUTROPHILS # (AUTO) 9.1 10^3/uL (1.8-7.8); NEUTROPHILS % (AUTO) 85 % (42-75); PLATELET COUNT 345 10^3/uL (130-400); WHITE BLOOD COUNT 10.7 10^3/uL (4.3-11.0)
[2022-02-03] MEDS ORDERED: ONDANSETRON 4 MG/2 ML (SDV) Z0FRAN IVP ONE (11:30)
[2022-02-03 11:41] LABS: ALBUMIN 4.3 GM/DL (3.2-4.5); POTASSIUM 2.6 MMOL/L (3.6-5.0)
[2022-02-03 11:43] LABS: CALCIUM 7.4 MG/DL (8.5-10.1)
[2022-02-03 11:44] LABS: TOTAL PROTEIN 7.2 GM/DL (6.4-8.2)
[2022-02-03 11:46] LABS: BILIRUBIN,TOTAL 0.7 MG/DL (0.1-1.0)
[2022-02-03 11:47] LABS: CREATININE SERUM 0.73 MG/DL (0.60-1.30)
[2022-02-03 11:50] LABS: BAND NEUTROPHILS 0 %; BASOPHILS % (MANUAL) 0 %; EOSINOPHILS % (MANUAL) 0 %; LYMPHOCYTES % (MANUAL) 7 %; MONOCYTES % (MANUAL) 8 %; NEUTROPHILS % (MANUAL) 85 %; RBC MORPH NORMAL
[2022-02-03] MEDS ORDERED: NS IV 1000 ML 1,000 ML IV SCH (12:00)
[2022-02-03] MEDS ORDERED: PROCHLORPERAZINE 10 MG/2ML INJ (COMPAZINE) IV ONE (12:00)
--- NOTE | 2022-02-03 12:04 | ED General ---
General Chief Complaint: Abdominal/GI Problems Stated Complaint: VOMITING | HALLUCINATIONS Nursing Triage Note: PT TO RM 4 BY WC WITH FOR VOMITING AND HALLUCINATIONS. STATES PT HAS HAD INTERMITTENT VOMITING SINCE . STATES HE HAD WORSENING VOMITING ON TUESDAY NIGHT, AND HAS NOT HAD ANY OF HIS HOME MEDICATIONS SINCE. Source of Information: Patient, Spouse Exam Limitations: No Limitations History of Present Illness Date Seen by Provider: Feb 03, 2022 Time Seen by Provider: 12:01 Initial Comments This is an 81-year-old male who presented to the ER via POV with his spouse for concerns of persistent nausea. Spouse states that he has been having intermittent nausea and vomiting since November however has worsened this week to the point that he has no longer taking any of his home medications. States that he takes several medications for hallucinations and since he has not taken them since Tuesday he is starting to experience some hallucinations. Was given Zofran by his PCP office but states that this does not help. He has no longer drinking fluids as it makes him feel sick at his stomach. Would like him evaluated due to upcoming holiday. Does have chills, no fever. Denies cough, shortness of breath, dysuria, hematuria, abdominal pain. Allergies and Home Medications Allergies Coded Allergies: No Known Drug Allergies (Verified , 03/22/18) Patient Home Medication List Home Medication List Reviewed: Yes Acetaminophen (Tylenol Arthritis) 650 Mg Tablet.er, 650 MG PO Q4H PRN for PAIN- MILD (1-4), (Reported) Entered as Reported by: DAVID PEACE on 04/24/20 1042 Acetaminophen/Diphenhydramine (Tylenol Pm Ex-Strength Caplet) 1 Each Tablet, 2 EACH PO HS, (Reported) Entered as Reported by: KEV WEBSTER on 03/20/18 1023 Amlodipine Besylate (Amlodipine Besylate) 10 Mg Tablet, 10 MG PO DAILY, (Reported) Entered as Reported by: KEV WEBSTER on 02/23/17 1155 Bupropion HCl (Bupropion Xl) 300 Mg Tab.er.24h, 300 MG PO DAILY, (Reported) Entered as Reported by: DAVID PEACE on 04/24/20 1042 Carbidopa/Levodopa (Carbidopa-Levodopa 25-100 Tab) 1 Each Tablet, 1.5 TAB PO TID, (Reported) Entered as Reported by: DAVID PEACE on 04/24/20 1051 Cholecalciferol (Vitamin D3) (Vitamin D3) 125 Mcg Tablet, 125 MCG PO DAILY, (Reported) Entered as Reported by: DAVID PEACE on 04/24/20 1042 Fluticasone Propionate (Flonase Allergy Relief) 9.9 Ml [place].susp, 2 SPRAYS NSEACH DAILY, (Reported) Entered as Reported by: KEV WEBSTER on 02/23/17 1155 Gabapentin (Gabapentin) 400 Mg Capsule, 400 MG PO BID, (Reported) Entered as Reported by: KEV WEBSTER on 03/20/18 1022 Galantamine HBr (Galantamine HBr) 8 Mg Tablet, 16 MG PO DAILY, (Reported) Entered as Reported by: BECKY RUIZ on 11/17/21 1416 Hydrochlorothiazide (Hydrochlorothiazide) 25 Mg Tablet, 25 MG PO DAILY, (Reported) Entered as Reported by: KEV WEBSTER on 02/23/17 1155 Lisinopril (Lisinopril) 20 Mg Tablet, 20 MG PO DAILY, (Reported) Entered as Reported by: DAVID PEACE on 04/24/20 1042 Multivitamin with Minerals (Multivitamins with Minerals) 1 Each Tablet, 1 EACH PO DAILY, (Reported) Entered as Reported by: DAVID PEACE on 04/24/20 1042 Pantoprazole Sodium (Pantoprazole Sodium) 40 Mg Tablet.dr, 40 MG PO DAILY, ( Reported) Entered as Reported by: DAVID PEACE on 04/24/20 1042 Pimavanserin Tartrate (Nuplazid) 34 Mg Capsule, 34 MG PO DAILY, (Reported) Entered as Reported by: BECKY RUIZ on 11/17/21 1416 Potassium Chloride (Potassium Chloride) 20 Meq Tab.er.prt, 20 MEQ PO DAILY, (Reported) Entered as Reported by: BECKY RUIZ on 11/17/21 1416 Propranolol HCl (Propranolol HCl) 80 Mg Tablet, 80 MG PO DAILY, (Reported) Entered as Reported by: KEV WEBSTER on 02/23/17 1155 Simvastatin (Simvastatin) 20 Mg Tablet, 20 MG PO HS, (Reported) Entered as Reported by: KEV WEBSTER on 03/20/18 1022 Tadalafil (Tadalafil) 5 Mg Tablet, 5 MG PO DAILY, (Reported) Entered as Reported by: DAVID PEACE on 04/24/20 1056 Venlafaxine HCl (Effexor Xr) 37.5 Mg Cap.er.24h, 37.5 MG PO DAILY, (Reported) Entered as Reported by: BECKY RUIZ on 11/17/21 1416 Review of Systems Review of Systems Constitutional: see HPI EENTM: no symptoms reported Respiratory: no symptoms reported Cardiovascular: no symptoms reported Gastrointestinal: see HPI Genitourinary: no symptoms reported; No decreased output, No dysuria, No frequency, No hematuria Musculoskeletal: no symptoms reported Skin: no symptoms reported Psychiatric/Neurological: See HPI Hematologic/Lymphatic: No Symptoms Reported Immunological/Allergic: no symptoms reported Past [place]-Ultzih-Qbczoe Hx Patient Social History Tobacco Use?: No Use of E-Cig and/or Vaping dev: No Substance use?: No Alcohol Use?: No Pt feels they are or have been: No Immunizations Up To Date Tetanus Booster (TDap): Unknown PED Vaccines UTD: No First/Initial COVID19 Vaccinat: 04/19/20 Second COVID19 Vaccination Talib: 05/17/20 Third COVID19 Vaccination Date: 04/19/20 Seasonal Allergies Seasonal Allergies: Yes (MILD) Past Medical History Surgeries: Yes (WRIST FX, DEEP BRAIN STIMULATOR X6 (HAD INFECTION), TURP) Adenoidectomy, Tonsillectomy Respiratory: Yes (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) Currently Using CPAP: No Currently Using BIPAP: No Cardiac: Yes High Cholesterol, Hypertension Neurological: Yes Parkinson's Disease Reproductive Disorders: No Sexually Transmitted Disease: No HIV/AIDS: No Genitourinary: Yes Benign Prostatic Hyperpl, Prostate Problems, Kidney Stones Gastrointestinal: Yes Gastroesophageal Reflux, Chronic Diarrhea Musculoskeletal: Yes Arthritis Endocrine: No HEENT: Yes (GLASSES, DENTURES) Loss of Vision: Bilateral Hearing Impairment: Bilateral Hearing Aide Cancer: No Psychosocial: Yes (agent orange exposure) Anxiety, PTSD Integumentary: No Blood Disorders: No Adverse Reaction/Blood Tranf: No (N/A) Family Medical History Asthma 19 MOTHER Cardiovascular disease 19 FATHER Colon cancer G8 BROTHER Colon cancer G8 BROTHER Physical Exam Vital Signs Vital Signs - First Documented 02/03/22 11:07 Temp 36.6 Pulse 95 Resp 16 B/P (MAP) 160/84 (109) O2 Delivery Room Air Capillary Refill : Less Than 3 Seconds Height, Weight, BMI Height: 5'7.00" Weight: 214lbs. 9.0oz. 97.927486dm; 29.00 BMI Method:Stated General Appearance: No Apparent Distress, WD/WN Eyes: Bilateral Eye Normal Inspection, Bilateral Eye PERRL, Bilateral Eye EOMI HEENT: PERRL/EOMI, TMs Normal, Normal ENT Inspection, Pharynx Normal, Moist Mucous Membranes Neck: Full Range of Motion, Normal Inspection, Non Tender Respiratory: Lungs Clear, Normal Breath Sounds, No Accessory Muscle Use, No Respiratory Distress Cardiovascular: Regular Rate, Rhythm, No Murmur, Normal Peripheral Pulses Gastrointestinal: Normal Bowel Sounds, No Organomegaly, Non Tender, Soft Back: Normal Inspection, No Vertebral Tenderness Extremity: Normal Capillary Refill, Normal Inspection, Normal Range of Motion, No Calf Tenderness Neurologic/Psychiatric: Alert, Oriented x3, No Motor/Sensory Deficits, Normal 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/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, 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 Norm as Tested Skin: Normal Color, Warm/Dry Progress/Results/Core Measures Suspected Sepsis SIRS Temperature: Pulse: 95 Respiratory Rate: 16 Laboratory Tests 02/03/22 11:20: White Blood Count 10.7 Blood Pressure 160 /84 Mean: 109 Laboratory Tests 02/03/22 11:20: Creatinine 0.73, Platelet Count 345, Total Bilirubin 0.7 Results/Orders Lab Results Laboratory Tests Test 02/03/22 11:20 02/03/22 13:40 Range/Units White Blood Count 10.7 4.3-11.0 10^3/uL Red Blood Count 4.53 4.30-5.52 10^6/uL Hemoglobin 14.8 13.3-17.7 g/dL Hematocrit 42 40-54 % Mean Corpuscular Volume 92 80-99 fL Mean Corpuscular Hemoglobin 33 25-34 pg Mean Corpuscular Hemoglobin Concent 36 32-36 g/dL Red Cell Distribution Width 12.0 10.0-14.5 % Platelet Count 345 130-400 10^3/uL Mean Platelet Volume 9.8 9.0-12.2 fL Immature Granulocyte % (Auto) 0 % Neutrophils (%) (Auto) 85 H 42-75 % Lymphocytes (%) (Auto) 7 L 12-44 % Monocytes (%) (Auto) 8 0-12 % Eosinophils (%) (Auto) 0 0-10 % Basophils (%) (Auto) 0 0-10 % Neutrophils # (Auto) 9.1 H 1.8-7.8 10^3/uL Lymphocytes # (Auto) 0.8 L 1.0-4.0 10^3/uL Monocytes # (Auto) 0.8 0.0-1.0 10^3/uL Eosinophils # (Auto) 0.0 0.0-0.3 10^3/uL Basophils # (Auto) 0.0 0.0-0.1 10^3/uL Immature Granulocyte # (Auto) 0.0 0.0-0.1 10^3/uL Neutrophils % (Manual) 85 % Lymphocytes % (Manual) 7 % Monocytes % (Manual) 8 % Eosinophils % (Manual) 0 % Basophils % (Manual) 0 % Band Neutrophils 0 % Blood Morphology Comment NORMAL Sodium Level 141 135-145 MMOL/L Potassium Level 2.6 L 3.6-5.0 MMOL/L Chloride Level 95 L 98-107 MMOL/L Carbon Dioxide Level 29 21-32 MMOL/L Anion Gap 17 H 5-14 MMOL/L Blood Urea Nitrogen 8 7-18 MG/DL Creatinine 0.73 0.60-1.30 MG/DL Estimat Glomerular Filtration Rate 91 BUN/Creatinine Ratio 11 Glucose Level 123 H 70-105 MG/DL Calcium Level 7.4 L 8.5-10.1 MG/DL Corrected Calcium 7.2 L 8.5-10.1 MG/DL Total Bilirubin 0.7 0.1-1.0 MG/DL Aspartate Amino Transf (AST/SGOT) 19 5-34 U/L Alanine Aminotransferase (ALT/SGPT) 24 0-55 U/L Alkaline Phosphatase 53 40-136 U/L Total Protein 7.2 6.4-8.2 GM/DL Albumin 4.3 3.2-4.5 GM/DL Thyroid Stimulating Hormone (TSH) 0.80 0.35-4.94 UIU/ML Influenza Type A (RT-PCR) Not Detected Not Detecte Influenza Type B (RT-PCR) Not Detected Not Detecte SARS-CoV-2 RNA (RT-PCR) Not Detected Not Detecte My Orders Orders - XOCHITL OQUENDO APRN Ed Iv/Invasive Line Start (02/03/22 11:22) Cbc With Automated Diff (02/03/22 11:22) Comprehensive Metabolic Panel (02/03/22 11:22) Ua Culture If Indicated (02/03/22 11:22) Thyroid Stimulating Hormone (02/03/22 11:22) Manual Differential (02/03/22 11:20) Prochlorperazine Injection (Compazine In (02/03/22 12:00) Ns Iv 1000 Ml (Sodium Chloride 0.9%) (02/03/22 12:00) Covid 19 Inhouse Test (02/03/22 12:04) Influenza A And B By Pcr (02/03/22 12:04) Ns Iv 1000 Ml (Sodium Chloride 0.9%) (02/03/22 12:26) Potassium Cl 10meq/50ml Ivpb (Kcl 10 Meq (02/03/22 12:45) Potassium Cl 10meq/50ml Ivpb (Kcl 10 Meq (02/03/22 12:45) Ns Iv 500 Ml (Sodium Chloride 0.9%) (02/03/22 13:37) Medications Given in ED Current Medications Medications Dose Ordered Sig/Mayra Route Start Time Stop Time Status Last Admin Dose Admin Potassium Chloride 50 ml @ 50 mls/hr ONCE ONCE IV 02/03/22 12:45 02/03/22 13:44 DC 02/03/22 13:43 50 MLS/HR Potassium Chloride 50 ml @ 50 mls/hr ONCE ONCE IV 02/03/22 12:45 02/03/22 13:44 DC 02/03/22 14:50 50 MLS/HR Prochlorperazine Edisylate 10 mg ONCE ONCE IV 02/03/22 12:00 02/03/22 12:06 DC 02/03/22 12:24 10 MG Sodium Chloride 500 ml @ ud STK-MED ONCE .ROUTE 02/03/22 13:37 02/03/22 13:39 DC 02/03/22 13:40 250 MLS/HR Vital Signs/I&O 02/03/22 11:07 Temp 36.6 Pulse 95 Resp 16 B/P (MAP) 160/84 (109) O2 Delivery Room Air Capillary Refill : Less Than 3 Seconds Blood Pressure Mean: 109 Progress Note : Progress Note patient examined and in no acute distress, will go ahead and give IV fluid bolus to rehydrate, trial Compazine as family states that Zofran is not effective. We will give him fluid challenge and see if he is able to tolerate oral fluids after receiving Compazine. Obtain basic labs and flu and COVID swabs as we have many flu cases in the community at this time. Plan reviewed with patient and spouse and they are agreeable with plan. Departure Impression Primary Impression: Nausea and vomiting Additional Impression: Hypokalemia Disposition: 01 HOME, SELF-CARE Condition: Improved Departure-Patient Inst. Decision time for Depature: 15:14 Referrals: JUS FIELDS MD (PCP/Family) Primary Care Physician Patient Instructions: Dehydration, Adult (DC), Hypokalemia (DC) Add. Discharge Instructions: Plan: All discharge instructions reviewed with patient and/or family. Voiced understanding. Scripts Prochlorperazine Maleate (Compazine) 10 Mg Tablet 10 MG PO Q6H PRN for NAUSEA-1ST LINE, #20 TAB 0 Refills Prov: XOCHITL OQUENDO MOTOR AND GENERATOR ASSEMBLER 02/03/22 XOCHITL OQUENDO MOTOR AND GENERATOR ASSEMBLER Feb 03, 2022 12:04
[2022-02-03] MEDS ORDERED: NS IV 1000 ML 1,000 ML ONE (12:26)
[2022-02-03] MEDS ORDERED: POTASSIUM CL 10MEQ/50ML IVPB 50 ML IV ONE ×2 (12:45)
[2022-02-03] MEDS ORDERED: NS IV 500 ML 500 ML ONE (13:37)
[2022-02-03] MEDS ORDERED: PROC-1 PO (15:18)
[2022-02-03 15:49] LABS: BILIRUBIN,URINE NEGATIVE (NEGATIVE); CLARITY,URINE CLEAR; COLOR,URINE YELLOW; GLUCOSE, URINE (UA) NEGATIVE (NEGATIVE); KETONES,URINE TRACE (NEGATIVE); LEUKOCYTE ESTERASE ,URINE NEGATIVE (NEGATIVE); NITRITE,URINE NEGATIVE (NEGATIVE); PROTEIN,URINE TRACE (NEGATIVE)
[2022-02-03 16:03] LABS: BACTERIA,URINE TRACE /HPF; RBC,URINE RARE /HPF
[2022-02-03 17:02] VITALS: BP 157/94
== END 2022-02-03 17:02 | disposition home or self-care (01) ==
LOC: EDUNIT# 10:22 → ER 10:24
DX: R11.2 Nausea with vomiting, unspecified (principal); E87.6 Hypokalemia; Z91.14 Patient's other noncompliance with medication regimen; Z20.822 Contact with and (suspected) exposure to COVID-19
CPT/HCPCS: 36415; 80053; 81000; 84443; 85007; 85027; 87636; 99283

== ENCOUNTER → 2022-04-13 | Outpatient (RCR) | payer MEDICARE, OTHER ==
[~2022-04-13] MED LIST changes: +PROC-1 PO
== END | disposition home or self-care (01) ==
PROVIDERS: ATTEND Family Medicine
DX: G20 Parkinson's disease (principal); I10 Essential (primary) hypertension

== ENCOUNTER → 2022-04-21 | Outpatient (CLI) | payer MEDICARE, OTHER ==
[~2022-04-21] MED LIST changes: -CARB-275 PO; +CARB-300 PO
== END ==
LOC: CARD 09:58
PROVIDERS: ATTEND Internal Medicine Cardiovascular Disease
DX: I10 Essential (primary) hypertension (principal)
CPT/HCPCS: 93306

== ENCOUNTER 2022-04-23 12:45 | Outpatient (RCR) | payer MEDICARE, OTHER | END 2022-05-11 | disposition home or self-care (01) | PROVIDERS: ATTEND Family Medicine | DX: G20 Parkinson's disease (principal); I10 Essential (primary) hypertension ==

== ENCOUNTER 2023-02-02 08:36 | Inpatient (IN) | payer MEDICARE, OTHER ==
[~2023-02-02] VITALS: Ht 170 cm; Wt 77.5 kg
[~2023-02-02 08:36] MED LIST changes: -GABA-490 PO; +GABA-491 PO; +POTA-330 PO; -POTA-51 PO
[2023-02-02] MEDS ORDERED: morphine INJ 4 MG/ML 1 ML (VIAL/SYRINGE) IVP ONE (09:15)
[2023-02-02 09:16] LABS: BASOPHILS # (AUTO) 0.1 10^3/uL (0.0-0.1); BASOPHILS % (AUTO) 1 % (0-10); EOSINOPHILS # (AUTO) 0.3 10^3/uL (0.0-0.3); EOSINOPHILS % (AUTO) 2 % (0-10); HEMATOCRIT 46 % (40-54); HEMOGLOBIN 15.2 g/dL (13.3-17.7); LYMPHOCYTES # (AUTO) 0.6 10^3/uL (1.0-4.0); LYMPHOCYTES % (AUTO) 4 % (12-44); MEAN CORPUSCULAR HEMOGLOBIN 31 pg (25-34); MEAN CORPUSCULAR HGB CONC 33 g/dL (32-36); MEAN CORPUSCULAR VOLUME 94 fL (80-99); MEAN PLATELET VOLUME 9.9 fL (9.0-12.2); MONOCYTES # (AUTO) 0.9 10^3/uL (0.0-1.0); MONOCYTES % (AUTO) 7 % (0-12); NEUTROPHILS # (AUTO) 10.8 10^3/uL (1.8-7.8); NEUTROPHILS % (AUTO) 85 % (42-75); PLATELET COUNT 296 10^3/uL (130-400); WHITE BLOOD COUNT 12.6 10^3/uL (4.3-11.0)
[2023-02-02 09:17] LABS: ALBUMIN 4.3 GM/DL (3.2-4.5); CHLORIDE 101 MMOL/L (98-107); POTASSIUM 4.4 MMOL/L (3.6-5.0); SODIUM 136 MMOL/L (135-145)
[2023-02-02] MEDS ORDERED: morphine INJ 4 MG/ML 1 ML (VIAL/SYRINGE) ONE (09:17)
[2023-02-02 09:18] LABS: CALCIUM 9.3 MG/DL (8.5-10.1)
[2023-02-02 09:19] LABS: GLUCOSE 112 MG/DL (70-105); TOTAL PROTEIN 7.1 GM/DL (6.4-8.2)
[2023-02-02 09:20] LABS: CARBON DIOXIDE 28 MMOL/L (21-32)
[2023-02-02 09:21] LABS: BILIRUBIN,TOTAL 0.6 MG/DL (0.1-1.0); INR 1.1 (0.8-1.4); PROTHROMBIN TIME PATIENT 14.5 SEC (12.2-14.7)
[2023-02-02 09:23] LABS: ALKALINE PHOSPHATASE 68 U/L (40-136); CREATININE SERUM 0.98 MG/DL (0.60-1.30); GFR ESTIMATED 77
[2023-02-02 09:24] LABS: BUN/CREATININE RATIO 22
[2023-02-02 09:26] LABS: ALANINE AMINOTRANSFERASE < 6 U/L (0-55)
[2023-02-02] MEDS ORDERED: IOHEXOL 350 MG/ML 100 ML (OMNIPAQUE 350) VIAL IV ONE (09:45)
[2023-02-02] MEDS ORDERED: NS 100 ML (IVPB) BAG IV ONE (09:45)
[2023-02-02] MEDS ORDERED: HOLD METFORMIN - RECEIVED CONTRAST 20 ML VIAL IV SCH (09:45)
[2023-02-02 09:50] LABS: EOSINOPHILS % (MANUAL) 2 %; LYMPHOCYTES % (MANUAL) 3 %; MONOCYTES % (MANUAL) 10 %; NEUTROPHILS % (MANUAL) 85 %; RBC MORPH NORMAL
--- NOTE | 2023-02-02 09:51 | ED Fall/Injury ---
General Chief Complaint: Trauma-Non Activation Stated Complaint: FALLS | ABD PAIN | BACK BRUISING Nursing Triage Note: pt presents to ed with complaints of fall x 4 since early this am. pt family increased confusion over the past 3 days. pt reports lower abd pain and lower back pain. pt family denies pt hitting head or loc. pt is currently been taking antibiotics for a cellulitis from a dog scratch. pt is on his 3rd antibiotics change for it and is currently taking bactrim. Source: patient, family, other (Dr. Christianson) Exam Limitations: no limitations History of Present Illness Date Seen by Provider: Feb 02, 2023 Time Seen by Provider: 08:55 Initial Comments This 82-year-old gentleman presents to the emergency room via private vehicle accompanied by his after experiencing 4 falls this morning. He now com plains of pain in the right abdomen and flank region. He is tender to palpation here. He also struck the top of his head where he has a small abrasion. He denies any neck pain or tenderness during assessment. He is alert and mildly confused in conversation. His assists with the history. He has history of Parkinson's and has a deep brain stimulator implant. Additionally, he has been fighting cellulitis of the right arm after being scratched by a dog. He has been on Augmentin (January 26) which was changed to Levaquin (January 28) and then changed to Bactrim (January 31). Bactrim was started on Tuesday, January 31. He has had progressive spread of erythema and swelling despite antibiotics. History was also received from Dr. CHRISTIANSON, primary care provider, who called report to me personally. Patient is afebrile at this time and does not appear septic. Location Injury Occurred: home residence Allergies and Home Medications Allergies Coded Allergies: No Known Drug Allergies (Verified , 03/22/18) Patient Home Medication List Home Medication List Reviewed: Yes Amlodipine Besylate (Amlodipine Besylate) 10 Mg Tablet, 10 MG PO DAILY, (Reported) Entered as Reported by: KEV WEBSTER on 02/23/17 1155 Last Action: Reviewed Aspirin (Aspirin EC) 81 Mg Tablet., 81 MG PO HS, (Reported) Entered as Reported by: DAVID PEACE on 02/02/23 1566 Last Action: Reviewed Bupropion HCl (Bupropion Xl) 300 Mg Tab.er.24h, 300 MG PO DAILY, (Reported) Entered as Reported by: DAVID PEACE on 04/24/20 1042 Last Action: Reviewed Carbidopa/Levodopa (Carbidopa-Levodopa 25-100 Tab) 25 Mg-100 Mg Tablet, 1.5 EA PO TID, (Reported) Entered as Reported by: DAVID PEACE on 04/24/20 1051 Last Action: Reviewed Cholecalciferol (Vitamin D3) (Vitamin D3) 125 Mcg (5000 Unit) Tablet, 125 MCG PO HS, (Reported) Entered as Reported by: DAVID PEACE on 04/24/20 1042 Last Action: Reviewed Dextroamphetamine/Amphetamine (Amphetamine Salts 20 mg Tablet) 20 Mg Tablet, 20 MG PO 0800,1200, (Reported) Entered as Reported by: DAVID PEACE on 02/02/23 155 Last Action: Reviewed Escitalopram Oxalate (Escitalopram Oxalate) 20 Mg Tablet, 20 MG PO DAILY, (Reported) Entered as Reported by: DAVID PEACE on 02/02/23 155 Last Action: Reviewed Fluticasone Propionate (Flonase Allergy Relief) 9.9 Ml [place].susp, 2 SPRAYS NSEACH DAILY, (Reported) Entered as Reported by: KEV WEBSTER on 02/23/17 1155 Last Action: Reviewed Gabapentin (Gabapentin) 400 Mg Capsule, 400 MG PO BID, (Reported) Entered as Reported by: KEV WEBSTER on 03/20/18 1022 Last Action: Reviewed Hydrochlorothiazide (Hydrochlorothiazide) 25 Mg Tablet, 25 MG PO DAILY, (Reported) Entered as Reported by: KEV WEBSTER on 02/23/17 1155 Last Action: Reviewed Lisinopril (Lisinopril) 20 Mg Tablet, 20 MG PO DAILY, (Reported) Entered as Reported by: DAVID PEACE on 04/24/20 1042 Last Action: Reviewed Loperamide HCl (Loperamide) 2 Mg Capsule, 2 MG PO DAILY, (Reported) Entered as Reported by: DAVID PEACE on 02/02/23 155 Last Action: Reviewed Magnesium Oxide (Magnesium Oxide) 420 Mg Tablet, 420 MG PO BID, (Reported) Entered as Reported by: DAVID PEACE on 02/02/23 155 Last Action: Reviewed Pantoprazole Sodium (Pantoprazole Sodium) 40 Mg Tablet.dr, 40 MG PO DAILY, (Reported) Entered as Reported by: DAVID PEACE on 04/24/20 104 Last Action: Reviewed Pimavanserin Tartrate (Nuplazid) 34 Mg Capsule, 34 MG PO DAILY, (Reported) Entered as Reported by: BECKY RUIZ on 11/17/21 141 Last Action: Reviewed Potassium Chloride (Potassium Chloride) 20 Meq Tab.er.prt, 20 MEQ PO BID, (Reported) Entered as Reported by: BECKY RUIZ on 11/17/21 141 Last Action: Reviewed Propranolol HCl (Propranolol HCl) 80 Mg Tablet, 80 MG PO DAILY, (Reported) Entered as Reported by: KEV WEBSTER on 02/23/17 1155 Last Action: Reviewed Simvastatin (Simvastatin) 20 Mg Tablet, 20 MG PO HS, (Reported) Entered as Reported by: KEV WEBSTER on 03/20/18 102 Last Action: Reviewed Sulfamethoxazole/Trimethoprim (Bactrim Ds Tablet) 800 Mg-160 Mg Tablet, 1 EA PO BID, (Reported) Entered as Reported by: DAVID PEACE on 02/02/23 155 Last Action: Reviewed Tadalafil (Tadalafil) 5 Mg Tablet, 5 MG PO DAILY, (Reported) Entered as Reported by: DAVID PEACE on 04/24/20 105 Last Action: Reviewed [Galantamine Er] 24 CAP, 24 MG PO DAILY, (Reported) Entered as Reported by: DAVID PEACE on 02/02/231555 Last Action: Reviewed [Probiotic Sleep Sprt] , 1 EA PO HS, (Reported) Entered as Reported by: DAVID PEACE on 02/02/231555 Last Action: Reviewed Discontinued Medications Acetaminophen (Tylenol Arthritis) 650 Mg Tablet.er, 650 MG PO Q4H PRN for PAIN- MILD (1-4), (Reported) Discontinued Reason: No Longer Taking Entered as Reported by: DAVID PEACE on 04/24/20 1042 Last Action: Discontinued Acetaminophen/Diphenhydramine (Tylenol Pm Ex-Strength Caplet) 1 Each Tablet, 2 EACH PO HS, (Reported) Discontinued Reason: No Longer Taking Entered as Reported by: KEV WEBSTER on 03/20/18 1023 Last Action: Discontinued Galantamine HBr (Galantamine HBr) 8 Mg Tablet, 16 MG PO DAILY, (Reported) Discontinued Reason: No Longer Taking Entered as Reported by: BECKY RUIZ on 11/17/21 1416 Last Action: Discontinued Multivitamin with Minerals (Multivitamins with Minerals) 1 Each Tablet, 1 EACH PO DAILY, (Reported) Discontinued Reason: No Longer Taking Entered as Reported by: DAVID PEACE on 04/24/20 1042 Last Action: Discontinued Prochlorperazine Maleate (Compazine) 10 Mg Tablet, 10 MG PO Q6H PRN for NAUSEA- 1ST LINE Discontinued Reason: No Longer Taking Prescribed by: XOCHITL OQUENDO on 02/03/22 1518 Last Action: Discontinued Venlafaxine HCl (Effexor Xr) 37.5 Mg Cap.er.24h, 37.5 MG PO DAILY, (Reported) Discontinued Reason: No Longer Taking Entered as Reported by: BECKY RUIZ on 11/17/21 141 Last Action: Discontinued Review of Systems Review of Systems Constitutional: see HPI, weakness Eyes: No Symptoms Reported Ears, Nose, Mouth, Throat: no symptoms reported Respiratory: no symptoms reported Cardiovascular: no symptoms reported Gastrointestinal: see HPI Genitourinary: no symptoms reported Musculoskeletal: see HPI Skin: no symptoms reported Psychiatric/Neurological: See HPI Past Nwtfgcr-Ycapvu-Mweugc Hx Patient Social History Tobacco Use?: No Substance use?: No Alcohol Use?: No Pt feels they are or have been: No Immunizations Up To Date Tetanus Booster (TDap): Unknown PED Vaccines UTD: No First/Initial COVID19 Vaccinat: 04/19/20 Second COVID19 Vaccination Talib: 05/17/20 Third COVID19 Vaccination Date: 04/19/20 Seasonal Allergies Seasonal Allergies: Yes (MILD) Past Medical History Surgery/Hospitalization HX: parkinsons, htn, high chol Surgeries: Yes (WRIST FX, DEEP BRAIN STIMULATOR X6 (HAD INFECTION), TURP) Adenoidectomy, Tonsillectomy Respiratory: Yes (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) Currently Using CPAP: No Currently Using BIPAP: No Cardiac: Yes High Cholesterol, Hypertension Neurological: Yes Parkinson's Disease Reproductive Disorders: No Sexually Transmitted Disease: No HIV/AIDS: No Genitourinary: Yes (Urinary incontinence) Benign Prostatic Hyperpl, Prostate Problems, Kidney Stones Gastrointestinal: Yes (Fecal incontinence) Gastroesophageal Reflux, Chronic Diarrhea Musculoskeletal: Yes Arthritis Endocrine: No HEENT: Yes (GLASSES, DENTURES) Loss of Vision: Bilateral Hearing Impairment: Bilateral Hearing Aide Cancer: No Psychosocial: Yes (agent orange exposure) Anxiety, PTSD Integumentary: No Blood Disorders: No Adverse Reaction/Blood Tranf: No (N/A) Family Medical History Asthma 19 MOTHER Cardiovascular disease 19 FATHER Colon cancer G8 BROTHER Colon cancer G8 BROTHER Physical Exam Vital Signs Vital Signs - First Documented 02/02/23 08:58 Temp 36.1 Pulse 60 Resp 18 B/P (MAP) 162/80 (107) Pulse Ox 96 Capillary Refill : Less Than 3 Seconds Height, Weight, BMI Height: 5'7.00" Weight: 214lbs. 9.0oz. [id number]; 26.00 BMI Method:Stated General Appearance: WD/WN, no apparent distress HEENT: PERRL/EOMI, pharynx normal, other (Minor abrasion on the crown of his scalp) Neck: non-tender, normal inspection Cardiovascular: regular rate, rhythm, no edema, no murmur Respiratory: no respiratory distress, no accessory muscle use, other (Splinting respirations. Tenderness to palpation on the right lower lateral chest wall and right lower anterior chest wall) Gastrointestinal: normal bowel sounds, soft; No distended; tenderness (Right flank and right upper quadrant) Back: vertebral tenderness (Lumbar spine) Extremities: other (Erythema and edema of the right upper arm extending from the mid forearm to just proximal to the elbow and medially) Neurologic/Psychiatric: slip laster II-XII nml as tested, no motor/sensory deficits, alert, normal mood/affect, other (Confused conversation) Skin: normal color, warm/dry [place] Coma Score Best Eye Response: (4) Open Spontaneously Best Verbal Response: (4) Confused Conversation Best Motor Response: (6) Obeys Commands Bienvenido Total: 14 Progress/Results/Core Measures Results/Orders Lab Results Laboratory Tests Test 02/02/23 08:50 02/02/23 09:25 02/02/23 11:00 Range/Units White Blood Count 12.6 H 4.3-11.0 10^3/uL Red Blood Count 4.86 4.30-5.52 10^6/uL Hemoglobin 15.2 13.3-17.7 g/dL Hematocrit 46 40-54 % Mean Corpuscular Volume 94 80-99 fL Mean Corpuscular Hemoglobin 31 25-34 pg Mean Corpuscular Hemoglobin Concent 33 32-36 g/dL Red Cell Distribution Width 12.8 10.0-14.5 % Platelet Count 296 130-400 10^3/uL Mean Platelet Volume 9.9 9.0-12.2 fL Immature Granulocyte % (Auto) 1 % Neutrophils (%) (Auto) 85 H 42-75 % Lymphocytes (%) (Auto) 4 L 12-44 % Monocytes (%) (Auto) 7 0-12 % Eosinophils (%) (Auto) 2 0-10 % Basophils (%) (Auto) 1 0-10 % Neutrophils # (Auto) 10.8 H 1.8-7.8 10^3/uL Lymphocytes # (Auto) 0.6 L 1.0-4.0 10^3/uL Monocytes # (Auto) 0.9 0.0-1.0 10^3/uL Eosinophils # (Auto) 0.3 0.0-0.3 10^3/uL Basophils # (Auto) 0.1 0.0-0.1 10^3/uL Immature Granulocyte # (Auto) 0.1 0.0-0.1 10^3/uL Neutrophils % (Manual) 85 % Lymphocytes % (Manual) 3 % Monocytes % (Manual) 10 % Eosinophils % (Manual) 2 % Blood Morphology Comment NORMAL Prothrombin Time 14.5 12.2-14.7 SEC INR Comment 1.1 0.8-1.4 Activated Partial Thromboplast Time 28 24-35 SEC Sodium Level 136 135-145 MMOL/L Potassium Level 4.4 3.6-5.0 MMOL/L Chloride Level 101 98-107 MMOL/L Carbon Dioxide Level 28 21-32 MMOL/L Anion Gap 7 5-14 MMOL/L Blood Urea Nitrogen 22 H 7-18 MG/DL Creatinine 0.98 0.60-1.30 MG/DL Estimat Glomerular Filtration Rate 77 BUN/Creatinine Ratio 22 Glucose Level 112 H 70-105 MG/DL Calcium Level 9.3 8.5-10.1 MG/DL Corrected Calcium 9.1 8.5-10.1 MG/DL Total Bilirubin 0.6 0.1-1.0 MG/DL Aspartate Amino Transf (AST/SGOT) 17 5-34 U/L Alanine Aminotransferase (ALT/SGPT) < 6 0-55 U/L Alkaline Phosphatase 68 40-136 U/L C-Reactive Protein High Sensitivity 0.21 0.00-0.50 MG/DL Total Protein 7.1 6.4-8.2 GM/DL Albumin 4.3 3.2-4.5 GM/DL Lactic Acid Level 1.62 0.50-2.00 MMOL/L Urine Color YELLOW Urine Clarity CLEAR Urine pH 6.5 5-9 Urine Specific [place] 1.010 L 1.016-1.022 Urine Protein NEGATIVE NEGATIVE Urine Glucose (UA) NEGATIVE NEGATIVE Urine Ketones NEGATIVE NEGATIVE Urine Nitrite NEGATIVE NEGATIVE Urine Bilirubin NEGATIVE NEGATIVE Urine Urobilinogen 0.2 < = 1.0 MG/DL Urine Leukocyte Esterase NEGATIVE NEGATIVE Urine RBC (Auto) NEGATIVE NEGATIVE Urine RBC NONE /HPF Urine WBC NONE /HPF Urine Crystals NONE /LPF Urine Bacteria NEGATIVE /HPF Urine Casts NONE /LPF Urine Mucus NEGATIVE /LPF Urine Culture Indicated NO My Orders Orders - LOGAN IVY MD Cbc And Automated Diff (02/02/23 09:07) Comprehensive Metabolic Panel (02/02/23 09:07) Ua Culture If Indicated (02/02/23 09:07) Ed Iv/Invasive Line Start (02/02/23 09:07) Ct Head/Cervical Spine Wo (02/02/23 09:08) Ct Chest/Abdomen/Pelvis W (02/02/23 09:08) Ct Thoracic/Lumbar Spine Wo (02/02/23 09:08) Morphine Injection (Morphine Injection (02/02/23 09:15) Blood Culture (02/02/23 09:08) Protime With Inr (02/02/23 09:08) Partial Thromboplastin Time (02/02/23 09:08) Vital Signs Adult Sepsis Patie Q15M (02/02/23 09:08) Remove Rings In Anticipation O (02/02/23 09:08) Lactic Acid Analyzer (02/02/23 09:08) Hs C Reactive Protein (02/02/23 09:17) Manual Differential (02/02/23 08:50) Morphine Injection (Morphine Injection (02/02/23 09:17) Iohexol Injection (Omnipaque 350 Mg/Ml 1 (02/02/23 09:45) Received Contrast (Hold Metformin- Contr (02/02/23 09:45) Ns (Ivpb) 100 Ml (Sodium Chloride 0.9% 1 (02/02/23 09:45) Dipht/Pertuss(Acell)/Tet Adult (Dipht/Pe (02/02/23 12:00) Meropenem Injection (Meropenem Injection (02/02/23 12:00) Code/Resuscitation (02/02/23 12:20) Ed Admission (Communication) (02/02/23 12:20) Medications Given in ED Current Medications Medications Dose Ordered Sig/Mayra Route Start Time Stop Time Status Last Admin Dose Admin Diphtheria/ Tetanus/Acell Pertussis 0.5 ml ONCE ONCE IM 02/02/23 12:00 02/02/23 12:01 DC 02/02/23 12:40 0.5 ML Iohexol 100 ml ONCE ONCE IV 02/02/23 09:45 02/02/23 09:50 DC 02/02/23 10:04 80 ML Meropenem 1000 mg/ Sodium Chloride 100 ml @ 200 mls/hr ONCE ONCE IV 02/02/23 12:00 02/02/23 12:29 DC 02/02/23 12:39 200 MLS/HR Morphine Sulfate 2 mg ONCE ONCE IVP 02/02/23 09:15 02/02/23 09:16 DC 02/02/23 09:23 2 MG Sodium Chloride 100 ml ONCE ONCE IV 02/02/23 09:45 02/02/23 09:50 DC 02/02/23 10:04 80 ML Vital Signs/I&O 02/02/23 02/02/23 08:58 09:10 Temp 36.1 36.1 Pulse 60 60 Resp 18 18 B/P (MAP) 162/80 (107) 162/80 (107) Pulse Ox 96 96 Blood Pressure Mean: 107 Progress Progress Note : Time: 12:11 Progress Note Patient was interviewed and examined shortly after arrival. His was also interviewed. Based on description of the cellulitis, he seems to have progression despite taking oral antibiotics. He was noted to have significant tenderness around the right lower lateral chest wall. CT imaging of the head through pelvis was obtained. Multiple rib fractures were identified on the right without any underlying injury. He had a mild leukocytosis with WBC of 12.6. He otherwise appeared aseptic. Lactic acid was normal. CBC was otherwise unremarkable. CMP and CRP were normal. Urinalysis demonstrated no hematuria or evidence of infection. All labs were reviewed and interpreted by me. I discussed the situation extensively with patient, , and grandson. Advanced directives were reviewed. We discussed the risks and benefits of CPR and intubation. Patient and would like a DNR order. I discussed the case with Dr. Thao, admitting hospitalist. She would like meropenem and vancomycin initiated for treatment of the cellulitis. Blood cultures were obtained and meropenem was ordered to start in the ER. A tetanus booster will also be administered as it has been more than 5 years since his last immunization. Patient was treated with morphine 2 mg IV for his pain. He has continued to be confused and seems more so after the morphine. Dr. Barrera, general surgeon, was consulted for trauma care. Family does elaborate on his confusion. This is not his baseline. It is unclear what the cause of confusion is. Factors that may be contributing are Parkinson's, cellulitis of the arm, use of fluoroquinolones, pain, and morphine for analgesia. Diagnostic Imaging Diagonstic Imaging: CT Plain Films/CT/US/NM/MRI: chest, abdomen, pelvis Comments NAME: CHARLIE FLOYD [facility] REC#: [id number] PT STATUS: REG ER : 1940 PHYSICIAN: LOGAN IVY MD ADMIT DATE: 02/02/23/ER Draft Date of Exam:02/02/23 CT CHEST/ABDOMEN/PELVIS W PROCEDURE: CT chest, abdomen, and pelvis with contrast. TECHNIQUE: Multiple contiguous axial images were obtained through the chest, abdomen, and pelvis after the administration of intravenous contrast. Auto Exposure Controls were utilized during the CT exam to meet ALARA standards for radiation dose reduction. INDICATION: Multiple falls with chest and abdominal pain and low back pain. CT CHEST: No definite mediastinal hematoma or great vessel injury is identified. No pericardial fluid or hemothorax is identified. There is some atelectasis in the right middle lobe. No definite pulmonary contusion or pneumothorax is detected. There are right-sided posterior lateral 8th, 9th and 10th rib fractures. IMPRESSION: Right 8th through 10th rib fractures. No other significant abnormality is detected in the chest. CT abdomen and pelvis: No focal liver or splenic laceration is identified. The gallbladder, pancreas, adrenal glands and kidneys are unremarkable apart from a large cyst left kidney measuring 5.6 x 4.1 cm. Aorta is calcified but nonaneurysmal. Bowel loops are normal in caliber. There is a fat-containing umbilical hernia. There is diverticulosis of the descending and sigmoid colon but no evidence of acute diverticulitis. No free fluid or evidence of hemoperitoneum is identified. Bladder and prostate are unremarkable. Bony structures are unremarkable. IMPRESSION: 1. No evidence of abdominal or pelvic visceral injury. 2. Uncomplicated diverticulosis. Next number fat-containing umbilical hernia. Dictated on workstation # [id number] Dict: 02/02/23 1019 Trans: 02/02/23 1028 [id number] [id number] Interpreted by: TG FLORES MD Diagonstic Imaging: CT Plain Films/CT/US/NM/MRI: c-spine, head Comments NAME: CHARLIE FLOYD [facility] REC#: [id number] PT STATUS: REG ER : 1940 PHYSICIAN: LOGAN IVY MD ADMIT DATE: 02/02/23/ER Signed Date of Exam:02/02/23 CT HEAD/CERVICAL SPINE WO PROCEDURE: CT head and CT cervical spine without contrast. TECHNIQUE: Multiple contiguous axial images were obtained through the brain and cervical spine without the use of intravenous contrast. Sagittal and coronal reformations through the cervical spine were then performed. Auto Exposure Controls were utilized during the CT exam to meet ALARA standards for radiation dose reduction. INDICATION: Trauma and increasing confusion Ventricles and sulci are prominent indicating component of atrophy. There is a left posterior frontal chavez hole with left basal ganglial stimulator device. There is dystrophic calcification in the right basal ganglia with what appears to be developmental venous anomaly. No hemorrhage is identified. There is no abnormal mass effect or shift of midline structures. Calvarium appears to be intact without evidence of fracture and there is no paranasal sinus air-fluid level. IMPRESSION: No evidence of acute intracranial abnormality. CT CERVICAL SPINE: Multiple contiguous axial CT images of the cervical spine were obtained with sagittal and coronal reformatted images produced. FINDINGS: The cervical curvature and alignment are within normal limits. The vertebral body heights and disc spaces are maintained without evidence of fracture or subluxation. There is no paraspinous hematoma. There is moderate disc space narrowing in the cervical spine most pronounced at the C3-C4 and C6-C7 levels. There is associated degenerative facet arthropathy. IMPRESSION: No CT evidence of acute cervical spinal abnormality. Dictated by: Dictated on workstation # [id number] Dict: 02/02/23 1012 Trans: 02/02/23 1025 [facility] [id number] Interpreted by: RERE ESCOTO MD Electronically signed by: RERE ESCOTO MD 02/02/23 1025 Diagonstic Imaging: CT Plain Films/CT/US/NM/MRI: other (Thoracolumbar spine) Comments NAME: CHARLIE FLOYD [facility] REC#: [id number] PT STATUS: REG ER : 1940 PHYSICIAN: LOGAN IVY MD ADMIT DATE: 02/02/23/ER Signed Date of Exam:02/02/23 CT THORACIC/LUMBAR SPINE WO PROCEDURE: CT thoracic and lumbar spine without contrast. TECHNIQUE: Multiple contiguous axial images were obtained through the thoracic and lumbar spine without the use of intravenous contrast. Sagittal and coronal reformations were then performed. All CT scans use one or more of the following dose optimizing techniques: automated exposure control, MA and/or KvP adjustment based on a patient size and exam type, or iterative reconstruction. INDICATION: Multiple falls today, worsened confusion over the past few days, diffuse pain greatest in the spine and has current cellulitis for which he is on ongoing antibiotics. Study correlated with a chest CT with reconstruction views 12/25/2018 and compared with lumbar CT 12/27/2014. FINDINGS: Thoracic spine: Thoracic vertebral statures are stable and their alignment is anatomic. There are degenerative changes to the discs, endplates and facets with multilevel bridging osteophytes anteriorly and inferiorly in the thoracic spine. No change from prior study. No high-grade bony canal stenosis. No paravertebral mass, hemorrhage or acute fluid collection. The visible posterior ribs segments unremarkable. There is some chronic physiologic wedging at T12 stable and incidental. Lumbar spine: Lumbar vertebral statures are stable. There is grade 1 anterolisthesis L4 on L5 mildly increased in the interim now 7 mm previously 3 mm. There is a chronic unilateral left L4 spondylolysis defect however no acute endplate irregularity, degenerative disc space narrowing, endplate sclerosis or osteophytes throughout the lumbar spine showed generalized progression at L2-L3. There is mild canal and mild biforaminal stenosis. At L3-L4 there is mild canal with moderate right and [id number] left foraminal narrowing. At L4-L5 disc material is postero-right lateral with severe right lateral recess stenosis. There is some moderate to severe right neural foraminal narrowing. There is moderate left foraminal stenosis and moderate to severe central canal stenosis. At L5-S1, there is mild canal and biforaminal narrowing. IMPRESSION: 1. No acute thoracolumbar spinal injury or fracture. 2. Some progressive lumbar spondylosis and degenerative listhesis at L4-L5 with increased multilevel lumbar canal, foraminal and recess stenoses detailed level by level above. Dictated by: Dictated on workstation # [id number] Dict: 02/02/23 1022 Trans: 02/02/23 1131 [facility] [id number] Interpreted by: RERE RETANA Electronically signed by: RERE RETANA 02/02/23 1131 Focused Exam Lactate Level 02/02/23 09:25: Lactic Acid Level 1.62 Lactic Acid Level Laboratory Tests Test 02/02/23 09:25 Lactic Acid Level 1.62 MMOL/L (0.50-2.00) Departure Communication (Admissions) Time/Spoke to Admitting Phy: 11:42 Dr. Thao Time/Spoke to Consulting Phy: 12:10 Dr. Barrera Impression Primary Impression: Cellulitis of right arm Additional Impressions: Multiple falls Confusion Generalized weakness Parkinsons disease Qualified Codes: G20.A1 - Parkinson's disease without dyskinesia, without mention of fluctuations Lumbar spinal stenosis Qualified Codes: M48.061 - Spinal stenosis, lumbar region without neurogenic claudication Multiple rib fractures Qualified Codes: S22.41XA - Multiple fractures of ribs, right side, initial encounter for closed fracture Disposition: ADMITTED INPATIENT Condition: Stable Admissions Decision to Admit Reason: Admit from ER (General) Decision to Admit/Date: Feb 02, 2023 Time/Decision to Admit Time: 11:42 Departure-Patient Inst. Referrals: JUS CHRISTIANSON MD (PCP/Family) Primary Care Physician Copy Copies To 1: JUS CHRISTIANSON MD, JOSHUA T MD Feb 02, 2023 09:51
--- NOTE | 2023-02-02 10:25 | Diagnostic Imaging Report ---
PROCEDURE: CT head and CT cervical spine without contrast. TECHNIQUE: Multiple contiguous axial images were obtained through the brain and cervical spine without the use of intravenous contrast. Sagittal and coronal reformations through the cervical spine were then performed. Auto Exposure Controls were utilized during the CT exam to meet ALARA standards for radiation dose reduction. INDICATION: Trauma and increasing confusion Ventricles and sulci are prominent indicating component of atrophy. There is a left posterior frontal chavez hole with left basal ganglial stimulator device. There is dystrophic calcification in the right basal ganglia with what appears to be developmental venous anomaly. No hemorrhage is identified. There is no abnormal mass effect or shift of midline structures. Calvarium appears to be intact without evidence of fracture and there is no paranasal sinus air-fluid level. IMPRESSION: No evidence of acute intracranial abnormality. CT CERVICAL SPINE: Multiple contiguous axial CT images of the cervical spine were obtained with sagittal and coronal reformatted images produced. FINDINGS: The cervical curvature and alignment are within normal limits. The vertebral body heights and disc spaces are maintained without evidence of fracture or subluxation. There is no paraspinous hematoma. There is moderate disc space narrowing in the cervical spine most pronounced at the C3-C4 and C6-C7 levels. There is associated degenerative facet arthropathy. IMPRESSION: No CT evidence of acute cervical spinal abnormality. Dictated by: Dictated on workstation # [id number]
--- NOTE | 2023-02-02 10:29 | Diagnostic Imaging Report ---
PROCEDURE: CT chest, abdomen, and pelvis with contrast. TECHNIQUE: Multiple contiguous axial images were obtained through the chest, abdomen, and pelvis after the administration of intravenous contrast. Auto Exposure Controls were utilized during the CT exam to meet ALARA standards for radiation dose reduction. INDICATION: Multiple falls with chest and abdominal pain and low back pain. CT CHEST: No definite mediastinal hematoma or great vessel injury is identified. No pericardial fluid or hemothorax is identified. There is some atelectasis in the right middle lobe. No definite pulmonary contusion or pneumothorax is detected. There are right-sided posterior lateral 8th, 9th and 10th rib fractures. IMPRESSION: Right 8th through 10th rib fractures. No other significant abnormality is detected in the chest. CT abdomen and pelvis: No focal liver or splenic laceration is identified. The gallbladder, pancreas, adrenal glands and kidneys are unremarkable apart from a large cyst left kidney measuring 5.6 x 4.1 cm. Aorta is calcified but nonaneurysmal. Bowel loops are normal in caliber. There is a fat-containing umbilical hernia. There is diverticulosis of the descending and sigmoid colon but no evidence of acute diverticulitis. No free fluid or evidence of hemoperitoneum is identified. Bladder and prostate are unremarkable. Bony structures are unremarkable. IMPRESSION: 1. No evidence of abdominal or pelvic visceral injury. 2. Uncomplicated diverticulosis. Next number fat-containing umbilical hernia. Dictated by: Dictated on workstation # [id number]
--- NOTE | 2023-02-02 10:38 | Diagnostic Imaging Report ---
PROCEDURE: CT thoracic and lumbar spine without contrast. TECHNIQUE: Multiple contiguous axial images were obtained through the thoracic and lumbar spine without the use of intravenous contrast. Sagittal and coronal reformations were then performed. All CT scans use one or more of the following dose optimizing techniques: automated exposure control, MA and/or KvP adjustment based on a patient size and exam type, or iterative reconstruction. INDICATION: Multiple falls today, worsened confusion over the past few days, diffuse pain greatest in the spine and has current cellulitis for which he is on ongoing antibiotics. Study correlated with a chest CT with reconstruction views 12/25/2018 and compared with lumbar CT 12/27/2014. FINDINGS: Thoracic spine: Thoracic vertebral statures are stable and their alignment is anatomic. There are degenerative changes to the discs, endplates and facets with multilevel bridging osteophytes anteriorly and inferiorly in the thoracic spine. No change from prior study. No high-grade bony canal stenosis. No paravertebral mass, hemorrhage or acute fluid collection. The visible posterior ribs segments unremarkable. There is some chronic physiologic wedging at T12 stable and incidental. Lumbar spine: Lumbar vertebral statures are stable. There is grade 1 anterolisthesis L4 on L5 mildly increased in the interim now 7 mm previously 3 mm. There is a chronic unilateral left L4 spondylolysis defect however no acute endplate irregularity, degenerative disc space narrowing, endplate sclerosis or osteophytes throughout the lumbar spine showed generalized progression at L2-L3. There is mild canal and mild biforaminal stenosis. At L3-L4 there is mild canal with moderate right and yfqs-cb-adtzpqfz left foraminal narrowing. At L4-L5 disc material is postero-right lateral with severe right lateral recess stenosis. There is some moderate to severe right neural foraminal narrowing. There is moderate left foraminal stenosis and moderate to severe central canal stenosis. At L5-S1, there is mild canal and biforaminal narrowing. IMPRESSION: 1. No acute thoracolumbar spinal injury or fracture. 2. Some progressive lumbar spondylosis and degenerative listhesis at L4-L5 with increased multilevel lumbar canal, foraminal and recess stenoses detailed level by level above. Dictated by: Dictated on workstation # [id number]
[2023-02-02 11:18] LABS: COLOR,URINE YELLOW
[2023-02-02 11:19] LABS: BACTERIA,URINE NEGATIVE /HPF; BILIRUBIN,URINE NEGATIVE (NEGATIVE); CLARITY,URINE CLEAR; GLUCOSE, URINE (UA) NEGATIVE (NEGATIVE); KETONES,URINE NEGATIVE (NEGATIVE); LEUKOCYTE ESTERASE ,URINE NEGATIVE (NEGATIVE); NITRITE,URINE NEGATIVE (NEGATIVE); PH,URINE 6.5 (5-9); PROTEIN,URINE NEGATIVE (NEGATIVE)
--- NOTE | 2023-02-02 11:59 | History & Physical ---
History of Present Illness HPI/Chief Complaint CC: Sepsis due to right arm cellulitis failed PO abx HPI: This is an 82yoWM clinic patient of Dr Christianson who has a h/o severe Parkinson's requiring deep brain stimulator managed at who presented to the ER with falls and weakness. Apparently he sustained ribs 8-10 fractures in the fall. Patient is slightly confused which is new per his at bedside. IVF will be initiated at a gentle rate along with abx for right arm cellulitis failed 3 rounds of PO abx requiring Vanc and Meropenem. Pain will be controlled with PO and IV meds. PT OT will evaluate him and may be an ARU candidate. Source: patient Exam Limitations: clinical condition Date Seen 02/02/23 Time Seen by a Provider: 13:00 Attending Physician Shelbie Christianson MD PCP Admitting Physician: Attending Physician: Referring Physician Date of Admission Home Medications & Allergies Home Medications Reviewed patient Home Medication Reconciliation performed by pharmacy medication reconciliations dialysis equipment technician and/or nursing. Patients Allergies have been reviewed. Allergies Allergies Coded Allergies No Known Drug Allergies (Verified03/22/18) Past Ghlwtbf-Ajjraz-Fynzrf Hx Past Med/Social Hx: Reviewed Nursing Past Med/Soc Hx, Reviewed and Corrections made Patient Social History Marrital Status: Employed/Student: retired Alcohol Use: Denies Use Alcohol Beverage of Choice: Wine Smoking Status: Former Smoker Former Smoker, Quit: Feb 28, 1970 Type Used: Cigars Recent Hopitalizations: No Immunizations Up To Date Tetanus Booster (TDap): Unknown Pediatric: No Date of Pneumonia Vaccine: Nov 25, 2014 Date of Influenza Vaccine: Jan 13, 2020 Seasonal Allergies Seasonal Allergies: Yes (MILD) Past Medical History Surgeries: Adenoidectomy, Tonsillectomy DBS x 6 for PD Respiratory: Sleep Apnea Currently Using CPAP: No Currently Using BIPAP: No Cardiac: High Cholesterol, Hypertension Neurological: Parkinson's Disease Reproductive: No Sexually Transmitted Disease: No HIV/AIDS: No Genitourinary: Benign Prostatic Hyperpl, Prostate Problems, Kidney Stones Gastrointestinal: Gastroesophageal Reflux, Chronic Diarrhea Musculoskeletal: Arthritis Loss of Vision: Bilateral Hearing Impairment: Bilateral Hearing Aide Psychosocial: Anxiety, PTSD History of Blood Disorders: No Adverse Reaction to Blood Turner: No (N/A) Family History Asthma 19 MOTHER Cardiovascular disease 19 FATHER Colon cancer G8 BROTHER Colon cancer G8 BROTHER Review of Systems Constitutional: see HPI, dizziness, malaise, weakness EENTM: no symptoms reported Respiratory: no symptoms reported Cardiovascular: no symptoms reported Gastrointestinal: no symptoms reported Genitourinary: no symptoms reported Musculoskeletal: back pain, joint pain Skin: no symptoms reported Psychiatric/Neurological: Other (confusion) Physical Exam Physical Exam Vital Signs Vital Signs - First Documented 02/02/23 02/02/23 08:58 13:25 Temp 36.1 Pulse 60 Resp 18 B/P (MAP) 162/80 (107) Pulse Ox 96 O2 Delivery Room Air Capillary Refill : Less Than 3 Seconds Height, Weight, BMI Height: 5'7.00" Weight: 214lbs. 9.0oz. 97.281101st; 26.00 BMI Method:Stated General Appearance: WD/WN, Anxious, Chronically ill Eyes: Bilateral Eye Normal Inspection, Bilateral Eye PERRL HEENT: PERRL/EOMI, Normal ENT Inspection, Pharynx Normal Neck: Full Range of Motion, Normal Inspection, Non Tender, Supple, Carotid Bruit Respiratory: Chest Non Tender, Lungs Clear, Normal Breath Sounds, No Accessory Muscle Use, No Respiratory Distress Cardiovascular: Regular Rate, Rhythm, No Edema, No Gallop, No JVD, No Murmur, Normal Peripheral Pulses Gastrointestinal: Normal Bowel Sounds, No Organomegaly, No Pulsatile Mass, Non Tender, Soft Back: Normal Inspection, No CVA Tenderness, No Vertebral Tenderness Extremity: Normal Capillary Refill, Normal Inspection, Normal Range of Motion, Non Tender, No Calf Tenderness, No Pedal Edema Neurologic/Psychiatric: Alert, No Motor/Sensory Deficits, mechanical integrity specialist II-XII Norm as Tested, Depressed Affect, Disoriented Skin: Normal Color, Warm/Dry Lymphatic: No Adenopathy Results Results/Procedures Labs Laboratory Tests 02/02/23 08:50 Patient resulted labs reviewed. Assessment/Plan Admission Diagnosis Assessment: Fall sustaining right rib fractures 8,9,10 Severe weakness Sepsis from right arm cellulitis failed 3 rounds of PO abx Metabolic encephalopathy Severe Parkinson's s/p DBS managed at [facility] Plan: IV abx IVF PT OT Home meds Admission Status: Inpatient Order (span 2 midnights) Reason for Inpatient Admission: sepsis from cellulitis s/p fall with right rib [id number] Rand DO Feb 02, 2023 11:59
[2023-02-02] MEDS ORDERED: Tetanus/Diphtheria/Pertussis (Acell) ADULT Vaccine 0.5 ML IM ONE (12:00)
[2023-02-02] MEDS ORDERED: MEROPENEM INJECTION 1,000 MG in NS (IVPB) 100 ML 100 ML IV ONE (12:00)
--- NOTE | 2023-02-02 13:17 | CONSULTATION REPORT ---
DATE OF SERVICE: 02/02/2023 ATTENDING PRIMARY CARE PHYSICIAN: Shelbie Christianson M.D. ADMITTING PHYSICIAN: Dr. Thao. HISTORY OF PRESENT ILLNESS:. The patient is an 82-year-old male who presented to the Emergency Department by private vehicle after experiencing 4 same level of falls this morning. He reports that he lost balance and does have a history of Parkinson's disease and this is what likely caused him to fall. His major complaint is right sided back pain. He does not report any headache or any significant neck or spinal column pain. He also does not report any loss of consciousness as well as no visual changes. CT scan of the head, cervical spine as well as the chest and abdomen were performed. These were all normal except for nondisplaced right posterior fractures of ribs 8, 9, and 10. There is no pleural effusion as well as no signs of pulmonary contusion. His [place] coma scale is 15. PAST MEDICAL HISTORY: Parkinson's disease, hypertension, hypercholesterolemia, benign prostatic hypertrophy, history of nephrolithiasis, gastroesophageal reflux disease, chronic diarrhea, anxiety, posttraumatic stress disorder, degenerative joint disease. PAST SURGICAL HISTORY: Tonsillectomy, right wrist ORIF, brain stimulator placement x6. ALLERGIES: No known drug allergies. MEDICATIONS: Acetaminophen, amlodipine, bupropion, carbidopa/levodopa, cholecalciferol, fluticasone, gabapentin, Galantamine, hydrochlorothiazide, lisinopril, multivitamin, Protonix, pimavanserin, potassium, prochlorperazine, propranolol, simvastatin, tadalafil, venlafaxine. SOCIAL HISTORY: Negative smoke, negative alcohol. 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 FAMILY HISTORY: Two brothers with colon cancer. VITAL SIGNS: Temperature 36.1, blood pressure 162/80, pulse 60, respirations 18, pulse ox 96% on room air. REVIEW OF SYSTEMS: Well nourished male, currently in no acute distress. He is not experiencing any shortness of breath or difficulty breathing. No cough or sputum production. No cardiac chest pain, palpitations, diaphoresis. No nausea, vomiting. Has had intermittent episodes of diarrhea. No red blood per rectum, no dark tarry stools. No fever, chills, no recent inadvertent weight loss. All other review of systems negative. PHYSICAL EXAMINATION: CHEST: Few scattered rales bilaterally. Pain upon palpation of the lateral and posterior right ribcage. HEART: Regular. No murmurs. EXTREMITIES: No lower extremity edema. Negative Homans sign. HEENT: No scleral icterus. No cervical lymphadenopathy. ABDOMEN: Soft, nontender, nondistended. SKIN: Warm, dry. NEUROLOGIC: Moves all 4 extremities purposefully upon command with a [place] coma scale of 15. LABORATORY DATA: WBC 12.6, hemoglobin 15.2, hematocrit 45, platelets 296, BUN 22, creatinine 0.98. Liver function enzymes normal. ASSESSMENT AND PLAN: An 82-year-old male with same level fall with a nondisplaced posterior rib fractures 8, 9, and 10 with no pleural effusion as well as no pulmonary contusion. Our recommendations is to proceed with conservative management with giving IV fluids conservatively. Diet as tolerated as well. We will also recommend continued pulmonary support with breathing treatments as well as incentive spirometer and early ambulation to prevent atelectasis, splinting as well as pneumonia formation. Job ID: [id number] DocumentID: [id number] Dictated Date: 02/02/2023 12:45:03 Granite Polisher Machine Date: 02/02/2023 13:15:00 Dictated By: PLACIDO NEWTON MD
[2023-02-02 13:25] VITALS: BP 149/70
[2023-02-02] MEDS ORDERED: LACTULOSE SYRUP 10GM/15ML 30ML UDC PO PRN (13:30)
[2023-02-02] MEDS ORDERED: BISACODYL 10 MG SUPPOSITORY PR PRN (13:30)
[2023-02-02] MEDS ORDERED: diphenhydrAMINE INJ 50 MG/ML VIAL IVP PRN (13:30)
[2023-02-02] MEDS ORDERED: MILK OF MAGNESIA 400 MG/5 ML 30 ML UDC PO PRN (13:30)
[2023-02-02] MEDS ORDERED: ANTACID SUSPENSION 30 ML UDC PO PRN (13:30)
[2023-02-02] MEDS ORDERED: ONDANSETRON 4 MG ORAL DISSOLVE TABLET PO PRN (13:30)
[2023-02-02] MEDS ORDERED: VANCOMYCIN INJECTION 0.1 MG in NS (IVPB) 250 ML 250 ML IV SCH (13:30)
[2023-02-02] MEDS ORDERED: ACETAMINOPHEN 325 MG TABLET PO PRN (13:30)
[2023-02-02] MEDS ORDERED: ONDANSETRON INJECTION 4 MG/2 ML (SDV) IV PRN (13:30)
[2023-02-02] MEDS ORDERED: HALOPERIDOL INJECTION 5 MG/ML VIAL IM PRN (13:30)
[2023-02-02] MEDS ORDERED: CALCIUM CARBONATE 500 MG CHEW TABLET PO PRN (13:30)
[2023-02-02] MEDS ORDERED: HYDROmorphone INJECTION 2 MG/ML VIAL IV PRN (13:30)
[2023-02-02] MEDS ORDERED: VANCOMYCIN 1250 MG/NS 250 ML PREMIX IV ONE (14:00)
[2023-02-02] MEDS: NS IV 1000 ML 1,000 ML IV SCH (14:45)
[2023-02-02] MEDS: ENOXAPARIN 40 MG/0.4 ML SYRINGE SC SCH (14:45)
--- NOTE | 2023-02-02 14:59 | Occupational Therapy Eval ---
OT Evaluation-General/PLF Medical Diagnosis Admission Date Feb 02, 2023 at 12:45 Medical Diagnosis: sepsis, falls Onset Date: Feb 02, 2023 Therapy Diagnosis Therapy Diagnosis: FALLS, weakness, PD Height/Weight Height (Feet): 5 Height (Inches): 7.00 Weight (Pounds): 214 Weight (Ounces): 9.0 Precautions Precautions/Isolations: Fall Prevention, Standard Precautions Weight Bear Status Weight Bearing Restriction: Full Weight Bearing Referral Referral Reason: Evaluation/Treatment Medical History Pertinent Medical History: Parkinson's Additional Medical History Progressive changes to Right forearm following dog bite, multiple antibiotics. Increased falls at home Reviewed History: Yes Social History Home: Single Level Current Living Status: Spouse Entry Into Home: Ramp, Stairs With Railing ADL-Prior Level of Function SCALE: Activities may be completed with or without assistive devices. 1-Qkuoisghdn-jijewzk completes the activity by him/herself with no assistance from a helper. 5-Set-up or Clean-up Assistance-helper sets up or cleans up; patient completes activity. [place] assists only prior to or following the activity. 4-Supervision or Touching Assistance-helper provides verbal cues and/or touching/steadying and/or contact guard assistance as patient completes activity. Assistance may be provided throughout the activity or intermittently. 3-Partial/Moderate Assistance-helper does LESS THAN HALF the effort. [place] lifts, holds or supports trunk or limbs, but provides less than half the effort. 2-Substantial/Maximal Assistance-helper does MORE THAN HALF the effort. [place] lifts or holds trunk or limbs and provides more than half the effort. 6-Pidwavtcg-dmahye does ALL the effort. Patient does none of the effort to complete the activity. Or, the assistance of 2 or more helpers is required for the patient to complete the activity. If activity was not attempted, code reason: 7-Patient Refused. 9-Not Applicable-not attempted and the patient did not perform the activity before the current illness, exacerbation or injury. 10-Not Attempted due to Environmental Limitations-(lack of equipment, weather restraints, etc.). 88-Not Attempted due to Medical Conditions or Safety Concerns. Self Care: Needed Some Help Functional Cognition: Needed Some Help DME/Equipment: Bath Chair, Bedside Commode, Shower DME/Equipment Comments upwalker Drive Self: No OT Current Status Subjective Participated in [facility] program Mental Status/Objective Patient Orientation: Person hallucinations Current Glasses/Contacts: No Hand Dominance: Right Upper Extremity ROM rigidity and resistance w/ Full ROM Upper Extremity Coordination impaired Upper Extremity Strength +4/5 ADL-Treatment Eating (QC): 4 Oral Hygiene (QC): 4 Shower/Bathe Self (QC): 7 Upper Body Dressing (QC): 2 Lower Body Dressing (QC): 2 On/Off Footwear (QC): 1 Toileting Hygiene (QC): 2 Education OT Patient Education: Correct positioning, Exercise program, Instructions to caregiver, Modified ADL techniques, Progress toward Goal/Update tx plan, Purpose of tx/functional activities, Reviewed precautions, Rehab process, Safety issues, Transfer techniques, Use of adapted equipment Teaching Recipient: Patient, Family Teaching Methods: Demonstration Response to Teaching: Verbalize Understanding, Reinforcement Needed OT Folding Machine Tender Goals Skilled Nursing Goals Eating (QC): 5 Oral Hygiene (QC): 5 Toileting Hygiene (QC): 4 Shower/Bathe Self (QC): 4 Upper Body Dressing (QC): 4 Lower Body Dressing (QC): 4 On/Off Footwear (QC): 3 1=Demonstrate adherence to instructed precautions during ADL tasks. 2=Patient will verbalize/demonstrate understanding of assistive devices/modifications for ADL. 3=Patient will improve strength/tolerance for activity to enable patient to perform ADL's. OT Education/Plan Problem List/Assessment Assessment: Decreased Activ Tolerance, Decreased Safety Aware, Impaired Cognition, Impaired Coordination, Impaired Funct Balance, Impaired Self-Care Sk ills Discharge Recommendations Plan/Recommendations: Continue POC Therapy Discharge Recommendati: Post Acute OT Treatment Plan/Plan of Care Treatment,Training & Education: Yes Patient would benefit from OT for education, treatment and training to promote independence in ADL's, mobility, safety and/or upper extremity function for ADL's. Plan of Care: ADL Retraining, Concurrent Therapy, Functional Mobility, Group Exercise/Act as Ind, UE Funct Exercise/Act, UE Neuromus Re-Ed/Coord Treatment Duration: Feb 07, 2023 Frequency: 3 times per week (3-5 times per week) Rehab Potential: Guarded Time Start Time: 13:40 Stop Time: 13:55 DATE: Feb 02, 2023 Total Time Billed (hr/min): 15 Billed Treatment Time EV 15 min KENIA RAMIRES OT Feb 02, 2023 14:59
--- NOTE | 2023-02-02 15:06 | Physical Therapy Evaluation ---
PT Evaluation-General Medical Diagnosis Admission Date Feb 02, 2023 at 12:45 Medical Diagnosis: Falls, Cellulitis right UE Onset Date: Feb 02, 2023 Therapy Diagnosis Therapy Diagnosis: Gait deficit, strength deficit Height/Weight Height (Feet): 5 Height (Inches): 7.00 Weight (Pounds): 214 Weight (Ounces): 9.0 Precautions Precautions/Isolations: Fall Prevention, Standard Precautions Weight Bear Status Right Lower Extremity: Right Full Weight Bearing Left Lower Extremity: Left Full Weight Bearing Referral Physician: Dr. Thao Reason for Referral: Evaluation/Treatment Medical History Pertinent Medical History: Parkinson's Reviewed History: Yes Social History Home: Single Level Current Living Status: Spouse Entry Into Home: Ramp Prior Prior Level of Function SCALE: Activities may be completed with or without assistive devices. 6-Uarmxklobu-yqbimgz completes the activity by him/herself with no assistance from a helper. 5-Set-up or Clean-up Assistance-helper sets up or cleans up; patient completes activity. [place] assists only prior to or following the activity. 4-Supervision or Touching Assistance-helper provides verbal cues and/or touching/steadying and/or contact guard assistance as patient completes activity. Assistance may be provided throughout the activity or intermittently. 3-Partial/Moderate Assistance-helper does LESS THAN HALF the effort. [place] lifts, holds or supports trunk or limbs, but provides less than half the effort. 2-Substantial/Maximal Assistance-helper does MORE THAN HALF the effort. [place] lifts or holds trunk or limbs and provides more than half the effort. 4-Kyjrqzezm-sxblby does ALL the effort. Patient does none of the effort to complete the activity. Or, the assistance of 2 or more helpers is required for the patient to complete the activity. If activity was not attempted, code reason: 7-Patient Refused. 9-Not Applicable-not attempted and the patient did not perform the activity before the current illness, exacerbation or injury. 10-Not Attempted due to Environmental Limitations-(lack of equipment, weather restraints, etc.). 88-Not Attempted due to Medical Conditions or Safety Concerns. Bed Mobility: 6 Transfers (B,C,W/C): 6 Gait: 6 Stairs: 9 Wheelchair Mobility: 9 Indoor Mobility (Ambulation): Needed Some Help Stairs: Not Applicalbe Prior Devices Use: Walker PT Evaluation-Current Subjective Patient lying supine in bed upon PT arrival, agreeable to treatment. Patient rates pain currently at 0/10. Patient only cognitive to self at this time. Subjective information obtained mainly from . She reports most days he is able to get himself into and out of bed, ambulate with his Parkinsons FWW, and toilet independently. She reports he requires supervision for shower, minimal A for dressing and she does all the cooking and cleaning. Objective Patient Orientation: Person ROM/Strength ROM Lower Extremities Patient unable to comprehend moving LEs appropriately to measure ROM, however appears to demonstrate WFLs BLEs all planes with functional mobility Strength Lower Extremities Patient unable to comprehend moving LEs appropriately to measure MMT, however appears to demonstrate 3+/5 or greater in BLEs all planes with functional mobility Sensory Vision: Functional Hearing: Functional Sensation Right Lower Extremit: Intact Sensation Left Lower Extremity: Intact Transfers Roll Left to Right (QC): 2 Sit to Lying (QC): 2 Lying to Sitting/Side of Bed(Q: 3 Sit to Stand (QC): 3 Chair/Crm-jk-Qihfa Xfer(QC): 3 Gait Gait Assistive Device: FWW Balance Sitting Static: Fair Sitting Dynamic: Fair Standing Static: Fair Standing Dynamic: Poor Assessment/Needs Patient performs all bed mobility and transfers with mod to max A. Patient ambulates 50 feet with FWW, with mod A at times for safety and control of FWW and requires verbal cues for safety, progression, posture and obstacles. Patient will benefit from skilled physical therapy intervention to improve upon the above listed deficits with focus on returning to PLOF. Patient sitting at EOB post PT treatment with in the room and OT beginning treatment. Rehab Potential: Fair PT [facility] Goals Patient Support Representative Goals PT [facility] Goals Time Frame: Feb 10, 2023 Roll Left & Right (QC): 6 Sit to Lying (QC): 6 Lying-Sitting on Side/Bed(QC): 6 Sit to Stand (QC): 6 Chair/Lwl-ti-Yhcln Xfer(QC): 6 Toilet Transfer (QC): 6 Does the Patient Walk: Yes Walk 10 feet (QC): 6 Walk 50ft with 2 Turns (QC): 6 Walk 150 ft (QC): 6 PT Plan Problem List Problem List: Activity Tolerance, Functional Strength, Safety, Balance, Gait, Transfer, Bed Mobility, ROM Treatment/Plan Treatment Plan: Continue Plan of Care Treatment Plan: Bed Mobility, Education, Functional Activity Jeanmarie, Functional Strength, Group Therapy, Gait, Safety, Therapeutic Exercise, Transfers Treatment Duration: Mar 12, 2023 Frequency: 5 times per week Estimated Hrs Per Day: .25 hour per day Safety Risks/Education Patient Education: Gait Training, Transfer Techniques Teaching Recipient: Patient, Family Teaching Methods: Demonstration, Discussion Response to Teaching: Reinforcement Needed Time Time In: 1402 Time Out: 1423 DATE: Feb 02, 2023 Total Billed Treatment Time: 21 Total Billed Treatment Visit, PEMA KAPADIA PT Feb 02, 2023 15:05
[2023-02-02 15:42] VITALS: BP 149/70
[2023-02-02] MEDS ORDERED: FLU HIGH DOSE (65+ YOA) 240 MCG/0.7 ML 2023-24 (FLUZONE) IM ONE (15:45)
[2023-02-02] MEDS ORDERED: DEXT20TA8 PO (15:56)
[2023-02-02] MEDS ORDERED: GALANTAMINE PO (15:56)
[2023-02-02] MEDS ORDERED: ASPI-1238 PO (15:56)
[2023-02-02] MEDS ORDERED: ESCI20TA39 PO (15:56)
[2023-02-02] MEDS ORDERED: MAGN420T PO (15:56)
[2023-02-02] MEDS ORDERED: SULF-221 PO (15:56)
[2023-02-02] MEDS ORDERED: [UNRECOGNIZED DRUG - OTHER] PO (15:56)
[2023-02-02] MEDS ORDERED: LOPE2CAP PO (15:56)
[2023-02-02] MEDS ORDERED: RT-ALBUTEROL SULF 2.5 MG/3 ML PRE-MIX VIAL INH PRN (16:00)
[2023-02-02 16:23] VITALS: BP 124/76
[2023-02-02] MEDS: MEROPENEM INJECTION 500 MG in NS (IVPB) 100 ML 100 ML IV SCH ×2 (17:41→23:16)
[2023-02-02] MEDS: HYDROcodone/ACETAMINOPHEN 5 MG/325 MG TABLET PO PRN (18:45)
[2023-02-02 20:07] VITALS: BP 154/79
[2023-02-02] MEDS: DOCUSATE SODIUM 100 MG CAPSULE PO SCH (20:47)
[2023-02-02] MEDS: SENNOSIDES 8.6 MG TABLET PO SCH (20:47)
[2023-02-02] MEDS: MELATONIN 3 MG TABLET PO PRN (21:58)
[2023-02-02] MEDS: CARBIDOPA/LEVODOPA 25/100 TABLET PO SCH (21:58)
[2023-02-02] MEDS: GABAPENTIN 400 MG CAPSULE PO SCH (23:16)
[2023-02-02 23:18] VITALS: BP 118/64
[2023-02-03] MEDS: RT-ALBUTEROL SULF 2.5 MG/3 ML PRE-MIX VIAL INH SCH ×4 (02:25→21:48)
[2023-02-03 02:59] VITALS: BP 139/80
[2023-02-03] MEDS: HYDROcodone/ACETAMINOPHEN 5 MG/325 MG TABLET PO PRN ×4 (03:07→19:42)
[2023-02-03] MEDS: NS IV 1000 ML 1,000 ML IV SCH ×2 (04:25→07:18)
--- NOTE | 2023-02-03 05:25 | Progress Note ---
Subjective Date Seen by a Provider: Feb 03, 2023 Time Seen by a Provider: 10:00 Subjective/Events-last exam Seems to be improved Right arm cellulitis much improved today Vanc and Serina due to 3 rounds of broad spectrum abx and failed at bedside Delirium still present Labs stable Review of Systems General: Fatigue Neurological: Confusion Focused Exam Lactate Level 02/02/23 09:25: Lactic Acid Level 1.62 Objective Exam Last Set of Vital Signs Vital Signs Date Time Temp Pulse Resp B/P (MAP) Pulse Ox O2 Delivery O2 Flow Rate FiO2 02/03/23 02:59 36.8 54 20 139/80 (99) 92 Room Air Capillary Refill : Less Than 3 Seconds I&O Intake and Output 02/03/23 00:00 Intake Total 850 ml Balance 850 ml Intake Oral 850 ml # Voids 3 Daily Weight Change No General: Alert, Cooperative Lungs: Clear to Auscultation Heart: Regular Rate Results Lab Laboratory Tests 02/02/23 08:50: White Blood Count 12.6H, Red Blood Count 4.86, Hemoglobin 15.2, Hematocrit 46, Mean Corpuscular Volume 94, Mean Corpuscular Hemoglobin 31, Mean Corpuscular Hemoglobin Concent 33, Red Cell Distribution Width 12.8, Platelet Count 296, Mean Platelet Volume 9.9, Immature Granulocyte % (Auto) 1, Neutrophils (%) (Auto) 85H, Lymphocytes (%) (Auto) 4L, Monocytes (%) (Auto) 7, Eosinophils (%) (Auto) 2, Basophils (%) (Auto) 1, Neutrophils # (Auto) 10.8H, Lymphocytes # (Auto) 0.6L, Monocytes # (Auto) 0.9, Eosinophils # (Auto) 0.3, Basophils # (Auto) 0.1, Immature Granulocyte # (Auto) 0.1, Neutrophils % (Manual) 85, Lymphocytes % (Manual) 3, Monocytes % (Manual) 10, Eosinophils % (Manual) 2, Blood Morphology Comment NORMAL, Prothrombin Time 14.5, INR Comment 1.1, Activated Partial Thromboplast Time 28, Sodium Level 136, Potassium Level 4.4, Chloride Level 101, Carbon Dioxide Level 28, Anion Gap 7, Blood Urea Nitrogen 22H, Creatinine 0.98, Estimat Glomerular Filtration Rate 77, BUN/Creatinine Ratio 22, Glucose Level 112H, Calcium Level 9.3, Corrected Calcium 9.1, Total Bilirubin 0.6, Aspartate Amino Transf (AST/SGOT) 17, Alanine Aminotransferase (ALT/SGPT) < 6, Alkaline Phosphatase 68, C-Reactive Protein High Sensitivity 0.21, Total Protein 7.1, Albumin 4.3 02/02/23 09:25: Lactic Acid Level 1.62 02/02/23 11:00: Urine Color YELLOW, Urine Clarity CLEAR, Urine pH 6.5, Urine Specific [place] 1.010L, Urine Protein NEGATIVE, Urine Glucose (UA) NEGATIVE, Urine Ketones NEGATIVE, Urine Nitrite NEGATIVE, Urine Bilirubin NEGATIVE, Urine Urobilinogen 0.2, Urine Leukocyte Esterase NEGATIVE, Urine RBC (Auto) NEGATIVE, Urine RBC NONE, Urine WBC NONE, Urine Crystals NONE, Urine Bacteria NEGATIVE, Urine Casts NONE, Urine Mucus NEGATIVE, Urine Culture Indicated NO Assessment/Plan Assessment/Plan Assess & Plan/Chief Complaint Assessment: Fall sustaining right rib fractures 8,9,10 Severe weakness Sepsis from right arm cellulitis failed 3 rounds of PO abx Metabolic encephalopathy Severe Parkinson's s/p DBS managed at [facility] Plan: IV abx HLIVF PT OT Home meds ANSHU LEMUS DO Feb 03, 2023 05:25
[2023-02-03] MEDS: MEROPENEM INJECTION 500 MG in NS (IVPB) 100 ML 100 ML IV SCH ×4 (05:40→23:36)
[2023-02-03 05:41] LABS: BASOPHILS # (AUTO) 0.1 10^3/uL (0.0-0.1); BASOPHILS % (AUTO) 1 % (0-10); EOSINOPHILS # (AUTO) 0.4 10^3/uL (0.0-0.3); EOSINOPHILS % (AUTO) 6 % (0-10); HEMATOCRIT 40 % (40-54); HEMOGLOBIN 13.3 g/dL (13.3-17.7); LYMPHOCYTES # (AUTO) 0.9 10^3/uL (1.0-4.0); LYMPHOCYTES % (AUTO) 15 % (12-44); MEAN CORPUSCULAR HEMOGLOBIN 31 pg (25-34); MEAN CORPUSCULAR HGB CONC 34 g/dL (32-36); MEAN CORPUSCULAR VOLUME 92 fL (80-99); MEAN PLATELET VOLUME 10.3 fL (9.0-12.2); MONOCYTES # (AUTO) 0.7 10^3/uL (0.0-1.0); MONOCYTES % (AUTO) 12 % (0-12); NEUTROPHILS # (AUTO) 4.2 10^3/uL (1.8-7.8); NEUTROPHILS % (AUTO) 66 % (42-75); PLATELET COUNT 214 10^3/uL (130-400); WHITE BLOOD COUNT 6.3 10^3/uL (4.3-11.0)
[2023-02-03] MEDS: PANTOPRAZOLE 40 MG TABLET PO SCH (05:41)
[2023-02-03 05:57] LABS: ALBUMIN 3.3 GM/DL (3.2-4.5); POTASSIUM 3.9 MMOL/L (3.6-5.0)
[2023-02-03 05:59] LABS: CALCIUM 8.6 MG/DL (8.5-10.1)
[2023-02-03 06:00] LABS: TOTAL PROTEIN 5.6 GM/DL (6.4-8.2)
[2023-02-03 06:01] LABS: BILIRUBIN,TOTAL 0.7 MG/DL (0.1-1.0)
[2023-02-03 06:03] LABS: CREATININE SERUM 0.84 MG/DL (0.60-1.30)
[2023-02-03 07:30] VITALS: BP 162/75
[2023-02-03] MEDS: CARBIDOPA/LEVODOPA 25/100 TABLET PO SCH ×3 (08:58→19:42)
[2023-02-03] MEDS: buPROPion SR 150 MG TABLET PO SCH ×2 (08:58→19:41)
[2023-02-03] MEDS: amLODIPine 10 MG TABLET PO SCH (08:58)
[2023-02-03] MEDS: SENNOSIDES 8.6 MG TABLET PO SCH ×2 (08:59→19:41)
[2023-02-03] MEDS: GABAPENTIN 400 MG CAPSULE PO SCH ×2 (08:59→19:42)
[2023-02-03] MEDS: DOCUSATE SODIUM 100 MG CAPSULE PO SCH ×2 (08:59→19:42)
[2023-02-03] MEDS: POTASSIUM CHLORIDE 20 MEQ TABLET PO SCH ×2 (08:59→17:41)
[2023-02-03] MEDS: CITALOPRAM 20 MG TABLET PO SCH (08:59)
[2023-02-03] MEDS: MAGNESIUM OXIDE 400 MG TABLET PO SCH ×2 (08:59→17:42)
[2023-02-03] MEDS ORDERED: NON-FORMULARY MEDICATION 1 EA EA (Pimavanserin Tartrate (Nuplazid) 34 MG) PO SCH (09:00)
[2023-02-03] MEDS: LOPERAMIDE 2 MG CAPSULE PO SCH (09:00)
[2023-02-03] MEDS: FLUTICASONE NASAL SPRAY (120 SPRAYS) NS SCH (09:11)
[2023-02-03] MEDS: PROPRANOLOL EXTENDED RELEASE 80 MG CAPSULE PO SCH (09:11)
--- NOTE | 2023-02-03 09:52 | Physical Therapy Daily Note ---
PT Daily Note-Current Subjective Pt alert to person. Pt was able to recognize me and able to recall past memories of our relationship. He was willing to attempt ambulation. Pt did have some confusion and his was present to help redirect. Pain Section J - Health Conditions 1. Rarely or not at all 2. Occasionally 3. Frequently 4. Almost constantly 8. Unable to answer Pain Effect on Sleep: 2 Pain Interference with Therapy: 2 Pain Interference w/Day-to-Day: 2 Transfers SCALE: Activities may be completed with or without assistive devices. 8-Pooubhtpzu-snfotqh completes the activity by him/herself with no assistance from a helper. 5-Set-up or Clean-up Assistance-helper sets up or cleans up; patient completes activity. [place] assists only prior to or following the activity. 4-Supervision or Touching Assistance-helper provides verbal cues and/or robinson beatrice/steadying and/or contact guard assistance as patient completes activity. Assistance may be provided throughout the activity or intermittently. 3-Partial/Moderate Assistance-helper does LESS THAN HALF the effort. [place] lifts, holds or supports trunk or limbs, but provides less than half the effort. 2-Substantial/Maximal Assistance-helper does MORE THAN HALF the effort. [place] lifts or holds trunk or limbs and provides more than half the effort. 6-Caddjngoa-ishrij does ALL the effort. Patient does none of the effort to complete the activity. Or, the assistance of 2 or more helpers is required for the patient to complete the activity. If activity was not attempted, code reason: 7-Patient Refused. 9-Not Applicable-not attempted and the patient did not perform the activity before the current illness, exacerbation or injury. 10-Not Attempted due to Environmental Limitations-(lack of equipment, weather restraints, etc.). 88-Not Attempted due to Medical Conditions or Safety Concerns. Transitioned supine to sit with Moderate assist; sit to supine Moderate assist. Educated patient on scooting up in bed. Weight Bearing Right Lower Extremity: Right Full Weight Bearing Left Lower Extremity: Left Full Weight Bearing Gait Training Ambulated 100ft with FWW and Min Assist. Pt was impulsive and needed cues to slow down. Pt had festination during 180 degree turns. Assessment Pt making gains with mobility and cognition. PT Buyer Assistant Goals Buyer Assistant Goals PT Buyer Assistant Goals Time Frame: Feb 10, 2023 Roll Left & Right (QC): 6 Sit to Lying (QC): 6 Lying-Sitting on Side/Bed(QC): 6 Sit to Stand (QC): 6 Chair/Lin-ot-Aczro Xfer(QC): 6 Toilet Transfer (QC): 6 Does the Patient Walk: Yes Walk 10 feet (QC): 6 Walk 50ft with 2 Turns (QC): 6 Walk 150 ft (QC): 6 PT Plan Treatment/Plan Treatment Plan: Continue Plan of Care Treatment Plan: Bed Mobility, Education, Functional Activity Jeanmarie, Functional Strength, Group Therapy, Gait, Safety, Therapeutic Exercise, Transfers Treatment Duration: Mar 12, 2023 Frequency: 5 times per week Estimated Hrs Per Day: .25 hour per day Time Time In: 929 Time Out: 50 DATE: Feb 03, 2023 Total Billed Treatment Time: 20 Total Billed Treatment visit, gait 20 min PANCHO JASMINE PT Feb 03, 2023 09:52
[2023-02-03 12:04] VITALS: BP 141/75
[2023-02-03] MEDS: ENOXAPARIN 40 MG/0.4 ML SYRINGE SC SCH (13:36)
[2023-02-03] MEDS: VANCOMYCIN 1 GM/NS 250 ML IVPB IV SCH ×2 (14:28)
[2023-02-03 15:45] VITALS: BP 113/71
[2023-02-03] MEDS: ASPIRIN enteric coated 81MG TABLET PO SCH (19:41)
[2023-02-03] MEDS: VITAMIN D3 125 MCG (5,000 UNITS) TABLET PO SCH (19:42)
[2023-02-03] MEDS: MELATONIN 3 MG TABLET PO PRN (19:42)
[2023-02-03 20:32] VITALS: BP 138/65
[2023-02-03 23:20] VITALS: BP 135/62
[2023-02-04] MEDS: MEROPENEM INJECTION 500 MG in NS (IVPB) 100 ML 100 ML IV SCH ×3 (05:22→17:01)
[2023-02-04] MEDS: PANTOPRAZOLE 40 MG TABLET PO SCH (05:22)
[2023-02-04 05:36] LABS: BASOPHILS # (AUTO) 0.1 10^3/uL (0.0-0.1); BASOPHILS % (AUTO) 1 % (0-10); EOSINOPHILS # (AUTO) 0.3 10^3/uL (0.0-0.3); EOSINOPHILS % (AUTO) 5 % (0-10); HEMATOCRIT 40 % (40-54); HEMOGLOBIN 13.1 g/dL (13.3-17.7); LYMPHOCYTES # (AUTO) 0.8 10^3/uL (1.0-4.0); LYMPHOCYTES % (AUTO) 11 % (12-44); MEAN CORPUSCULAR HEMOGLOBIN 31 pg (25-34); MEAN CORPUSCULAR HGB CONC 33 g/dL (32-36); MEAN CORPUSCULAR VOLUME 93 fL (80-99); MONOCYTES # (AUTO) 0.8 10^3/uL (0.0-1.0); MONOCYTES % (AUTO) 11 % (0-12); NEUTROPHILS # (AUTO) 4.9 10^3/uL (1.8-7.8); NEUTROPHILS % (AUTO) 71 % (42-75); PLATELET COUNT 220 10^3/uL (130-400); WHITE BLOOD COUNT 6.8 10^3/uL (4.3-11.0)
[2023-02-04 05:55] LABS: ALBUMIN 3.3 GM/DL (3.2-4.5); BILIRUBIN,TOTAL 0.5 MG/DL (0.1-1.0); CALCIUM 8.6 MG/DL (8.5-10.1); CREATININE SERUM 0.92 MG/DL (0.60-1.30); POTASSIUM 4.6 MMOL/L (3.6-5.0); TOTAL PROTEIN 5.5 GM/DL (6.4-8.2)
--- NOTE | 2023-02-04 06:43 | Progress Note ---
Subjective Date Seen by a Provider: Feb 04, 2023 Time Seen by a Provider: 11:00 Subjective/Events-last exam Patient had a rough night Confusion increased requiring Haldol Patient was agitated again this morning and received sedative Right arm improved IV antibiotics maintained Labs stable Review of Systems Neurological: Confusion Focused Exam Lactate Level 02/02/23 09:25: Lactic Acid Level 1.62 Objective Exam Last Set of Vital Signs Vital Signs Date Time Temp Pulse Resp B/P (MAP) Pulse Ox O2 Delivery O2 Flow Rate FiO2 02/03/23 23:20 36.3 55 20 135/62 (86) 92 Room Air Capillary Refill : Less Than 3 Seconds I&O Intake and Output 02/04/23 00:00 Intake Total 2200 ml Output Total 200 ml Balance 2000 ml Intake Oral 1500 ml IV Total 700 ml Output Urine Total 200 ml # Voids 8 # Bowel Movements 1 General: Other (Sedated) Lungs: Clear to Auscultation Heart: Regular Rate Results Lab Laboratory Tests 02/04/23 05:20: White Blood Count 6.8, Red Blood Count 4.23L, Hemoglobin 13.1L, Hematocrit 40, Mean Corpuscular Volume 93, Mean Corpuscular Hemoglobin 31, Mean Corpuscular Hemoglobin Concent 33, Red Cell Distribution Width 13.0, Platelet Count 220, Mean Platelet Volume 10.0, Immature Granulocyte % (Auto) 0, Neutrophils (%) (Auto) 71, Lymphocytes (%) (Auto) 11L, Monocytes (%) (Auto) 11, Eosinophils (%) (Auto) 5, Basophils (%) (Auto) 1, Neutrophils # (Auto) 4.9, Lymphocytes # (Auto) 0.8L, Monocytes # (Auto) 0.8, Eosinophils # (Auto) 0.3, Basophils # (Auto) 0.1, Immature Granulocyte # (Auto) 0.0, Sodium Level 138, Potassium Level 4.6, Chloride Level 108H, Carbon Dioxide Level 23, Anion Gap 7, Blood Urea Nitrogen 18, Creatinine 0.92, Estimat Glomerular Filtration Rate 83, BUN/Creatinine Ratio 20, Glucose Level 103, Calcium Level 8.6, Corrected Calcium 9.2, Total Bilirubin 0.5, Aspartate Amino Transf (AST/SGOT) 20, Alanine Aminotransferase (ALT/SGPT) 7, Alkaline Phosphatase 54, Total Protein 5.5L, Albumin 3.3 Microbiology 02/02/23 Blood Culture - Preliminary, Resulted Assessment/Plan Assessment/Plan Assess & Plan/Chief Complaint Assessment: Fall sustaining right rib fractures 8,9,10 Severe weakness Sepsis from right arm cellulitis failed 3 rounds of PO abx Metabolic encephalopathy Severe Parkinson's s/p DBS managed at [facility] Plan: IV abx HLIVF PT OT Home meds ANSHU LEMUS DO Feb 04, 2023 06:43
[2023-02-04 07:30] VITALS: BP 155/75
[2023-02-04] MEDS: CITALOPRAM 20 MG TABLET PO SCH (07:54)
[2023-02-04] MEDS: SENNOSIDES 8.6 MG TABLET PO SCH ×2 (07:54→21:35)
[2023-02-04] MEDS: LOPERAMIDE 2 MG CAPSULE PO SCH (07:55)
[2023-02-04] MEDS: oxyCODONE IMMEDIATE RELEASE 5 MG TABLET PO PRN (07:55)
[2023-02-04] MEDS: MAGNESIUM OXIDE 400 MG TABLET PO SCH ×2 (07:55→17:01)
[2023-02-04] MEDS: GABAPENTIN 400 MG CAPSULE PO SCH ×2 (07:55→21:35)
[2023-02-04] MEDS: DOCUSATE SODIUM 100 MG CAPSULE PO SCH ×2 (07:55→21:33)
[2023-02-04] MEDS: buPROPion SR 150 MG TABLET PO SCH ×2 (07:55→21:34)
[2023-02-04] MEDS: POTASSIUM CHLORIDE 20 MEQ TABLET PO SCH ×2 (07:55→17:01)
[2023-02-04] MEDS: PROPRANOLOL EXTENDED RELEASE 80 MG CAPSULE PO SCH (07:55)
[2023-02-04] MEDS: amLODIPine 10 MG TABLET PO SCH (07:55)
[2023-02-04] MEDS: CARBIDOPA/LEVODOPA 25/100 TABLET PO SCH ×3 (07:56→21:34)
[2023-02-04] MEDS: FLUTICASONE NASAL SPRAY (120 SPRAYS) NS SCH (07:57)
[2023-02-04] MEDS: RT-ALBUTEROL SULF 2.5 MG/3 ML PRE-MIX VIAL INH SCH ×3 (08:18→22:09)
[2023-02-04] MEDS: GALANTAMINE 24 MG PO SCH (09:00)
[2023-02-04] MEDS: TADALAFIL 5 MG PO SCH (09:00)
--- NOTE | 2023-02-04 10:28 | Physical Therapy Daily Note ---
PT Daily Note-Current Subjective Pt is in bed, his is seated bedside. He is initially asleep. Pt agreed to treatment. Pain Section J - Health Conditions 1. Rarely or not at all 2. Occasionally 3. Frequently 4. Almost constantly 8. Unable to answer Pain Effect on Sleep: 2 Pain Interference with Therapy: 2 Pain Interference w/Day-to-Day: 2 Mental Status Patient Orientation: Person, Confused, Place Transfers SCALE: Activities may be completed with or without assistive devices. 8-Qzssmsrskt-vthyhxa completes the activity by him/herself with no assistance from a helper. 5-Set-up or Clean-up Assistance-helper sets up or cleans up; patient completes activity. [place] assists only prior to or following the activity. 4-Supervision or Touching Assistance-helper provides verbal cues and/or touching/steadying and/or contact guard assistance as patient completes activity. Assistance may be provided throughout the activity or intermittently. 3-Partial/Moderate Assistance-helper does LESS THAN HALF the effort. [place] lifts, holds or supports trunk or limbs, but provides less than half the effort. 2-Substantial/Maximal Assistance-helper does MORE THAN HALF the effort. [place] lifts or holds trunk or limbs and provides more than half the effort. 1-Udhhtpqyv-otvdyc does ALL the effort. Patient does none of the effort to compl ete the activity. Or, the assistance of 2 or more helpers is required for the patient to complete the activity. If activity was not attempted, code reason: 7-Patient Refused. 9-Not Applicable-not attempted and the patient did not perform the activity before the current illness, exacerbation or injury. 10-Not Attempted due to Environmental Limitations-(lack of equipment, weather restraints, etc.). 88-Not Attempted due to Medical Conditions or Safety Concerns. Roll Left & Right (QC): 3 Sit to Lying (QC): 3 Lying to Sitting/Side of Bed(Q: 3 Sit to Stand (QC): 3 Weight Bearing Right Lower Extremity: Right Full Weight Bearing Left Lower Extremity: Left Full Weight Bearing Gait Training Does the Patient Walk?: Yes Distance: 200ft Gait Persons Needed: 1 Gait Assistive Device: FWW Pt had to stop and sit on his walker seat after 100ft. He was then able to ambulate back to the room. Pt displays festination during turns. Exercises Supine Ex: LE Protocol Supine Reps: 15 Assessment Current Status: Good Progress Greater distance covered during gait. Pt's notes he had less difficulty with supine to/from sitting. PT Prison Goals Prison Goals PT Zigzag Elastic Attacher Goals Time Frame: Feb 10, 2023 Roll Left & Right (QC): 6 Sit to Lying (QC): 6 Lying-Sitting on Side/Bed(QC): 6 Sit to Stand (QC): 6 Chair/Kkt-aa-Vtoqj Xfer(QC): 6 Toilet Transfer (QC): 6 Does the Patient Walk: Yes Walk 10 feet (QC): 6 Walk 50ft with 2 Turns (QC): 6 Walk 150 ft (QC): 6 PT Plan Treatment/Plan Treatment Plan: Continue Plan of Care Treatment Plan: Bed Mobility, Education, Functional Activity Jeanmarie, Functional Strength, Group Therapy, Gait, Safety, Therapeutic Exercise, Transfers Treatment Duration: Mar 12, 2023 Frequency: 5 times per week Estimated Hrs Per Day: .25 hour per day Time Time In: 0900 Time Out: 0930 DATE: Feb 04, 2023 Total Billed Treatment Time: 30 Total Billed Treatment 1, gt 15, ex 15 DONIS RAMOS PT Feb 04, 2023 10:27
[2023-02-04] MEDS: ENOXAPARIN 40 MG/0.4 ML SYRINGE SC SCH (12:37)
[2023-02-04] MEDS ORDERED: TROUGH ORDER-PHARMACY XX ONE (13:00)
[2023-02-04] MEDS: VANCOMYCIN 1 GM/NS 250 ML IVPB IV SCH ×2 (14:12)
[2023-02-04 16:29] VITALS: BP 122/57
[2023-02-04] MEDS ORDERED: PATIENT MAY USE OWN MEDS, ALL MC SCH (17:45)
[2023-02-04] MEDS: HYDROcodone/ACETAMINOPHEN 5 MG/325 MG TABLET PO PRN (19:32)
[2023-02-04] MEDS: [UNRECOGNIZED DRUG - OTHER] PO SCH ×2 (21:33→21:49)
[2023-02-04] MEDS: VITAMIN D3 125 MCG (5,000 UNITS) TABLET PO SCH (21:35)
[2023-02-04] MEDS: ASPIRIN enteric coated 81MG TABLET PO SCH (21:35)
[2023-02-04] MEDS: diphenhydrAMINE 25 MG TABLET PO PRN (21:35)
[2023-02-04 23:56] VITALS: BP 132/69
[2023-02-05] MEDS: MEROPENEM INJECTION 500 MG in NS (IVPB) 100 ML 100 ML IV SCH ×4 (00:03→18:08)
[2023-02-05] MEDS: HYDROcodone/ACETAMINOPHEN 5 MG/325 MG TABLET PO PRN ×3 (04:10→19:54)
[2023-02-05 05:30] LABS: BASOPHILS # (AUTO) 0.1 10^3/uL (0.0-0.1); BASOPHILS % (AUTO) 1 % (0-10); EOSINOPHILS # (AUTO) 0.4 10^3/uL (0.0-0.3); EOSINOPHILS % (AUTO) 6 % (0-10); HEMATOCRIT 40 % (40-54); HEMOGLOBIN 13.2 g/dL (13.3-17.7); LYMPHOCYTES # (AUTO) 1.1 10^3/uL (1.0-4.0); LYMPHOCYTES % (AUTO) 16 % (12-44); MEAN CORPUSCULAR HEMOGLOBIN 31 pg (25-34); MEAN CORPUSCULAR HGB CONC 33 g/dL (32-36); MEAN CORPUSCULAR VOLUME 93 fL (80-99); MEAN PLATELET VOLUME 10.3 fL (9.0-12.2); MONOCYTES # (AUTO) 0.8 10^3/uL (0.0-1.0); MONOCYTES % (AUTO) 12 % (0-12); NEUTROPHILS # (AUTO) 4.4 10^3/uL (1.8-7.8); NEUTROPHILS % (AUTO) 65 % (42-75); PLATELET COUNT 237 10^3/uL (130-400); WHITE BLOOD COUNT 6.8 10^3/uL (4.3-11.0)
[2023-02-05 05:53] LABS: ALANINE AMINOTRANSFERASE < 6 U/L (0-55); ALBUMIN 3.4 GM/DL (3.2-4.5); ALKALINE PHOSPHATASE 56 U/L (40-136); BILIRUBIN,TOTAL 0.6 MG/DL (0.1-1.0); BUN/CREATININE RATIO 20; CALCIUM 8.8 MG/DL (8.5-10.1); CARBON DIOXIDE 23 MMOL/L (21-32); CHLORIDE 106 MMOL/L (98-107); CREATININE SERUM 0.79 MG/DL (0.60-1.30); GFR ESTIMATED 89; GLUCOSE 104 MG/DL (70-105); POTASSIUM 4.5 MMOL/L (3.6-5.0); SODIUM 138 MMOL/L (135-145); TOTAL PROTEIN 5.6 GM/DL (6.4-8.2)
[2023-02-05] MEDS: PANTOPRAZOLE 40 MG TABLET PO SCH (06:02)
--- NOTE | 2023-02-05 06:23 | Progress Note ---
Subjective Date Seen by a Provider: Feb 05, 2023 Time Seen by a Provider: 11:00 Subjective/Events-last exam Patient doing a lot better No more agitation Right arm is much improved at bedside Labs stable Review of Systems General: Fatigue, Malaise Focused Exam Lactate Level 02/02/23 09:25: Lactic Acid Level 1.62 Objective Exam Last Set of Vital Signs Vital Signs Date Time Temp Pulse Resp B/P (MAP) Pulse Ox O2 Delivery O2 Flow Rate FiO2 02/04/23 23:56 36.6 66 18 132/69 (90) 93 Room Air 0.00 0.00 Capillary Refill : Less Than 3 Seconds I&O Intake and Output 02/05/23 00:00 Intake Total 1670 ml Balance 1670 ml Intake Oral 1470 ml IV Total 200 ml # Voids 8 General: Alert, Cooperative, No Acute Distress, Other (Subtle confusion) Lungs: Clear to Auscultation Heart: Regular Rate Skin: Other ( much improved cellulitis of right arm) Results Lab Laboratory Tests 02/04/23 12:55: Vancomycin Level Trough 7.4L 02/05/23 05:10: White Blood Count 6.8, Red Blood Count 4.27L, Hemoglobin 13.2L, Hematocrit 40, Mean Corpuscular Volume 93, Mean Corpuscular Hemoglobin 31, Mean Corpuscular Hemoglobin Concent 33, Red Cell Distribution Width 12.8, Platelet Count 237, Mean Platelet Volume 10.3, Immature Granulocyte % (Auto) 0, Neutrophils (%) (Auto) 65, Lymphocytes (%) (Auto) 16, Monocytes (%) (Auto) 12, Eosinophils (%) (Auto) 6, Basophils (%) (Auto) 1, Neutrophils # (Auto) 4.4, Lymphocytes # (Auto) 1.1, Monocytes # (Auto) 0.8, Eosinophils # (Auto) 0.4H, Basophils # (Auto) 0.1, Immature Granulocyte # (Auto) 0.0, Sodium Level 138, Potassium Level 4.5, Chloride Level 106, Carbon Dioxide Level 23, Anion Gap 9, Blood Urea Nitrogen 16, Creatinine 0.79, Estimat Glomerular Filtration Rate 89, BUN/Creatinine Ratio 20, Glucose Level 104, Calcium Level 8.8, Corrected Calcium 9.3, Total Bilirubin 0.6, Aspartate Amino Transf (AST/SGOT) 19, Alanine Aminotransferase (ALT/SGPT) < 6, Alkaline Phosphatase 56, Total Protein 5.6L, Albumin 3.4 Microbiology 02/02/23 Blood Culture - Preliminary, Resulted Assessment/Plan Assessment/Plan Assess & Plan/Chief Complaint Assessment: Fall sustaining right rib fractures 8,9,10 Severe weakness Sepsis from right arm cellulitis failed 3 rounds of PO abx Metabolic encephalopathy Now much improved Severe Parkinson's s/p DBS managed at [facility] Plan: IV abx HLIVF PT OT Home meds ANSHU LEMUS DO Feb 05, 2023 06:23
[2023-02-05 07:32] VITALS: BP 161/79
[2023-02-05] MEDS: GALANTAMINE 24 MG PO SCH ×2 (07:37→14:00)
[2023-02-05] MEDS: TADALAFIL 5 MG PO SCH ×2 (07:38→14:00)
[2023-02-05] MEDS: FLUTICASONE NASAL SPRAY (120 SPRAYS) NS SCH (07:39)
[2023-02-05] MEDS: AMPHETAMINE SALTS 20 MG PO SCH ×2 (07:39→12:47)
[2023-02-05] MEDS: POTASSIUM CHLORIDE 20 MEQ TABLET PO SCH ×2 (07:41→18:09)
[2023-02-05] MEDS: PROPRANOLOL EXTENDED RELEASE 80 MG CAPSULE PO SCH (07:41)
[2023-02-05] MEDS: SENNOSIDES 8.6 MG TABLET PO SCH ×2 (07:42→19:36)
[2023-02-05] MEDS: CITALOPRAM 20 MG TABLET PO SCH (07:42)
[2023-02-05] MEDS: buPROPion SR 150 MG TABLET PO SCH ×2 (07:42→19:33)
[2023-02-05] MEDS: MAGNESIUM OXIDE 400 MG TABLET PO SCH ×2 (07:43→18:09)
[2023-02-05] MEDS: GABAPENTIN 400 MG CAPSULE PO SCH ×2 (07:43→19:33)
[2023-02-05] MEDS: amLODIPine 10 MG TABLET PO SCH (07:43)
[2023-02-05] MEDS: CARBIDOPA/LEVODOPA 25/100 TABLET PO SCH ×3 (07:43→19:34)
[2023-02-05] MEDS: DOCUSATE SODIUM 100 MG CAPSULE PO SCH ×2 (07:43→19:35)
[2023-02-05] MEDS: RT-ALBUTEROL SULF 2.5 MG/3 ML PRE-MIX VIAL INH SCH ×3 (07:45→21:57)
--- NOTE | 2023-02-05 10:24 | Physical Therapy Daily Note ---
PT Daily Note-Current Subjective Pt is in the chair on arrival. Agreeable to treatment. is present and assists with setup for gait. Pain Section J - Health Conditions 1. Rarely or not at all 2. Occasionally 3. Frequently 4. Almost constantly 8. Unable to answer Pain Effect on Sleep: 2 Pain Interference with Therapy: 2 Pain Interference w/Day-to-Day: 2 Mental Status Patient Orientation: Person, Confused, Place Transfers SCALE: Activities may be completed with or without assistive devices. 9-Uiuweujfda-aqlrjrb completes the activity by him/herself with no assistance fr om a helper. 5-Set-up or Clean-up Assistance-helper sets up or cleans up; patient completes activity. [place] assists only prior to or following the activity. 4-Supervision or Touching Assistance-helper provides verbal cues and/or touching/steadying and/or contact guard assistance as patient completes activity. Assistance may be provided throughout the activity or intermittently. 3-Partial/Moderate Assistance-helper does LESS THAN HALF the effort. [place] lifts, holds or supports trunk or limbs, but provides less than half the effort. 2-Substantial/Maximal Assistance-helper does MORE THAN HALF the effort. [place] lifts or holds trunk or limbs and provides more than half the effort. 2-Subbxletv-jzpfsm does ALL the effort. Patient does none of the effort to complete the activity. Or, the assistance of 2 or more helpers is required for the patient to complete the activity. If activity was not attempted, code reason: 7-Patient Refused. 9-Not Applicable-not attempted and the patient did not perform the activity before the current illness, exacerbation or injury. 10-Not Attempted due to Environmental Limitations-(lack of equipment, weather restraints, etc.). 88-Not Attempted due to Medical Conditions or Safety Concerns. Sit to Stand (QC): 5 Weight Bearing Right Lower Extremity: Right Full Weight Bearing Left Lower Extremity: Left Full Weight Bearing Gait Training Does the Patient Walk?: Yes Distance: 250ft Gait Persons Needed: 1 Gait Assistive Device: FWW Pt leans (R) 30-35 degrees during gait. Able to cue to correct, but pt resumes the side bent posture quickly. 3 bouts of festination today, with pt needing verbal and tactile cues to correct. Exercises Seated Therapy Exercises: LE Protocol Seated Reps: 20 Assessment Current Status: Good Progress Pt was quick to rise from sitting, but is generally unstable when standing. Pt required constant cueing to maintain upright posture during gait. PT Vice President Goals Vice President Goals PT Senior Living Goals Time Frame: Feb 10, 2023 Roll Left & Right (QC): 6 Sit to Lying (QC): 6 Lying-Sitting on Side/Bed(QC): 6 Sit to Stand (QC): 6 Chair/Pwr-xo-Aujtr Xfer(QC): 6 Toilet Transfer (QC): 6 Does the Patient Walk: Yes Walk 10 feet (QC): 6 Walk 50ft with 2 Turns (QC): 6 Walk 150 ft (QC): 6 PT Plan Treatment/Plan Treatment Plan: Continue Plan of Care Treatment Plan: Bed Mobility, Education, Functional Activity Jeanmarie, Functional Strength, Group Therapy, Gait, Safety, Therapeutic Exercise, Transfers Treatment Duration: Mar 12, 2023 Frequency: 5 times per week Estimated Hrs Per Day: .25 hour per day Time Time In: 0950 Time Out: 1005 DATE: Feb 05, 2023 Total Billed Treatment Time: 15 Total Billed Treatment 1, gt 15 DONIS RAMOS PT Feb 05, 2023 10:24
[2023-02-05] MEDS: ENOXAPARIN 40 MG/0.4 ML SYRINGE SC SCH (12:46)
[2023-02-05] MEDS ORDERED: TROUGH ORDER-PHARMACY XX NR (13:00)
[2023-02-05] MEDS: VANCOMYCIN 1 GM/NS 250 ML IVPB IV SCH ×2 (13:51)
[2023-02-05] MEDS: diphenhydrAMINE 25 MG TABLET PO PRN (13:51)
[2023-02-05] MEDS: LOPERAMIDE 2 MG CAPSULE PO SCH (13:52)
[2023-02-05 16:43] VITALS: BP 130/77
[2023-02-05] MEDS: ASPIRIN enteric coated 81MG TABLET PO SCH (19:33)
[2023-02-05] MEDS: [UNRECOGNIZED DRUG - OTHER] PO SCH (19:36)
[2023-02-05] MEDS: VITAMIN D3 125 MCG (5,000 UNITS) TABLET PO SCH (19:37)
[2023-02-05] MEDS: MELATONIN 3 MG TABLET PO PRN (21:32)
[2023-02-05] MEDS: oxyCODONE IMMEDIATE RELEASE 5 MG TABLET PO PRN (21:33)
[2023-02-05 23:33] VITALS: BP 122/71
[2023-02-06] MEDS: diphenhydrAMINE 25 MG TABLET PO PRN (00:01)
[2023-02-06] MEDS: MEROPENEM INJECTION 500 MG in NS (IVPB) 100 ML 100 ML IV SCH ×4 (01:31→18:33)
[2023-02-06] MEDS: VANCOMYCIN 750 MG/NS 250 ML IVPB IV SCH ×4 (01:31→15:48)
[2023-02-06 05:31] LABS: BASOPHILS # (AUTO) 0.1 10^3/uL (0.0-0.1); BASOPHILS % (AUTO) 1 % (0-10); EOSINOPHILS # (AUTO) 0.3 10^3/uL (0.0-0.3); EOSINOPHILS % (AUTO) 5 % (0-10); HEMATOCRIT 39 % (40-54); LYMPHOCYTES # (AUTO) 1.2 10^3/uL (1.0-4.0); LYMPHOCYTES % (AUTO) 19 % (12-44); MEAN CORPUSCULAR HEMOGLOBIN 31 pg (25-34); MEAN CORPUSCULAR HGB CONC 33 g/dL (32-36); MEAN CORPUSCULAR VOLUME 94 fL (80-99); MONOCYTES # (AUTO) 0.7 10^3/uL (0.0-1.0); MONOCYTES % (AUTO) 12 % (0-12); NEUTROPHILS # (AUTO) 3.8 10^3/uL (1.8-7.8); NEUTROPHILS % (AUTO) 63 % (42-75); PLATELET COUNT 216 10^3/uL (130-400); WHITE BLOOD COUNT 6.1 10^3/uL (4.3-11.0)
[2023-02-06] MEDS: PANTOPRAZOLE 40 MG TABLET PO SCH (05:44)
[2023-02-06 05:52] LABS: ALBUMIN 3.4 GM/DL (3.2-4.5); BILIRUBIN,TOTAL 0.5 MG/DL (0.1-1.0); CALCIUM 8.8 MG/DL (8.5-10.1); CREATININE SERUM 0.78 MG/DL (0.60-1.30); POTASSIUM 4.5 MMOL/L (3.6-5.0); TOTAL PROTEIN 5.6 GM/DL (6.4-8.2)
--- NOTE | 2023-02-06 06:39 | Progress Note ---
Subjective Date Seen by a Provider: Feb 06, 2023 Time Seen by a Provider: 11:00 Subjective/Events-last exam Patient doing much better Sitting at the bedside is his grandson Will evaluate whether he meets criteria for inpatient rehab tomorrow Review of Systems General: Fatigue, Malaise Objective Exam Last Set of Vital Signs Vital Signs Date Time Temp Pulse Resp B/P (MAP) Pulse Ox O2 Delivery O2 Flow Rate FiO2 02/05/23 23:33 36.6 57 18 122/71 (88) 94 Room Air 0.00 0.00 Capillary Refill : Less Than 3 Seconds I&O Intake and Output 02/06/23 00:00 Intake Total 1790 ml Balance 1790 ml Intake Oral 1790 ml # Urine Diapers 5 # Bowel Movements 2 General: Alert, Oriented X3, Cooperative, No Acute Distress Lungs: Clear to Auscultation, Normal Air Movement Heart: Regular Rate, Normal S1, Normal S2, No Murmurs Psych/Mental Status: Mental Status NL, Mood NL Results Lab Laboratory Tests 02/05/23 12:50: Vancomycin Level Trough 7.8L 02/06/23 05:23: White Blood Count 6.1, Red Blood Count 4.16L, Hemoglobin 13.0L, Hematocrit 39L, Mean Corpuscular Volume 94, Mean Corpuscular Hemoglobin 31, Mean Corpuscular Hemoglobin Concent 33, Red Cell Distribution Width 13.0, Platelet Count 216, Mean Platelet Volume 10.0, Immature Granulocyte % (Auto) 0, Neutrophils (%) (Auto) 63, Lymphocytes (%) (Auto) 19, Monocytes (%) (Auto) 12, Eosinophils (%) (Auto) 5, Basophils (%) (Auto) 1, Neutrophils # (Auto) 3.8, Lymphocytes # (Auto) 1.2, Monocytes # (Auto) 0.7, Eosinophils # (Auto) 0.3, Basophils # (Auto) 0.1, Immature Granulocyte # (Auto) 0.0, Sodium Level 139, Potassium Level 4.5, Chloride Level 106, Carbon Dioxide Level 24, Anion Gap 9, Blood Urea Nitrogen 20H, Creatinine 0.78, Estimat Glomerular Filtration Rate 89, BUN/Creatinine Ratio 26, Glucose Level 99, Calcium Level 8.8, Corrected Calcium 9.3, Total Bilirubin 0.5, Aspartate Amino Transf (AST/SGOT) 16, Alanine Aminotransferase (ALT/SGPT) 11, Alkaline Phosphatase 53, Total Protein 5.6L, Albumin 3.4 Microbiology 02/02/23 Blood Culture - Preliminary, Resulted Assessment/Plan Assessment/Plan Assess & Plan/Chief Complaint Assessment: Fall sustaining right rib fractures 8,9,10 Severe weakness Sepsis from right arm cellulitis failed 3 rounds of PO abx Metabolic encephalopathy Now much improved Severe Parkinson's s/p DBS managed at [facility] Plan: IV abx HLIVF PT OT Home meds ANSHU LEMUS DO Feb 06, 2023 06:39
[2023-02-06 07:24] VITALS: BP 122/71
[2023-02-06] MEDS: RT-ALBUTEROL SULF 2.5 MG/3 ML PRE-MIX VIAL INH SCH (07:24)
[2023-02-06] MEDS: POTASSIUM CHLORIDE 20 MEQ TABLET PO SCH ×2 (08:13→18:33)
[2023-02-06] MEDS: LOPERAMIDE 2 MG CAPSULE PO SCH (08:13)
[2023-02-06] MEDS: amLODIPine 10 MG TABLET PO SCH (08:13)
[2023-02-06] MEDS: MAGNESIUM OXIDE 400 MG TABLET PO SCH ×2 (08:13→18:33)
[2023-02-06] MEDS: buPROPion SR 150 MG TABLET PO SCH ×2 (08:13→20:02)
[2023-02-06] MEDS: CARBIDOPA/LEVODOPA 25/100 TABLET PO SCH ×3 (08:14→20:03)
[2023-02-06] MEDS: CITALOPRAM 20 MG TABLET PO SCH (08:14)
[2023-02-06] MEDS: GABAPENTIN 400 MG CAPSULE PO SCH ×2 (08:14→20:02)
[2023-02-06] MEDS: PROPRANOLOL EXTENDED RELEASE 80 MG CAPSULE PO SCH (08:14)
[2023-02-06] MEDS: GALANTAMINE 24 MG PO SCH (08:16)
[2023-02-06] MEDS: FLUTICASONE NASAL SPRAY (120 SPRAYS) NS SCH (08:16)
[2023-02-06] MEDS: TADALAFIL 5 MG PO SCH (08:16)
[2023-02-06] MEDS: AMPHETAMINE SALTS 20 MG PO SCH ×2 (08:17→12:10)
[2023-02-06] MEDS: SENNOSIDES 8.6 MG TABLET PO SCH ×2 (08:18→22:39)
[2023-02-06] MEDS: DOCUSATE SODIUM 100 MG CAPSULE PO SCH ×2 (08:18→22:39)
[2023-02-06 08:21] VITALS: BP 138/74
[2023-02-06] MEDS: ENOXAPARIN 40 MG/0.4 ML SYRINGE SC SCH (12:14)
[2023-02-06] MEDS: oxyCODONE IMMEDIATE RELEASE 5 MG TABLET PO PRN (15:33)
[2023-02-06 16:14] VITALS: BP 118/64
[2023-02-06] MEDS: MELATONIN 3 MG TABLET PO PRN (20:02)
[2023-02-06] MEDS: VITAMIN D3 125 MCG (5,000 UNITS) TABLET PO SCH (20:02)
[2023-02-06] MEDS: ASPIRIN enteric coated 81MG TABLET PO SCH (20:02)
[2023-02-06] MEDS: [UNRECOGNIZED DRUG - OTHER] PO SCH (20:04)
[2023-02-06] MEDS: RT-Ipratropium/Albuterol NEB 3 ML VIAL INH SCH (22:04)
[2023-02-07 00:49] VITALS: BP 124/64
[2023-02-07] MEDS: MEROPENEM INJECTION 500 MG in NS (IVPB) 100 ML 100 ML IV SCH ×2 (00:53→06:18)
[2023-02-07] MEDS: oxyCODONE IMMEDIATE RELEASE 5 MG TABLET PO PRN (01:19)
[2023-02-07] MEDS: diphenhydrAMINE 25 MG TABLET PO PRN (01:39)
[2023-02-07] MEDS: VANCOMYCIN 750 MG/NS 250 ML IVPB IV SCH ×2 (03:03)
[2023-02-07 06:13] LABS: BASOPHILS # (AUTO) 0.1 10^3/uL (0.0-0.1); BASOPHILS % (AUTO) 1 % (0-10); EOSINOPHILS # (AUTO) 0.4 10^3/uL (0.0-0.3); EOSINOPHILS % (AUTO) 6 % (0-10); HEMATOCRIT 40 % (40-54); HEMOGLOBIN 13.3 g/dL (13.3-17.7); LYMPHOCYTES # (AUTO) 1.2 10^3/uL (1.0-4.0); LYMPHOCYTES % (AUTO) 18 % (12-44); MEAN CORPUSCULAR HEMOGLOBIN 31 pg (25-34); MEAN CORPUSCULAR HGB CONC 33 g/dL (32-36); MEAN CORPUSCULAR VOLUME 93 fL (80-99); MEAN PLATELET VOLUME 9.6 fL (9.0-12.2); MONOCYTES # (AUTO) 0.8 10^3/uL (0.0-1.0); MONOCYTES % (AUTO) 12 % (0-12); NEUTROPHILS # (AUTO) 4.1 10^3/uL (1.8-7.8); NEUTROPHILS % (AUTO) 63 % (42-75); PLATELET COUNT 232 10^3/uL (130-400); WHITE BLOOD COUNT 6.5 10^3/uL (4.3-11.0)
[2023-02-07] MEDS: PANTOPRAZOLE 40 MG TABLET PO SCH (06:16)
[2023-02-07 06:34] LABS: ALBUMIN 3.3 GM/DL (3.2-4.5); BILIRUBIN,TOTAL 0.5 MG/DL (0.1-1.0); CREATININE SERUM 0.8 MG/DL (0.60-1.30); POTASSIUM 4.7 MMOL/L (3.6-5.0); TOTAL PROTEIN 5.5 GM/DL (6.4-8.2)
--- NOTE | 2023-02-07 07:08 | Progress Note ---
Subjective Date Seen by a Provider: Feb 07, 2023 Time Seen by a Provider: 09:00 Objective Exam Last Set of Vital Signs Vital Signs Date Time Temp Pulse Resp B/P (MAP) Pulse Ox O2 Delivery O2 Flow Rate FiO2 02/07/23 00:49 36.0 54 18 124/64 (84) 94 Room Air 02/06/23 07:24 21 02/05/23 23:33 0.00 0.00 Capillary Refill : Less Than 3 Seconds I&O Intake and Output 02/06/23 23:59 Intake Total 1570 ml Output Total 2000 ml Balance -430 ml Intake Oral 1220 ml IV Total 350 ml Output Urine Total 2000 ml # Voids 8 # Urine Diapers 2 # Bowel Movements 6 Results Lab Laboratory Tests 02/07/23 06:06: White Blood Count 6.5, Red Blood Count 4.28L, Hemoglobin 13.3, Hematocrit 40, Mean Corpuscular Volume 93, Mean Corpuscular Hemoglobin 31, Mean Corpuscular Hemoglobin Concent 33, Red Cell Distribution Width 12.9, Platelet Count 232, Mean Platelet Volume 9.6, Immature Granulocyte % (Auto) 0, Neutrophils (%) (Auto) 63, Lymphocytes (%) (Auto) 18, Monocytes (%) (Auto) 12, Eosinophils (%) (Auto) 6, Basophils (%) (Auto) 1, Neutrophils # (Auto) 4.1, Lymphocytes # (Auto) 1.2, Monocytes # (Auto) 0.8, Eosinophils # (Auto) 0.4H, Basophils # (Auto) 0.1, Immature Granulocyte # (Auto) 0.0, Sodium Level 139, Potassium Level 4.7, Chloride Level 106, Carbon Dioxide Level 25, Anion Gap 8, Blood Urea Nitrogen 16, Creatinine 0.80, Estimat Glomerular Filtration Rate 88, BUN/Creatinine Ratio 20, Glucose Level 94, Calcium Level 9.0, Corrected Calcium 9.6, Total Bilirubin 0.5, Aspartate Amino Transf (AST/SGOT) 21, Alanine Aminotransferase (ALT/SGPT) 11, Alkaline Phosphatase 49, Total Protein 5.5L, Albumin 3.3 Microbiology 02/02/23 Blood Culture - Preliminary, Resulted Assessment/Plan Assessment/Plan Assess & Plan/Chief Complaint Assessment: Fall sustaining right rib fractures 8,9,10 Severe weakness Sepsis from right arm cellulitis failed 3 rounds of PO abx Metabolic encephalopathy Now much improved Severe Parkinson's s/p DBS managed at [facility] Plan: IV abx HLIVF PT OT Home meds ANSHU LEMUS DO Feb 07, 2023 07:08
[2023-02-07 07:36] VITALS: BP 157/78
[2023-02-07] MEDS: DOCUSATE SODIUM 100 MG CAPSULE PO SCH (08:26)
[2023-02-07] MEDS: SENNOSIDES 8.6 MG TABLET PO SCH (08:26)
[2023-02-07] MEDS: CITALOPRAM 20 MG TABLET PO SCH (08:35)
[2023-02-07] MEDS: GABAPENTIN 400 MG CAPSULE PO SCH (08:35)
[2023-02-07] MEDS: POTASSIUM CHLORIDE 20 MEQ TABLET PO SCH (08:35)
[2023-02-07] MEDS: PROPRANOLOL EXTENDED RELEASE 80 MG CAPSULE PO SCH (08:35)
[2023-02-07] MEDS: buPROPion SR 150 MG TABLET PO SCH (08:36)
[2023-02-07] MEDS: CARBIDOPA/LEVODOPA 25/100 TABLET PO SCH (08:36)
[2023-02-07] MEDS: MAGNESIUM OXIDE 400 MG TABLET PO SCH (08:36)
[2023-02-07] MEDS: amLODIPine 10 MG TABLET PO SCH (08:36)
[2023-02-07] MEDS: LOPERAMIDE 2 MG CAPSULE PO SCH (08:36)
[2023-02-07] MEDS: TADALAFIL 5 MG PO SCH (08:37)
[2023-02-07] MEDS: GALANTAMINE 24 MG PO SCH (08:37)
[2023-02-07] MEDS: FLUTICASONE NASAL SPRAY (120 SPRAYS) NS SCH (08:38)
[2023-02-07] MEDS: AMPHETAMINE SALTS 20 MG PO SCH ×2 (08:39→12:05)
--- NOTE | 2023-02-07 09:48 | Physical Therapy Daily Note ---
PT Daily Note-Current Subjective Patient agrees to therapy. Spouse present. Pain Section J - Health Conditions 1. Rarely or not at all 2. Occasionally 3. Frequently 4. Almost constantly 8. Unable to answer Pain Effect on Sleep: 1 Pain Interference with Therapy: 1 Pain Interference w/Day-to-Day: 1 Mental Status Patient Orientation: Person, Place, Time, Situation Transfers SCALE: Activities may be completed with or without assistive devices. 1-Tjxiuzbdot-ifugofv completes the activity by him/herself with no assistance from a helper. 5-Set-up or Clean-up Assistance-helper sets up or cleans up; patient completes activity. [place] assists only prior to or following the activity. 4-Supervision or Touching Assistance-helper provides verbal cues and/or touching/steadying and/or contact guard assistance as patient completes act ivity. Assistance may be provided throughout the activity or intermittently. 3-Partial/Moderate Assistance-helper does LESS THAN HALF the effort. [place] lifts, holds or supports trunk or limbs, but provides less than half the effort. 2-Substantial/Maximal Assistance-helper does MORE THAN HALF the effort. [place] lifts or holds trunk or limbs and provides more than half the effort. 0-Qjybpsdyd-xwxglx does ALL the effort. Patient does none of the effort to complete the activity. Or, the assistance of 2 or more helpers is required for the patient to complete the activity. If activity was not attempted, code reason: 7-Patient Refused. 9-Not Applicable-not attempted and the patient did not perform the activity before the current illness, exacerbation or injury. 10-Not Attempted due to Environmental Limitations-(lack of equipment, weather restraints, etc.). 88-Not Attempted due to Medical Conditions or Safety Concerns. Sit to Stand (QC): 4 Weight Bearing Right Lower Extremity: Right Full Weight Bearing Left Lower Extremity: Left Full Weight Bearing Gait Training Distance: 325' Walk 10 feet (QC): 4 Walk 50 ft with 2 Turns(QC): 4 Walk 150 ft (QC): 4 Gait Assistive Device: Walker 4 Wheeled festinating gait due to Parkinson's Assessment Patient remains up in recliner with needs met. VC's for deep and speed of gait. Patient able to slow deep with VC's. PT Halfway Goals Facilities And Grounds Director Goals PT Facilities And Grounds Director Goals Time Frame: Feb 10, 2023 Roll Left & Right (QC): 6 Sit to Lying (QC): 6 Lying-Sitting on Side/Bed(QC): 6 Sit to Stand (QC): 6 Chair/Ymc-mc-[place] Xfer(QC): 6 Toilet Transfer (QC): 6 Does the Patient Walk: Yes Walk 10 feet (QC): 6 Walk 50ft with 2 Turns (QC): 6 Walk 150 ft (QC): 6 PT Plan Treatment/Plan Treatment Plan: Continue Plan of Care Treatment Plan: Bed Mobility, Education, Functional Activity Jeanmarie, Functional Strength, Group Therapy, Gait, Safety, Therapeutic Exercise, Transfers Treatment Duration: Mar 12, 2023 Frequency: 5 times per week Estimated Hrs Per Day: .25 hour per day Time Time In: 910 Time Out: 926 DATE: Feb 07, 2023 Total Billed Treatment Time: 16 Total Billed Treatment 1 visit FA 16 min TAYLOR LOPEZ PT Feb 07, 2023 09:48
[2023-02-07] MEDS: RT-Ipratropium/Albuterol NEB 3 ML VIAL INH SCH (10:00)
--- NOTE | 2023-02-07 10:12 | Occupational Ther Daily Note ---
OT Current Status-Daily Note Subjective Agreeable to OT today Mental Status/Objective Patient Orientation: Person, Place, Time, Situation ADL-Treatment Pulls on socks while sitting in recliner w/ BLE elevated Therapy Code Descriptions/Definitions Functional [place] Measure: 0=Not Assessed/NA 4=Minimal Assistance 1=Total Assistance 5=Supervision or Setup 2=Maximal Assistance 6=Modified [place] 3=Moderate Assistance 7=Complete IndependenceSCALE: Activities may be completed with or without assistive devices. 9-Pcthiytlfj-mvdafkj completes the activity by him/herself with no assistance from a helper. 5-Set-up or Clean-up Assistance-helper sets up or cleans up; patient completes activity. [place] assists only prior to or following the activity. 4-Supervision or Touching Assistance-helper provides verbal cues and/or touching/steadying and/or contact guard assistance as patient completes activity. Assistance may be provided throughout the activity or intermittently. 3-Partial/Moderate Assistance-helper does LESS THAN HALF the effort. [place] lifts, holds or supports trunk or limbs, but provides less than half the effort. 2-Substantial/Maximal Assistance-helper does MORE THAN HALF the effort. [place] lifts or holds trunk or limbs and provides more than half the effort. 1-Wkzpscogr-gprqha does ALL the effort. Patient does none of the effort to complete the activity. Or, the assistance of 2 or more helpers is required for the patient to complete the activity. If activity was not attempted, code reason: 7-Patient Refused. 9-Not Applicable-not attempted and the patient did not perform the activity before the current illness, exacerbation or injury. 10-Not Attempted due to Environmental Limitations-(lack of equipment, weather restraints, etc.). 88-Not Attempted due to Medical Conditions or Safety Concerns. Eating (QC): 6 Oral Hygiene (QC): 5 Upper Body Dressing (QC): 3 Lower Body Dressing (QC): 3 Toileting Hygiene (QC): 7 Toilet Transfer (QC): 4 PD tremors and rigidity Education OT Patient Education: Correct positioning, Exercise program, Modified ADL techniques, Progress toward Goal/Update tx plan, Purpose of tx/functional activities, Reviewed precautions, Rehab process, Safety issues, Transfer techniques, Use of adapted equipment Teaching Recipient: Patient, Family Response to Teaching: Verbalize Understanding, Reinforcement Needed OT [employer] Goals [employer] Goals Eating (QC): 5 Oral Hygiene (QC): 5 Toileting Hygiene (QC): 4 Shower/Bathe Self (QC): 4 Upper Body Dressing (QC): 4 Lower Body Dressing (QC): 4 On/Off Footwear (QC): 3 1=Demonstrate adherence to instructed precautions during ADL tasks. 2=Patient will verbalize/demonstrate understanding of assistive devices/modifications for ADL. 3=Patient will improve strength/tolerance for activity to enable patient to perform ADL's. OT Education/Plan Problem List/Assessment Assessment: Decreased Activ Tolerance, Decreased Safety Aware, Decreased UE Strength, Impaired Bed Mobility, Impaired Coordination, Impaired Funct Balance, Impaired Self-Care Skills Discharge Recommendations Plan/Recommendations: Continue POC Treatment Plan/Plan of Care Treatment,Training & Education: Yes Patient would benefit from OT for education, treatment and training to promote independence in ADL's, mobility, safety and/or upper extremity function for ADL's. Plan of Care: ADL Retraining, Concurrent Therapy, Functional Mobility, Group Exercise/Act as Ind, UE Funct Exercise/Act, UE Neuromus Re-Ed/Coord Treatment Duration: Feb 07, 2023 Frequency: 3 times per week (3-5 times per week) Rehab Potential: Fair Time Start Time: 09:10 Stop Time: 09:25 DATE: Feb 07, 2023 Total Time Billed (hr/min): 15 Billed Treatment Time ADL 15 min KENIA RAMIRES OT Feb 07, 2023 10:12
[2023-02-07] MEDS ORDERED: OXC5T PO (10:41)
--- NOTE | 2023-02-07 10:42 | D/C HH Face to Face Order ---
D/C Face to Face Orders Reconcile Patient Problems Problems Reviewed?: Yes Instructions for Patient Via [facility], Patient Instructions/FollowUp: PCP 1 week Physician to follow Patient: PCP Discharge Diet for Home: No Restrictions Patient Problems: Parkinson's Patient Data-Allergies,Ht & Wt Patient Allergies: Coded Allergies: No Known Drug Allergies (Verified , 03/22/18) Height (Feet): 5 Height (Inches): 7.00 Weight (Pounds): 214 Weight (Ounces): 9.0 Home Health Need/Face to Face Date of Face to Face: Feb 07, 2023 Clinical Findings: Generalized weakness and fatigue, Instability, Muscle weakness I have seen Pt rlnv-[id number]: Yes Discharged To: Home Diagnosis/Conditions: PD Patient is Homebound due to: CognItive deficits, [place] fall risk due to instabilty, Muscle weakness Homebound Status Due to the above stated illness, injury or surgical procedure (medical condition or diagnosis) and associated clinical findings, the patient is homebound because of his/her inability to leave home except with aid of a supportive device and/or person AND leaving the home requires a considerable and taxing effort or is medically contraindicated. Pt req the following assistanc: Walker Home Health Nursing Orders Home Health Services Order: Nursing Services, Play Leader-Evaluate & Treat, Physical Therapy-Evaluate & Treat Home Health Infusion Therapy Line Start Date: Feb 02, 2023 Certify Stmt I certify that this patient is under my care and that I, a nurse practitioner or a physician; a nursing assistant working with me, had a face to face encounter that - meets the physician face to face encounter requirements with this patient as dated. ANSHU LEMUS DO Feb 07, 2023 10:42
--- NOTE | 2023-02-07 10:43 | Discharge Summary ---
Diagnosis/Chief Complaint Date of Admission Feb 02, 2023 at 12:45 Date of Discharge Discharge Date: Feb 07, 2023 Discharge Diagnosis Assessment: Fall sustaining right rib fractures 8,9,10 Severe weakness Sepsis from right arm cellulitis failed 3 rounds of PO abx Metabolic encephalopathy Now much improved Severe Parkinson's s/p DBS managed at [facility] Discharge Summary Discharge Physical Examination Allergies: Coded Allergies: No Known Drug Allergies (Verified , 03/22/18) Vitals & I&Os Vital Signs Date Time Temp Pulse Resp B/P (MAP) Pulse Ox O2 Delivery O2 Flow Rate FiO2 02/07/23 12:20 36.9 62 18 157/78 95 Room Air 0.00 02/06/23 07:24 21 General Appearance: Alert, Cooperative Respiratory: Clear to Auscultation Cardiovascular: Regular Rate Hospital Course Was the Problem List Reviewed?: Yes Hospital course was uneventful after he was admitted and placed on meropenem and vancomycin for the right arm cellulitis failed 3 rounds of antibiotics with good resolution. Delirium did occur requiring Haldol and Ativan but that cleared but cognition did not return back to baseline. He was able to walk with physical therapy and regain most of his baseline strength and he was discharged in improved condition and completed antibiotics as outlined in the hospital Labs (last 24 hrs) Laboratory Tests 02/02/23 08:50: White Blood Count 12.6H, Red Blood Count 4.86, Hemoglobin 15.2, Hematocrit 46, Mean Corpuscular Volume 94, Mean Corpuscular Hemoglobin 31, Mean Corpuscular Hemoglobin Concent 33, Red Cell Distribution Width 12.8, Platelet Count 296, Mean Platelet Volume 9.9, Immature Granulocyte % (Auto) 1, Neutrophils (%) (Auto) 85H, Lymphocytes (%) (Auto) 4L, Monocytes (%) (Auto) 7, Eosinophils (%) (Auto) 2, Basophils (%) (Auto) 1, Neutrophils # (Auto) 10.8H, Lymphocytes # (Auto) 0.6L, Monocytes # (Auto) 0.9, Eosinophils # (Auto) 0.3, Basophils # (Auto) 0.1, Immature Granulocyte # (Auto) 0.1, Neutrophils % (Manual) 85, Lymphocytes % (Manual) 3, Monocytes % (Manual) 10, Eosinophils % (Manual) 2, Blood Morphology Comment NORMAL, Prothrombin Time 14.5, INR Comment 1.1, Activated Partial Thromboplast Time 28, Sodium Level 136, Potassium Level 4.4, Chloride Level 101, Carbon Dioxide Level 28, Anion Gap 7, Blood Urea Nitrogen 22H, Creatinine 0.98, Estimat Glomerular Filtration Rate 77, BUN/Creatinine Ratio 22, Glucose Level 112H, Calcium Level 9.3, Corrected Calcium 9.1, Total Bilirubin 0.6, Aspartate Amino Transf (AST/SGOT) 17, Alanine Aminotransferase (ALT/SGPT) < 6, Alkaline Phosphatase 68, C-Reactive Protein High Sensitivity 0.21, Total Protein 7.1, Albumin 4.3 02/02/23 09:25: Lactic Acid Level 1.62 02/02/23 11:00: Urine Color YELLOW, Urine Clarity CLEAR, Urine pH 6.5, Urine Specific [place] 1.010L, Urine Protein NEGATIVE, Urine Glucose (UA) NEGATIVE, Urine Ketones NEGATIVE, Urine Nitrite NEGATIVE, Urine Bilirubin NEGATIVE, Urine Urobilinogen 0.2, Urine Leukocyte Esterase NEGATIVE, Urine RBC (Auto) NEGATIVE, Urine RBC NONE, Urine WBC NONE, Urine Crystals NONE, Urine Bacteria NEGATIVE, Urine Casts NONE, Urine Mucus NEGATIVE, Urine Culture Indicated NO 02/03/23 05:05: White Blood Count 6.3, Red Blood Count 4.28L, Hemoglobin 13.3, Hematocrit 40, Mean Corpuscular Volume 92, Mean Corpuscular Hemoglobin 31, Mean Corpuscular Hemoglobin Concent 34, Red Cell Distribution Width 12.7, Platelet Count 214, Mean Platelet Volume 10.3, Immature Granulocyte % (Auto) 1, Neutrophils (%) ( Auto) 66, Lymphocytes (%) (Auto) 15, Monocytes (%) (Auto) 12, Eosinophils (%) (Auto) 6, Basophils (%) (Auto) 1, Neutrophils # (Auto) 4.2, Lymphocytes # (Auto) 0.9L, Monocytes # (Auto) 0.7, Eosinophils # (Auto) 0.4H, Basophils # (Auto) 0.1, Immature Granulocyte # (Auto) 0.0, Sodium Level 134L, Potassium Level 3.9, Chloride Level 102, Carbon Dioxide Level 22, Anion Gap 10, Blood Urea Nitrogen 15, Creatinine 0.84, Estimat Glomerular Filtration Rate 87, BUN/Creatinine Ratio 18, Glucose Level 85, Calcium Level 8.6, Corrected Calcium 9.2, Total Bilirubin 0.7, Aspartate Amino Transf (AST/SGOT) 21, Alanine Aminotransferase (ALT/SGPT) 6, Alkaline Phosphatase 54, Total Protein 5.6L, Albumin 3.3 02/04/23 05:20: White Blood Count 6.8, Red Blood Count 4.23L, Hemoglobin 13.1L, Hematocrit 40, Mean Corpuscular Volume 93, Mean Corpuscular Hemoglobin 31, Mean Corpuscular Hemoglobin Concent 33, Red Cell Distribution Width 13.0, Platelet Count 220, Mean Platelet Volume 10.0, Immature Granulocyte % (Auto) 0, Neutrophils (%) (Auto) 71, Lymphocytes (%) (Auto) 11L, Monocytes (%) (Auto) 11, Eosinophils (%) (Auto) 5, Basophils (%) (Auto) 1, Neutrophils # (Auto) 4.9, Lymphocytes # (Auto) 0.8L, Monocytes # (Auto) 0.8, Eosinophils # (Auto) 0.3, Basophils # (Auto) 0.1, Immature Granulocyte # (Auto) 0.0, Sodium Level 138, Potassium Level 4.6, C hloride Level 108H, Carbon Dioxide Level 23, Anion Gap 7, Blood Urea Nitrogen 18, Creatinine 0.92, Estimat Glomerular Filtration Rate 83, BUN/Creatinine Ratio 20, Glucose Level 103, Calcium Level 8.6, Corrected Calcium 9.2, Total Bilirubin 0.5, Aspartate Amino Transf (AST/SGOT) 20, Alanine Aminotransferase (ALT/SGPT) 7, Alkaline Phosphatase 54, Total Protein 5.5L, Albumin 3.3 02/04/23 12:55: Vancomycin Level Trough 7.4L 02/05/23 05:10: White Blood Count 6.8, Red Blood Count 4.27L, Hemoglobin 13.2L, Hematocrit 40, Mean Corpuscular Volume 93, Mean Corpuscular Hemoglobin 31, Mean Corpuscular Hemoglobin Concent 33, Red Cell Distribution Width 12.8, Platelet Count 237, Mean Platelet Volume 10.3, Immature Granulocyte % (Auto) 0, Neutrophils (%) (Auto) 65, Lymphocytes (%) (Auto) 16, Monocytes (%) (Auto) 12, Eosinophils (%) (Auto) 6, Basophils (%) (Auto) 1, Neutrophils # (Auto) 4.4, Lymphocytes # (Auto) 1.1, Monocytes # (Auto) 0.8, Eosinophils # (Auto) 0.4H, Basophils # (Auto) 0.1, Immature Granulocyte # (Auto) 0.0, Sodium Level 138, Potassium Level 4.5, Chloride Level 106, Carbon Dioxide Level 23, Anion Gap 9, Blood Urea Nitrogen 16, Creatinine 0.79, Estimat Glomerular Filtration Rate 89, BUN/Creatinine Ratio 20, Glucose Level 104, Calcium Level 8.8, Corrected Calcium 9.3, Total Bilirubin 0.6, Aspartate Amino Transf (AST/SGOT) 19, Alanine Aminotransferase (ALT/SGPT) < 6, Alkaline Phosphatase 56, Total Protein 5.6L, Albumin 3.4 02/05/23 12:50: Vancomycin Level Trough 7.8L 02/06/23 05:23: White Blood Count 6.1, Red Blood Count 4.16L, Hemoglobin 13.0L, Hematocrit 39L, Mean Corpuscular Volume 94, Mean Corpuscular Hemoglobin 31, Mean Corpuscular Hemoglobin Concent 33, Red Cell Distribution Width 13.0, Platelet Count 216, Mean Platelet Volume 10.0, Immature Granulocyte % (Auto) 0, Neutrophils (%) (Auto) 63, Lymphocytes (%) (Auto) 19, Monocytes (%) (Auto) 12, Eosinophils (%) (Auto) 5, Basophils (%) (Auto) 1, Neutrophils # (Auto) 3.8, Lymphocytes # (Auto) 1.2, Monocytes # (Auto) 0.7, Eosinophils # (Auto) 0.3, Basophils # (Auto) 0.1, Immature Granulocyte # (Auto) 0.0, Sodium Level 139, Potassium Level 4.5, Chloride Level 106, Carbon Dioxide Level 24, Anion Gap 9, Blood Urea Nitrogen 20H, Creatinine 0.78, Estimat Glomerular Filtration Rate 89, BUN/Creatinine Ratio 26, Glucose Level 99, Calcium Level 8.8, Corrected Calcium 9.3, Total Bilirubin 0.5, Aspartate Amino Transf (AST/SGOT) 16, Alanine Aminotransferase (ALT/SGPT) 11, Alkaline Phosphatase 53, Total Protein 5.6L, Albumin 3.4 02/07/23 06:06: White Blood Count 6.5, Red Blood Count 4.28L, Hemoglobin 13.3, Hematocrit 40, Mean Corpuscular Volume 93, Mean Corpuscular Hemoglobin 31, Mean Corpuscular Hemoglobin Concent 33, Red Cell Distribution Width 12.9, Platelet Count 232, Mean Platelet Volume 9.6, Immature Granulocyte % (Auto) 0, Neutrophils (%) (Auto) 63, Lymphocytes (%) (Auto) 18, Monocytes (%) (Auto) 12, Eosinophils (%) (Auto) 6, Basophils (%) (Auto) 1, Neutrophils # (Auto) 4.1, Lymphocytes # (Auto) 1.2, Monocytes # (Auto) 0.8, Eosinophils # (Auto) 0.4H, Basophils # (Auto) 0.1, Immature Granulocyte # (Auto) 0.0, Sodium Level 139, Potassium Level 4.7, Chloride Level 106, Carbon Dioxide Level 25, Anion Gap 8, Blood Urea Nitrogen 16, Creatinine 0.80, Estimat Glomerular Filtration Rate 88, BUN/Creatinine Ratio 20, Glucose Level 94, Calcium Level 9.0, Corrected Calcium 9.6, Total Bilirubin 0.5, Aspartate Amino Transf (AST/SGOT) 21, Alanine Aminotransferase (ALT/SGPT) 11, Alkaline Phosphatase 49, Total Protein 5.5L, Albumin 3.3 Microbiology 02/02/23 Blood Culture - Final, Complete Pending Labs Microbiology Date/Time Source Procedure Growth Status 02/02/23 09:40 Peripheral Lt Hand Blood Culture - Final Complete 02/02/23 09:25 Peripheral Lt Ac Blood Culture - Final Complete Laboratory Tests 02/02/23 08:50: White Blood Count 12.6, Red Blood Count 4.86, Hemoglobin 15.2, Hematocrit 46, Mean Corpuscular Volume 94, Mean Corpuscular Hemoglobin 31, Mean Corpuscular Hemoglobin Concent 33, Red Cell Distribution Width 12.8, Platelet Count 296, Mean Platelet Volume 9.9, Immature Granulocyte % (Auto) 1, Neutrophils (%) (Auto) 85, Lymphocytes (%) (Auto) 4, Monocytes (%) (Auto) 7, Eosinophils (%) (Auto) 2, Basophils (%) (Auto) 1, Neutrophils # (Auto) 10.8, Lymphocytes # (Auto) 0.6, Monocytes # (Auto) 0.9, Eosinophils # (Auto) 0.3, Basophils # (Auto) 0.1, Immature Granulocyte # (Auto) 0.1, Neutrophils % (Manual) 85, Lymphocytes % (Manual) 3, Monocytes % (Manual) 10, Eosinophils % (Manual) 2, Blood Morphology Comment NORMAL, Prothrombin Time 14.5, INR Comment 1.1, Activated Partial Thromboplast Time 28, Sodium Level 136, Potassium Level 4.4, Chloride Level 101, Carbon Dioxide Level 28, Anion Gap 7, Blood Urea Nitrogen 22, Creatinine 0.98, Estimat Glomerular Filtration Rate 77, BUN/Creatinine Ratio 22, Glucose Level 112, Calcium Level 9.3, Corrected Calcium 9.1, Total Bilirubin 0.6, Aspartate Amino Transf (AST/SGOT) 17, Alanine Aminotransferase (ALT/SGPT) < 6, Alkaline Phosphatase 68, C-Reactive Protein High Sensitivity 0.21, Total Protein 7.1, Albumin 4.3 02/02/23 09:25: Lactic Acid Level 1.62 02/02/23 11:00: Urine Color YELLOW, Urine Clarity CLEAR, Urine pH 6.5, Urine Specific [place] 1.010, Urine Protein NEGATIVE, Urine Glucose (UA) NEGATIVE, Urine Ketones NEGATIVE, Urine Nitrite NEGATIVE, Urine Bilirubin NEGATIVE, Urine Urobilinogen 0.2, Urine Leukocyte Esterase NEGATIVE, Urine RBC (Auto) NEGATIVE, Urine RBC NONE, Urine WBC NONE, Urine Crystals NONE, Urine Bacteria NEGATIVE, Urine Casts NONE, Urine Mucus NEGATIVE, Urine Culture Indicated NO 02/03/23 05:05: White Blood Count 6.3, Red Blood Count 4.28, Hemoglobin 13.3, Hematocrit 40, Mean Corpuscular Volume 92, Mean Corpuscular Hemoglobin 31, Mean Corpuscular Hemoglobin Concent 34, Red Cell Distribution Width 12.7, Platelet Count 214, Mean Platelet Volume 10.3, Immature Granulocyte % (Auto) 1, Neutrophils (%) (Auto) 66, Lymphocytes (%) (Auto) 15, Monocytes (%) (Auto) 12, Eosinophils (%) (Auto) 6, Basophils (%) (Auto) 1, Neutrophils # (Auto) 4.2, Lymphocytes # (Auto) 0.9, Monocytes # (Auto) 0.7, Eosinophils # (Auto) 0.4, Basophils # (Auto) 0.1, Immature Granulocyte # (Auto) 0.0, Sodium Level 134, Potassium Level 3.9, Chloride Level 102, Carbon Dioxide Level 22, Anion Gap 10, Blood Urea Nitrogen 15, Creatinine 0.84, Estimat Glomerular Filtration Rate 87, BUN/Creatinine Ratio 18, Glucose Level 85, Calcium Level 8.6, Corrected Calcium 9.2, Total Bilirubin 0.7, Aspartate Amino Transf (AST/SGOT) 21, Alanine Aminotransferase (ALT/SGPT) 6, Alkaline Phosphatase 54, Total Protein 5.6, Albumin 3.3 02/04/23 05:20: White Blood Count 6.8, Red Blood Count 4.23, Hemoglobin 13.1, Hematocrit 40, Mean Corpuscular Volume 93, Mean Corpuscular Hemoglobin 31, Mean Corpuscular H emoglobin Concent 33, Red Cell Distribution Width 13.0, Platelet Count 220, Mean Platelet Volume 10.0, Immature Granulocyte % (Auto) 0, Neutrophils (%) (Auto) 71, Lymphocytes (%) (Auto) 11, Monocytes (%) (Auto) 11, Eosinophils (%) (Auto) 5, Basophils (%) (Auto) 1, Neutrophils # (Auto) 4.9, Lymphocytes # (Auto) 0.8, Monocytes # (Auto) 0.8, Eosinophils # (Auto) 0.3, Basophils # (Auto) 0.1, Immature Granulocyte # (Auto) 0.0, Sodium Level 138, Potassium Level 4.6, Chloride Level 108, Carbon Dioxide Level 23, Anion Gap 7, Blood Urea Nitrogen 18, Creatinine 0.92, Estimat Glomerular Filtration Rate 83, BUN/Creatinine Ratio 20, Glucose Level 103, Calcium Level 8.6, Corrected Calcium 9.2, Total Bilirubin 0.5, Aspartate Amino Transf (AST/SGOT) 20, Alanine Aminotransferase (ALT/SGPT) 7, Alkaline Phosphatase 54, Total Protein 5.5, Albumin 3.3 02/04/23 12:55: Vancomycin Level Trough 7.4 02/05/23 05:10: White Blood Count 6.8, Red Blood Count 4.27, Hemoglobin 13.2, Hematocrit 40, M uri Corpuscular Volume 93, Mean Corpuscular Hemoglobin 31, Mean Corpuscular Hemoglobin Concent 33, Red Cell Distribution Width 12.8, Platelet Count 237, Mean Platelet Volume 10.3, Immature Granulocyte % (Auto) 0, Neutrophils (%) (Auto) 65, Lymphocytes (%) (Auto) 16, Monocytes (%) (Auto) 12, Eosinophils (%) (Auto) 6, Basophils (%) (Auto) 1, Neutrophils # (Auto) 4.4, Lymphocytes # (Auto) 1.1, Monocytes # (Auto) 0.8, Eosinophils # (Auto) 0.4, Basophils # (Auto) 0.1, Immature Granulocyte # (Auto) 0.0, Sodium Level 138, Potassium Level 4.5, Chloride Level 106, Carbon Dioxide Level 23, Anion Gap 9, Blood Urea Nitrogen 16, Creatinine 0.79, Estimat Glomerular Filtration Rate 89, BUN/Creatinine Ratio 20, Glucose Level 104, Calcium Level 8.8, Corrected Calcium 9.3, Total Bilirubin 0.6, Aspartate Amino Transf (AST/SGOT) 19, Alanine Aminotransferase (ALT/SGPT) < 6, Alkaline Phosphatase 56, Total Protein 5.6, Albumin 3.4 02/05/23 12:50: Vancomycin Level Trough 7.8 02/06/23 05:23: White Blood Count 6.1, Red Blood Count 4.16, Hemoglobin 13.0, Hematocrit 39, Mean Corpuscular Volume 94, Mean Corpuscular Hemoglobin 31, Mean Corpuscular Hemoglobin Concent 33, Red Cell Distribution Width 13.0, Platelet Count 216, Mean Platelet Volume 10.0, Immature Granulocyte % (Auto) 0, Neutrophils (%) (Auto) 63, Lymphocytes (%) (Auto) 19, Monocytes (%) (Auto) 12, Eosinophils (%) (Auto) 5, Basophils (%) (Auto) 1, Neutrophils # (Auto) 3.8, Lymphocytes # (Auto) 1.2, Monocytes # (Auto) 0.7, Eosinophils # (Auto) 0.3, Basophils # (Auto) 0.1, Immature Granulocyte # (Auto) 0.0, Sodium Level 139, Potassium Level 4.5, Chloride Level 106, Carbon Dioxide Level 24, Anion Gap 9, Blood Urea Nitrogen 20, Creatinine 0.78, Estimat Glomerular Filtration Rate 89, BUN/Creatinine Ratio 26, Glucose Level 99, Calcium Level 8.8, Corrected Calcium 9.3, Total Bilirubin 0.5, Aspartate Amino Transf (AST/SGOT) 16, Alanine Aminotransferase (ALT/SGPT) 11, Alkaline Phosphatase 53, Total Protein 5.6, Albumin 3.4 02/07/23 06:06: White Blood Count 6.5, Red Blood Count 4.28, Hemoglobin 13.3, Hematocrit 40, Mean Corpuscular Volume 93, Mean Corpuscular Hemoglobin 31, Mean Corpuscular Hemoglobin Concent 33, Red Cell Distribution Width 12.9, Platelet Count 232, Mean Platelet Volume 9.6, Immature Granulocyte % (Auto) 0, Neutrophils (%) (Auto) 63, Lymphocytes (%) (Auto) 18, Monocytes (%) (Auto) 12, Eosinophils (%) (Auto) 6, Basophils (%) (Auto) 1, Neutrophils # (Auto) 4.1, Lymphocytes # (Auto) 1.2, Monocytes # (Auto) 0.8, Eosinophils # (Auto) 0.4, Basophils # (Auto) 0.1, Immature Granulocyte # (Auto) 0.0, Sodium Level 139, Potassium Level 4.7, Chloride Level 106, Carbon Dioxide Level 25, Anion Gap 8, Blood Urea Nitrogen 16, Creatinine 0.80, Estimat Glomerular Filtration Rate 88, BUN/Creatinine Ratio 20, Glucose Level 94, Calcium Level 9.0, Corrected Calcium 9.6, Total Bilirubin 0.5, Aspartate Amino Transf (AST/SGOT) 21, Alanine Aminotransferase (ALT/SGPT) 11, Alkaline Phosphatase 49, Total Protein 5.5, Albumin 3.3 Discharge Home Medications: Active Scripts Active Oxyir Tablet (Oxycodone HCl) 5 Mg Tab 5 Mg PO Q4H PRN Reported [Galantamine Er] 24 Cap 24 Mg PO DAILY [Probiotic Sleep Sprt] 1 Ea PO HS Aspirin EC (Aspirin) 81 Mg Tablet.dr 81 Mg PO HS Escitalopram Oxalate 20 Mg Tablet 20 Mg PO DAILY Loperamide (Loperamide HCl) 2 Mg Capsule 2 Mg PO DAILY Magnesium Oxide 420 Mg Tablet 420 Mg PO BID Amphetamine Salts 20 mg Tablet (Dextroamphetamine/Amphetamine) 20 Mg Tablet 20 Mg PO 0800,1200 Potassium Chloride 20 Meq Tab.er.prt 20 Meq PO BID Nuplazid (Pimavanserin Tartrate) 34 Mg Capsule 34 Mg PO DAILY Tadalafil 5 Mg Tablet 5 Mg PO DAILY Carbidopa-Levodopa 25-100 Tab (Carbidopa/Levodopa) 25 Mg-100 Mg Tablet 1.5 Ea PO TID Pantoprazole Sodium 40 Mg Tablet.dr 40 Mg PO DAILY Lisinopril 20 Mg Tablet 20 Mg PO DAILY Bupropion Xl (Bupropion HCl) 300 Mg Tab.er.24h 300 Mg PO DAILY Vitamin D3 (Cholecalciferol (Vitamin D3)) 125 Mcg (5000 Unit) Tablet 125 Mcg PO HS Gabapentin 400 Mg Capsule 400 Mg PO BID Simvastatin 20 Mg Tablet 20 Mg PO HS Flonase Allergy Relief (Fluticasone Propionate) 9.9 Ml [place].susp 2 Sprays NSEACH DAILY Amlodipine Besylate 10 Mg Tablet 10 Mg PO DAILY Hydrochlorothiazide 25 Mg Tablet 25 Mg PO DAILY Propranolol HCl 80 Mg Tablet 80 Mg PO DAILY Instructions to patient/family Please see electronic discharge instructions given to patient. ANSHU LEMUS DO Feb 07, 2023 10:42
[2023-02-07 12:20] VITALS: BP 157/78
== END 2023-02-07 12:20 | disposition home health service (06) | DRG 871 ==
LOC: EDUNIT# 08:36 → ER 08:38 → 4TH 12:45
PROVIDERS: ADMIT Internal Medicine; ATTEND Internal Medicine
DX: A41.9 Sepsis, unspecified organism (principal); G93.41 Metabolic encephalopathy; L03.113 Cellulitis of right upper limb; S22.41XA Multiple fractures of ribs, right side, initial encounter for closed fracture; G20.A1 Parkinson's disease without dyskinesia, without mention of fluctuations; M48.061 Spinal stenosis, lumbar region without neurogenic claudication; I10 Essential (primary) hypertension; E78.00 Pure hypercholesterolemia, unspecified; N40.0 Benign prostatic hyperplasia without lower urinary tract symptoms; K21.9 Gastro-esophageal reflux disease without esophagitis; M19.90 Unspecified osteoarthritis, unspecified site; F41.9 Anxiety disorder, unspecified; F43.10 Post-traumatic stress disorder, unspecified; Z79.82 Long term (current) use of aspirin; Z79.899 Other long term (current) drug therapy; Z87.891 Personal history of nicotine dependence; W18.30XA Fall on same level, unspecified, initial encounter; Z66 Do not resuscitate
CPT/HCPCS: 36415; 70450; 71260; 72125; 72128; 72131; 74177; 80053; 80202; 81000; 83605; 85007; 85025; 85027; 85610; 85730; 86141; 87040; 90662; 90715; 94640; 94760